=== PATIENT | female | born 1970 | race Two or more races ===

== ENCOUNTER → 2016-12-10 | Outpatient (CLI) | payer MEDICARE ==
[2016-12-10 09:57] LABS: MEAN CORPUSCULAR HEMOGLOBIN 27.2 pg (27.0-33.0); MEAN CORPUSCULAR HGB CONC 33.2 g/dl (32.0-36.5); WHITE BLOOD COUNT 9.8 K/mm3 (4.0-10.0)
[2016-12-10 10:39] LABS: ALBUMIN 3.7 GM/DL (3.2-5.2); ALKALINE PHOSPHATASE 102 U/L (45-117); ALT/SGPT 22 U/L (12-78); ANION GAP 8 MEQ/L (8-16); AST/SGOT 13 U/L (15-37); BILIRUBIN,TOTAL 0.2 MG/DL (0.2-1.0); BLOOD UREA NITROGEN 18 MG/DL (7-18); CALCIUM LEVEL 9.2 MG/DL (8.5-10.1); CARBON DIOXIDE LEVEL 26 MEQ/L (21-32); CHLORIDE LEVEL 105 MEQ/L (98-107); CHOLESTEROL LEVEL 151 MG/DL (<200); GLOMERULAR FILTRATION RATE > 60.0 (>58); GLUCOSE, FASTING 111 MG/DL (70-105); SODIUM LEVEL 139 MEQ/L (136-145); TOTAL PROTEIN 7.4 GM/DL (6.4-8.2); TRIGLYCERIDES LEVEL 240 MG/DL (<150)
== END ==
LOC: M LAB 08:47
PROVIDERS: ATTEND Nurse Practitioner Adult Health
DX: Z00.00 Encounter for general adult medical examination without abnormal findings (principal); E78.2 Mixed hyperlipidemia; E11.9 Type 2 diabetes mellitus without complications

== ENCOUNTER → 2017-04-14 | Outpatient (REF) | payer MEDICARE, MEDICAID ==
[2017-04-14 12:22] LABS: ALBUMIN 3.8 GM/DL (3.2-5.2); ALBUMIN/GLOBULIN RATIO 1.09 (1.00-1.93); ALKALINE PHOSPHATASE 92 U/L (45-117); ALT/SGPT 19 U/L (12-78); ANION GAP 6 MEQ/L (8-16); AST/SGOT 17 U/L (7-37); BILIRUBIN,TOTAL 0.2 MG/DL (0.2-1.0); BLOOD UREA NITROGEN 12 MG/DL (7-18); CALCIUM LEVEL 8.8 MG/DL (8.5-10.1); CARBON DIOXIDE LEVEL 28 MEQ/L (21-32); CHLORIDE LEVEL 106 MEQ/L (98-107); CREATININE FOR GFR 0.72 MG/DL (0.55-1.02); GLOMERULAR FILTRATION RATE > 60.0 (>58); GLUCOSE, FASTING 92 MG/DL (70-105); POTASSIUM SERUM 4.6 MEQ/L (3.5-5.1); SODIUM LEVEL 140 MEQ/L (136-145); TOTAL PROTEIN 7.3 GM/DL (6.4-8.2)
== END ==
LOC: M SFHCPLAZ 08:01
PROVIDERS: ATTEND Nurse Practitioner Adult Health
DX: E11.9 Type 2 diabetes mellitus without complications (principal); E55.9 Vitamin D deficiency, unspecified

== ENCOUNTER → 2017-07-20 | Outpatient (REF) | payer MEDICARE, MEDICAID ==
[2017-07-20 13:17] LABS: HEMATOCRIT 40.3 % (36.0-47.0); HEMOGLOBIN 12.9 g/dl (12.0-16.0); MEAN CORPUSCULAR HEMOGLOBIN 26.3 pg (27.0-33.0); MEAN CORPUSCULAR VOLUME 82.1 fl (80.0-96.0); PLATELET COUNT, AUTOMATED 520 10^3/uL (150-450); RED BLOOD COUNT 4.91 10^6/uL (4.00-5.40); RED CELL DISTRIBUTION WIDTH 13.8 % (11.5-14.5)
[2017-07-20 13:49] LABS: ALBUMIN/GLOBULIN RATIO 1.08 (1.00-1.93); ALKALINE PHOSPHATASE 116 U/L (45-117); ALT/SGPT 22 U/L (12-78); ANION GAP 8 MEQ/L (8-16); AST/SGOT 18 U/L (7-37); BILIRUBIN,TOTAL 0.2 MG/DL (0.2-1.0); BLOOD UREA NITROGEN 9 MG/DL (7-18); CALCIUM LEVEL 9.4 MG/DL (8.5-10.1); CARBON DIOXIDE LEVEL 27 MEQ/L (21-32); CHLORIDE LEVEL 104 MEQ/L (98-107); CHOLESTEROL LEVEL 145 MG/DL (<200); CHOLESTEROL RISK RATIO 2.959 (<5); GLOMERULAR FILTRATION RATE > 60.0 (>58); GLUCOSE, FASTING 98 MG/DL (70-100); HDL CHOLESTEROL 49 MG/DL (>40); IRON (FE) 56 UG/DL (50-170); LDL CHOLESTEROL 63.8 MG/DL (<100); NON-HDL-C 96 MG/DL; POTASSIUM SERUM 4.8 MEQ/L (3.5-5.1); SODIUM LEVEL 139 MEQ/L (136-145); TOTAL 25(OH) VITAMIN D 34.6 NG/ML (30.0-100.0); TOTAL IRON BINDING CAPACITY 374 UG/DL (250-450); TOTAL PROTEIN 7.7 GM/DL (6.4-8.2); TRIGLYCERIDES LEVEL 161 MG/DL (<150)
[2017-07-20 13:50] LABS: VITAMIN B12 LEVEL 288 PG/ML (247-911)
[2017-07-20 13:51] LABS: ESTIMATED AVERAGE GLUCOSE 157 MG/DL (60-110); HEMOGLOBIN A1c 7.1 %
== END ==
LOC: M SFHCPLAZ 11:14
DX: I10 Essential (primary) hypertension (principal); E11.9 Type 2 diabetes mellitus without complications; E55.9 Vitamin D deficiency, unspecified; E78.2 Mixed hyperlipidemia; Z98.890 Other specified postprocedural states
CPT/HCPCS: 83550

== ENCOUNTER 2017-08-06 12:30 | Inpatient (IN) | payer MEDICARE, MEDICAID ==
[2017-08-06 13:07] LABS: HEMOGLOBIN 12.4 g/dl (12.0-15.5); MEAN CORPUSCULAR HEMOGLOBIN 26.4 pg (27.0-33.0); MEAN CORPUSCULAR HGB CONC 31.8 g/dl (32.0-36.5); PLATELET COUNT, AUTOMATED 445 10^3/uL (150-450); RED CELL DISTRIBUTION WIDTH 14.3 % (11.5-14.5); WHITE BLOOD COUNT 14.3 10^3/uL (4.0-10.0)
[2017-08-06 13:24] LABS: AMPHETAMINES LEVEL URINE NEGATIVE (NEGATIVE); BARBITURATES URINE NEGATIVE (NEGATIVE); BENZODIAZEPINES URINE NEGATIVE (NEGATIVE); CANNABINOIDS URINE NEGATIVE (NEGATIVE); COCAINE METABOLITE URINE NEGATIVE (NEGATIVE); METHADONE URINE NEGATIVE (NEGATIVE); OPIATES URINE NEGATIVE (NEGATIVE); PHENCYCLIDINE URINE NEGATIVE (NEGATIVE)
[2017-08-06 13:31] LABS: CONTROL LINE HCG INT CTR LINE PRESENT; HCG, SERUM QUALITATIVE NEGATIVE (NEGATIVE)
[2017-08-06 13:48] LABS: ALBUMIN 3.9 GM/DL (3.2-5.2); ALKALINE PHOSPHATASE 101 U/L (45-117); ALT/SGPT 21 U/L (12-78); ANION GAP 6 MEQ/L (8-16); AST/SGOT 18 U/L (7-37); BILIRUBIN,DIRECT < 0.1 MG/DL (0.0-0.2); BILIRUBIN,TOTAL 0.3 MG/DL (0.2-1.0); BLOOD UREA NITROGEN 10 MG/DL (7-18); CALCIUM LEVEL 9.1 MG/DL (8.5-10.1); CARBON DIOXIDE LEVEL 28 MEQ/L (21-32); CHLORIDE LEVEL 104 MEQ/L (98-107); CREATININE FOR GFR 0.81 MG/DL (0.55-1.30); ETHYL ALCOHOL (ETHANOL) < 0.003 % (0.000-0.010); GLOMERULAR FILTRATION RATE > 60.0 (>58); GLUCOSE, FASTING 100 MG/DL (70-100); SALICYLATE LEVEL 1.8 MG/DL (5.0-30.0); SODIUM LEVEL 138 MEQ/L (136-145); THYROID STIMULATING HORMONE 0.892 uIU/ML (0.358-3.740); TOTAL PROTEIN 7.8 GM/DL (6.4-8.2)
[2017-08-06 14:18] LABS: ACETAMINOPHEN LEVEL < 2.0 UG/ML (10.0-30.0)
[2017-08-06] MEDS ORDERED: MAALOX 30 ML SUSP *UDC PO (16:00)
[2017-08-06] MEDS ORDERED: traZODone 50 MG TAB PO (16:00)
[2017-08-06] MEDS ORDERED: MOM 30ML SUSPENSION UDC PO (16:00)
[2017-08-06] MEDS: GABAPENTIN 300 MG CAP PO (21:15)
[2017-08-06] MEDS: SIMVASTATIN 20 MG TAB PO (21:15)
[2017-08-06] MEDS: FLUoxetine 20 MG CAP PO (21:15)
[2017-08-06] MEDS: metFORMIN (GLUCOPHAGE) 500 MG TAB PO (21:16)
[2017-08-06] MEDS: ACETAMINOPHEN TAB 650MG DOSE (2X325MG) PO (21:23)
[2017-08-07] MEDS: ASPIRIN 81 MG ENTERIC TAB PO (08:55)
[2017-08-07] MEDS: LISINOPRIL 5 MG TAB PO (08:55)
[2017-08-07] MEDS: metFORMIN (GLUCOPHAGE) 500 MG TAB PO ×2 (08:55→20:26)
[2017-08-07] MEDS: GABAPENTIN 300 MG CAP PO ×3 (08:56→20:25)
[2017-08-07] MEDS: FLUoxetine 20 MG CAP PO (08:56)
[2017-08-07] MEDS: ACETAMINOPHEN TAB 650MG DOSE (2X325MG) PO (08:57)
[2017-08-07] MEDS: busPIRone 10 MG TAB PO ×2 (15:38→20:26)
[2017-08-07] MEDS: DICLOFENAC EPOLAMINE 1.3 % PATCH TOP (17:04)
[2017-08-07 17:33] LABS: BEDSIDE GLUCOSE 86 MG/DL (70-105)
[2017-08-07] MEDS: SIMVASTATIN 20 MG TAB PO (20:25)
[2017-08-07] MEDS ORDERED: ALBUTEROL 90 MCG/ACT 8GM HFA INHALER INH (22:15)
[2017-08-08 06:35] LABS: BEDSIDE GLUCOSE 74 MG/DL (70-105)
[2017-08-08] MEDS: LISINOPRIL 5 MG TAB PO (08:40)
[2017-08-08] MEDS: GABAPENTIN 300 MG CAP PO ×3 (08:40→20:56)
[2017-08-08] MEDS: FLUoxetine 20 MG CAP PO (08:40)
[2017-08-08] MEDS: metFORMIN (GLUCOPHAGE) 500 MG TAB PO ×2 (08:40→17:05)
[2017-08-08] MEDS: busPIRone 10 MG TAB PO ×3 (08:40→20:56)
[2017-08-08] MEDS: ASPIRIN 81 MG ENTERIC TAB PO (08:40)
[2017-08-08] MEDS: DICLOFENAC EPOLAMINE 1.3 % PATCH TOP ×2 (08:41→17:05)
[2017-08-08 17:15] LABS: BEDSIDE GLUCOSE 120 MG/DL (70-105)
[2017-08-08] MEDS: SIMVASTATIN 20 MG TAB PO (20:56)
[2017-08-08] MEDS: ACETAMINOPHEN TAB 650MG DOSE (2X325MG) PO (22:44)
[2017-08-09] MEDS: DICLOFENAC EPOLAMINE 1.3 % PATCH TOP ×2 (06:00→18:22)
[2017-08-09 06:23] LABS: BEDSIDE GLUCOSE 85 MG/DL (70-105)
[2017-08-09] MEDS: GABAPENTIN 300 MG CAP PO ×3 (08:49→21:19)
[2017-08-09] MEDS: LISINOPRIL 5 MG TAB PO (08:49)
[2017-08-09] MEDS: FLUoxetine 20 MG CAP PO (08:49)
[2017-08-09] MEDS: busPIRone 10 MG TAB PO ×3 (08:50→21:19)
[2017-08-09] MEDS: metFORMIN (GLUCOPHAGE) 500 MG TAB PO ×2 (08:50→17:07)
[2017-08-09] MEDS: ASPIRIN 81 MG ENTERIC TAB PO (08:50)
[2017-08-09 17:17] LABS: BEDSIDE GLUCOSE 119 MG/DL (70-105)
[2017-08-09] MEDS: SIMVASTATIN 20 MG TAB PO (21:20)
[2017-08-10] MEDS: DICLOFENAC EPOLAMINE 1.3 % PATCH TOP ×3 (06:00→17:09)
[2017-08-10 06:54] LABS: BEDSIDE GLUCOSE 86 MG/DL (70-105)
[2017-08-10] MEDS: ASPIRIN 81 MG ENTERIC TAB PO (08:07)
[2017-08-10] MEDS: GABAPENTIN 300 MG CAP PO ×3 (08:07→22:30)
[2017-08-10] MEDS: metFORMIN (GLUCOPHAGE) 500 MG TAB PO ×2 (08:07→17:09)
[2017-08-10] MEDS: FLUoxetine 20 MG CAP PO (08:07)
[2017-08-10] MEDS: busPIRone 10 MG TAB PO ×3 (08:07→22:30)
[2017-08-10] MEDS: LISINOPRIL 5 MG TAB PO (08:07)
[2017-08-10] MEDS: ACETAMINOPHEN TAB 650MG DOSE (2X325MG) PO ×2 (11:48→22:32)
[2017-08-10] MEDS ORDERED: LORazepam 1 MG TAB PO (16:00)
[2017-08-10 17:14] LABS: BEDSIDE GLUCOSE 107 MG/DL (70-105)
[2017-08-10] MEDS: SIMVASTATIN 20 MG TAB PO (22:30)
[2017-08-11] MEDS: DICLOFENAC EPOLAMINE 1.3 % PATCH TOP (06:00)
[2017-08-11 06:45] LABS: BEDSIDE GLUCOSE 84 MG/DL (70-105)
[2017-08-11] MEDS: busPIRone 10 MG TAB PO (08:33)
[2017-08-11] MEDS: metFORMIN (GLUCOPHAGE) 500 MG TAB PO (08:33)
[2017-08-11] MEDS: GABAPENTIN 300 MG CAP PO (08:33)
[2017-08-11] MEDS: FLUoxetine 20 MG CAP PO (08:33)
[2017-08-11] MEDS: ASPIRIN 81 MG ENTERIC TAB PO (08:33)
[2017-08-11] MEDS: LISINOPRIL 5 MG TAB PO (08:34)
== END 2017-08-11 13:00 | disposition home or self-care (01) | DRG 882 ==
LOC: M ED 12:30 → M ED INP 15:50 → M PSY 16:32
DX: F43.11 Post-traumatic stress disorder, acute (principal); F19.10 Other psychoactive substance abuse, uncomplicated; E11.9 Type 2 diabetes mellitus without complications; I10 Essential (primary) hypertension; E78.00 Pure hypercholesterolemia, unspecified; Z79.82 Long term (current) use of aspirin; Z79.84 Long term (current) use of oral hypoglycemic drugs; Z79.899 Other long term (current) drug therapy; Z91.048 Other nonmedicinal substance allergy status; Z88.5 Allergy status to narcotic agent; Z88.8 Allergy status to other drugs, medicaments and biological substances; Z91.012 Allergy to eggs; Z87.891 Personal history of nicotine dependence; Z90.710 Acquired absence of both cervix and uterus; Z98.84 Bariatric surgery status; Z98.51 Tubal ligation status

== ENCOUNTER → 2017-08-20 | Outpatient (CLI) | payer MEDICARE, MEDICAID ==
[2017-08-20 11:01] LABS: ANION GAP 8 MEQ/L (8-16); BLOOD UREA NITROGEN 10 MG/DL (7-18); CALCIUM LEVEL 9.6 MG/DL (8.5-10.1); CARBON DIOXIDE LEVEL 27 MEQ/L (21-32); CHLORIDE LEVEL 106 MEQ/L (98-107); CREATININE FOR GFR 0.79 MG/DL (0.55-1.30); GLOMERULAR FILTRATION RATE > 60.0 (>58); GLUCOSE, FASTING 82 MG/DL (70-100); POTASSIUM SERUM 4.6 MEQ/L (3.5-5.1); SODIUM LEVEL 141 MEQ/L (136-145)
== END ==
LOC: M LAB 09:35
DX: M75.41 Impingement syndrome of right shoulder (principal)
CPT/HCPCS: 93005

== ENCOUNTER → 2017-12-07 | Outpatient (CLI) | payer MEDICARE, MEDICAID ==
[2017-12-07 17:31] LABS: ANION GAP 9 MEQ/L (8-16); BLOOD UREA NITROGEN 10 MG/DL (7-18); CALCIUM LEVEL 8.7 MG/DL (8.5-10.1); CARBON DIOXIDE LEVEL 24 MEQ/L (21-32); CHLORIDE LEVEL 109 MEQ/L (98-107); CREATININE FOR GFR 0.79 MG/DL (0.55-1.30); GLOMERULAR FILTRATION RATE > 60.0 (>58); GLUCOSE, FASTING 109 MG/DL (70-100); POTASSIUM SERUM 4.1 MEQ/L (3.5-5.1); SODIUM LEVEL 142 MEQ/L (136-145)
== END ==
LOC: M LAB 16:10
DX: Z01.812 Encounter for preprocedural laboratory examination (principal)
CPT/HCPCS: 80048

== ENCOUNTER → 2018-02-08 | Outpatient (CLI) | payer MEDICARE, MEDICAID ==
[2018-02-08 16:31] LABS: HEMATOCRIT 37.6 % (36.0-47.0); MEAN CORPUSCULAR HEMOGLOBIN 27.1 pg (27.0-33.0); MEAN CORPUSCULAR HGB CONC 31.9 g/dl (32.0-36.5); MEAN CORPUSCULAR VOLUME 85.1 fl (80.0-96.0); PLATELET COUNT, AUTOMATED 478 10^3/uL (150-450); RED BLOOD COUNT 4.42 10^6/uL (4.00-5.40); RED CELL DISTRIBUTION WIDTH 14.2 % (11.5-14.5); WHITE BLOOD COUNT 11.9 10^3/uL (4.0-10.0)
[2018-02-08 17:06] LABS: ALBUMIN 3.8 GM/DL (3.2-5.2); ALBUMIN/GLOBULIN RATIO 1.19 (1.00-1.93); ALKALINE PHOSPHATASE 104 U/L (45-117); ALT/SGPT 20 U/L (12-78); ANION GAP 7 MEQ/L (8-16); AST/SGOT 18 U/L (7-37); BILIRUBIN,TOTAL 0.2 MG/DL (0.2-1.0); BLOOD UREA NITROGEN 10 MG/DL (7-18); CALCIUM LEVEL 9.2 MG/DL (8.5-10.1); CARBON DIOXIDE LEVEL 28 MEQ/L (21-32); CHLORIDE LEVEL 104 MEQ/L (98-107); CHOLESTEROL LEVEL 138 MG/DL (<200); CHOLESTEROL RISK RATIO 2.936 (<5); FERRITIN 12 NG/ML (8-252); GLOMERULAR FILTRATION RATE > 60.0 (>58); GLUCOSE, FASTING 76 MG/DL (70-100); HDL CHOLESTEROL 47 MG/DL (>40); IRON (FE) 61 UG/DL (50-170); LDL CHOLESTEROL 46 MG/DL (<100); NON-HDL-C 91 MG/DL; PERCENT SATURATION 19.8 % (13.2-45.0); POTASSIUM SERUM 4.5 MEQ/L (3.5-5.1); SODIUM LEVEL 139 MEQ/L (136-145); TOTAL IRON BINDING CAPACITY 308 UG/DL (250-450); TRIGLYCERIDES LEVEL 224 MG/DL (<150)
[2018-02-08 17:13] LABS: CREATININE, URINE 51.7 MG/DL
[2018-02-08 17:18] LABS: ESTIMATED AVERAGE GLUCOSE 140 MG/DL (60-110); HEMOGLOBIN A1c 6.5 %; MAU/CREAT RATIO 42.6 MCG/MG (0.0-30.0)
== END ==
LOC: M LAB 15:41
DX: Z00.00 Encounter for general adult medical examination without abnormal findings (principal); Z98.890 Other specified postprocedural states; E11.9 Type 2 diabetes mellitus without complications
CPT/HCPCS: 83550

== ENCOUNTER → 2018-02-09 | Outpatient (REF) | payer MEDICARE, MEDICAID ==
[2018-02-09 16:34] LABS: APPEARANCE, URINE CLOUDY (CLEAR); BACTERIA, URINE AUTO 1+ (NEGATIVE); BILIRUBIN, URINE AUTO NEGATIVE (NEGATIVE); BLOOD, URINE BLOOD 1+ (NEGATIVE); COLOR, URINE YELLOW (YELLOW); GLUCOSE, URINE (UA) AUTO NEGATIVE (NEGATIVE); KETONE, URINE AUTO NEGATIVE (NEGATIVE); LEUKOCYTE ESTERASE, URINE AUTO 3+ (NEGATIVE); MUCUS, URINE SMALL (NEGATIVE); NITRITE, URINE AUTO NEGATIVE (NEGATIVE); PROTEIN, URINE AUTO NEGATIVE (NEGATIVE); RBC, URINE AUTO 120 /HPF (0-3); SPECIFIC GRAVITY URINE AUTO 1.014 (1.002-1.035); SQUAMOUS EPITHELIAL CELL UR AU 10 /HPF (0-6); UROBILINOGEN, URINE AUTO 0.2 mg/dL (0.0-2.0); WBC, URINE AUTO TNTC /HPF (0-3); YEAST LIKE CELL URINE AUTO SMALL
== END ==
LOC: M SFHCPLAZ 15:46
DX: R30.0 Dysuria (principal); F43.10 Post-traumatic stress disorder, unspecified; F32.89 Other specified depressive episodes
CPT/HCPCS: 81001

== ENCOUNTER 2018-03-09 18:51 | Emergency (ER) | payer MEDICARE, MEDICAID ==
[2018-03-09] MEDS: NS 1,000 ML IV ×2 (19:28)
[2018-03-09] MEDS: ONDANSETRON 4MG/2ML VIAL (J2405) IV ×2 (19:28)
[2018-03-09] MEDS: MORPHINE 2 MG/ML 1ML SYRINGE (J2270) IV ×4 (19:30→20:05)
[2018-03-09 19:37] LABS: HEMATOCRIT 34.5 % (36.0-47.0); HEMOGLOBIN 11.2 g/dl (12.0-15.5); MEAN CORPUSCULAR HEMOGLOBIN 26.7 pg (27.0-33.0); MEAN CORPUSCULAR HGB CONC 32.5 g/dl (32.0-36.5); MEAN CORPUSCULAR VOLUME 82.1 fl (80.0-96.0); PLATELET COUNT, AUTOMATED 436 10^3/uL (150-450); RED CELL DISTRIBUTION WIDTH 14.2 % (11.5-14.5); WHITE BLOOD COUNT 13.7 10^3/uL (4.0-10.0)
[2018-03-09 19:42] LABS: ADD MANUAL DIFFER YES; DIFF SLIDE NUMBER 340; POSITIVE DIFF POS FLAG
[2018-03-09 19:54] LABS: ALBUMIN 3.5 GM/DL (3.2-5.2); ALBUMIN/GLOBULIN RATIO 1.06 (1.00-1.93); ALKALINE PHOSPHATASE 100 U/L (45-117); ALT/SGPT 22 U/L (12-78); ANION GAP 8 MEQ/L (8-16); AST/SGOT 16 U/L (7-37); BILIRUBIN,DIRECT < 0.1 MG/DL (0.0-0.2); BILIRUBIN,TOTAL 0.2 MG/DL (0.2-1.0); BLOOD UREA NITROGEN 9 MG/DL (7-18); CALCIUM LEVEL 8.7 MG/DL (8.5-10.1); CARBON DIOXIDE LEVEL 26 MEQ/L (21-32); CHLORIDE LEVEL 106 MEQ/L (98-107); CREATININE FOR GFR 0.74 MG/DL (0.55-1.30); GLOMERULAR FILTRATION RATE > 60.0 (>58); GLUCOSE, FASTING 95 MG/DL (70-100); LIPASE 286 U/L (73-393); SODIUM LEVEL 140 MEQ/L (136-145); TOTAL PROTEIN 6.8 GM/DL (6.4-8.2)
[2018-03-09 19:55] LABS: LACTIC ACID SEPSIS PROTOCOL 1.1 MMOL/L (0.4-2.0)
[2018-03-09 20:10] LABS: ATYPICAL LYMPH 10 % (0-5); EOSINOPHILS 2 % (0-5); LYMPHOCYTES 27 % (16-52); MONOCYTES 5 % (0-8); NEUTROPHILS 56 % (35-75); PLATELET ESTIMATE INCREASED (NORMAL)
[2018-03-09] MEDS ORDERED: GASTROGRAFIN SOLUTION 30ML (Q9963) As Ordered ×2 (21:09)
[2018-03-09] MEDS ORDERED: ISOVUE-370 76% 100ML VIAL (Q9967) As Ordered ×2 (23:07)
== END 2018-03-09 23:57 | disposition home or self-care (01) ==
LOC: M ED 23:57
DX: R10.11 Right upper quadrant pain (principal); K76.9 Liver disease, unspecified; E11.9 Type 2 diabetes mellitus without complications; F33.9 Major depressive disorder, recurrent, unspecified; F41.9 Anxiety disorder, unspecified; Z87.891 Personal history of nicotine dependence; Z83.3 Family history of diabetes mellitus; Z98.84 Bariatric surgery status; Z88.5 Allergy status to narcotic agent; Z88.8 Allergy status to other drugs, medicaments and biological substances; Z91.048 Other nonmedicinal substance allergy status; Z79.82 Long term (current) use of aspirin; Z79.899 Other long term (current) drug therapy
CPT/HCPCS: J2405

== ENCOUNTER 2018-03-14 12:00 | Emergency (ER) | payer MEDICARE, MEDICAID | END 2018-03-14 14:00 | disposition home or self-care (01) | LOC: M ED 12:00 | DX: R10.11 Right upper quadrant pain (principal); E11.9 Type 2 diabetes mellitus without complications; I10 Essential (primary) hypertension; E78.5 Hyperlipidemia, unspecified | CPT/HCPCS: 76705 ==

== ENCOUNTER 2018-04-15 09:20 | Day surgery (SDC) | payer MEDICARE, MEDICAID ==
[~2018-04-15] VITALS: Ht 165.1 cm; Wt 74.8 kg
[~2018-04-15 09:20] MED LIST: ALBU1.25 INH; ASPI1TAB15 PO; ASPI81CH32 PO; AZEL1SPR3 INH; BUSP10TA PO; DICL13PA TOP; FLUO40CA PO; HYDR-3363 PO; HYDR-643 PO; LISI-542 PO; METF-839 PO; METF10004 PO; MULT1TAB18 PO; NEUR300C PO; PROPOFOL 200 MG/20 ML VIAL As Ordered ONE; SIMV20TA2 PO; VENTAER INH
[2018-04-15] MEDS ORDERED: NS 1,000 ML IV ONE (09:30)
--- NOTE | 2018-04-15 11:26 | ROOR ---
Patient Name: Neyda Garrison Procedure Date: 04/15/2018 10:02 AM Date of : 1970 Age: 47 Room: [facility] Gender: Female Note Status: Finalized Procedure: Upper GI endoscopy Indications: Dyspepsia Providers: Arvind Kim MD Referring MD: Devi Jarrell NP Requesting Provider: Medicines: Monitored Anesthesia Care Complications: No immediate complications. Estimated blood loss: None. Procedure: Pre-Anesthesia Assessment: - Prior to the procedure, a History and Physical was performed, and patient medications and allergies were reviewed. The patient is competent. The risks and benefits of the procedure and the sedation options and risks were discussed with the patient. All questions were answered and informed consent was obtained. Patient identification and proposed procedure were verified by the physician, the nurse and the anesthesiologist in the procedure room. Mental Status Examination: alert and oriented. Airway Examination: normal oropharyngeal airway and neck mobility. Respiratory Examination: clear to auscultation. CV Examination: normal. Prophylactic Antibiotics: The patient does not require prophylactic antibiotics. Prior Anticoagulants: The patient has taken no previous anticoagulant or antiplatelet agents. ASA Grade Assessment: III - A patient with severe systemic disease. After reviewing the risks and benefits, the patient was deemed in satisfactory condition to undergo the procedure. The anesthesia plan was to use monitored anesthesia care (MAC). Immediately prior to administration of medications, the patient was re-assessed for adequacy to receive sedatives. The heart rate, respiratory rate, oxygen saturations, blood pressure, adequacy of pulmonary ventilation, and response to care were monitored throughout the procedure. The physical status of the patient was re-assessed after the procedure. The Endoscope was introduced through the mouth, and advanced to the second part of duodenum. The upper GI endoscopy was accomplished without difficulty. The patient tolerated the procedure well. Findings: The examined esophagus was normal. The Z-line was regular and was found in the distal esophagus. 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 A gastric pouch with a small size was found. The staple line appeared intact. The gastrojejunal anastomosis was characterized by erythema, inflammation and an intact staple line. This was traversed. The ulofzawl-gl-xtsuhlo limb was not examined as it could not be found. Biopsies were taken with a cold forceps for Helicobacter pylori testing. Verification of patient identification for the specimen was done by the physician and nurse using the patient's name, date and medical record number. Estimated blood loss was minimal. The examined jejunum was normal. Biopsies for histology were taken with a cold forceps for evaluation of celiac disease. Impression: - Normal esophagus. - Z-line regular, in the distal esophagus. - Gastric bypass with a small-sized pouch and intact staple line. Gastrojejunal anastomosis characterized by erythema, inflammation and an intact staple line. Biopsied. - Normal examined jejunum. Biopsied. Recommendation: - Patient has a contact number available for emergencies. The signs and symptoms of potential delayed complications were discussed with the patient. Return to normal activities tomorrow. Written discharge instructions were provided to the patient. - Low residue diet. - Continue present medications. 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 - Await pathology results. - Return to GI clinic in [facility] (address [address], [address], [place] [address]) in 4 -- 6 weeks. Please call GI clinic @ [phone] for apppointment date and time. - Return to primary care physician. Arvind Kim MD Arvind Kim MD 04/15/2018 11:26:01 AM This report has been signed electronically. Number of Addenda: 0 Note Initiated On: 04/15/2018 10:02 AM Estimated Blood Loss: Estimated blood loss was minimal.
[2018-04-15 11:35] VITALS: BP 107/78
--- NOTE | 2018-04-15 12:03 | ROOR ---
Patient Name: Neyda Garrison Procedure Date: 04/15/2018 10:31 AM Date of : 1970 Age: 47 Room: [facility] Gender: Female Note Status: Finalized Procedure: Colonoscopy Indications: Evaluation on imaging study of clinically significant abnormality, Abnormal CT of the GI tract Providers: Arvind Kim MD Referring MD: Devi Jarrell NP Requesting Provider: Medicines: Monitored Anesthesia Care Complications: No immediate complications. Procedure: Pre-Anesthesia Assessment: - Prior to the procedure, a History and Physical was performed, and patient medications and allergies were reviewed. The patient is competent. The risks and benefits of the procedure and the sedation options and risks were discussed with the patient. All questions were answered and informed consent was obtained. Patient identification and proposed procedure were verified by the physician, the nurse and the anesthesiologist in the procedure room. Mental Status Examination: alert and oriented. Airway Examination: normal oropharyngeal airway and neck mobility. Respiratory Examination: clear to auscultation. CV Examination: normal. Prophylactic Antibiotics: The patient does not require prophylactic antibiotics. Prior Anticoagulants: The patient has taken no previous anticoagulant or antiplatelet agents. ASA Grade Assessment: III - A patient with severe systemic disease. After reviewing the risks and benefits, the patient was deemed in satisfactory condition to undergo the procedure. The anesthesia plan was to use monitored anesthesia care (MAC). Immediately prior to administration of medications, the patient was re-assessed for adequacy to receive sedatives. The heart rate, respiratory rate, oxygen saturations, blood pressure, adequacy of pulmonary ventilation, and response to care were monitored throughout the procedure. The physical status of the patient was re-assessed after the procedure. The Colonoscope was introduced through the anus and advanced to the terminal ileum, with identification of the appendiceal orifice and IC valve. The colonoscopy was performed without difficulty. The patient tolerated the procedure well. The quality of the bowel preparation was good. The terminal ileum, ileocecal valve, appendiceal orifice, and rectum were photographed. Scope insertion time was 3 minutes. Scope withdrawal time was 9 minutes. The total duration of the procedure was 12 minutes. Findings: The perianal exam findings include mild rectal prolapse. The terminal ileum appeared normal. A moderate amount of semi-liquid stool was found from rectum to descending colon, making visualization difficult. Lavage of the area was performed using a large amount of sterile water, resulting in clearance with good visualization. Non-bleeding external and internal hemorrhoids were found during retroflexion. The hemorrhoids were medium-sized. Impression: - Mild rectal prolapse. found on perianal exam. - The examined portion of the ileum was normal. - Stool from rectum to descending colon. - Non-bleeding external and internal hemorrhoids. - No specimens collected. Recommendation: - Patient has a contact number available for emergencies. The signs and symptoms of potential delayed complications were discussed with the patient. Return to normal activities tomorrow. Written discharge instructions were provided to the patient. - Resume previous diet. - Continue present medications. - Repeat colonoscopy in 5-10 years for screening purposes. - Return to GI clinic in [facility] (address [address], [address] [address]) in 4 -- 6 weeks. Please call GI clinic @ [phone] for apppointment date and time. - Return to primary care physician. Arvind Kim MD Arvind Kim MD 04/15/2018 12:02:55 PM This report has been signed electronically. Number of Addenda: 0 Note Initiated On: 04/15/2018 10:31 AM Estimated Blood Loss: Estimated blood loss was minimal.
== END 2018-04-15 11:45 | disposition home or self-care (01) ==
LOC: M OPP 09:20
PROVIDERS: ATTEND Internal Medicine Gastroenterology
DX: R93.3 Abnormal findings on diagnostic imaging of other parts of digestive tract (principal); K64.8 Other hemorrhoids; R10.13 Epigastric pain; Z98.84 Bariatric surgery status; E11.9 Type 2 diabetes mellitus without complications; Z79.4 Long term (current) use of insulin; Z79.82 Long term (current) use of aspirin; Z79.899 Other long term (current) drug therapy; Z88.8 Allergy status to other drugs, medicaments and biological substances; Z91.048 Other nonmedicinal substance allergy status; Z88.5 Allergy status to narcotic agent; Z80.1 Family history of malignant neoplasm of trachea, bronchus and lung; Z80.0 Family history of malignant neoplasm of digestive organs

== ENCOUNTER → 2018-05-30 | Outpatient (CLI) | payer MEDICARE, MEDICAID ==
[~2018-05-30] MED LIST changes: -PROPOFOL 200 MG/20 ML VIAL As Ordered ONE
--- NOTE | 2018-05-30 12:37 | REP ---
MR LUMBAR SPINE WITHOUT CONTRAST: HISTORY: Back pain. Slight decreased signal intensity on T2-weighted images is present in the L4-5 and L5-S1 intervertebral discs. This represents disc degeneration. There is no disc bulge or herniation at the L1-2 through L3-4 and L5-S1 levels. The nerves exit the neural foramina without compression A diffuse disc bulge is present at the L4-5 level. There is minimal compression of the thecal sac. There is hypertrophy of the posterior articulating facets. The L4 nerves exit the neural foramina without compression. The conus medullaris is normal in appearance terminating at the level of the L1-2 intervertebral disc. Normal signal intensity is present in the lumbar vertebral bodies. IMPRESSION: 1. Diffuse disc bulge at the L4-5 level with minimal thecal sac compression. Electronically Signed by Tanner Bazzi MD 05/30/2018 12:40 P
== END ==
LOC: M RAD 10:34
PROVIDERS: ATTEND Physician Assistant
DX: M54.5 Low back pain (principal)

== ENCOUNTER → 2018-06-27 | Outpatient (REF) | payer MEDICARE, MEDICAID ==
[2018-06-27 14:03] LABS: ALBUMIN 3.7 GM/DL (3.2-5.2); ALT/SGPT 28 U/L (12-78); BILIRUBIN,TOTAL 0.3 MG/DL (0.2-1.0); BLOOD UREA NITROGEN 16 MG/DL (7-18); CALCIUM LEVEL 8.9 MG/DL (8.5-10.1); CARBON DIOXIDE LEVEL 27 MEQ/L (21-32); CHLORIDE LEVEL 106 MEQ/L (98-107); CREATININE FOR GFR 0.78 MG/DL (0.55-1.30); GLOMERULAR FILTRATION RATE > 60.0 (>58); GLUCOSE, FASTING 74 MG/DL (70-100); POTASSIUM SERUM 4.4 MEQ/L (3.5-5.1); SODIUM LEVEL 139 MEQ/L (136-145); TOTAL PROTEIN 7.1 GM/DL (6.4-8.2)
[2018-06-27 14:53] LABS: HEMOGLOBIN A1c 6.3 %
== END ==
LOC: M SFHCPLAZ 10:55
PROVIDERS: ATTEND Nurse Practitioner Adult Health
DX: E11.9 Type 2 diabetes mellitus without complications (principal)
CPT/HCPCS: 80053; 83036; G0463

== ENCOUNTER → 2018-08-01 | Outpatient (REF) | payer MEDICARE, MEDICAID ==
[~2018-08-01] MED LIST changes: -ASPI81CH32 PO; +ASPI81CH33 PO; +D-101000 PO; +IRON27TA2 PO
[2018-08-01 14:49] LABS: FREE T4 0.95 NG/DL (0.76-1.46); RHEUMATOID FACTOR QUANT < 10.0 IU/ML (<15.0); TOTAL PROTEIN 6.8 GM/DL (6.4-8.2)
[2018-08-01 14:50] LABS: VITAMIN B12 LEVEL 865 PG/ML
[2018-08-01 14:51] LABS: FOLATE 20.4 NG/ML
[2018-08-01 15:09] LABS: HEMOGLOBIN A1c 6.5 %
[2018-08-02 09:33] LABS: DRVV SCREEN 36.1 SEC
[2018-08-02 09:51] LABS: PTT LUPUS TYPE ANTICOAG SCREEN 0.9 (0-1.2)
[2018-08-02 11:40] LABS: ALBUMIN 3.82 GM/DL (3.29-5.55); ALBUMIN % 56.2 % (55.8-66.1); ALPHA-1-GLOBULIN % 4.6 % (2.9-4.9); ALPHA-1-GLOBULINS 0.31 GM/DL (0.17-0.41); ALPHA-2-GLOBULINS 0.85 GM/DL (0.42-0.99); ALPHA-2-GLOBULINS % 12.5 % (7.1-11.8); BETA-1-GLOBULINS 0.44 GM/DL (0.28-0.60); BETA-1-GLOBULINS % 6.4 % (4.7-7.2); BETA-2-GLOBULINS 0.41 GM/DL (0.19-0.55); GAMMA GLOBULIN % 14.3 % (11.1-18.8); GAMMA GLOBULINS 0.97 GM/DL (0.65-1.58)
[2018-08-02 15:30] LABS: ANTINUCLEAR ANTIBODIES DIRECT Negative (Negative)
[2018-08-04 10:13] LABS: VITAMIN E(ALPHA TOCOPHEROL) 9.7 mg/L (7.0-25.1); VITAMIN E(GAMMA TOCOPHEROL) 1.1 mg/L (0.5-5.5)
[2018-08-05 14:12] LABS: VITAMIN B1 LEVEL WHOLE BLOOD 164.5 nmol/L (66.5-200.0); VITAMIN B6,PYRIDOXAL PHOSPHATE 9.9 ug/L (2.0-32.8)
== END ==
LOC: M LABNEURO 13:13
PROVIDERS: ATTEND Psychiatry & Neurology Neurology
DX: M54.5 Low back pain (principal); G62.9 Polyneuropathy, unspecified; E07.9 Disorder of thyroid, unspecified

== ENCOUNTER 2018-08-25 05:34 | Day surgery (SDC) | payer MEDICARE, MEDICAID ==
[~2018-08-25] VITALS: Ht 165.1 cm; Wt 76.7 kg
[2018-08-25] MEDS ORDERED: LIDOCAINE 1% MDV 20ML VIAL ONE (05:35)
[2018-08-25] MEDS ORDERED: LR 1,000 ML IV ONE (06:00)
[2018-08-25] MEDS ORDERED: BUPIVACAINE HCL 0.25% 30 ML VIAL As Ordered ONE (06:33)
[2018-08-25] MEDS ORDERED: fentaNYL 100 MCG/2 ML INJECTION (J3010) As Ordered ONE ×2 (06:33→08:04)
[2018-08-25] MEDS ORDERED: MIDAZOLAM INJ 2 MG/2 ML VIAL (J2250) As Ordered ONE ×2 (06:33→08:04)
[2018-08-25] MEDS ORDERED: LIDOCAINE W/EPINEPHRINE 1% 20ML VIAL As Ordered ONE (06:55)
[2018-08-25] MEDS ORDERED: EPINEPHrine 1MG/ML INJ 30ML MD-VIAL As Ordered ONE (06:55)
[2018-08-25] MEDS ORDERED: MULTCAP PO (06:57)
[2018-08-25] MEDS ORDERED: MIDAZOLAM INJ 2 MG/2 ML VIAL (J2250) IV ONE (07:45)
[2018-08-25] MEDS ORDERED: fentaNYL 100 MCG/2 ML INJECTION (J3010) IV ONE (07:45)
[2018-08-25] MEDS ORDERED: ROCURONIUM BROMIDE 50 MG/5 ML VIAL As Ordered ONE (08:04)
[2018-08-25] MEDS ORDERED: LIDOCAINE 2% INJ 100 MG/5 ML SDV (FOR ANES.) As Ordered ONE (08:04)
[2018-08-25] MEDS ORDERED: PROPOFOL 200 MG/20 ML VIAL As Ordered ONE (08:04)
[2018-08-25] MEDS ORDERED: ONDANSETRON 4MG/2ML VIAL (J2405) As Ordered ONE (08:04)
[2018-08-25] MEDS ORDERED: dexameTHASONE 4 MG/ML 1ML VIAL (J1100) As Ordered ONE (08:04)
[2018-08-25] MEDS ORDERED: NEOSTIGMINE 10 MG/10 ML VIAL (J2710) As Ordered ONE (08:51)
[2018-08-25] MEDS ORDERED: GLYCOPYRROLATE INJ 0.2 MG/ML 2 ML VIAL As Ordered ONE (08:51)
[2018-08-25] MEDS ORDERED: fentaNYL 100 MCG/2 ML INJECTION (J3010) IV PRN (10:15)
[2018-08-25] MEDS ORDERED: HYDROMORPHONE HCL 0.5 MG/ 0.5 ML SYRINGE (J1170 PER 1) IV PRN (10:15)
[2018-08-25] MEDS ORDERED: LR 1,000 ML IV SCH (10:15)
[2018-08-25] MEDS ORDERED: NORCO, ANEXSIA 5/325MG TABLET (HYDROcodone/ACETAMINOPHEN) PO PRN (10:15)
[2018-08-25 12:10] VITALS: BP 138/81
--- NOTE | 2018-08-25 16:02 | RO ---
DATE OF PROCEDURE: 08/25/2018 PREOPERATIVE DIAGNOSIS Right shoulder anterior instability. POSTOPERATIVE DIAGNOSIS 1. 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 OPERATIVE PROCEDURE 1. Right shoulder arthroscopic anterior labral repair. 2. Right shoulder chondroplasty of the glenoid. SURGEON: Parminder Snow MD MANAGER QUALITY: JASMIN Marques ANESTHESIA: General, preoperative nerve block. IV FLUIDS: Lactated Ringer's ESTIMATED BLOOD LOSS: Less than 5 mL. IMPLANTS: Arthrex 300 knotless suture tack times one and 2.9 mm PushLock with labral tape times two. CLOSURE: Nylon. DESCRIPTION OF PROCEDURE Patient identified in preoperative holding area. The right shoulder was signed by myself. She has a preoperative nerve block. She is brought to the operating room, placed supine on a well-padded OR table. General anesthesia was induced. She received appropriate IV antibiotics within 1 hour of incision. Exam under anesthesia revealed 160 degrees of forward flexion, abduction rotation of the arm at her side. She had a grade 2+ anterior load and shift, grade 1 posterior load and shift. She was then placed in a left side down lateral decubitus position with an axillary roll. All bony prominences were well padded. She had bilateral Venodyne boots. She was then secured to the OR table with a beanbag. The right arm was placed into the Arthrex star sleeve lateral decubitus traction device with 10 pounds of traction. The right shoulder was then prepped and draped in normal sterile fashion with Chloraprep. Prior to incision, time-out was performed per hospital protocol. Naty was present for the entire procedure and participated in all essential portions of the procedure. This included patient positioning, draping, holding the arthroscope, providing traction to the arm, retrieving sutures and assisting with cutting sutures. She also performed wound closure. After time-out per hospital protocol, the right shoulder was insufflated with lactated Ringer's. Standard posterior viewing portal made with an 11-blade. 30 degrees arthroscope introduced into the joint. Diagnostic arthroscopy carried out revealing she was status was prior biceps tenotomy. She had degenerative labral tearing of the superior labrum. There was positive drive-through sign. There is tearing of the anterior labrum at the equator and then there is a fissure between the cartilage and labrum, the anterior inferior aspect of the glenoid. There was absolutely no bumper. There is no tearing of the posterior labrum. There was primarily grade 1 and one area of grade 2 chondromalacia of the glenoid. Rotator cuff was intact. An anterior working portal was established in the rotator interval and a probe used to palpate the anterior inferior labrum confirming partial thickness tear. Her examination under anesthesia, preoperative symptoms and intraoperative findings were consistent with anterior instability, not posterior instability and she was indicated for anterior labral repair. I then placed a second cannula just anterior to the supraspinatus, also through the rotator interval. A spinal needle was used to determine the appropriate angle for drilling the glenoid inferiorly. It was clear that based on the position of her subscap I would have to drill with a trans subscap portal for the low anchor. A shaver was used to perform a chondroplasty of the glenoid. Hooked cautery was then used to fully release the anterior inferior labrum from the 3 o'clock to 05:30 position. Labral elevators were then used to sub-periosteally elevate the labrum and capsule off the glenoid. The rasp was used to create a bleeding surface. The drill guide was then placed in a trans-subscapularis fashion to get a better angle for drilling the anterior inferior anchor. The drill for a 3-mm knotless suture tack was used to create a socket in the anterior inferior glenoid. The anchor was then malleted in place with good fixation. SutureLasso was then used to shuttle suture through the anterior band of the inferior glenohumeral ligament. Sutures were passed per routine for the knotless anchor. My senior executive assistant applied posterior force to the proximal humerus as the anchor was tensioned and this nicely restored the bumper in the anterior inferior labrum. Sutures cut with arthroscopic cutter head sharpener. Next, I placed a total of two 2.9 mm biocomposite PushLock anchors with labral tape using the lasso to shuttle the labral tape through the capsule and labrum. There was good fixation of both those anchors, this nicely restored the bumper up to the equator. Final chondroplasty with the shaver. Humeral head was nicely centered on the glenoid. No posterior labral tearing. Rotator cuff was again inspected. No tearing of the rotator cuff noted. Arthroscope was then placed in the subacromial space where the patient was status post prior subacromial decompression. There was no significant bursal tissue, no further rotator cuff tearing. It previously had fraying of the leading edge of the supraspinatus. No rotator cuff debridement indicated. Shoulder was irrigated and drained. Portals closed with nylon suture. A bulky sterile dressing applied. She was placed into the R-2 sling and extubated, transferred to PACU in stable condition. All counts correct times two. Complications, none.
== END 2018-08-25 12:15 | disposition home or self-care (01) ==
LOC: M SDC 05:34
PROVIDERS: ATTEND Orthopaedic Surgery
DX: M25.311 Other instability, right shoulder (principal); M94.211 Chondromalacia, right shoulder; E11.40 Type 2 diabetes mellitus with diabetic neuropathy, unspecified; I10 Essential (primary) hypertension; E78.5 Hyperlipidemia, unspecified; K21.9 Gastro-esophageal reflux disease without esophagitis; Z98.84 Bariatric surgery status; Z88.8 Allergy status to other drugs, medicaments and biological substances; Z79.82 Long term (current) use of aspirin; Z79.899 Other long term (current) drug therapy; F41.9 Anxiety disorder, unspecified; F32.9 Major depressive disorder, single episode, unspecified
CPT/HCPCS: 29807; 29819; 51702; 80048; 81001; 85025; 87086; 99284; C1713; J0690; J1100; J2250; J2405; J2710; J3010

== ENCOUNTER 2018-08-25 20:40 | Emergency (ER) | payer MEDICARE, MEDICAID ==
[~2018-08-25 20:40] MED LIST changes: +MULTCAP PO
[2018-08-25 21:40] LABS: BASO % 0.2 % (0.0-1.0); EOS % 0.2 % (0.0-3.0); HEMATOCRIT 33.2 % (36.0-47.0); HEMOGLOBIN 10.8 g/dl (12.0-15.5); LYMPH # 3.2 10^3/uL (1.5-4.5); LYMPH % 19.3 % (24.0-44.0); MEAN CORPUSCULAR HEMOGLOBIN 28.2 pg (27.0-33.0); MEAN CORPUSCULAR HGB CONC 32.5 g/dl (32.0-36.5); MEAN CORPUSCULAR VOLUME 86.7 fl (80.0-96.0); MONO % 6.1 % (0.0-5.0); NEUTROPHILS # 12.2 10^3/uL (1.8-7.7); NEUTROPHILS % 73.7 % (36.0-66.0); PLATELET COUNT, AUTOMATED 419 10^3/uL (150-450); RED BLOOD COUNT 3.83 10^6/uL (4.00-5.40); WHITE BLOOD COUNT 16.5 10^3/uL (4.0-10.0)
[2018-08-25 21:43] LABS: APPEARANCE, URINE CLEAR (CLEAR); BACTERIA, URINE AUTO NEGATIVE (NEGATIVE); BILIRUBIN, URINE AUTO NEGATIVE (NEGATIVE); BLOOD, URINE BLOOD NEGATIVE (NEGATIVE); COLOR, URINE STRAW (YELLOW); GLUCOSE, URINE (UA) AUTO NEGATIVE (NEGATIVE); KETONE, URINE AUTO NEGATIVE (NEGATIVE); LEUKOCYTE ESTERASE, URINE AUTO NEGATIVE (NEGATIVE); NITRITE, URINE AUTO NEGATIVE (NEGATIVE); PROTEIN, URINE AUTO NEGATIVE (NEGATIVE); RBC, URINE AUTO 0 /HPF (0-3); SPECIFIC GRAVITY URINE AUTO 1.005 (1.002-1.035); SQUAMOUS EPITHELIAL CELL UR AU 0 /HPF (0-6); UROBILINOGEN, URINE AUTO 0.2 mg/dL (0.0-2.0); WBC, URINE AUTO 0 /HPF (0-3)
[2018-08-25 21:55] LABS: BLOOD UREA NITROGEN 9 MG/DL (7-18); CALCIUM LEVEL 8.8 MG/DL (8.5-10.1); CARBON DIOXIDE LEVEL 26 MEQ/L (21-32); CHLORIDE LEVEL 109 MEQ/L (98-107); CREATININE FOR GFR 0.79 MG/DL (0.55-1.30); GLOMERULAR FILTRATION RATE > 60.0 (>58); GLUCOSE, FASTING 92 MG/DL (70-100); POTASSIUM SERUM 4.3 MEQ/L (3.5-5.1); SODIUM LEVEL 141 MEQ/L (136-145)
[2018-08-25 22:40] VITALS: BP 127/81
== END 2018-08-25 22:40 | disposition home or self-care (01) ==
LOC: M ED 20:40
DX: R33.9 Retention of urine, unspecified (principal)

== ENCOUNTER → 2018-11-04 | Outpatient (CLI) | payer MEDICARE, MEDICAID ==
--- NOTE | 2018-11-08 02:21 | ECWPNPC ---
PATIENT NAME: CESAR ANGUIANO : 1970 GENDER: FEMALE VISIT DATE: 11/04/2018 DISCHARGE DATE: 11/04/18 1500 VISIT LOCKED DATE TIME: PHYSICIAN: DICK ORTIZ MD RESOURCE: DICK ORTIZ MD REASON FOR APPOINTMENT 1. LOW BACK HISTORY OF PRESENT ILLNESS PAIN SCREENING: PATIENT HAS A COMPLAINT OF ACUTE OR CHRONIC PAIN :YES 48 YEAR OLD FEMALE PATIENT WITH A HISTORY OF CHRONIC LOW BACK PAIN. THE PATIENT DESCRIBES THE PAIN ACHING, SHARP, STABBING, TENDER, SORE, SHOOTING, AND CONTINUOUS WITH A PAIN SCORE OF 6-10/10 DEPENDING ON PHYSICAL ACTIVITY. THE PATIENT SAYS THAT SHE HAS HAD THIS PAIN FOR MANY YEARS AND IT HAS WORSENED OVER TIME. THE PATIENT SAYS HER PAIN STARTS IN HER LOW BACK AREA AND RADIATES DOWN MAINLY HER LEFT LEG. THE PATIENT HAS A HISTORY OF DIABETES. PATIENT DENIES UNEXPLAINABLE WEIGHT LOSS, FEVER, CHILLS, NEW CHANGES ON HER URINARY OR BOWEL CONTROL. FALL RISK SCREENING: SCREENING :NO FALLS REPORTED IN THE LAST YEAR CURRENT MEDICATIONS TAKING ASPIRIN ADULT LOW DOSE 81 MG TABLET DELAYED RELEASE 1 TABLET ORALLY ONCE A DAY TAKING SIMVASTATIN 20 MG TABLET 1 TABLET IN THE EVENING ORALLY ONCE A DAY TAKING LYRICA 50 MG CAPSULE 1 CAPSULE ORALLY THREE TIMES A DAY TAKING ALBUTEROL SULFATE HFA 108 (90 BASE) MCG/ACT AEROSOL SOLUTION 2 PUFFS INHALATION EVERY 6 HRS NEEDED TAKING PANTOPRAZOLE SODIUM 40 MG TABLET DELAYED RELEASE 1 TABLET ORALLY ONCE A DAY TAKING METFORMIN HCL 500 MG TABLET 2 TABLETS WITH MEALS ORALLY TWICE A DAY TAKING HYDROXYZINE HCL 10 MG TABLET ORALLY TWICE DAILY NEEDED TAKING BUSPIRONE HCL 10 MG TABLET 2 TABLETS ORALLY TWICE DAILY TAKING FLUOXETINE HCL 40 MG CAPSULE 1 CAPSULE ORALLY BEFORE BEDTIME TAKING LISINOPRIL 2.5 MG TABLET 1 TABLET ORALLY ONCE A DAY TAKING NYSTATIN [id number] UNIT/GM POWDER 1 APPLICATION TOPICALLY TWICE A DAY AREA UNDER ABDOMINAL PANNUS TAKING RIZATRIPTAN BENZOATE 10 MG TABLET 1 TABLET AT ONSET OF HEADACHE MAY REPEAT X 1 IN 2 HRS MDD2 ORALLY ONCE A DAY NOT-TAKING HYDROCODONE-ACETAMINOPHEN 7.5-325 MG TABLET 1 TABLET NEEDED ORALLY EVERY 6 HRS, NOTES: ORTHO NOT-TAKING ZANTAC 150 MG TABLET 1 TABLET AT BEDTIME ORALLY ONCE A DAY MEDICATION LIST REVIEWED AND RECONCILED WITH THE PATIENT PAST MEDICAL HISTORY HX GASTRIC BYPASS 2009-276 LBS DM2 ESSENTIAL HYPERTENSION MIXED HYPERLIPIDEMIA ASTHMA HX SMOKING SEASONAL ALLERGIES VITAMIN D DEFICEINCY HX NUMEROUS FEET SURGERIES PTSD MIGRANE HEADACHES FATTY LIVER CT SCAN 03/09/18 FIBROMYALGIA - DR. NEAL DEPRESSION/ ANXIETY ALLERGIES LIPITOR: MIGRAINE - SIDE EFFECTS OXYCODONE HCL: NAUSEA/VOMITING - SIDE EFFECTS VITAMIN B 12: INSOMNIA - SIDE EFFECTS ADHESIVE TAPE: BLISTERS - SIDE EFFECTS SURGICAL HISTORY GASTRIC BYPASS 2009 HERNIA REPAIR 2014 FOOT SURGERIES X4LEFT X6 RIGHT [phone] CYST REMOVED BACK OR RIGHT LEG 2010 HYSTERECTOMY STILL HAVE OVARIES 2010 RIGHT HAND SURGERY X2 TUBAL LIGATION 2007 RIGHT SHOULDER REPAIR OF A MUSCLE X2 ORTHO 2018 RIGHT SHOULDER ARTHROSCOPIC ANTERIOR LABRAL REPAIR- DR. JULIANA LADD 08/25/2018 RIGHT SHOULDER CHONDROPLASTY OF THE GLENOID- DR. JULIANA LADD 08/25/2018 FAMILY HISTORY FATHER: , CHOLESTEROL, JULISA GHERIG'S DISEASE, DIAGNOSED WITH DIABETES MOTHER: , DM2 HTN, CHOL, DEMENITA-BURSING HOME, AFTER A FALL WITH BLEEDING ON BRAIN DIABETES RUNS ON BOTH SIDES OF FAMILY\\NBREAST CANCER RUNS IN FAMILY -DAD\\'S SIDE\\N1 DAUGHTER- HEALTHY \\N1 BROTHER-DM2, CHOLESTEROL HIGH TRIGLYCERIDES\\NNO SISTERS. SOCIAL HISTORY GENERAL: TOBACCO USE ARE YOU A:FORMER SMOKER HOW LONG HAS IT BEEN SINCE YOU LAST SMOKED?> 10 YEARS HIV / HEP-C SCREENING HIV TEST OFFERED TO PATIENT:YES DATE OFFERED:11/30/2016 TEST ACCEPTED:NO HEP-C TEST OFFERED TO PATIENT:YES DATE OFFERED:11/30/2016 REASON:PATIENT DECLINED TEST ACCEPTED:NO REASON:PATIENT DECLINED BROCHURE PROVIDED TO PATIENTYES YES GIVEN TODAY 07/20/2017 OTHERS AT HOME: NO ONE. HOUSING: RENTS APARTMENT. EDUCATION LEVEL OF EDUCATION:[employer] IN BUSINESS DIET: REGULAR. LANGUAGE LANGUAGES SPOKEN:[place] DOMESTIC VIOLENCE DO YOU FEEL SAFE IN YOUR ENVIRONMENT?YES BMI CARE GOAL FOLLOW-UP ABOVE NORMAL BMI FOLLOW-UPDIETARY MANAGEMENT EDUCATION, GUIDANCE, AND COUNSELING RECREATIONAL DRUG USE DRUG USE?NO PATIENT DENIES ABUSE OR MISSUSED OF ANY MEDICATION. PATIENT DENIES USE OF ANY ILLEGAL SUBSTANCE INCLUDING MARIJUANA OR COCAINE. EXERCISE: NO REGULAR EXERCISE. LEARNING BARRIERS / SPECIAL NEEDS CHANGE FROM LAST VISIT?NO BARRIERS TO LEARNING?NO HEARING IMPAIRED?NO VISION IMPAIRED?YES COGNITIVELY IMPAIRED?NO :CORRECTIVE LENSES READINESS TO LEARN?YES LEARNING PREFERENCES?NO LEARNING CAPABILITIES PRESENT?YES EMOTIONAL BARRIERS?NO SPECIAL DEVICES?NO PARKING MANAGER NEEDED?NO LUNG CANCER SCREENING SMOKING STATUS:FORMER SMOKER IS THE PATIENT BETWEEN THE AGE OF 55 AND 77?NO PAIN CLINIC PFS, CLERGY, PUBLIC HEALTH REFERRALS HAS THE PATIENT BEEN EDUCATED REGARDING HIS/HER PLAN OF CARE?YES HAS THE PATIENT BEEN EDUCATED REGARDING PAIN, THE RISK FOR PAIN, THE IMPORTANCE OF EFFECTIVE PAIN MANAGEMENT, AND THE PAIN ASSESSMENT PROCESS?YES LATEX QUESTIONNAIRE LATEX ALLERGY : HAVE YOU EVER DEVELOPED ANY TYPE OF REACTION AFTER HANDLING LATEX PRODUCTS SUCH RUBBER GLOVES, CONDOMS, DIAPHRAGMS, BALLOONS, SOCKS, OR UNDERWEAR?NO LATEX ALLERGY : HAVE YOU EVER DEVELOPED ANY TYPE OF REACTION DURING OR AFTER DENTAL APPOINTMENT, VAGINAL/RECTAL EXAMINATION, SURGICAL PROCEDURE, OR ANY OTHER EXPOSURE?NO LATEX RISK : HAVE YOU EVER HAD ANY DIFFICULTY BREATHING OR HIVES AFTER EATING OR HANDLING ANY FRUITS, OR VEGETABLES; SUCH KIWI, BANANAS, STONE FRUITS, OR CHESTNUTSNO LATEX RISK : DO YOU HAVE A PREVIOUS PERSONAL HISTORY OF MORE THAN NINE SURGERIES, SPINA BIFIDA, OR REPEATED CATHERTIZATIONS? YES - PLEASE INDICATE : > 9 SURGERIES LATEX RISK : ARE YOU FREQUENTLY EXPOSED TO LATEX PRODUCTS IN YOUR OCCUPATION?NO DATE ASKED : 08/19/2018 CAFFEINE CAFFEINE USE?YES HOW OFTEN AND HOW MUCH? 1- 12 OZ CAN PEPSI- 1 LARGE ICE COFFEE ADVANCE DIRECTIVE ADVANCE DIRECTIVE DISCUSSED WITH PATIENT:YES PT HAS A HCP, DAUGHTER RASHAAD PALMER [phone] AND BROTHER MARGARET PALMER [phone] [facility] NO [employer] BELIEFS THAT WOULD IMPACT HEALTH CARE. MARITAL STATUS: .. ALCOHOL SCREENING DID YOU HAVE A DRINK CONTAINING ALCOHOL IN THE PAST YEAR?NO POINTS0 INTERPRETATIONNEGATIVE OCCUPATION: [id number] TO HER STOMACH PROBLEMS AND LEARNING DIABILITY DO NOT COMPREHEND WHAT SHE ENDS- 2009. SEXUAL HX HAD SEX IN THE LAST 12 MONTHS (VAGINAL, ORAL, OR ANAL)?YES WITHMEN ONLY PREVENTION STRATEGIES DISCUSSED:OTHER USE PROTECTION?NO HAVE YOU EVER HAD AN STD?NO [id number] DOMESTIC RELATIONSHIP, USES [facility]. JULIÁN LUNA-[facility]CTOR [facility],Yayo KELLEY-KIDNEY DOCTOR [facility]ITAL[facility]VIEWED WITH PT 11/04/18 1415 LAS. HOSPITALIZATION/MAJOR DIAGNOSTIC PROCEDURE PER ABOVE INPATIENT TREATMENT FOR MENTAL HEALTH REVIEW OF SYSTEMS REVIEWED BY: PROVIDER: DICK ORTIZ MD . CONSTITUTIONAL: ANY CHANGE IN YOUR MEDICAL CONDITION? RECENTLY DIAGNOSED WITH FIBROMYALGIA . CHILLS NO . FEVER NO . INFECTION: DO YOU HAVE NEW INFECTIONS? NO . DO YOU HAVE HISTORY OF MRSA? NO . MUSCULOSKELETAL: ANY NEW PATTERNS OF PAIN OR NUMBNESS? NO . SYTEMIC LUPUS NO . GASTROENTEROLOGY: ANY NEW CHANGE IN BOWEL CONTROL? NO . BARRETTS ESOPHAGUS NO . CIRRHOSIS NO . HEPATITIS NO . LIVER FAILURE NO . ACID REFLUX NO . UNEXPLAINED WEIGHT LOSS NO . GENITOURINARY: ANY NEW CHANGE IN BLADDER CONTROL? YES PT REPORTS SOME URINARY INCONTINENCE . IS THERE A CHANCE YOU COULD BE ? NO . HEMATOLOGY/LYMPH: DO YOU TAKE ANY BLOOD THINNERS? (FOR EXAMPLE- COUMADIN, PLAVIX, AGGRENOX, PLATEL, PRADAXA, OR XARELTO) NO . WHEN WAS YOUR LAST DOSE? DATE: TIME: . LOW PLATELET COUNT NO . SICKLE CELL DISEASE NO . VON WILLIEBRANDS NO . FACTOR V LEIDEN NO . THALLASEMIA NO . ANEMIA NO . EASY BRUISING NO . NEUROLOGY: HAVE YOU FALLEN IN THE PAST 12 MONTHS? YES PT REPORTS HER LEGS GET SHAKY AND "GIVE OUT", SHE STUMBLES. DENIES INJURIES FROM FALLS. . ANY NEW EXTREMITY NUMBNESS OR WEAKNESS? NO . HEAD INJURY NO . DEMENTIA NO . CEREBRAL PALSY NO . MULTIPLE SCLEROSIS NO . DIZZINESS NO . HEADACHE NO . STROKES NO . VERTIGO NO . CARDIOLOGY: DO YOU HAVE A PACEMAKER OR DEFIBRILLATOR? NO . ANGINA NO . HEART ATTACK NO . HEART SURGERY NO . CONGESTIVE HEART FAILURE/FLUID OVERLOAD NO . CHEST PAIN NO . HIGH BLOOD PRESSURE ON MEDICATION(S) . IRREGULAR HEART BEAT NO . RESPIRATORY: HAVE YOU BEEN SICK IN THE PAST WEEK? NO . FEVER NO . FLU LIKE SYMPTOMS? NO . CPAP NO . BYPAP NO . ASTHMA YES . EMPHYSEMA NO . CHRONIC LUNG DISEASES NO . SHORTNESS OF BREATH ON EXERTION NO . COUGH NO . SNORING NO . INTEGUMENTARY: DO YOU HAVE ANY RASHES OR OPEN SORES? YES HEAT RASH ON ABDOMEN . ALLERGIC/IMMUNO: ARE YOU ALLERGIC TO IV DYE? NO . ANY NEW ALLERGIES? NO . PSYCHIATRIC: DO YOU HAVE THOUGHTS OF HURTING YOURSELF OR SOMEONE ELSE? NO . ARE YOU ABUSED, NEGLECTED, OR IN AN UNSAFE ENVIRONMENT? NO . ENDOCRINOLOGY: ARE YOU DIABETIC? YES . THYROID DISORDER NO . OTHER: DO YOU NEED ANY PRESCRIPTIONS? NO . IF YES, PLEASE LIST: ____ . ANY NEW PROBLEMS WITH YOUR MEDICATIONS? NO . WHEN DID YOU LAST EAT? ____ . WHEN DID YOU LAST DRINK? ____ . WHAT DID YOU LAST DRINK? ____ . NAME OF PERSON DRIVING YOU HOME? ____ . DO YOU HAVE ANY OTHER QUESTIONS OR CONCERNS NO . VITAL SIGNS WT 161.8 LBS, HT 5'5", BMI 26.92 INDEX, BP 118/73 MM HG, HR 105 /MIN, RR 18 /MIN, TEMP 97.7 F, OXYGEN SAT % 97%, SAFE IN ENV? (Y/N) YES, NA INITIALS NE 13:42, REVIEWED BY: MARYANN. EXAMINATION GENERAL EXAMINATION: PATIENT IS ALERT O X 3 AND COOPERATIVE. LUNGS CLEAR, TO AUSCULTATION. HEART: NO MURMURS OR GALLOPS; FACIAL CRANIAL NERVES ARE GROSSLY NORMAL. GOOD SYMMETRY OF FACIAL MUSCLE MOVEMENT. NORMAL VISUAL [place]. PATIENT IS LIMPING FROM HER LEFT LEG. LEFT LEG IS WEAKER AT EXTENSION AND FLEXION. STRAIGHT LEG RAISE OF THE LEFT LEG IS POSITIVE FOR RADICULOPATHY AT 60 DEGREES. MRI OF THE LUMBAR SPINE DONE ON 05/30/2018 SHOWS BULGING DISCS AT MULTIPLE LEVELS. ASSESSMENTS INTERVERTEBRAL DISC DISORDER WITH RADICULOPATHY OF LUMBAR REGION - M51.16 (PRIMARY) LOW BACK PAIN - M54.5 OTHER CHRONIC PAIN - G89.29 TREATMENT INTERVERTEBRAL DISC DISORDER WITH RADICULOPATHY OF LUMBAR REGION CLINICAL NOTES: WE DISCUSSED SEVERAL ISSUES WITH MRS. ANGUIANO'S PAIN MANAGEMENT CASE. DUE TO THE LUMBAR RADICULOPATHY, I WOULD LIKE TO MOVE FORWARD WITH A LUMBAR EPIDURAL STEROID INJECTION AT THIS TIME. WE DISCUSSED THE BENEFITS, RISKS, AND ALTERNATIVES OF THE INJECTION AND THE PATIENT WOULD LIKE TO PROCEED. THE PATIENT WILL FOLLOW UP A FEW WEEKS AFTER THE INJECTION. INSTRUCTIONS WERE GIVEN, QUESTIONS WERE ANSWERED, PATIENT REPORTS UNDERSTANDING AND AGREES WITH THE PLAN. I, ROBERTA TEJEDA, DOCUMENTED THE ABOVE INFORMATION ACTING A SCRIBE FOR DR. ORTIZ. I HAVE REVIEWED THE ABOVE DOCUMENT, WRITTEN BY ROBERTA OLIVAS AND I VERIFY THAT IT IS ACCURATE. DEAR JASMIN ALVES:THANK YOU FOR YOUR KIND REFERRAL OF MRS. ANGIUANO. IF YOU WANT TO DISCUSS HER CASE WITH ME PLEASE CALL ME AT THE PAIN [facility]ENTER AT [phone]. SINCERELY,DICK ORTIZ, MDPAIN MEDICINE . PROCEDURE CODES FA211 ESTABILISHED PATIENT [facility] CHARGE [id number] CURRENT MEDS W/DOSAGES DOCUMENTED G8730 PAIN ASSESS POS TOOL F/U PLAN DOC DISPOSITION & COMMUNICATION FOLLOW UP 4 WEEKS AFTER (REASON: LESI) ELECTRONICALLY SIGNED BY DICK ORTIZ MD, ON 11/07/2018 AT 01:38 PM EDT DISCLAIMER : THIS IS A VISIT SUMMARY EXTRACTED FROM THE [employer] CHART. IT IS NOT A COPY OF THE [employer] PROGRESS NOTE. LIOND
== END ==
LOC: M PAIN 13:30
PROVIDERS: ATTEND Anesthesiology
DX: G89.29 Other chronic pain (principal); M51.16 Intervertebral disc disorders with radiculopathy, lumbar region; M54.5 Low back pain; E11.9 Type 2 diabetes mellitus without complications; I10 Essential (primary) hypertension; E78.5 Hyperlipidemia, unspecified; J45.909 Unspecified asthma, uncomplicated; E55.9 Vitamin D deficiency, unspecified; F43.10 Post-traumatic stress disorder, unspecified; G43.909 Migraine, unspecified, not intractable, without status migrainosus; K76.0 Fatty (change of) liver, not elsewhere classified; M79.7 Fibromyalgia; F32.9 Major depressive disorder, single episode, unspecified; F41.9 Anxiety disorder, unspecified; Z87.891 Personal history of nicotine dependence; Z79.82 Long term (current) use of aspirin; Z79.84 Long term (current) use of oral hypoglycemic drugs; Z79.899 Other long term (current) drug therapy; Z98.84 Bariatric surgery status; Z88.5 Allergy status to narcotic agent; Z88.8 Allergy status to other drugs, medicaments and biological substances; Z91.048 Other nonmedicinal substance allergy status

== ENCOUNTER 2018-12-06 15:13 | Emergency (ER) | payer MEDICARE, MEDICAID ==
[~2018-12-06] VITALS: Ht 165.1 cm; Wt 74.3 kg
[2018-12-06] MEDS ORDERED: RIZA10TA4 PO (15:23)
[2018-12-06] MEDS ORDERED: PREG50CA PO (15:23)
[2018-12-06] MEDS ORDERED: ONDANSETRON 4MG/2ML VIAL (J2405) IV ONE (16:00)
[2018-12-06] MEDS ORDERED: ACETAMINOPHEN 500 MG TAB PO ONE (16:00)
[2018-12-06] MEDS ORDERED: NS 1,000 ML IV ONE (16:00)
[2018-12-06] MEDS ORDERED: KETOROLAC 30 MG/ML VIAL (J1885) IV ONE (17:45)
[2018-12-06] MEDS ORDERED: METOCLOPRAMIDE INJ 10MG/2ML VIAL (J2765) IV ONE (18:15)
[2018-12-06] MEDS ORDERED: diphenhydrAMINE INJ 50MG/ML VIAL (J1200) IV ONE (18:15)
[2018-12-06] MEDS ORDERED: dexameTHASONE 20 MG/5 ML VIAL (J1100) IV ONE (19:15)
--- NOTE | 2018-12-06 19:44 | REPVR ---
EXAM: CT Head Without Contrast EXAM DATE/TIME: 12/06/2018 7:16 PM CLINICAL HISTORY: 48 years old, female; Pain; Headache; Additional info: Intractable BROWNING with neck pain TECHNIQUE: Imaging protocol: Computed tomography images of the head without contrast. Radiation optimization: All CT scans at this facility use at least one of these dose optimization techniques: automated exposure control; mA and/or kV adjustment per patient size (includes targeted exams where dose is matched to clinical indication); or iterative reconstruction. COMPARISON: No relevant prior studies available. FINDINGS: Brain: Normal. No hemorrhage. Unremarkable white matter. No mass effect. Ventricles: Normal. No ventriculomegaly. Bones/joints: Unremarkable. No acute fracture. Sinuses: Visualized sinuses are unremarkable. No fluid levels. Mastoid air cells: Visualized mastoid air cells are well aerated. No mastoid effusion. Soft tissues: Unremarkable. Other findings: Mildly prominent appearance of the pituitary gland although not well evaluated on this examination dedicated to the brain. If clinically desired further evaluation with MRI suggested. IMPRESSION: 1. Mildly prominent appearance of the pituitary gland although not well evaluated on this examination dedicated to the brain. If clinically desired further evaluation with MRI suggested. 2. Otherwise unremarkable. Electronically signed by: Ari Butcher On 12/06/2018 19:44:03 PM
[2018-12-06] MEDS ORDERED: VALPROATE SOD INJ 1,000 MG in D5W 50 ML IV ONE (20:45)
[2018-12-06] MEDS ORDERED: MAG SULF 1GM/100ML (MAG RUN) 1 GM in APPROPRIATE DILUENT 1 EA IV ONE (20:45)
[2018-12-06 23:45] VITALS: BP 113/73
[2018-12-06] MEDS ORDERED: PRED20TA PO (23:57)
--- NOTE | 2018-12-11 20:01 | ED PDOC ---
Post-Departure Follow-Up ricky cruz faxed formal report of ct head for fu Saravanan Blevins MD Dec 11, 2018 20:01
== END 2018-12-07 00:07 | disposition home or self-care (01) ==
LOC: M ED 15:13
DX: R51 Headache (principal); E11.9 Type 2 diabetes mellitus without complications; I10 Essential (primary) hypertension; J45.909 Unspecified asthma, uncomplicated; E78.5 Hyperlipidemia, unspecified; M79.7 Fibromyalgia; F43.10 Post-traumatic stress disorder, unspecified; Z98.84 Bariatric surgery status; Z79.899 Other long term (current) drug therapy; Z79.84 Long term (current) use of oral hypoglycemic drugs; Z79.82 Long term (current) use of aspirin; Z88.5 Allergy status to narcotic agent; Z88.8 Allergy status to other drugs, medicaments and biological substances; Z91.048 Other nonmedicinal substance allergy status
CPT/HCPCS: 70450; 96361; 96365; 96366; 96368; 96375; 99284; J1100; J1200; J1885; J2405; J2765; J3475

== ENCOUNTER → 2018-12-15 | Outpatient (CLI) | payer OTHER, MEDICAID ==
[~2018-12-15] MED LIST changes: +ISOVUE-M 200 41% 20ML VIAL (Q9966) As Ordered ONE; +LIDOCAINE 1% SDV INJ 30 ML VIAL As Ordered ONE; +PRED20TA PO; +PREG50CA PO; +QC A650T3 PO; +RIZA10TA58 PO; -SIMV20TA2 PO; +SIMV20TA22 PO; +TRAM50TA2 PO; +diazePAM 5 MG TAB As Ordered ONE; +methylPREDNISolone SUSP 40 MG/ML (DEPO-medrol) VIAL (J1030) As Ordered ONE
--- NOTE | 2018-12-15 15:27 | REP ---
Partial lumbar spine series: Two views . History: Injection procedure for pain. Four seconds of fluoroscopy time is reported. Findings: A sequence of two fluoroscopically obtained last image hold procedural spot radiographs of the lumbar spine document needle position and contrast injection associated with injection procedure. Electronically Signed by Jonnie Huber MD 12/15/2018 03:19 P
--- NOTE | 2018-12-23 00:02 | ECWPNPC ---
PATIENT NAME: CESAR ANGUIANO : 1970 GENDER: FEMALE VISIT DATE: 12/15/2018 DISCHARGE DATE: 12/15/18 1313 VISIT LOCKED DATE TIME: PHYSICIAN: DICK ORTIZ MD RESOURCE: DICK ORTIZ MD REASON FOR APPOINTMENT 1. LESI HISTORY OF PRESENT ILLNESS HISTORY OF PRESENT ILLNESS: PAIN THE PATIENT DESCRIBES THE PAIN... FALL RISK SCREENING: SCREENING :NO FALLS REPORTED IN THE LAST YEAR CURRENT MEDICATIONS TAKING ASPIRIN ADULT LOW DOSE 81 MG TABLET DELAYED RELEASE 1 TABLET ORALLY ONCE A DAY, NOTES: 12/14 8AM TAKING SIMVASTATIN 20 MG TABLET 1 TABLET IN THE EVENING ORALLY ONCE A DAY TAKING LYRICA 50 MG CAPSULE 1 CAPSULE ORALLY THREE TIMES A DAY TAKING ALBUTEROL SULFATE HFA 108 (90 BASE) MCG/ACT AEROSOL SOLUTION 2 PUFFS INHALATION EVERY 6 HRS NEEDED TAKING PANTOPRAZOLE SODIUM 40 MG TABLET DELAYED RELEASE 1 TABLET ORALLY ONCE A DAY TAKING METFORMIN HCL 500 MG TABLET 2 TABLETS WITH MEALS ORALLY TWICE A DAY, NOTES: 12/14 9:30PM TAKING HYDROXYZINE HCL 10 MG TABLET ORALLY TWICE DAILY NEEDED TAKING BUSPIRONE HCL 10 MG TABLET 2 TABLETS ORALLY TWICE DAILY TAKING FLUOXETINE HCL 40 MG CAPSULE 1 CAPSULE ORALLY BEFORE BEDTIME TAKING LISINOPRIL 2.5 MG TABLET 1 TABLET ORALLY ONCE A DAY TAKING NYSTATIN [id number] UNIT/GM POWDER 1 APPLICATION TOPICALLY TWICE A DAY AREA UNDER ABDOMINAL PANNUS TAKING RIZATRIPTAN BENZOATE 10 MG TABLET 1 TABLET AT ONSET OF HEADACHE MAY REPEAT X 1 IN 2 HRS MDD2 ORALLY ONCE A DAY TAKING RIZATRIPTAN BENZOATE 10 MG TABLET 1 TABLET AT ON SET OF HEADACHE ORALLY MAY REPEATX1 IN 2 HR MDD2 NOT-TAKING HYDROCODONE-ACETAMINOPHEN 7.5-325 MG TABLET 1 TABLET NEEDED ORALLY EVERY 6 HRS, NOTES: ORTHO NOT-TAKING ZANTAC 150 MG TABLET 1 TABLET AT BEDTIME ORALLY ONCE A DAY MEDICATION LIST REVIEWED AND RECONCILED WITH THE PATIENT PAST MEDICAL HISTORY HX GASTRIC BYPASS 2008-276 LBS DM2 ESSENTIAL HYPERTENSION MIXED HYPERLIPIDEMIA ASTHMA HX SMOKING SEASONAL ALLERGIES VITAMIN D DEFICEINCY HX NUMEROUS FEET SURGERIES PTSD MIGRANE HEADACHES FATTY LIVER CT SCAN 03/09/18 FIBROMYALGIA - DR. NEAL DEPRESSION/ ANXIETY ALLERGIES LIPITOR: MIGRAINE - SIDE EFFECTS OXYCODONE HCL: NAUSEA/VOMITING - SIDE EFFECTS VITAMIN B 12: INSOMNIA - SIDE EFFECTS ADHESIVE TAPE: BLISTERS - SIDE EFFECTS SURGICAL HISTORY GASTRIC BYPASS 2009 HERNIA REPAIR 2014 FOOT SURGERIES X4LEFT X6 RIGHT [id number] CYST REMOVED BACK OR RIGHT LEG 2010 HYSTERECTOMY STILL HAVE OVARIES 2010 RIGHT HAND SURGERY X2 TUBAL LIGATION 2007 RIGHT SHOULDER REPAIR OF A MUSCLE X2 ORTHO 2018 RIGHT SHOULDER ARTHROSCOPIC ANTERIOR LABRAL REPAIR- DR. JULIANA LADD 08/25/2018 RIGHT SHOULDER CHONDROPLASTY OF THE GLENOID- DR. JULIANA LADD 08/25/2018 FAMILY HISTORY FATHER: , CHOLESTEROL, JULISA GHERIG'S DISEASE, DIAGNOSED WITH DIABETES MOTHER: , DM2 HTN, CHOL, DEMENITA-BURSING HOME, AFTER A FALL WITH BLEEDING ON BRAIN DIABETES RUNS ON BOTH SIDES OF FAMILY\\NBREAST CANCER RUNS IN FAMILY -DAD\\'S SIDE\\N1 DAUGHTER- HEALTHY \\N1 BROTHER-DM2, CHOLESTEROL HIGH TRIGLYCERIDES\\NNO SISTERS. SOCIAL HISTORY GENERAL: TOBACCO USE ARE YOU A:FORMER SMOKER HOW LONG HAS IT BEEN SINCE YOU LAST SMOKED?> 10 YEARS HIV / HEP-C SCREENING HIV TEST OFFERED TO PATIENT:YES DATE OFFERED:11/30/2016 TEST ACCEPTED:NO HEP-C TEST OFFERED TO PATIENT:YES DATE OFFERED:11/30/2016 REASON:PATIENT DECLINED TEST ACCEPTED:NO REASON:PATIENT DECLINED BROCHURE PROVIDED TO PATIENTYES YES GIVEN TODAY 07/20/2017 OTHERS AT HOME: NO ONE. HOUSING: RENTS APARTMENT. EDUCATION LEVEL OF EDUCATION:[employer] DEGREE IN BUSINESS DIET: REGULAR. LANGUAGE LANGUAGES SPOKEN:SAMI DOMESTIC VIOLENCE DO YOU FEEL SAFE IN YOUR ENVIRONMENT?YES BMI CARE GOAL FOLLOW-UP ABOVE NORMAL BMI FOLLOW-UPDIETARY MANAGEMENT EDUCATION, GUIDANCE, AND COUNSELING RECREATIONAL DRUG USE DRUG USE?NO PATIENT DENIES ABUSE OR MISSUSED OF ANY MEDICATION. PATIENT DENIES USE OF ANY ILLEGAL SUBSTANCE INCLUDING MARIJUANA OR COCAINE. EXERCISE: NO REGULAR EXERCISE. LEARNING BARRIERS / SPECIAL NEEDS CHANGE FROM LAST VISIT?NO BARRIERS TO LEARNING?NO HEARING IMPAIRED?NO VISION IMPAIRED?YES COGNITIVELY IMPAIRED?NO :CORRECTIVE LENSES READINESS TO LEARN?YES LEARNING PREFERENCES?NO LEARNING CAPABILITIES PRESENT?YES EMOTIONAL BARRIERS?NO SPECIAL DEVICES?NO DEVELOPER AUTOMATIC NEEDED?NO LUNG CANCER SCREENING SMOKING STATUS:FORMER SMOKER IS THE PATIENT BETWEEN THE AGE OF 56 AND 78?NO PAIN CLINIC PFS, CLERGY, PUBLIC HEALTH REFERRALS WAS THE PROVIDER NOTIFIED OF ANY PERTINENT INFO?YES HAS THE PATIENT BEEN EDUCATED REGARDING HIS/HER PLAN OF CARE?YES HAS THE PATIENT BEEN EDUCATED REGARDING PAIN, THE RISK FOR PAIN, THE IMPORTANCE OF EFFECTIVE PAIN MANAGEMENT, AND THE PAIN ASSESSMENT PROCESS?YES LATEX QUESTIONNAIRE LATEX ALLERGY : HAVE YOU EVER DEVELOPED ANY TYPE OF REACTION AFTER HANDLING LATEX PRODUCTS SUCH RUBBER GLOVES, CONDOMS, DIAPHRAGMS, BALLOONS, SOCKS, OR UNDERWEAR?NO LATEX ALLERGY : HAVE YOU EVER DEVELOPED ANY TYPE OF REACTION DURING OR AFTER DENTAL APPOINTMENT, VAGINAL/RECTAL EXAMINATION, SURGICAL PROCEDURE, OR ANY OTHER EXPOSURE?NO LATEX RISK : HAVE YOU EVER HAD ANY DIFFICULTY BREATHING OR HIVES AFTER EATING OR HANDLING ANY FRUITS, OR VEGETABLES; SUCH KIWI, BANANAS, STONE FRUITS, OR CHESTNUTSNO LATEX RISK : DO YOU HAVE A PREVIOUS PERSONAL HISTORY OF MORE THAN NINE SURGERIES, SPINA BIFIDA, OR REPEATED CATHERIZATIONS? YES - PLEASE INDICATE : > 9 SURGERIES LATEX RISK : ARE YOU FREQUENTLY EXPOSED TO LATEX PRODUCTS IN YOUR OCCUPATION?NO DATE ASKED : 12/15/2018 CAFFEINE CAFFEINE USE?YES HOW OFTEN AND HOW MUCH? 1- 12 OZ CAN PEPSI- 1 LARGE ICE COFFEE ADVANCE DIRECTIVE ADVANCE DIRECTIVE DISCUSSED WITH PATIENT:YES PT HAS A HCP, DAUGHTER RASHAAD PALMER [phone] AND BROTHER MARGARET PALMER [phone] NONDENOMINATIONAL NONDENOMINATIONAL NO SIKHISM BELIEFS THAT WOULD IMPACT HEALTH CARE. MARITAL STATUS: .. ALCOHOL SCREENING DID YOU HAVE A DRINK CONTAINING ALCOHOL IN THE PAST YEAR?NO POINTS0 INTERPRETATIONNEGATIVE OCCUPATION: [id number] TO HER STOMACH PROBLEMS AND LEARNING DIABILITY DO NOT COMPREHEND WHAT SHE ENDS- 2009. SEXUAL HX HAD SEX IN THE LAST 12 MONTHS (VAGINAL, ORAL, OR ANAL)?YES WITHMEN ONLY PREVENTION STRATEGIES DISCUSSED:OTHER USE PROTECTION?NO HAVE YOU EVER HAD AN STD?NO [id number] DOMESTIC RELATIONSHIP, USES NIGHTMARE MEDICATIONSDR. JULIÁN LUNA-MEDICAL DOCTOR [facility]VIEWED WITH PT 11/04/18 1415 LAS. HOSPITALIZATION/MAJOR DIAGNOSTIC PROCEDURE PER ABOVE INPATIENT TREATMENT FOR MENTAL HEALTH REVIEW OF SYSTEMS REVIEWED BY: PROVIDER: . CONSTITUTIONAL: ANY CHANGE IN YOUR MEDICAL CONDITION? NO . CHILLS NO . FEVER NO . INFECTION: DO YOU HAVE NEW INFECTIONS? NO . DO YOU HAVE HISTORY OF MRSA? NO . MUSCULOSKELETAL: ANY NEW PATTERNS OF PAIN OR NUMBNESS? NO . GASTROENTEROLOGY: ANY NEW CHANGE IN BOWEL CONTROL? NO . GENITOURINARY: ANY NEW CHANGE IN BLADDER CONTROL? NO - DOES SOMETIMES HAVE INCONTINENCE, HOWEVER, NOT NEW AND IS BEING FOLLOWED BY PRIMARY CARE PROVIDER . IS THERE A CHANCE YOU COULD BE ? NO . HEMATOLOGY/LYMPH: DO YOU TAKE ANY BLOOD THINNERS? (FOR EXAMPLE- COUMADIN, PLAVIX, AGGRENOX, PLATEL, PRADAXA, OR XARELTO) NO . WHEN WAS YOUR LAST DOSE? DATE: TIME: . NEUROLOGY: HAVE YOU FALLEN IN THE PAST 12 MONTHS? YES, PT STATES THAT SHE FELL IN SEPTEMBER WHILE ON VACATION, TRIPPED UP BY DOGS, NO INJURY FROM FALL . ANY NEW EXTREMITY NUMBNESS OR WEAKNESS? NO . CARDIOLOGY: DO YOU HAVE A PACEMAKER OR DEFIBRILLATOR? NO . RESPIRATORY: HAVE YOU BEEN SICK IN THE PAST WEEK? NO . FEVER NO . FLU LIKE SYMPTOMS? NO . COUGH NO . INTEGUMENTARY: DO YOU HAVE ANY RASHES OR OPEN SORES? YES - REPORTS CUT ON INDEX FINGER RIGHT HAND AND CUT ON LEG FROM SHAVING . ALLERGIC/IMMUNO: ARE YOU ALLERGIC TO IV DYE? NO . ANY NEW ALLERGIES? NO . PSYCHIATRIC: DO YOU HAVE THOUGHTS OF HURTING YOURSELF OR SOMEONE ELSE? NO . ARE YOU ABUSED, NEGLECTED, OR IN AN UNSAFE ENVIRONMENT? NO . ENDOCRINOLOGY: ARE YOU DIABETIC? YES . OTHER: DO YOU NEED ANY PRESCRIPTIONS? NO . IF YES, PLEASE LIST: ____ . ANY NEW PROBLEMS WITH YOUR MEDICATIONS? NO . WHEN DID YOU LAST EAT? 12-14-18 2100 . WHEN DID YOU LAST DRINK? 12-15-18 0900 . WHAT DID YOU LAST DRINK? WATER . NAME OF PERSON DRIVING YOU HOME? DARRON . DO YOU HAVE ANY OTHER QUESTIONS OR CONCERNS NO . VITAL SIGNS WT 163.8 LBS, HT 5'5", BMI 27.25 INDEX, BP 135/84 MM HG, HR 71 /MIN, RR 18 /MIN, TEMP 98.0 F, OXYGEN SAT % 100%, SAFE IN ENV? (Y/N) Y, NA INITIALS AW 1053, REVIEWED BY: CRYSTAL CISNEROS. ASSESSMENTS INTERVERTEBRAL DISC DISORDER WITH RADICULOPATHY OF LUMBAR REGION - M51.16 (PRIMARY) TREATMENT INTERVERTEBRAL DISC DISORDER WITH RADICULOPATHY OF LUMBAR REGION [facility] FLUORO GUIDE SPINE INJECTION (PAIN)[id number] PROCEDURES PRE PROCEDURE DIAGNOSIS LUMBAR DISC DISORDER WITH RADICULOPATHY POST PROCEDURE DIAGNOSIS LUMBAR DISC DISORDER WITH RADICULOPATHY PROCEDURE LUMBAR EPIDURAL STEROID INJECTION UNDER FLUOROSCOPIC GUIDANCE SURGEON DR. DICK ORTIZ NURSE AIDE NONE ANESTHESIA LOCAL PRE PROCEDURE NOTE THE PATIENT HAS A HISTORY OF CHRONIC LOW BACK PAIN. I EVALUATED THE PATIENT AND REVIEWED THE CHART. I WENT OVER THE RISKS, ALTERNATIVES, AND BENEFITS ASSOCIATED WITH THIS PROCEDURE. THE PATIENT WOULD LIKE TO PROCEED AND GIVE CONSENT TO PERFORMED THE PROCEDURE. THE PATIENT DENIES UNEXPLAINABLE WEIGHT LOSS, FEVER, CHILLS, OR NEW CHANGES IN URINARY OR BOWEL CONTROL. DESCRIPTION OF PROCEDURE THE PATIENT WAS BROUGHT TO THE PROCEDURE ROOM AND PLACED IN THE PRONE POSITION. THE LUMBOSACRAL AREA WAS CLEANED WITH BETADINE SOLUTION AND DRAPED ASEPTICALLY. THE PROCEDURE WAS DONE UNDER STERILE CONDITIONS. I CHECKED LATERALITY AND THE LEVEL WHERE THE PROCEDURE WAS GOING TO BE PERFORMED WITH THE PATIENT AND THE SUPPORTING STAFF AT THE MOMENT OF THE TIME OUT IN THE PROCEDURE ROOM. UNDER FLUOROSCOPIC GUIDANCE, THE TARGET POINT WAS SELECTED AT THE INTERLAMINAR LEVEL OF L4-L5. LIDOCAINE WAS USED TO NUMB THE SKIN AND THE SUBCUTANEOUS TISSUE BELOW IT. EPIDURAL TUOHY NEEDLE, 17-GAUGE, WAS ADVANCED UNDER FLUOROSCOPIC GUIDANCE AND FOLLOWING PATIENT FEEDBACK UNTIL THE EPIDURAL SPACE WAS REACHED, 7 CM DEEP INTO THE SKIN BY THE LOSS OF RESISTANCE TECHNIQUE. ISOVUE M-200 CONTRAST WAS INJECTED SHOWING ADEQUATE SPREAD OF THE DYE. THEN, A SOLUTION OF 3 ML OF NORMAL SALINE WITH DEPO-MEDROL 60 MG WAS INJECTED SLOWLY FOLLOWING PATIENT FEEDBACK. THERE WAS NO EVIDENCE OF BLOOD, PARESTHESIA OR CEREBROSPINAL FLUID DURING THE PROCEDURE. THE PATIENT WAS SENT TO THE RECOVERY ROOM. THE PATIENT WAS MOVING THE EXTREMITIES AND DOING WELL. THERE WAS NO COMPLICATION DURING THE PROCEDURE. FLUOROSCOPY TIME WAS 4 SECONDS. POST PROCEDURE NOTE THE PATIENT WILL BE SEEN IN A FOLLOW UP IN THE NEXT FEW WEEKS. INSTRUCTIONS WERE GIVEN, QUESTIONS WERE ANSWERED, AND THE PATIENT EXPRESSED UNDERSTANDING AND AGREES WITH THE PLAN. I, VINI SPENCER, DOCUMENTED THE ABOVE INFORMATION ACTING A SCRIBE FOR DR. ORTIZ. I HAVE REVIEWED THE ABOVE DOCUMENT, WRITTEN BY VINI OLIVAS AND I VERIFY THAT IT IS ACCURATE. PROCEDURE CODES 60232 LUMBAR/SACRAL W/ IMAGING 6045F RADXPS IN END [id number] PXD DISPOSITION & COMMUNICATION FOLLOW UP 2 WEEKS ELECTRONICALLY SIGNED BY DICK ORTIZ MD, MD ON 12/22/2018 AT 11:02 AM EDT DISCLAIMER : THIS IS A VISIT SUMMARY EXTRACTED FROM THE [employer] CHART. IT IS NOT A COPY OF THE [employer] PROGRESS NOTE. MTDD
== END ==
LOC: M PAIN 11:00
PROVIDERS: ATTEND Anesthesiology
DX: G89.29 Other chronic pain (principal); M51.16 Intervertebral disc disorders with radiculopathy, lumbar region; M54.5 Low back pain; E11.9 Type 2 diabetes mellitus without complications; I10 Essential (primary) hypertension; Z79.84 Long term (current) use of oral hypoglycemic drugs; Z79.899 Other long term (current) drug therapy; Z98.84 Bariatric surgery status; Z87.891 Personal history of nicotine dependence; Z88.5 Allergy status to narcotic agent; Z88.8 Allergy status to other drugs, medicaments and biological substances; Z91.048 Other nonmedicinal substance allergy status
CPT/HCPCS: 62323; J1030; Q9966

== ENCOUNTER → 2019-01-04 | Outpatient (REF) | payer OTHER, MEDICAID ==
[~2019-01-04] MED LIST changes: -ISOVUE-M 200 41% 20ML VIAL (Q9966) As Ordered ONE; -LIDOCAINE 1% SDV INJ 30 ML VIAL As Ordered ONE; -QC A650T3 PO; +RIZA10TA4 PO; -RIZA10TA58 PO; +SIMV20TA2 PO; -SIMV20TA22 PO; -TRAM50TA2 PO; -diazePAM 5 MG TAB As Ordered ONE; -methylPREDNISolone SUSP 40 MG/ML (DEPO-medrol) VIAL (J1030) As Ordered ONE
[2019-01-04 11:43] LABS: HEMATOCRIT 35.4 % (36.0-47.0); HEMOGLOBIN 11.7 g/dl (12.0-15.5); MEAN CORPUSCULAR HEMOGLOBIN 27.7 pg (27.0-33.0); MEAN CORPUSCULAR HGB CONC 33.1 g/dl (32.0-36.5); MEAN CORPUSCULAR VOLUME 83.9 fl (80.0-96.0); PLATELET COUNT, AUTOMATED 497 10^3/uL (150-450); RED BLOOD COUNT 4.22 10^6/uL (4.00-5.40); WHITE BLOOD COUNT 11.9 10^3/uL (4.0-10.0)
[2019-01-04 12:07] LABS: ALBUMIN 3.5 GM/DL (3.2-5.2); ALT/SGPT 32 U/L (12-78); BILIRUBIN,TOTAL 0.3 MG/DL (0.2-1.0); BLOOD UREA NITROGEN 12 MG/DL (7-18); CARBON DIOXIDE LEVEL 24 MEQ/L (21-32); CHLORIDE LEVEL 109 MEQ/L (98-107); CHOLESTEROL LEVEL 120 MG/DL (<200); CHOLESTEROL RISK RATIO 2.448 (<5); CREATININE FOR GFR 0.79 MG/DL (0.55-1.30); FERRITIN 50 NG/ML (8-252); GLOMERULAR FILTRATION RATE > 60.0 (>58); GLUCOSE, FASTING 72 MG/DL (70-100); HDL CHOLESTEROL 49 MG/DL (>40); IRON (FE) 71 UG/DL (50-170); LDL CHOLESTEROL 41 MG/DL (<100); NON-HDL-C 71 MG/DL; PERCENT SATURATION 27.1 % (13.2-45.0); POTASSIUM SERUM 4.2 MEQ/L (3.5-5.1); SODIUM LEVEL 142 MEQ/L (136-145); TOTAL IRON BINDING CAPACITY 262 UG/DL (250-450); TOTAL PROTEIN 6.7 GM/DL (6.4-8.2); TRIGLYCERIDES LEVEL 149 MG/DL (<150)
[2019-01-04 12:19] LABS: HEMOGLOBIN A1c 6.3 %; MALB URINE SIEMENS 25.5 MG/L; MAU/CREAT RATIO 14.3 MCG/MG (0.0-30.0)
== END ==
LOC: M SFHCPLAZ 10:32
PROVIDERS: ATTEND Nurse Practitioner Adult Health
DX: Z98.890 Other specified postprocedural states (principal); E11.9 Type 2 diabetes mellitus without complications; Z00.00 Encounter for general adult medical examination without abnormal findings; I10 Essential (primary) hypertension

== ENCOUNTER → 2019-01-12 | Outpatient (REF) | payer OTHER, MEDICAID ==
[2019-01-12 14:37] LABS: APPEARANCE, URINE CLOUDY (CLEAR); BACTERIA, URINE AUTO 2+ (NEGATIVE); BILIRUBIN, URINE AUTO NEGATIVE (NEGATIVE); BLOOD, URINE BLOOD 1+ (NEGATIVE); COLOR, URINE YELLOW (YELLOW); GLUCOSE, URINE (UA) AUTO NEGATIVE (NEGATIVE); KETONE, URINE AUTO NEGATIVE (NEGATIVE); LEUKOCYTE ESTERASE, URINE AUTO 3+ (NEGATIVE); MUCUS, URINE SMALL (NEGATIVE); NITRITE, URINE AUTO NEGATIVE (NEGATIVE); PROTEIN, URINE AUTO NEGATIVE (NEGATIVE); RBC, URINE AUTO 11 /HPF (0-3); SPECIFIC GRAVITY URINE AUTO 1.018 (1.002-1.035); SQUAMOUS EPITHELIAL CELL UR AU 8 /HPF (0-6); UROBILINOGEN, URINE AUTO 0.2 mg/dL (0.0-2.0); WBC, URINE AUTO 30 /HPF (0-3)
== END ==
LOC: M SFHCPLAZ 13:19
PROVIDERS: ATTEND Nurse Practitioner Family
DX: R30.0 Dysuria (principal)

== ENCOUNTER → 2019-01-13 | Outpatient (CLI) | payer MEDICARE, OTHER, MEDICAID ==
[~2019-01-13] MED LIST changes: -RIZA10TA4 PO; +RIZA10TA58 PO
--- NOTE | 2019-01-30 00:18 | ECWPNPC ---
PATIENT NAME: CESAR ANGUIANO : 1970 GENDER: FEMALE VISIT DATE: 01/13/2019 DISCHARGE DATE: 01/13/19 1024 VISIT LOCKED DATE TIME: PHYSICIAN: DICK ORTIZ MD RESOURCE: DICK ORTIZ MD REASON FOR APPOINTMENT 1. POST LESI HISTORY OF PRESENT ILLNESS HISTORY OF PRESENT ILLNESS: PAIN THE PATIENT DESCRIBES THE PAIN... 48 YEAR OLD FEMALE PATIENT WITH A HISTORY OF CHRONIC LOW BACK AND MAINLY LEFT LEG PAIN. THE PATIENT DESCRIBES THE PAIN ACHING, SHARP, SORE, TENDER, AND CONTINUOUS WITH A PAIN SCORE OF 6-10/10 DEPENDING ON PHYSICAL ACTIVITY. THE PATIENT RECEIVED AN INTERLAMINAR L4-L5 LUMBAR EPIDURAL STEROID INJECTION ON 12/15/2018, WHICH SHE SAYS PROVIDED ONLY A FEW DAYS OF PAIN RELIEF. PATIENT DENIES UNEXPLAINABLE WEIGHT LOSS, FEVER, CHILLS, NEW CHANGES ON HER URINARY OR BOWEL CONTROL. FALL RISK SCREENING: SCREENING :NO FALLS REPORTED IN THE LAST YEAR CURRENT MEDICATIONS TAKING METFORMIN HCL 500 MG TABLET 2 TABLETS WITH MEALS ORALLY TWICE A DAY TAKING HYDROXYZINE HCL 10 MG TABLET ORALLY TWICE DAILY NEEDED TAKING BUSPIRONE HCL 10 MG TABLET 2 TABLETS ORALLY TWICE DAILY TAKING FLUOXETINE HCL 40 MG CAPSULE 1 CAPSULE ORALLY BEFORE BEDTIME TAKING ASPIRIN ADULT LOW DOSE 81 MG TABLET DELAYED RELEASE 1 TABLET ORALLY ONCE A DAY, NOTES: 12/14 8AM TAKING SIMVASTATIN 20 MG TABLET 1 TABLET IN THE EVENING ORALLY ONCE A DAY TAKING LYRICA 50 MG CAPSULE 1 CAPSULE ORALLY THREE TIMES A DAY TAKING ALBUTEROL SULFATE HFA 108 (90 BASE) MCG/ACT AEROSOL SOLUTION 2 PUFFS INHALATION EVERY 6 HRS NEEDED TAKING PANTOPRAZOLE SODIUM 40 MG TABLET DELAYED RELEASE 1 TABLET ORALLY ONCE A DAY TAKING NYSTATIN [id number] UNIT/GM POWDER 1 APPLICATION TOPICALLY TWICE A DAY AREA UNDER ABDOMINAL PANNUS TAKING RIZATRIPTAN BENZOATE 10 MG TABLET 1 TABLET AT ONSET OF HEADACHE MAY REPEAT X 1 IN 2 HRS MDD2 ORALLY ONCE A DAY TAKING LISINOPRIL 2.5 MG TABLET 1 TABLET ORALLY ONCE A DAY TAKING VITAMIN D-[address] 1000 UNIT TABLET 1 TABLET ORALLY ONCE A DAY TAKING AYR SALINE NASAL - GEL DIRECTED NASALLY NOT-TAKING ZONISAMIDE 50 MG CAPSULE 1 CAPSULE ORALLY TWICE A DAY DISCONTINUED AYR SALINE NASAL - GEL DIRECTED NASALLY Q 6 HRS PRN DICOMFORT MEDICATION LIST REVIEWED AND RECONCILED WITH THE PATIENT PAST MEDICAL HISTORY HX GASTRIC BYPASS 2008-276 LBS DM2 ESSENTIAL HYPERTENSION MIXED HYPERLIPIDEMIA ASTHMA HX SMOKING SEASONAL ALLERGIES VITAMIN D DEFICEINCY HX NUMEROUS FEET SURGERIES PTSD FATTY LIVER CT SCAN 03/09/18 FIBROMYALGIA - DR. NEAL DEPRESSION/ ANXIETY CHRONIC LOW BACK PAIN CHRONIC MIGRANE HEADACHE SENSORIMOTOR POLYNEUROPATHY OF THE LOWER EXTREMITY ALLERGIES LIPITOR: MIGRAINE - SIDE EFFECTS OXYCODONE HCL: NAUSEA/VOMITING - SIDE EFFECTS VITAMIN B 12: INSOMNIA - SIDE EFFECTS ADHESIVE TAPE: BLISTERS - SIDE EFFECTS SURGICAL HISTORY GASTRIC BYPASS 2009 HERNIA REPAIR 2014 FOOT SURGERIES X4LEFT X6 RIGHT [id number] CYST REMOVED BACK OR RIGHT LEG 2010 HYSTERECTOMY STILL HAVE OVARIES 2010 RIGHT HAND SURGERY X2 TUBAL LIGATION 2007 RIGHT SHOULDER REPAIR OF A MUSCLE X2 ORTHO 2018 RIGHT SHOULDER ARTHROSCOPIC ANTERIOR LABRAL REPAIR- DR. JULIANA LADD 08/25/2018 RIGHT SHOULDER CHONDROPLASTY OF THE GLENOID- DR. JULIANA LADD 08/25/2018 FAMILY HISTORY FATHER: , CHOLESTEROL, JULISA GHERIG'S DISEASE, DIAGNOSED WITH DIABETES MOTHER: , DM2 HTN, CHOL, DEMENITA-BURSING HOME, AFTER A FALL WITH BLEEDING ON BRAIN DIABETES RUNS ON BOTH SIDES OF FAMILY\\NBREAST CANCER RUNS IN FAMILY -DAD\\'S SIDE\\N1 DAUGHTER- HEALTHY \\N1 BROTHER-DM2, CHOLESTEROL HIGH TRIGLYCERIDES\\NNO SISTERS. SOCIAL HISTORY GENERAL: TOBACCO USE ARE YOU A:FORMER SMOKER HOW LONG HAS IT BEEN SINCE YOU LAST SMOKED?> 10 YEARS HIV / HEP-C SCREENING HIV TEST OFFERED TO PATIENT:YES DATE OFFERED:11/30/2016 TEST ACCEPTED:NO HEP-C TEST OFFERED TO PATIENT:YES DATE OFFERED:11/30/2016 REASON:PATIENT DECLINED TEST ACCEPTED:NO REASON:PATIENT DECLINED BROCHURE PROVIDED TO PATIENTYES YES GIVEN TODAY 07/20/2017 OTHERS AT HOME: NO ONE. HOUSING: RENTS APARTMENT. EDUCATION LEVEL OF EDUCATION:COL[employer]GE ASSOC DEGREE IN BUSINESS DIET: REGULAR. LANGUAGE LANGUAGES SPOKEN:MALTESE DOMESTIC VIOLENCE DO YOU FEEL SAFE IN YOUR ENVIRONMENT?YES BMI CARE GOAL FOLLOW-UP ABOVE NORMAL BMI FOLLOW-UPDIETARY MANAGEMENT EDUCATION, GUIDANCE, AND COUNSELING RECREATIONAL DRUG USE DRUG USE?NO PATIENT DENIES ABUSE OR MISSUSED OF ANY MEDICATION. PATIENT DENIES USE OF ANY ILLEGAL SUBSTANCE INCLUDING MARIJUANA OR COCAINE. EXERCISE: NO REGULAR EXERCISE. LEARNING BARRIERS / SPECIAL NEEDS CHANGE FROM LAST VISIT?NO BARRIERS TO LEARNING?NO HEARING IMPAIRED?NO VISION IMPAIRED?YES COGNITIVELY IMPAIRED?NO :CORRECTIVE LENSES READINESS TO LEARN?YES LEARNING PREFERENCES?NO LEARNING CAPABILITIES PRESENT?YES EMOTIONAL BARRIERS?NO SPECIAL DEVICES?NO SERVICE WORKER HELPER NEEDED?NO LUNG CANCER SCREENING SMOKING STATUS:FORMER SMOKER IS THE PATIENT BETWEEN THE AGE OF 56 AND 78?NO PAIN CLINIC PFS, CLERGY, PUBLIC HEALTH REFERRALS WAS THE PROVIDER NOTIFIED OF ANY PERTINENT INFO?YES HAS THE PATIENT BEEN EDUCATED REGARDING HIS/HER PLAN OF CARE?YES HAS THE PATIENT BEEN EDUCATED REGARDING PAIN, THE RISK FOR PAIN, THE IMPORTANCE OF EFFECTIVE PAIN MANAGEMENT, AND THE PAIN ASSESSMENT PROCESS?YES LATEX QUESTIONNAIRE LATEX ALLERGY : HAVE YOU EVER DEVELOPED ANY TYPE OF REACTION AFTER HANDLING LATEX PRODUCTS SUCH RUBBER GLOVES, CONDOMS, DIAPHRAGMS, BALLOONS, SOCKS, OR UNDERWEAR?NO LATEX ALLERGY : HAVE YOU EVER DEVELOPED ANY TYPE OF REACTION DURING OR AFTER DENTAL APPOINTMENT, VAGINAL/RECTAL EXAMINATION, SURGICAL PROCEDURE, OR ANY OTHER EXPOSURE?NO DATE ASKED : 12/15/2018 LATEX RISK : HAVE YOU EVER HAD ANY DIFFICULTY BREATHING OR HIVES AFTER EATING OR HANDLING ANY FRUITS, OR VEGETABLES; SUCH KIWI, BANANAS, STONE FRUITS, OR CHESTNUTSNO LATEX RISK : DO YOU HAVE A PREVIOUS PERSONAL HISTORY OF MORE THAN NINE SURGERIES, SPINA BIFIDA, OR REPEATED CATHERIZATIONS? YES - PLEASE INDICATE : > 9 SURGERIES LATEX RISK : ARE YOU FREQUENTLY EXPOSED TO LATEX PRODUCTS IN YOUR OCCUPATION?NO CAFFEINE CAFFEINE USE?YES HOW OFTEN AND HOW MUCH? 1- 12 OZ CAN PEPSI- 1 LARGE ICE COFFEE ADVANCE DIRECTIVE ADVANCE DIRECTIVE DISCUSSED WITH PATIENT:YES PT HAS A HCP, DAUGHTER RASHAAD PALMER [phone] AND BROTHER MARGARET PALMER [phone] BAPTISM BAPTISM NO FAITH BELIEFS THAT WOULD IMPACT HEALTH CARE. MARITAL STATUS: .. 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 SEXUAL HX HAD SEX IN THE LAST 12 MONTHS (VAGINAL, ORAL, OR ANAL)?YES WITHMEN ONLY PREVENTION STRATEGIES DISCUSSED:OTHER USE PROTECTION?NO HAVE YOU EVER HAD AN STD?NO [id number] DOMESTIC RELATIONSHIP, USES NIGHTMARE MEDICATIONSDR. JULIÁN LUNA-MEDICAL DOCTOR [facility] PT 11/04/18 1415 LAS. HOSPITALIZATION/MAJOR DIAGNOSTIC PROCEDURE PER ABOVE INPATIENT TREATMENT FOR MENTAL HEALTH REVIEW OF SYSTEMS REVIEWED BY: PROVIDER: DICK ORTIZ MD . CONSTITUTIONAL: ANY CHANGE IN YOUR MEDICAL CONDITION? NO . CHILLS NO . FEVER NO . INFECTION: DO YOU HAVE NEW INFECTIONS? NO . DO YOU HAVE HISTORY OF MRSA? NO . MUSCULOSKELETAL: ANY NEW PATTERNS OF PAIN OR NUMBNESS? YES, PAIN IS MORE FREQUENT . GASTROENTEROLOGY: ANY NEW CHANGE IN BOWEL CONTROL? NO . GENITOURINARY: ANY NEW CHANGE IN BLADDER CONTROL? NO . IS THERE A CHANCE YOU COULD BE ? NO . HEMATOLOGY/LYMPH: DO YOU TAKE ANY BLOOD THINNERS? (FOR EXAMPLE- COUMADIN, PLAVIX, AGGRENOX, PLATEL, PRADAXA, OR XARELTO) NO . WHEN WAS YOUR LAST DOSE? DATE: TIME: . NEUROLOGY: HAVE YOU FALLEN IN THE PAST 12 MONTHS? YES, PRIOR TO LAST VISIT . ANY NEW EXTREMITY NUMBNESS OR WEAKNESS? YES, BILAT LEG WEAKNESS AND CRAMPS . CARDIOLOGY: DO YOU HAVE A PACEMAKER OR DEFIBRILLATOR? NO . RESPIRATORY: HAVE YOU BEEN SICK IN THE PAST WEEK? NO . FEVER NO . FLU LIKE SYMPTOMS? NO . COUGH NO . INTEGUMENTARY: DO YOU HAVE ANY RASHES OR OPEN SORES? NO . ALLERGIC/IMMUNO: ARE YOU ALLERGIC TO IV DYE? NO . ANY NEW ALLERGIES? NO . PSYCHIATRIC: DO YOU HAVE THOUGHTS OF HURTING YOURSELF OR SOMEONE ELSE? NO . ARE YOU ABUSED, NEGLECTED, OR IN AN UNSAFE ENVIRONMENT? NO . ENDOCRINOLOGY: ARE YOU DIABETIC? YES . OTHER: DO YOU NEED ANY PRESCRIPTIONS? NO . IF YES, PLEASE LIST: ____ . ANY NEW PROBLEMS WITH YOUR MEDICATIONS? YES, DR NEAL DISCONTINUED LYRICA AND PT DEVELOPED BILAT LEG WEAKNESS AND CRAMPS, KEEPING PT AWAKE AT NIGHT. PT WAS PLACED BACK ON LYRICA AND LEG S/S ARE BETTER . WHEN DID YOU LAST EAT? ____ . WHEN DID YOU LAST DRINK? ____ . WHAT DID YOU LAST DRINK? ____ . NAME OF PERSON DRIVING YOU HOME? ____ . DO YOU HAVE ANY OTHER QUESTIONS OR CONCERNS YES, DR NEAL IS ORDERING A MRI LS THAT IS SCHEDULED FOR 01/17/19 WELL MRI BRAIN . VITAL SIGNS WT 163 LBS, HT 5'5", BMI 27.12 INDEX, BP 118/75 MM HG, HR 82 /MIN, RR 18 /MIN, TEMP 97.8 F, OXYGEN SAT % 97%, NA INITIALS SC 10:212. EXAMINATION GENERAL EXAMINATION: PATIENT IS ALERT O X 3 AND COOPERATIVE. TENDERNESS IN THE LOW BACK. ANTALGIC WALK. PATIENT IS LIMPING FROM THE LEFT LEG. LEFT LEG IS WEAKER AT EXTENSION AND FLEXION. STRAIGHT LEG RAISE OF THE LEFT LEG IS POSITIVE AT 45 DEGREES FOR RADICULOPATHY. MRI OF THE LUMBAR SPINE DONE ON 05/30/2018 SHOWS BULGING DISC AT L4-L5. ASSESSMENTS INTERVERTEBRAL DISC DISORDER WITH RADICULOPATHY OF LUMBAR REGION - M51.16 (PRIMARY) TREATMENT INTERVERTEBRAL DISC DISORDER WITH RADICULOPATHY OF LUMBAR REGION CLINICAL NOTES: WE DISCUSSED SEVERAL ISSUES WITH MS. ANGUIANO'S PAIN MANAGEMENT CASE. DUE TO THE LUMBAR RADICULOPATHY, I WOULD LIKE TO MOVE FORWARD WITH A LUMBAR EPIDURAL STEROID INJECTION WITH A CATHETER AT THIS TIME. WE DISCUSSED THE BENEFITS, RISKS, AND ALTERNATIVES OF THE INJECTION AND THE PATIENT WOULD LIKE TO PROCEED. I AM LOOKING FOR LONG LASTING PAIN RELIEF FROM THIS INJECTION FOR THE PATIENT. THE PATIENT WILL FOLLOW UP IN SEVERAL WEEKS AFTER THE INJECTION. INSTRUCTIONS WERE GIVEN, QUESTIONS WERE ANSWERED, PATIENT REPORTS UNDERSTANDING AND AGREES WITH THE PLAN. I, IRA PATINO, DOCUMENTED THE ABOVE INFORMATION ACTING A SCRIBE FOR DR. ORTIZ. I HAVE REVIEWED THE ABOVE DOCUMENT, WRITTEN BY IRA OLIVAS AND I VERIFY THAT IT IS ACCURATE. . PROCEDURE CODES FA211 ESTABILISHED PATIENT [facility] FACILITY CHARGE [id number] CURRENT MEDS W/DOSAGES DOCUMENTED G8730 PAIN ASSESS POS TOOL F/U PLAN DOC DISPOSITION & COMMUNICATION FOLLOW UP 3 WEEKS (REASON: LESI W/ CATHETER) ELECTRONICALLY SIGNED BY DICK ORTIZ MD, MD ON 01/29/2019 AT 04:43 PM EDT DISCLAIMER : THIS IS A VISIT SUMMARY EXTRACTED FROM THE [employer] CHART. IT IS NOT A COPY OF THE [employer] PROGRESS NOTE. TO
== END ==
LOC: M PAIN 10:00
PROVIDERS: ATTEND Anesthesiology
DX: M51.16 Intervertebral disc disorders with radiculopathy, lumbar region (principal); G89.29 Other chronic pain; Z98.84 Bariatric surgery status; E11.9 Type 2 diabetes mellitus without complications; I10 Essential (primary) hypertension; E78.2 Mixed hyperlipidemia; J45.909 Unspecified asthma, uncomplicated; E55.9 Vitamin D deficiency, unspecified; Z86.59 Personal history of other mental and behavioral disorders; M79.7 Fibromyalgia; Z87.891 Personal history of nicotine dependence; Z88.5 Allergy status to narcotic agent; Z88.8 Allergy status to other drugs, medicaments and biological substances; Z91.09 Other allergy status, other than to drugs and biological substances; Z79.82 Long term (current) use of aspirin; Z79.84 Long term (current) use of oral hypoglycemic drugs; Z79.899 Other long term (current) drug therapy

== ENCOUNTER → 2019-02-15 | Outpatient (CLI) | payer OTHER, MEDICAID ==
[~2019-02-15] MED LIST changes: +ISOVUE-M 300 61% 15ML VIAL (Q9967) As Ordered ONE; +LIDOCAINE 1% SDV INJ 30 ML VIAL As Ordered ONE; +diazePAM 5 MG TAB As Ordered ONE; +methylPREDNISolone SUSP 40 MG/ML (DEPO-medrol) VIAL (J1030) As Ordered ONE
--- NOTE | 2019-02-16 09:22 | REP ---
C-ARM VIEWS LOWER LUMBAR SPINE: Multiple C-ARM views of the lower lumbar spine were performed during epidural injection performed by Dr. Thomas. Needle was seen at the L5-S1 level. The contrast is injected. 16 seconds of fluoroscopy time was utilized. Electronically Signed by Rober Diana MD 02/18/2019 10:17 A
--- NOTE | 2019-02-18 23:08 | ECWPNPC ---
PATIENT NAME: CESAR ANGUIANO : 1970 GENDER: FEMALE VISIT DATE: 02/15/2019 DISCHARGE DATE: 02/15/19 1709 VISIT LOCKED DATE TIME: PHYSICIAN: DICK ORTIZ MD RESOURCE: DICK ORTIZ MD REASON FOR APPOINTMENT 1. LESI W/ CATHETER HISTORY OF PRESENT ILLNESS HISTORY OF PRESENT ILLNESS: PAIN THE PATIENT DESCRIBES THE PAIN... FALL RISK SCREENING: SCREENING :NO FALLS REPORTED IN THE LAST YEAR CURRENT MEDICATIONS TAKING LISINOPRIL 2.5 MG TABLET 1 TABLET ORALLY ONCE A DAY, NOTES: 02/15 845 TAKING PANTOPRAZOLE SODIUM 40 MG TABLET DELAYED RELEASE 1 TABLET ORALLY ONCE A DAY, NOTES: 02/15 2000 TAKING SIMVASTATIN 20 MG TABLET 1 TABLET IN THE EVENING ORALLY ONCE A DAY, NOTES: 02/15 2000 TAKING METFORMIN HCL 500 MG TABLET 2 TABLETS WITH MEALS ORALLY TWICE A DAY, NOTES: 02/15 845 TAKING HYDROXYZINE HCL 10 MG TABLET ORALLY TWICE DAILY NEEDED, NOTES: 02/15 2000 TAKING BUSPIRONE HCL 10 MG TABLET 2 TABLETS ORALLY TWICE DAILY, NOTES: 02/15 2000 TAKING FLUOXETINE HCL 40 MG CAPSULE 1 CAPSULE ORALLY BEFORE BEDTIME, NOTES: 02/15 2000 TAKING ASPIRIN ADULT LOW DOSE 81 MG TABLET DELAYED RELEASE 1 TABLET ORALLY ONCE A DAY, NOTES: 02/15 845 TAKING LYRICA 50 MG CAPSULE 1 CAPSULE ORALLY THREE TIMES A DAY, NOTES: 02/15 845 TAKING ALBUTEROL SULFATE HFA 108 (90 BASE) MCG/ACT AEROSOL SOLUTION 2 PUFFS INHALATION EVERY 6 HRS NEEDED, NOTES: NONE RECENT TAKING NYSTATIN [id number] UNIT/GM POWDER 1 APPLICATION TOPICALLY TWICE A DAY AREA UNDER ABDOMINAL PANNUS, NOTES: NONE RECENT TAKING RIZATRIPTAN BENZOATE 10 MG TABLET 1 TABLET AT ONSET OF HEADACHE MAY REPEAT X 1 IN 2 HRS MDD2 ORALLY ONCE A DAY, NOTES: 02/15 2000 TAKING VITAMIN D-[address] 1000 UNIT TABLET 1 TABLET ORALLY ONCE A DAY, NOTES: 02/14 1400 TAKING AYR SALINE NASAL - GEL DIRECTED NASALLY , NOTES: NONE RECENT NOT-TAKING ZONISAMIDE 50 MG CAPSULE 1 CAPSULE ORALLY TWICE A DAY MEDICATION LIST REVIEWED AND RECONCILED WITH THE PATIENT PAST MEDICAL HISTORY HX GASTRIC BYPASS 2009-276 LBS DM2 ESSENTIAL HYPERTENSION MIXED HYPERLIPIDEMIA ASTHMA HX SMOKING SEASONAL ALLERGIES VITAMIN D DEFICEINCY HX NUMEROUS FEET SURGERIES PTSD FATTY LIVER CT SCAN 03/09/18 FIBROMYALGIA - DR. NEAL DEPRESSION/ ANXIETY CHRONIC LOW BACK PAIN CHRONIC MIGRANE HEADACHE SENSORIMOTOR POLYNEUROPATHY OF THE LOWER EXTREMITY NEUROPATHY BACK PAIN PITUITARY ABNORMALITY ALLERGIES LIPITOR: MIGRAINE - SIDE EFFECTS OXYCODONE HCL: NAUSEA/VOMITING - SIDE EFFECTS VITAMIN B 12: INSOMNIA - SIDE EFFECTS ADHESIVE TAPE: BLISTERS - SIDE EFFECTS SURGICAL HISTORY GASTRIC BYPASS 2009 HERNIA REPAIR 2014 FOOT SURGERIES X4LEFT X6 RIGHT [id number] CYST REMOVED BACK OR RIGHT LEG 2010 HYSTERECTOMY STILL HAVE OVARIES 2010 RIGHT HAND SURGERY X2 TUBAL LIGATION 2007 RIGHT SHOULDER REPAIR OF A MUSCLE X2 ORTHO 2018 RIGHT SHOULDER ARTHROSCOPIC ANTERIOR LABRAL REPAIR- DR. JULIANA LADD 08/25/2018 RIGHT SHOULDER CHONDROPLASTY OF THE GLENOID- DR. JULIANA LADD 08/25/2018 FAMILY HISTORY FATHER: , CHOLESTEROL, JULISA GHERIG'S DISEASE, DIAGNOSED WITH DIABETES MOTHER: , DM2 HTN, CHOL, DEMENITA-BURSING HOME, AFTER A FALL WITH BLEEDING ON BRAIN DIABETES RUNS ON BOTH SIDES OF FAMILY\\NBREAST CANCER RUNS IN FAMILY -DAD\\'S SIDE\\N1 DAUGHTER- HEALTHY \\N1 BROTHER-DM2, CHOLESTEROL HIGH TRIGLYCERIDES\\NNO SISTERS. SOCIAL HISTORY GENERAL: TOBACCO USE ARE YOU A:FORMER SMOKER HOW LONG HAS IT BEEN SINCE YOU LAST SMOKED?> 10 YEARS HIV / HEP-C SCREENING HIV TEST OFFERED TO PATIENT:YES DATE OFFERED:11/30/2016 TEST ACCEPTED:NO HEP-C TEST OFFERED TO PATIENT:YES DATE OFFERED:11/30/2016 REASON:PATIENT DECLINED TEST ACCEPTED:NO REASON:PATIENT DECLINED BROCHURE PROVIDED TO PATIENTYES YES GIVEN TODAY 07/20/2017 OTHERS AT HOME: NO ONE. HOUSING: RENTS APARTMENT. EDUCATION LEVEL OF EDUCATION:[employer] DEGREE IN BUSINESS DIET: REGULAR. LANGUAGE LANGUAGES SPOKEN:ITALIAN DOMESTIC VIOLENCE DO YOU FEEL SAFE IN YOUR ENVIRONMENT?YES BMI CARE GOAL FOLLOW-UP ABOVE NORMAL BMI FOLLOW-UPDIETARY MANAGEMENT EDUCATION, GUIDANCE, AND COUNSELING RECREATIONAL DRUG USE DRUG USE?NO PATIENT DENIES ABUSE OR MISSUSED OF ANY MEDICATION. PATIENT DENIES USE OF ANY ILLEGAL SUBSTANCE INCLUDING MARIJUANA OR COCAINE. EXERCISE: NO REGULAR EXERCISE. LEARNING BARRIERS / SPECIAL NEEDS CHANGE FROM LAST VISIT?NO BARRIERS TO LEARNING?NO HEARING IMPAIRED?NO VISION IMPAIRED?YES :CORRECTIVE LENSES COGNITIVELY IMPAIRED?NO READINESS TO LEARN?YES LEARNING PREFERENCES?NO LEARNING CAPABILITIES PRESENT?YES EMOTIONAL BARRIERS?NO SPECIAL DEVICES?NO MANAGER OF FINANCIAL NEEDED?NO LUNG CANCER SCREENING SMOKING STATUS:FORMER SMOKER IS THE PATIENT BETWEEN THE AGE OF 56 AND 78?NO PAIN CLINIC PFS, CLERGY, PUBLIC HEALTH REFERRALS WAS THE PROVIDER NOTIFIED OF ANY PERTINENT INFO? N/A HAS THE PATIENT BEEN EDUCATED REGARDING HIS/HER PLAN OF CARE?YES HAS THE PATIENT BEEN EDUCATED REGARDING PAIN, THE RISK FOR PAIN, THE IMPORTANCE OF EFFECTIVE PAIN MANAGEMENT, AND THE PAIN ASSESSMENT PROCESS?YES LATEX QUESTIONNAIRE LATEX ALLERGY : HAVE YOU EVER DEVELOPED ANY TYPE OF REACTION AFTER HANDLING LATEX PRODUCTS SUCH RUBBER GLOVES, CONDOMS, DIAPHRAGMS, BALLOONS, SOCKS, OR UNDERWEAR?NO LATEX ALLERGY : HAVE YOU EVER DEVELOPED ANY TYPE OF REACTION DURING OR AFTER DENTAL APPOINTMENT, VAGINAL/RECTAL EXAMINATION, SURGICAL PROCEDURE, OR ANY OTHER EXPOSURE?NO LATEX RISK : HAVE YOU EVER HAD ANY DIFFICULTY BREATHING OR HIVES AFTER EATING OR HANDLING ANY FRUITS, OR VEGETABLES; SUCH KIWI, BANANAS, STONE FRUITS, OR CHESTNUTSNO LATEX RISK : DO YOU HAVE A PREVIOUS PERSONAL HISTORY OF MORE THAN NINE SURGERIES, SPINA BIFIDA, OR REPEATED CATHERIZATIONS? YES - PLEASE INDICATE : > 9 SURGERIES LATEX RISK : ARE YOU FREQUENTLY EXPOSED TO LATEX PRODUCTS IN YOUR OCCUPATION?NO DATE ASKED : 02/15/2019 CAFFEINE CAFFEINE USE?YES HOW OFTEN AND HOW MUCH? 1- 12 OZ CAN PEPSI- 1 LARGE ICE COFFEE ADVANCE DIRECTIVE ADVANCE DIRECTIVE DISCUSSED WITH PATIENT:YES PT HAS A HCP, DAUGHTER RASHAAD PALMER [phone] AND BROTHER MARGARET PALMER [phone] CATHOLIC CATHOLIC NO EPISCOPAL BELIEFS THAT WOULD IMPACT HEALTH CARE. MARITAL STATUS: .. ALCOHOL SCREENING DID YOU HAVE A DRINK CONTAINING ALCOHOL IN THE PAST YEAR?NO POINTS0 INTERPRETATIONNEGATIVE OCCUPATION: [id number] TO HER STOMACH PROBLEMS AND LEARNING DIABILITY DO NOT COMPREHEND WHAT SHE ENDS- 2009. SEXUAL HX HAD SEX IN THE LAST 12 MONTHS (VAGINAL, ORAL, OR ANAL)?YES WITHMEN ONLY PREVENTION STRATEGIES DISCUSSED:OTHER USE PROTECTION?NO HAVE YOU EVER HAD AN STD?NO [id number] DOMESTIC RELATIONSHIP, USES NIGHTMARE MEDICATIONSDR. JULIÁN LUNA-MEDICAL DOCTOR [facility],Yayo KELLEY-KIDNEY DOCTOR [facility] 11/04/18 1415 LAS. HOSPITALIZATION/MAJOR DIAGNOSTIC PROCEDURE PER ABOVE INPATIENT TREATMENT FOR MENTAL HEALTH REVIEW OF SYSTEMS REVIEWED BY: PROVIDER: . CONSTITUTIONAL: ANY CHANGE IN YOUR MEDICAL CONDITION? NO . CHILLS NO . FEVER NO . INFECTION: DO YOU HAVE NEW INFECTIONS? NO . DO YOU HAVE HISTORY OF MRSA? NO . MUSCULOSKELETAL: ANY NEW PATTERNS OF PAIN OR NUMBNESS? NO . GASTROENTEROLOGY: ANY NEW CHANGE IN BOWEL CONTROL? NO . GENITOURINARY: ANY NEW CHANGE IN BLADDER CONTROL? NO . IS THERE A CHANCE YOU COULD BE ? NO . HEMATOLOGY/LYMPH: DO YOU TAKE ANY BLOOD THINNERS? (FOR EXAMPLE- COUMADIN, PLAVIX, AGGRENOX, PLATEL, PRADAXA, OR XARELTO) NO . WHEN WAS YOUR LAST DOSE? DATE: TIME: . NEUROLOGY: HAVE YOU FALLEN IN THE PAST 12 MONTHS? YES, COUPLE OF TIMES, LEGS FELT WEAK DUE TO FIBROMYALGIA, DENIES INJURIES . ANY NEW EXTREMITY NUMBNESS OR WEAKNESS? NO . CARDIOLOGY: DO YOU HAVE A PACEMAKER OR DEFIBRILLATOR? NO . RESPIRATORY: HAVE YOU BEEN SICK IN THE PAST WEEK? NO . FEVER NO . FLU LIKE SYMPTOMS? NO . COUGH NO . INTEGUMENTARY: DO YOU HAVE ANY RASHES OR OPEN SORES? NO . ALLERGIC/IMMUNO: ARE YOU ALLERGIC TO IV DYE? NO . ANY NEW ALLERGIES? NO . PSYCHIATRIC: DO YOU HAVE THOUGHTS OF HURTING YOURSELF OR SOMEONE ELSE? NO . ARE YOU ABUSED, NEGLECTED, OR IN AN UNSAFE ENVIRONMENT? NO . ENDOCRINOLOGY: ARE YOU DIABETIC? YES, FSBS 81 @ 1452 . OTHER: DO YOU NEED ANY PRESCRIPTIONS? NO . IF YES, PLEASE LIST: ____ . ANY NEW PROBLEMS WITH YOUR MEDICATIONS? NO . WHEN DID YOU LAST EAT? 02/15 0900 . WHEN DID YOU LAST DRINK? 02/15 1200 . WHAT DID YOU LAST DRINK? WATER . NAME OF PERSON DRIVING YOU HOME? DYLAN . DO YOU HAVE ANY OTHER QUESTIONS OR CONCERNS NO . VITAL SIGNS WT 165.6 LBS, HT 5'5", BMI 27.55 INDEX, BP 131/83 MM HG, HR 67 /MIN, RR 18 /MIN, TEMP 97.3 F, OXYGEN SAT % 97%, SAFE IN ENV? (Y/N) Y, NA INITIALS AW 1349, REVIEWED BY: AD. ASSESSMENTS INTERVERTEBRAL DISC DISORDER WITH RADICULOPATHY OF LUMBAR REGION - M51.16 (PRIMARY) TREATMENT INTERVERTEBRAL DISC DISORDER WITH RADICULOPATHY OF LUMBAR REGION [facility] FLUORO GUIDE SPINE INJECTION (PAIN)[id number] PROCEDURES PRE PROCEDURE DIAGNOSIS LUMBAR DISC DISORDER WITH RADICULOPATHY POST PROCEDURE DIAGNOSIS LUMBAR DISC DISORDER WITH RADICULOPATHY PROCEDURE LUMBAR EPIDURAL STEROID INJECTION UNDER FLUOROSCOPIC GUIDANCE SURGEON DR. DICK ORTIZ RN CLINICAL APPEALS NONE ANESTHESIA LOCAL PRE PROCEDURE NOTE THE PATIENT HAS A HISTORY OF CHRONIC LOW BACK PAIN. I EVALUATED THE PATIENT AND REVIEWED THE CHART. I WENT OVER THE RISKS, ALTERNATIVES, AND BENEFITS ASSOCIATED WITH THIS PROCEDURE. THE PATIENT WOULD LIKE TO PROCEED AND GIVES CONSENT TO PERFORM THE PROCEDURE. THE PATIENT DENIES UNEXPLAINABLE WEIGHT LOSS, FEVER, CHILLS, OR NEW CHANGES IN URINARY OR BOWEL CONTROL. DESCRIPTION OF PROCEDURE THE PATIENT WAS BROUGHT TO THE PROCEDURE ROOM AND PLACED IN THE PRONE POSITION. THE LUMBOSACRAL AREA WAS CLEANED WITH BETADINE SOLUTION AND DRAPED ASEPTICALLY. THE PROCEDURE WAS DONE UNDER STERILE CONDITIONS. I CHECKED LATERALITY AND THE LEVEL WHERE THE PROCEDURE WAS GOING TO BE PERFORMED WITH THE PATIENT AND THE SUPPORTING STAFF AT THE MOMENT OF THE TIME OUT IN THE PROCEDURE ROOM. UNDER FLUOROSCOPIC GUIDANCE, THE TARGET POINT WAS SELECTED AT THE INTERLAMINAR LEVEL OF L4-L5. LIDOCAINE WAS USED TO NUMB THE SKIN AND THE SUBCUTANEOUS TISSUE BELOW IT. EPIDURAL TUOHY NEEDLE, 17-GAUGE, WAS ADVANCED UNDER FLUOROSCOPIC GUIDANCE AND FOLLOWING PATIENT FEEDBACK UNTIL THE EPIDURAL SPACE WAS REACHED, 7 CM DEEP INTO THE SKIN BY THE LOSS OF RESISTANCE TECHNIQUE. I ADVANCED A 19-GAUGE EPIMED CATHETER THROUGH A 16-GAUGE NEEDLE TO THE LEFT OF L4. ISOVUE M DYE 30%, 0.25 ML, WAS INJECTED SHOWING ADEQUATE SPREAD OF THE DYE. THEN, A SOLUTION OF 3 ML OF NORMAL SALINE WITH DEPO-MEDROL 60 MG WAS INJECTED SLOWLY FOLLOWING PATIENT FEEDBACK. THERE WAS NO EVIDENCE OF BLOOD, PARESTHESIA OR CEREBROSPINAL FLUID DURING THE PROCEDURE. THE PATIENT WAS SENT TO THE RECOVERY ROOM. THE PATIENT WAS MOVING THE EXTREMITIES AND DOING WELL. THERE WAS NO COMPLICATION DURING THE PROCEDURE. FLUOROSCOPY TIME WAS 16 SECONDS. POST PROCEDURE NOTE THE PATIENT WILL BE SEEN IN A FOLLOW UP IN THE NEXT FEW WEEKS. INSTRUCTIONS WERE GIVEN, QUESTIONS WERE ANSWERED, AND THE PATIENT EXPRESSED UNDERSTANDING AND AGREES WITH THE PLAN. I, IRA PATINO, DOCUMENTED THE ABOVE INFORMATION ACTING A SCRIBE FOR DR. ORTIZ. I HAVE REVIEWED THE ABOVE DOCUMENT, WRITTEN BY IRA PATINO SCRIBDenzel AND I VERIFY THAT IT IS ACCURATE. PROCEDURE CODES 74127 LUMBAR/SACRAL W/ IMAGING 6045F RADXPS IN END [id number] PXD DISPOSITION & COMMUNICATION FOLLOW UP 2 WEEKS ELECTRONICALLY SIGNED BY DICK ORTIZ MD, MD ON 02/18/2019 AT 04:52 PM EDT DISCLAIMER : THIS IS A VISIT SUMMARY EXTRACTED FROM THE [employer] CHART. IT IS NOT A COPY OF THE [employer] PROGRESS NOTE. MTDD
== END ==
LOC: M PAIN 14:00
PROVIDERS: ATTEND Anesthesiology
DX: M51.16 Intervertebral disc disorders with radiculopathy, lumbar region (principal); E78.2 Mixed hyperlipidemia; J45.909 Unspecified asthma, uncomplicated; E55.9 Vitamin D deficiency, unspecified; F43.10 Post-traumatic stress disorder, unspecified; K76.0 Fatty (change of) liver, not elsewhere classified; F32.9 Major depressive disorder, single episode, unspecified; F41.9 Anxiety disorder, unspecified; G43.709 Chronic migraine without aura, not intractable, without status migrainosus; E11.42 Type 2 diabetes mellitus with diabetic polyneuropathy; E23.7 Disorder of pituitary gland, unspecified; Z98.84 Bariatric surgery status; Z87.891 Personal history of nicotine dependence; Z79.82 Long term (current) use of aspirin; Z79.899 Other long term (current) drug therapy; Z88.5 Allergy status to narcotic agent; Z88.8 Allergy status to other drugs, medicaments and biological substances; Z91.048 Other nonmedicinal substance allergy status
CPT/HCPCS: 62323; J1030; Q9967

== ENCOUNTER → 2019-03-07 | Outpatient (CLI) | payer OTHER, MEDICAID ==
[~2019-03-07] MED LIST changes: -ISOVUE-M 300 61% 15ML VIAL (Q9967) As Ordered ONE; -LIDOCAINE 1% SDV INJ 30 ML VIAL As Ordered ONE; -diazePAM 5 MG TAB As Ordered ONE; -methylPREDNISolone SUSP 40 MG/ML (DEPO-medrol) VIAL (J1030) As Ordered ONE
--- NOTE | 2019-03-22 04:20 | ECWPNPC ---
PATIENT NAME: CESAR ANGUIANO : 1970 GENDER: FEMALE VISIT DATE: 03/07/2019 DISCHARGE DATE: 03/07/19 1221 VISIT LOCKED DATE TIME: PHYSICIAN: ZEE BARAHONA RESOURCE: ZEE BARAHONA REASON FOR APPOINTMENT 1. POST LESI W/ CATHETER HISTORY OF PRESENT ILLNESS HISTORY OF PRESENT ILLNESS: HERE FOR POST PROCEDURE F/U.HAD L4/5 LESI W CATH-LEFT ON02/15/19.REPORTING NO IMPROVEMENT POST PROCEDURE.RATING LEFT LOW BACK PAIN W RADIATION INTO LEFT THIGH 8/10 VAS.HX OF FALL INJURY IN 2016.LEFT LOW BACK PAIN HAS BEEN CONSTANT SINCE THEN.LEFT LEG PAIN BEGAN 1 YEAR AGO.HX OF GASTRIC BYPASS SURGERY IN 2008.REVIEWED MRI L/S SPINE AND DISCUSSED TREATMENT OPTIONS. PAIN THE PATIENT DESCRIBES THE PAIN... FALL RISK SCREENING: SCREENING :NO FALLS REPORTED IN THE LAST YEAR CURRENT MEDICATIONS TAKING LISINOPRIL 2.5 MG TABLET 1 TABLET ORALLY ONCE A DAY TAKING PANTOPRAZOLE SODIUM 40 MG TABLET DELAYED RELEASE 1 TABLET ORALLY ONCE A DAY TAKING SIMVASTATIN 20 MG TABLET 1 TABLET IN THE EVENING ORALLY ONCE A DAY TAKING METFORMIN HCL 500 MG TABLET 2 TABLETS WITH MEALS ORALLY TWICE A DAY TAKING HYDROXYZINE HCL 10 MG TABLET ORALLY TWICE DAILY NEEDED TAKING BUSPIRONE HCL 10 MG TABLET 2 TABLETS ORALLY TWICE DAILY TAKING FLUOXETINE HCL 40 MG CAPSULE 1 CAPSULE ORALLY BEFORE BEDTIME TAKING ASPIRIN ADULT LOW DOSE 81 MG TABLET DELAYED RELEASE 1 TABLET ORALLY ONCE A DAY TAKING LYRICA 50 MG CAPSULE 1 CAPSULE ORALLY THREE TIMES A DAY TAKING ALBUTEROL SULFATE HFA 108 (90 BASE) MCG/ACT AEROSOL SOLUTION 2 PUFFS INHALATION EVERY 6 HRS NEEDED TAKING NYSTATIN [id number] UNIT/GM POWDER 1 APPLICATION TOPICALLY TWICE A DAY AREA UNDER ABDOMINAL PANNUS TAKING RIZATRIPTAN BENZOATE 10 MG TABLET 1 TABLET AT ONSET OF HEADACHE MAY REPEAT X 1 IN 2 HRS MDD2 ORALLY ONCE A DAY TAKING VITAMIN D-[address] 1000 UNIT TABLET 1 TABLET ORALLY ONCE A DAY TAKING AYR SALINE NASAL - GEL DIRECTED NASALLY NOT-TAKING ZONISAMIDE 50 MG CAPSULE 1 CAPSULE ORALLY TWICE A DAY MEDICATION LIST REVIEWED AND RECONCILED WITH THE PATIENT PAST MEDICAL HISTORY HX GASTRIC BYPASS 2008-276 LBS DM2 ESSENTIAL HYPERTENSION MIXED HYPERLIPIDEMIA ASTHMA HX SMOKING SEASONAL ALLERGIES VITAMIN D DEFICEINCY HX NUMEROUS FEET SURGERIES PTSD FATTY LIVER CT SCAN 11/14/18 FIBROMYALGIA - DR. NEAL DEPRESSION/ ANXIETY CHRONIC LOW BACK PAIN CHRONIC MIGRANE HEADACHE SENSORIMOTOR POLYNEUROPATHY OF THE LOWER EXTREMITY NEUROPATHY BACK PAIN PITUITARY ABNORMALITY ALLERGIES LIPITOR: MIGRAINE - SIDE EFFECTS OXYCODONE HCL: NAUSEA/VOMITING - SIDE EFFECTS VITAMIN B 12: INSOMNIA - SIDE EFFECTS ADHESIVE TAPE: BLISTERS - SIDE EFFECTS BACLOFEN: CONFUSION/FORGETFULNESS/FATIGUE - SIDE EFFECTS SURGICAL HISTORY GASTRIC BYPASS 2009 HERNIA REPAIR 2014 FOOT SURGERIES X4LEFT X6 RIGHT [id number] CYST REMOVED BACK OR RIGHT LEG 2010 HYSTERECTOMY STILL HAVE OVARIES 2010 RIGHT HAND SURGERY X2 TUBAL LIGATION 2007 RIGHT SHOULDER REPAIR OF A MUSCLE X2 ORTHO 2018 RIGHT SHOULDER ARTHROSCOPIC ANTERIOR LABRAL REPAIR- DR. JLUIANA LADD 08/25/2018 RIGHT SHOULDER CHONDROPLASTY OF THE GLENOID- DR. JULIANA LADD 08/25/2018 FAMILY HISTORY FATHER: , CHOLESTEROL, JULISA GHERIG'S DISEASE, DIAGNOSED WITH DIABETES MOTHER: , DM2 HTN, CHOL, DEMENITA-BURSING HOME, AFTER A FALL WITH BLEEDING ON BRAIN DIABETES RUNS ON BOTH SIDES OF FAMILY\\NBREAST CANCER RUNS IN FAMILY -DAD\\'S SIDE\\N1 DAUGHTER- HEALTHY \\N1 BROTHER-DM2, CHOLESTEROL HIGH TRIGLYCERIDES\\NNO SISTERS. SOCIAL HISTORY GENERAL: TOBACCO USE ARE YOU A:FORMER SMOKER HOW LONG HAS IT BEEN SINCE YOU LAST SMOKED?> 10 YEARS HIV / HEP-C SCREENING HIV TEST OFFERED TO PATIENT:YES DATE OFFERED:11/30/2016 TEST ACCEPTED:NO HEP-C TEST OFFERED TO PATIENT:YES DATE OFFERED:11/30/2016 REASON:PATIENT DECLINED TEST ACCEPTED:NO REASON:PATIENT DECLINED BROCHURE PROVIDED TO PATIENTYES YES GIVEN TODAY 07/20/2017 OTHERS AT HOME: NO ONE. HOUSING: RENTS APARTMENT. EDUCATION LEVEL OF EDUCATION:COLLEGE ASSOC DEGREE IN BUSINESS DIET: REGULAR. LANGUAGE LANGUAGES SPOKEN:SWEDISH DOMESTIC VIOLENCE DO YOU FEEL SAFE IN YOUR ENVIRONMENT?YES BMI CARE GOAL FOLLOW-UP ABOVE NORMAL BMI FOLLOW-UPDIETARY MANAGEMENT EDUCATION, GUIDANCE, AND COUNSELING RECREATIONAL DRUG USE DRUG USE?NO PATIENT DENIES ABUSE OR MISSUSED OF ANY MEDICATION. PATIENT DENIES USE OF ANY ILLEGAL SUBSTANCE INCLUDING MARIJUANA OR COCAINE. EXERCISE: NO REGULAR EXERCISE. LEARNING BARRIERS / SPECIAL NEEDS CHANGE FROM LAST VISIT?NO BARRIERS TO LEARNING?NO HEARING IMPAIRED?NO VISION IMPAIRED?YES COGNITIVELY IMPAIRED?NO :CORRECTIVE LENSES READINESS TO LEARN?YES LEARNING PREFERENCES?NO LEARNING CAPABILITIES PRESENT?YES EMOTIONAL BARRIERS?NO SPECIAL DEVICES?NO APICULTURIST NEEDED?NO LUNG CANCER SCREENING SMOKING STATUS:FORMER SMOKER IS THE PATIENT BETWEEN THE AGE OF 56 AND 78?NO PAIN CLINIC PFS, CLERGY, PUBLIC HEALTH REFERRALS WAS THE PROVIDER NOTIFIED OF ANY PERTINENT INFO? N/A HAS THE PATIENT BEEN EDUCATED REGARDING HIS/HER PLAN OF CARE?YES HAS THE PATIENT BEEN EDUCATED REGARDING PAIN, THE RISK FOR PAIN, THE IMPORTANCE OF EFFECTIVE PAIN MANAGEMENT, AND THE PAIN ASSESSMENT PROCESS?YES LATEX QUESTIONNAIRE LATEX ALLERGY : HAVE YOU EVER DEVELOPED ANY TYPE OF REACTION AFTER HANDLING LATEX PRODUCTS SUCH RUBBER GLOVES, CONDOMS, DIAPHRAGMS, BALLOONS, SOCKS, OR UNDERWEAR?NO LATEX ALLERGY : HAVE YOU EVER DEVELOPED ANY TYPE OF REACTION DURING OR AFTER DENTAL APPOINTMENT, VAGINAL/RECTAL EXAMINATION, SURGICAL PROCEDURE, OR ANY OTHER EXPOSURE?NO LATEX RISK : HAVE YOU EVER HAD ANY DIFFICULTY BREATHING OR HIVES AFTER EATING OR HANDLING ANY FRUITS, OR VEGETABLES; SUCH KIWI, BANANAS, STONE FRUITS, OR CHESTNUTSNO LATEX RISK : DO YOU HAVE A PREVIOUS PERSONAL HISTORY OF MORE THAN NINE SURGERIES, SPINA BIFIDA, OR REPEATED CATHERIZATIONS? YES - PLEASE INDICATE : > 9 SURGERIES LATEX RISK : ARE YOU FREQUENTLY EXPOSED TO LATEX PRODUCTS IN YOUR OCCUPATION?NO DATE ASKED : 02/15/2019 CAFFEINE CAFFEINE USE?YES HOW OFTEN AND HOW MUCH? 1- 12 OZ CAN PEPSI- 1 LARGE ICE COFFEE ADVANCE DIRECTIVE ADVANCE DIRECTIVE DISCUSSED WITH PATIENT:YES PT HAS A HCP, DAUGHTER RASHAAD PALMER [phone] AND BROTHER MARGARET PALMER [phone] RASTAFARIAN RASTAFARIAN NO FAITH BELIEFS THAT WOULD IMPACT HEALTH CARE. MARITAL STATUS: .. ALCOHOL SCREENING DID YOU HAVE A DRINK CONTAINING ALCOHOL IN THE PAST YEAR?NO POINTS0 INTERPRETATIONNEGATIVE OCCUPATION: [id number] TO HER STOMACH PROBLEMS AND LEARNING DIABILITY DO NOT COMPREHEND WHAT SHE ENDS- 2009. SEXUAL HX HAD SEX IN THE LAST 12 MONTHS (VAGINAL, ORAL, OR ANAL)?YES WITHMEN ONLY PREVENTION STRATEGIES DISCUSSED:OTHER USE PROTECTION?NO HAVE YOU EVER HAD AN STD?NO [id number] DOMESTIC RELATIONSHIP, USES NIGHTMARE MEDICATIONSDRYayo LUNA-MEDICAL DOCTOR [facility]DR[facility]ID[facility] DO[facility]VIEWED WITH PT 11/04/18 1415 LAS REVIEWED WITH PATIENT 03/07/19 1127 JS. HOSPITALIZATION/MAJOR DIAGNOSTIC PROCEDURE PER ABOVE INPATIENT TREATMENT FOR MENTAL HEALTH REVIEW OF SYSTEMS REVIEWED BY: PROVIDER: ZEE ONTIVEROS . CONSTITUTIONAL: ANY CHANGE IN YOUR MEDICAL CONDITION? NO . CHILLS NO . FEVER NO . INFECTION: DO YOU HAVE NEW INFECTIONS? NO . DO YOU HAVE HISTORY OF MRSA? NO . MUSCULOSKELETAL: ANY NEW PATTERNS OF PAIN OR NUMBNESS? NO . GASTROENTEROLOGY: ANY NEW CHANGE IN BOWEL CONTROL? NO . GENITOURINARY: ANY NEW CHANGE IN BLADDER CONTROL? NO . IS THERE A CHANCE YOU COULD BE ? NO . HEMATOLOGY/LYMPH: DO YOU TAKE ANY BLOOD THINNERS? (FOR EXAMPLE- COUMADIN, PLAVIX, AGGRENOX, PLATEL, PRADAXA, OR XARELTO) NO . WHEN WAS YOUR LAST DOSE? DATE: TIME: . NEUROLOGY: HAVE YOU FALLEN IN THE PAST 12 MONTHS? YES, STATES FALL YESTERDAY, WAS KNEELING DOWN AND FELL OVER ONTO HER BOTTOM. STATES NO INJURIES, NO ED VISIT . ANY NEW EXTREMITY NUMBNESS OR WEAKNESS? NO . CARDIOLOGY: DO YOU HAVE A PACEMAKER OR DEFIBRILLATOR? NO . RESPIRATORY: HAVE YOU BEEN SICK IN THE PAST WEEK? NO . FEVER NO . FLU LIKE SYMPTOMS? NO . COUGH NO . INTEGUMENTARY: DO YOU HAVE ANY RASHES OR OPEN SORES? NO . ALLERGIC/IMMUNO: ARE YOU ALLERGIC TO IV DYE? NO . ANY NEW ALLERGIES? YES, BACLOFEN . PSYCHIATRIC: DO YOU HAVE THOUGHTS OF HURTING YOURSELF OR SOMEONE ELSE? NO . ARE YOU ABUSED, NEGLECTED, OR IN AN UNSAFE ENVIRONMENT? NO . ENDOCRINOLOGY: ARE YOU DIABETIC? YES . OTHER: DO YOU NEED ANY PRESCRIPTIONS? NO . IF YES, PLEASE LIST: ____ . ANY NEW PROBLEMS WITH YOUR MEDICATIONS? NO . WHEN DID YOU LAST EAT? ____ . WHEN DID YOU LAST DRINK? ____ . WHAT DID YOU LAST DRINK? ____ . NAME OF PERSON DRIVING YOU HOME? ____ . DO YOU HAVE ANY OTHER QUESTIONS OR CONCERNS NO . VITAL SIGNS WT 165.6 LBS, HT 5'5", BMI 27.55 INDEX, BP 108/60 MM HG, HR 91 /MIN, RR 18 /MIN, TEMP 97.8 F, OXYGEN SAT % 98%, SAFE IN ENV? (Y/N) YES, NA INITIALS AW 1107, REVIEWED BY: ALMITA. EXAMINATION GENERAL EXAMINATION: GENERAL ALERT,NO DISTRESS . PSYCH AFFECT NORMAL . LUNGS: LUNG SOUNDS ARE CLEAR . HEART: HEART RATE REGULAR . MUSCULOSKELETAL: MST 5/5 BILAT. LOWER EXTREMITIES . LUMBAR SACRAL SPINE TENDERNESS LEFT SIJ .POSITIVE FE TEST OVER LEFT LEG. DIAGNOSTIC TESTS REVIEWEDMRI L/S [id number] . ASSESSMENTS SACROILIITIS - M46.1 (PRIMARY) TREATMENT SACROILIITIS NOTES: LEFT SIJ. PREVENTIVE MEDICINE PAIN CLINIC TEACHING: PROCEDURE TEACHING REVIEWED INFORMATION ON SACROILIAC JOINT INJECTION PROCEDURE WITH PATIENT. ALSO REVIEWED PRE-PROCEDURE INSTRUCTIONS. PATIENT VERBALIZED AN UNDERSTANDING. GEO BETANCOURT 03/07/2019 2:51:30 PM > . DISPOSITION & COMMUNICATION FOLLOW UP POST (REASON: LEFT SIJ) ELECTRONICALLY SIGNED BY WESTON POE ON 03/21/2019 AT 01:53 PM EST DISCLAIMER : THIS IS A VISIT SUMMARY EXTRACTED FROM THE [employer] CHART. IT IS NOT A COPY OF THE [employer] PROGRESS NOTE. TO
== END ==
LOC: M PAIN 11:15
PROVIDERS: ATTEND Nurse Practitioner Family
DX: M46.1 Sacroiliitis, not elsewhere classified (principal)

== ENCOUNTER → 2019-03-20 | Outpatient (CLI) | payer OTHER ==
[~2019-03-20] MED LIST changes: -SIMV20TA2 PO; +SIMV20TA22 PO
== END ==
LOC: M SMT 10:54
PROVIDERS: ATTEND Nurse Practitioner Women's Health
DX: Z13.79 Encounter for other screening for genetic and chromosomal anomalies (principal)

== ENCOUNTER 2019-04-03 13:11 | Emergency (ER) | payer MEDICARE, MEDICAID ==
[~2019-04-03] VITALS: Ht 165.1 cm; Wt 74.5 kg
[2019-04-03] MEDS ORDERED: traMADol 50 MG TAB PO ONE (16:00)
--- NOTE | 2019-04-03 17:08 | REP ---
Left hip: Two views. History: Left hip pain. Rule out degenerative disease. Findings: AP and frog-leg views of the left hip demonstrates a small subcortical cyst in the femoral head on the left. This may be associated with osteoarthritis. There is minimal superior acetabular spurring. No joint space narrowing is visible. A tubal ligation clip is noted in the left pelvis. Impression: Small subcortical cyst in the femoral head on the left. There is minimal acetabular spurring. Mild osteoarthritis. The small cyst is unchanged from comparison CT study March 09, 2018. No acute abnormality. Electronically Signed by Jonnie Huber MD 04/03/2019 06:01 P
[2019-04-03] MEDS ORDERED: QC A650T3 PO (17:14)
[2019-04-03] MEDS ORDERED: TRAM50TA2 PO (17:14)
[2019-04-03 17:22] VITALS: BP 133/88
== END 2019-04-03 17:40 | disposition home or self-care (01) ==
LOC: M ED 13:11
DX: M16.12 Unilateral primary osteoarthritis, left hip (principal); M85.452 Solitary bone cyst, left pelvis; M25.752 Osteophyte, left hip; E11.9 Type 2 diabetes mellitus without complications; F43.10 Post-traumatic stress disorder, unspecified; F41.9 Anxiety disorder, unspecified; Z98.84 Bariatric surgery status; Z79.82 Long term (current) use of aspirin; Z79.84 Long term (current) use of oral hypoglycemic drugs; Z79.899 Other long term (current) drug therapy; Z91.89 Other specified personal risk factors, not elsewhere classified; Z88.5 Allergy status to narcotic agent; Z88.8 Allergy status to other drugs, medicaments and biological substances

== ENCOUNTER → 2019-04-04 | Outpatient (REF) | payer OTHER, MEDICAID ==
[~2019-04-04] MED LIST changes: +QC A650T3 PO; +TRAM50TA2 PO
[2019-04-04 13:34] LABS: ALBUMIN 4.1 GM/DL (3.2-5.2); ALT/SGPT 27 U/L (12-78); BILIRUBIN,TOTAL 0.3 MG/DL (0.2-1.0); BLOOD UREA NITROGEN 17 MG/DL (7-18); CALCIUM LEVEL 9.8 MG/DL (8.5-10.1); CARBON DIOXIDE LEVEL 26 MEQ/L (21-32); CHLORIDE LEVEL 107 MEQ/L (98-107); CREATININE FOR GFR 0.76 MG/DL (0.55-1.30); GLOMERULAR FILTRATION RATE > 60.0 (>58); GLUCOSE, FASTING 79 MG/DL (70-100); POTASSIUM SERUM 4.5 MEQ/L (3.5-5.1); SODIUM LEVEL 139 MEQ/L (136-145); TOTAL PROTEIN 7.9 GM/DL (6.4-8.2)
[2019-04-04 14:20] LABS: HEMOGLOBIN A1c 6.5 %
== END ==
LOC: M SFHCPLAZ 11:06
PROVIDERS: ATTEND Nurse Practitioner Adult Health
DX: E11.9 Type 2 diabetes mellitus without complications (principal)

== ENCOUNTER → 2019-04-24 | Outpatient (CLI) | payer MEDICAID, OTHER ==
--- NOTE | 2019-04-27 09:19 | REP ---
MRI left hip without contrast: History: Trochanteric bursitis left hip. Comparison radiographs April 03, 2019. Comparison CT abdomen and pelvis March 09, 2019. Technique: Large field of view coronal T1 and T2-weighted scans were obtained bilaterally. Smaller field of view high resolution T2 fat sat images in all three planes were obtained through the left hip. MRI findings: There is no evidence of avascular necrosis of the femoral head on either side. There is a subcortical cyst at the head neck junction on the left which was visible at the time of the prior CT study. This measures 11 mm in greatest diameter. Cortical and medullary bone signal intensity are normal throughout the visualized bony pelvis. The patient is status post hysterectomy. No pelvic mass or adenopathy is seen. No inguinal or other extra pelvic adenopathy is seen. There is no evidence of significant joint effusion on either side. T2-weighted scans demonstrate a peritrochanteric bursal effusion on the right along the inferior and posterior aspect of the subtrochanteric region laterally, this measures 1.9 cm in greatest diameter. There is a tiny sliver of peritrochanteric fluid visible on T2-weighted axial images at the left greater trochanter. No other periarticular bursal fluid collection is seen. Head neck junction morphology is otherwise unremarkable. No faiza labral cartilage tear is seen on either side. There is no evidence of loose body. The ligamentum teres appears intact. Study is otherwise unremarkable. Impression: There are small bilateral peritrochanteric bursal fluid collections, right larger than left. There is a subcortical cyst 11 mm in greatest diameter at the head neck junction on the left. This is visible on comparison CT study March 09, 2018. Otherwise negative. Electronically Signed by Jonnie Huber MD 04/27/2019 10:53 A
== END ==
LOC: M RAD 17:41
PROVIDERS: ATTEND Orthopaedic Surgery
DX: M70.62 Trochanteric bursitis, left hip (principal)

== ENCOUNTER → 2019-05-03 | Outpatient (CLI) | payer OTHER, MEDICAID ==
[~2019-05-03] MED LIST changes: +BUPIVACAINE HCL 0.25% 30 ML VIAL As Ordered ONE; +ISOVUE-M 300 61% 15ML VIAL (Q9967) As Ordered ONE; +LIDOCAINE 1% SDV INJ 30 ML VIAL As Ordered ONE; +TRIAMCINOLONE ACETONIDE SUSP 40 MG/ML VIAL (J3301) As Ordered ONE; +diazePAM 5 MG TAB As Ordered ONE
--- NOTE | 2019-05-03 14:53 | REP ---
SI joint series: Four views of the left side. History: Left SI joint injection for pain. 22 seconds of fluoroscopy time is reported. Findings: A sequence of four last image hold fluoroscopically obtained spot radiographs of the left SI joint document needle position and contrast injection associated with injection procedure. Electronically Signed by Jonnie Huber MD 05/03/2019 02:45 P
--- NOTE | 2019-05-11 01:07 | ECWPNPC ---
PATIENT NAME: CESAR ANGUIANO : 1970 GENDER: FEMALE VISIT DATE: 05/03/2019 DISCHARGE DATE: 05/03/19 1207 VISIT LOCKED DATE TIME: PHYSICIAN: DICK ORTIZ MD RESOURCE: DICK ORTIZ MD REASON FOR APPOINTMENT 1. LEFT SIJ HISTORY OF PRESENT ILLNESS HISTORY OF PRESENT ILLNESS: PAIN THE PATIENT DESCRIBES THE PAIN... FALL RISK SCREENING: SCREENING :NO FALLS REPORTED IN THE LAST YEAR CURRENT MEDICATIONS TAKING PANTOPRAZOLE SODIUM 40 MG TABLET DELAYED RELEASE 1 TABLET ORALLY ONCE A DAY, NOTES: 05/02 2099 TAKING SIMVASTATIN 20 MG TABLET 1 TABLET IN THE EVENING ORALLY ONCE A DAY, NOTES: 05/02 2099 TAKING ASPIRIN ADULT LOW DOSE 81 MG TABLET DELAYED RELEASE 1 TABLET ORALLY ONCE A DAY, NOTES: 05/02 799 TAKING LYRICA 75 MG CAPSULE 1 CAPSULE ORALLY THREE TIMES A DAY, NOTES: 05/02 2099 TAKING ALBUTEROL SULFATE HFA 108 (90 BASE) MCG/ACT AEROSOL SOLUTION 2 PUFFS INHALATION EVERY 6 HRS NEEDED, NOTES: NONE RECENT TAKING NYSTATIN [id number] UNIT/GM POWDER 1 APPLICATION TOPICALLY TWICE A DAY AREA UNDER ABDOMINAL PANNUS, NOTES: NONE RECENT TAKING VITAMIN D-[address] 1000 UNIT TABLET 1 TABLET ORALLY ONCE A DAY, NOTES: 05/02 1199 TAKING AYR SALINE NASAL - GEL DIRECTED NASALLY NEEDED, NOTES: NONE RECENT TAKING RIZATRIPTAN BENZOATE 10 MG TABLET 1 TABLET AT ON SET OF HEADACHE ORALLY MAY REPEATX1 IN 2 HR MDD2, NOTES: LAST WEEK TAKING HYDROXYZINE HCL 10 MG TABLET ORALLY TWICE DAILY NEEDED, NOTES: NONE RECENT TAKING BUSPIRONE HCL 10 MG TABLET 2 TABLETS ORALLY TWICE DAILY, NOTES: 05/02 2099 TAKING FLUOXETINE HCL 40 MG CAPSULE 1 CAPSULE ORALLY BEFORE BEDTIME, NOTES: 05/02 2099 TAKING LISINOPRIL 2.5 MG TABLET 1 TABLET ORALLY ONCE A DAY, NOTES: 05/02 799 TAKING METFORMIN HCL 500 MG TABLET 2 TABLETS WITH MEALS ORALLY TWICE A DAY, NOTES: 05/02 2099 MEDICATION LIST REVIEWED AND RECONCILED WITH THE PATIENT PAST MEDICAL HISTORY HX GASTRIC BYPASS 2008-276 LBS DM2 ESSENTIAL HYPERTENSION MIXED HYPERLIPIDEMIA ASTHMA HX SMOKING SEASONAL ALLERGIES VITAMIN D DEFICEINCY HX NUMEROUS FEET SURGERIES PTSD FATTY LIVER CT SCAN 03/09/18 FIBROMYALGIA - DR. NEAL DEPRESSION/ ANXIETY CHRONIC LOW BACK PAIN CHRONIC MIGRANE HEADACHE SENSORIMOTOR POLYNEUROPATHY OF THE LOWER EXTREMITY NEUROPATHY BACK PAIN PITUITARY ABNORMALITY ALLERGIES LIPITOR: MIGRAINE - SIDE EFFECTS OXYCODONE HCL: NAUSEA/VOMITING - SIDE EFFECTS VITAMIN B 12: INSOMNIA - SIDE EFFECTS ADHESIVE TAPE: BLISTERS - ALLERGY BACLOFEN: CONFUSION/FORGETFULNESS/FATIGUE - SIDE EFFECTS SURGICAL HISTORY GASTRIC BYPASS 2009 HERNIA REPAIR 2014 FOOT SURGERIES X4LEFT X6 RIGHT [id number] CYST REMOVED BACK FR RIGHT LEG 2011 HYSTERECTOMY STILL HAVE OVARIES 2011 RIGHT HAND SURGERY X2 TUBAL LIGATION 2008 RIGHT SHOULDER REPAIR OF A MUSCLE X2 ORTHO 2018 RIGHT SHOULDER ARTHROSCOPIC ANTERIOR LABRAL REPAIR- DR. JULIANA LADD 08/25/2018 RIGHT SHOULDER CHONDROPLASTY OF THE GLENOID- DR. JULIANA LADD 08/25/2018 FAMILY HISTORY FATHER: , CHOLESTEROL, JULISA GHERIG'S DISEASE, DIAGNOSED WITH DIABETES MOTHER: , DM2 HTN, CHOL, DEMENITA-BURSING HOME, AFTER A FALL WITH BLEEDING ON BRAIN DIABETES RUNS ON BOTH SIDES OF FAMILY\NBREAST CANCER RUNS IN FAMILY -DAD\'S SIDE\N1 DAUGHTER- HEALTHY \N1 BROTHER-DM2, CHOLESTEROL HIGH TRIGLYCERIDES\NNO SISTERS PATERNAL AUNT WITH BILATERAL BREAST CA IN HER 30'S. SOCIAL HISTORY GENERAL: TOBACCO USE ARE YOU A:FORMER SMOKER HOW LONG HAS IT BEEN SINCE YOU LAST SMOKED?> 10 YEARS HIV / HEP-C SCREENING HIV TEST OFFERED TO PATIENT:YES DATE OFFERED:03/20/2019 TEST ACCEPTED:NO HEP-C TEST OFFERED TO PATIENT:YES DATE OFFERED:11/30/2016 REASON:PATIENT DECLINED TEST ACCEPTED:NO REASON:PATIENT DECLINED BROCHURE PROVIDED TO PATIENTNO OTHERS AT HOME: NO ONE. HOUSING: RENTS APARTMENT. EDUCATION LEVEL OF EDUCATION:[employer] DEGREE IN BUSINESS DIET: REGULAR. LANGUAGE LANGUAGES SPOKEN:MACEDONIAN DOMESTIC VIOLENCE DO YOU FEEL SAFE IN YOUR ENVIRONMENT?YES BMI CARE GOAL FOLLOW-UP ABOVE NORMAL BMI FOLLOW-UPDIETARY MANAGEMENT EDUCATION, GUIDANCE, AND COUNSELING RECREATIONAL DRUG USE DRUG USE?NO PATIENT DENIES ABUSE OR MISSUSED OF ANY MEDICATION. PATIENT DENIES USE OF ANY ILLEGAL SUBSTANCE INCLUDING MARIJUANA OR COCAINE. EXERCISE: NO REGULAR EXERCISE. LEARNING BARRIERS / SPECIAL NEEDS CHANGE FROM LAST VISIT?NO BARRIERS TO LEARNING?NO HEARING IMPAIRED?NO VISION IMPAIRED?YES :CORRECTIVE LENSES FOR DRIVING AND DISTANCE COGNITIVELY IMPAIRED?NO READINESS TO LEARN?YES LEARNING PREFERENCES?NO LEARNING CAPABILITIES PRESENT?YES EMOTIONAL BARRIERS?NO SPECIAL DEVICES?NO SAMPLE STEAMER NEEDED?NO LUNG CANCER SCREENING SMOKING STATUS:FORMER SMOKER IS THE PATIENT BETWEEN THE AGE OF 56 AND 78?NO PAIN CLINIC PFS, CLERGY, PUBLIC HEALTH REFERRALS WAS THE PROVIDER NOTIFIED OF ANY PERTINENT INFO? N/A HAS THE PATIENT BEEN EDUCATED REGARDING HIS/HER PLAN OF CARE?YES HAS THE PATIENT BEEN EDUCATED REGARDING PAIN, THE RISK FOR PAIN, THE IMPORTANCE OF EFFECTIVE PAIN MANAGEMENT, AND THE PAIN ASSESSMENT PROCESS?YES LATEX QUESTIONNAIRE LATEX ALLERGY : HAVE YOU EVER DEVELOPED ANY TYPE OF REACTION AFTER HANDLING LATEX PRODUCTS SUCH RUBBER GLOVES, CONDOMS, DIAPHRAGMS, BALLOONS, SOCKS, OR UNDERWEAR?NO LATEX ALLERGY : HAVE YOU EVER DEVELOPED ANY TYPE OF REACTION DURING OR AFTER DENTAL APPOINTMENT, VAGINAL/RECTAL EXAMINATION, SURGICAL PROCEDURE, OR ANY OTHER EXPOSURE?NO LATEX RISK : HAVE YOU EVER HAD ANY DIFFICULTY BREATHING OR HIVES AFTER EATING OR HANDLING ANY FRUITS, OR VEGETABLES; SUCH KIWI, BANANAS, STONE FRUITS, OR CHESTNUTSNO LATEX RISK : DO YOU HAVE A PREVIOUS PERSONAL HISTORY OF MORE THAN NINE SURGERIES, SPINA BIFIDA, OR REPEATED CATHERIZATIONS? YES - PLEASE INDICATE : > 9 SURGERIES LATEX RISK : ARE YOU FREQUENTLY EXPOSED TO LATEX PRODUCTS IN YOUR OCCUPATION?NO DATE ASKED : 05/03/2019 CAFFEINE CAFFEINE USE?YES HOW OFTEN AND HOW MUCH? 1- 12 OZ CAN PEPSI- 1 LARGE ICE COFFEE ADVANCE DIRECTIVE ADVANCE DIRECTIVE DISCUSSED WITH PATIENT:YES PT HAS A HCP, DAUGHTER RASHAAD PALMER [phone] AND BROTHER MARGARET PALMER [phone] GNOSTICISM GNOSTICISM NO SIKHISM BELIEFS THAT WOULD IMPACT HEALTH CARE. MARITAL STATUS: .. ALCOHOL SCREENING DID YOU HAVE A DRINK CONTAINING ALCOHOL IN THE PAST YEAR?NO POINTS0 INTERPRETATIONNEGATIVE OCCUPATION: [id number] TO HER STOMACH PROBLEMS AND LEARNING DIABILITY DO NOT COMPREHEND WHAT SHE ENDS- 2009. SEXUAL HX HAD SEX IN THE LAST 12 MONTHS (VAGINAL, ORAL, OR ANAL)?NO LMP:HYSTER HAVE YOU EVER HAD AN STD?NO PRE PROCEDURE PHONE CALL COMPLETED 04/28/19 1045 NLJ 05/03/2019 0947 REVEIWED WITH PT. AD. HOSPITALIZATION/MAJOR DIAGNOSTIC PROCEDURE PER ABOVE INPATIENT TREATMENT FOR MENTAL HEALTH REVIEW OF SYSTEMS REVIEWED BY: PROVIDER: . CONSTITUTIONAL: ANY CHANGE IN YOUR MEDICAL CONDITION? YES FX LEFT FOOT NEW YEARS JOE-DROPPED A CHAIR ON IT. FLUID LEFT HIP. DR. ORTIZ AWARE. DR. ORTIZ REVIEWED THE MRI OF LEFT HIP DONE 04/24/19-OKAY TO PROCEED WITH PROCEDURE . CHILLS NO . FEVER NO . INFECTION: DO YOU HAVE NEW INFECTIONS? NO . DO YOU HAVE HISTORY OF MRSA? NO . MUSCULOSKELETAL: ANY NEW PATTERNS OF PAIN OR NUMBNESS? YES, PAIN LEFT HIP WITH NUMBNESS DOWN LEFT LEG, FRACTURED LEFT FOOT . GASTROENTEROLOGY: ANY NEW CHANGE IN BOWEL CONTROL? NO . GENITOURINARY: ANY NEW CHANGE IN BLADDER CONTROL? NO . IS THERE A CHANCE YOU COULD BE ? NO . HEMATOLOGY/LYMPH: DO YOU TAKE ANY BLOOD THINNERS? (FOR EXAMPLE- COUMADIN, PLAVIX, AGGRENOX, PLATEL, PRADAXA, OR XARELTO) NO . WHEN WAS YOUR LAST DOSE? DATE: TIME: . NEUROLOGY: HAVE YOU FALLEN IN THE PAST 12 MONTHS? YES, SLIPPED ON ICE X1-NO REAL FALL . ANY NEW EXTREMITY NUMBNESS OR WEAKNESS? NO . CARDIOLOGY: DO YOU HAVE A PACEMAKER OR DEFIBRILLATOR? NO . RESPIRATORY: HAVE YOU BEEN SICK IN THE PAST WEEK? NO . FEVER NO . FLU LIKE SYMPTOMS? NO . COUGH NO . INTEGUMENTARY: DO YOU HAVE ANY RASHES OR OPEN SORES? NO . ALLERGIC/IMMUNO: ARE YOU ALLERGIC TO IV DYE? NO . ANY NEW ALLERGIES? NO . PSYCHIATRIC: DO YOU HAVE THOUGHTS OF HURTING YOURSELF OR SOMEONE ELSE? NO . ARE YOU ABUSED, NEGLECTED, OR IN AN UNSAFE ENVIRONMENT? NO . ENDOCRINOLOGY: ARE YOU DIABETIC? YES FSBS [address]TIZ AWARE . OTHER: DO YOU NEED ANY PRESCRIPTIONS? NO . IF YES, PLEASE LIST: ____ . ANY NEW PROBLEMS WITH YOUR MEDICATIONS? NO . WHEN DID YOU LAST EAT? 05/02 2199 . WHEN DID YOU LAST DRINK? 05/02 2299 . WHAT DID YOU LAST DRINK? COFFEE . NAME OF PERSON DRIVING YOU HOME? FLO . DO YOU HAVE ANY OTHER QUESTIONS OR CONCERNS NO PT HAS NOT HAD ANY VACCINES IN THE PAST 30 DAYS PT RECEIVED 500CC RL DURING THE PROCEDURE. AD . VITAL SIGNS WT 166.6 LBS, HT 65 IN, BMI 27.72 INDEX, BP 111/75 MM HG, HR 70 /MIN, RR 18 /MIN, TEMP 97.8 F, OXYGEN SAT % 98%, SAFE IN ENV? (Y/N) Y, NA INITIALS 09:37, REVIEWED BY: AD. ASSESSMENTS SACROILIITIS - M46.1 (PRIMARY) TREATMENT SACROILIITIS [facility] GUIDANCE (PAIN)[id number] PROCEDURES PN SI PRE PROCEDURE DIAGNOSIS SACROILIITIS, SACROILIAC JOINT DYSFUNCTION POST PROCEDURE DIAGNOSIS SACROILIITIS, SACROILIAC JOINT DYSFUNCTION PROCEDURE LEFT SACROILIAC JOINT BLOCK SURGEON DR. DICK ORTIZ LIBRARY SCIENCE PROFESSOR NONE ANESTHESIA LOCAL PRE PROCEDURE NOTE PATIENT WITH HISTORY OF CHRONIC LOW BACK PAIN. I EVALUATED THE PATIENT AND REVIEWED THE CHART. I WENT OVER THE RISKS, ALTERNATIVES, AND BENEFITS ASSOCIATED WITH THIS PROCEDURE. THE PATIENT WOULD LIKE TO PROCEED AND GAVE CONSENT TO PERFORM THE PROCEDURE. THE PATIENT DENIES UNEXPLAINABLE WEIGHT LOSS, FEVER, CHILLS, OR NEW CHANGES IN URINARY OR BOWEL CONTROL DESCRIPTION OF PROCEDURE THE PATIENT WAS BROUGHT TO THE PROCEDURE ROOM AND PLACED IN THE PRONE POSITION. THE LUMBOSACRAL AREA WAS CLEANED WITH CHLORAPREP SOLUTION AND DRAPED ASEPTICALLY. THE PROCEDURE WAS DONE UNDER STERILE CONDITIONS. I CHECKED LATERALITY AND THE LEVEL WHERE THE PROCEDURE WAS GOING TO BE PERFORMED WITH THE PATIENT AND THE SUPPORTING STAFF AT THE MOMENT OF THE TIME OUT IN THE PROCEDURE ROOM. UNDER FLUOROSCOPIC GUIDANCE, TARGET POINT WAS SELECTED AT THE LOWER BORDER OF THE LEFT SACROILIAC JOINT. TARGET POINT WAS SELECTED AFTER MEDIAL ROTATION AND TILT OF THE MAGNIFIER OF THE C-ARM. LIDOCAINE WAS USED TO NUMB THE SKIN AND SUBCUTANEOUS TISSUE BELOW IT. A SPINAL NEEDLE, 22-GAUGE, WAS ADVANCED UNDER FLUOROSCOPIC GUIDANCE AND FOLLOWING PATIENT FEEDBACK UNTIL THE TARGET AREA WAS TOUCHED. THE POSITION OF THE NEEDLE WAS VERIFIED WITH AP AND LATERAL VIEWS. AFTER PROPER POSITION OF THE NEEDLE WAS ACHIEVED, ISOVUE M DYE 30%, 0.25 ML, WAS INJECTED SHOWING SPREAD OF THE DYE. THEN, A SOLUTION OF 40 MG OF KENALOG WAS INJECTED IN RIGHT JOINT WITH 3 ML OF BUPIVACAINE 0.125%. THERE WAS NO EVIDENCE OF BLOOD, PARESTHESIA OR CEREBROSPINAL FLUID DURING THE PROCEDURE. THE PATIENT WAS SENT TO THE RECOVERY ROOM. THE PATIENT WAS MOVING THE EXTREMITIES AND DOING WELL. THERE WAS NO COMPLICATION DURING THE PROCEDURE. FLUOROSCOPY TIME WAS 22 SECONDS POST PROCEDURE NOTE THE PATIENT WILL BE SEEN IN A FOLLOW UP IN THE NEXT FEW WEEKS. I AM LOOKING FOR LONG-LASTING PAIN RELIEF WITH THIS INTERVENTION. INSTRUCTIONS WERE GIVEN, QUESTIONS WERE ANSWERED, AND THE PATIENT EXPRESSED UNDERSTANDING AND AGREED WITH THE PLAN. I, NABOR MEADE, DOCUMENTED THE ABOVE INFORMATION ACTING A SCRIBE FOR DR. ORTIZ. I HAVE REVIEWED THE ABOVE DOCUMENT, WRITTEN BY DEISY MALONE, AND I VERIFY THAT IT IS ACCURATE PROCEDURE CODES 48972 INJECT SACROILIAC JOINT, MODIFIERS: LT 6045F RADXPS IN END [id number] PXD DISPOSITION & COMMUNICATION FOLLOW UP 3 WEEKS ELECTRONICALLY SIGNED BY DICK ORTIZ MD, ON 05/10/2019 AT 10:56 AM EST DISCLAIMER : THIS IS A VISIT SUMMARY EXTRACTED FROM THE [facility] CHART. IT IS NOT A COPY OF THE [facility] PROGRESS NOTE. TO
== END ==
LOC: M PAIN 09:45
PROVIDERS: ATTEND Anesthesiology
DX: M46.1 Sacroiliitis, not elsewhere classified (principal); Z98.84 Bariatric surgery status; E11.40 Type 2 diabetes mellitus with diabetic neuropathy, unspecified; I10 Essential (primary) hypertension; E78.2 Mixed hyperlipidemia; J45.909 Unspecified asthma, uncomplicated; E55.9 Vitamin D deficiency, unspecified; Z86.59 Personal history of other mental and behavioral disorders; M79.7 Fibromyalgia; G43.909 Migraine, unspecified, not intractable, without status migrainosus; Z87.891 Personal history of nicotine dependence; Z88.5 Allergy status to narcotic agent; Z88.8 Allergy status to other drugs, medicaments and biological substances; Z91.09 Other allergy status, other than to drugs and biological substances; Z79.82 Long term (current) use of aspirin; Z79.84 Long term (current) use of oral hypoglycemic drugs; Z79.899 Other long term (current) drug therapy
CPT/HCPCS: 27096; J3301; Q9967

== ENCOUNTER → 2019-05-18 | Outpatient (CLI) | payer MEDICARE, MEDICAID ==
[~2019-05-18] MED LIST changes: -BUPIVACAINE HCL 0.25% 30 ML VIAL As Ordered ONE; -ISOVUE-M 300 61% 15ML VIAL (Q9967) As Ordered ONE; -LIDOCAINE 1% SDV INJ 30 ML VIAL As Ordered ONE; +REGL10TA6 PO; -TRIAMCINOLONE ACETONIDE SUSP 40 MG/ML VIAL (J3301) As Ordered ONE; -diazePAM 5 MG TAB As Ordered ONE
--- NOTE | 2019-06-07 02:09 | ECWPNPC ---
PATIENT NAME: CESAR ANGUIANO : 1970 GENDER: FEMALE VISIT DATE: 05/18/2019 DISCHARGE DATE: 05/18/19 1207 VISIT LOCKED DATE TIME: PHYSICIAN: ZEE BARAHONA RESOURCE: ZEE BARAHONA REASON FOR APPOINTMENT 1. POST PROCEDURE HISTORY OF PRESENT ILLNESS HISTORY OF PRESENT ILLNESS: HERE FOR POST PROCEDURE F/U.HAD LEFT SIJ ON 05/03/2019.REPORTING NO IMPROVEMENT POST PROCEDURE.RATING LEFT LOW BACK PAIN W RADIATION INTO LEFT THIGH 8/10 VAS.HX OF FALL INJURY IN 2016.LEFT LOW BACK PAIN HAS BEEN CONSTANT SINCE THEN.LEFT LEG PAIN BEGAN 1 YEAR AGO.HX OF GASTRIC BYPASS SURGERY IN 2008.REVIEWED MRI L/S SPINE AND DISCUSSED TREATMENT OPTIONS. PAIN THE PATIENT DESCRIBES THE PAIN... FALL RISK SCREENING: SCREENING :NO FALLS REPORTED IN THE LAST YEAR CURRENT MEDICATIONS TAKING PANTOPRAZOLE SODIUM 40 MG TABLET DELAYED RELEASE 1 TABLET ORALLY ONCE A DAY TAKING SIMVASTATIN 20 MG TABLET 1 TABLET IN THE EVENING ORALLY ONCE A DAY TAKING ASPIRIN ADULT LOW DOSE 81 MG TABLET DELAYED RELEASE 1 TABLET ORALLY ONCE A DAY TAKING LYRICA 75 MG CAPSULE 1 CAPSULE ORALLY THREE TIMES A DAY TAKING ALBUTEROL SULFATE HFA 108 (90 BASE) MCG/ACT AEROSOL SOLUTION 2 PUFFS INHALATION EVERY 6 HRS NEEDED TAKING NYSTATIN [id number] UNIT/GM POWDER 1 APPLICATION TOPICALLY TWICE A DAY AREA UNDER ABDOMINAL PANNUS TAKING VITAMIN D-[address] 1000 UNIT TABLET 1 TABLET ORALLY ONCE A DAY TAKING AYR SALINE NASAL - GEL DIRECTED NASALLY NEEDED TAKING RIZATRIPTAN BENZOATE 10 MG TABLET 1 TABLET AT ON SET OF HEADACHE ORALLY MAY REPEATX1 IN 2 HR MDD2 TAKING HYDROXYZINE HCL 10 MG TABLET ORALLY TWICE DAILY NEEDED TAKING BUSPIRONE HCL 10 MG TABLET 2 TABLETS ORALLY TWICE DAILY TAKING FLUOXETINE HCL 40 MG CAPSULE 1 CAPSULE ORALLY BEFORE BEDTIME TAKING LISINOPRIL 2.5 MG TABLET 1 TABLET ORALLY ONCE A DAY TAKING METFORMIN HCL 500 MG TABLET 2 TABLETS WITH MEALS ORALLY TWICE A DAY TAKING MULTIVITAMIN ADULT - TABLET DIRECTED ORALLY DAILY MEDICATION LIST REVIEWED AND RECONCILED WITH THE PATIENT PAST MEDICAL HISTORY HX GASTRIC BYPASS 2008-276 LBS DM2 ESSENTIAL HYPERTENSION MIXED HYPERLIPIDEMIA ASTHMA HX SMOKING SEASONAL ALLERGIES VITAMIN D DEFICEINCY HX NUMEROUS FEET SURGERIES PTSD FATTY LIVER CT SCAN 03/09/18 FIBROMYALGIA - DR. NEAL DEPRESSION/ ANXIETY CHRONIC LOW BACK PAIN CHRONIC MIGRANE HEADACHE SENSORIMOTOR POLYNEUROPATHY OF THE LOWER EXTREMITY NEUROPATHY BACK PAIN PITUITARY ABNORMALITY ALLERGIES LIPITOR: MIGRAINE - SIDE EFFECTS OXYCODONE HCL: NAUSEA/VOMITING - SIDE EFFECTS VITAMIN B 12: INSOMNIA - SIDE EFFECTS ADHESIVE TAPE: BLISTERS - ALLERGY BACLOFEN: CONFUSION/FORGETFULNESS/FATIGUE - SIDE EFFECTS SURGICAL HISTORY GASTRIC BYPASS 2009 HERNIA REPAIR 2014 FOOT SURGERIES X4LEFT X6 RIGHT [id number] CYST REMOVED BACK FR RIGHT LEG 2011 HYSTERECTOMY STILL HAVE OVARIES 2010 RIGHT HAND SURGERY X2 TUBAL LIGATION 2008 RIGHT SHOULDER REPAIR OF A MUSCLE X2 ORTHO 2018 RIGHT SHOULDER ARTHROSCOPIC ANTERIOR LABRAL REPAIR- DR. JULIANA LADD 08/25/2018 RIGHT SHOULDER CHONDROPLASTY OF THE GLENOID- DR. JULIANA LADD 08/25/2018 FAMILY HISTORY FATHER: , CHOLESTEROL, JULISA GHERIG'S DISEASE, DIAGNOSED WITH DIABETES MOTHER: , DM2 HTN, CHOL, DEMENITA-BURSING HOME, AFTER A FALL WITH BLEEDING ON BRAIN DIABETES RUNS ON BOTH SIDES OF FAMILY\NBREAST CANCER RUNS IN FAMILY -DAD\'S SIDE\N1 DAUGHTER- HEALTHY \N1 BROTHER-DM2, CHOLESTEROL HIGH TRIGLYCERIDES\NNO SISTERS PATERNAL AUNT WITH BILATERAL BREAST CA IN HER 30'S. SOCIAL HISTORY GENERAL: TOBACCO USE ARE YOU A:FORMER SMOKER HOW LONG HAS IT BEEN SINCE YOU LAST SMOKED?> 10 YEARS HIV / HEP-C SCREENING HIV TEST OFFERED TO PATIENT:YES DATE OFFERED:03/20/2019 TEST ACCEPTED:NO HEP-C TEST OFFERED TO PATIENT:YES DATE OFFERED:11/30/2016 REASON:PATIENT DECLINED TEST ACCEPTED:NO REASON:PATIENT DECLINED BROCHURE PROVIDED TO PATIENTNO OTHERS AT HOME: NO ONE. HOUSING: RENTS APARTMENT. EDUCATION LEVEL OF EDUCATION:[employer] DEGREE IN BUSINESS DIET: REGULAR. LANGUAGE LANGUAGES SPOKEN:FILIPINO DOMESTIC VIOLENCE DO YOU FEEL SAFE IN YOUR ENVIRONMENT?YES BMI CARE GOAL FOLLOW-UP ABOVE NORMAL BMI FOLLOW-UPDIETARY MANAGEMENT EDUCATION, GUIDANCE, AND COUNSELING RECREATIONAL DRUG USE DRUG USE?NO PATIENT DENIES ABUSE OR MISSUSED OF ANY MEDICATION. PATIENT DENIES USE OF ANY ILLEGAL SUBSTANCE INCLUDING MARIJUANA OR COCAINE. EXERCISE: NO REGULAR EXERCISE. LEARNING BARRIERS / SPECIAL NEEDS CHANGE FROM LAST VISIT?NO BARRIERS TO LEARNING?NO HEARING IMPAIRED?NO VISION IMPAIRED?YES COGNITIVELY IMPAIRED?NO :CORRECTIVE LENSES FOR DRIVING AND DISTANCE READINESS TO LEARN?YES LEARNING PREFERENCES?NO LEARNING CAPABILITIES PRESENT?YES EMOTIONAL BARRIERS?NO SPECIAL DEVICES?NO HAUL CANE BRAKEMAN NEEDED?NO LUNG CANCER SCREENING SMOKING STATUS:FORMER SMOKER IS THE PATIENT BETWEEN THE AGE OF 56 AND 78?NO PAIN CLINIC PFS, CLERGY, PUBLIC HEALTH REFERRALS WAS THE PROVIDER NOTIFIED OF ANY PERTINENT INFO? N/A HAS THE PATIENT BEEN EDUCATED REGARDING HIS/HER PLAN OF CARE?YES HAS THE PATIENT BEEN EDUCATED REGARDING PAIN, THE RISK FOR PAIN, THE IMPORTANCE OF EFFECTIVE PAIN MANAGEMENT, AND THE PAIN ASSESSMENT PROCESS?YES LATEX QUESTIONNAIRE LATEX ALLERGY : HAVE YOU EVER DEVELOPED ANY TYPE OF REACTION AFTER HANDLING LATEX PRODUCTS SUCH RUBBER GLOVES, CONDOMS, DIAPHRAGMS, BALLOONS, SOCKS, OR UNDERWEAR?NO LATEX ALLERGY : HAVE YOU EVER DEVELOPED ANY TYPE OF REACTION DURING OR AFTER DENTAL APPOINTMENT, VAGINAL/RECTAL EXAMINATION, SURGICAL PROCEDURE, OR ANY OTHER EXPOSURE?NO LATEX RISK : HAVE YOU EVER HAD ANY DIFFICULTY BREATHING OR HIVES AFTER EATING OR HANDLING ANY FRUITS, OR VEGETABLES; SUCH KIWI, BANANAS, STONE FRUITS, OR CHESTNUTSNO LATEX RISK : DO YOU HAVE A PREVIOUS PERSONAL HISTORY OF MORE THAN NINE SURGERIES, SPINA BIFIDA, OR REPEATED CATHERIZATIONS? YES - PLEASE INDICATE : > 9 SURGERIES LATEX RISK : ARE YOU FREQUENTLY EXPOSED TO LATEX PRODUCTS IN YOUR OCCUPATION?NO DATE ASKED : 05/03/2019 CAFFEINE CAFFEINE USE?YES HOW OFTEN AND HOW MUCH? 1- 12 OZ CAN PEPSI- 1 LARGE ICE COFFEE ADVANCE DIRECTIVE ADVANCE DIRECTIVE DISCUSSED WITH PATIENT:YES PT HAS A HCP, DAUGHTER RASHAAD PALMER [phone] AND BROTHER MARGARET PALMER [phone] RESTORATION RESTORATION NO ORTHODOX BELIEFS THAT WOULD IMPACT HEALTH CARE. MARITAL STATUS: .. ALCOHOL SCREENING DID YOU HAVE A DRINK CONTAINING ALCOHOL IN THE PAST YEAR?NO POINTS0 INTERPRETATIONNEGATIVE OCCUPATION: [id number] TO HER STOMACH PROBLEMS AND LEARNING DIABILITY DO NOT COMPREHEND WHAT SHE ENDS- 2009. SEXUAL HX HAD SEX IN THE LAST 12 MONTHS (VAGINAL, ORAL, OR ANAL)?NO LMP:HYSTER HAVE YOU EVER HAD AN STD?NO PRE PROCEDURE PHONE CALL COMPLETED 04/28/19 1045 NLJ 05/03/2019 0961 REVEIWED WITH PT. ADREVIEWED WITH PATIENT 05/18/2019 1145 JS. HOSPITALIZATION/MAJOR DIAGNOSTIC PROCEDURE PER ABOVE INPATIENT TREATMENT FOR MENTAL HEALTH REVIEW OF SYSTEMS REVIEWED BY: PROVIDER: ZEE ONTIVEROS . CONSTITUTIONAL: ANY CHANGE IN YOUR MEDICAL CONDITION? NO . CHILLS NO . FEVER NO . INFECTION: DO YOU HAVE NEW INFECTIONS? NO . DO YOU HAVE HISTORY OF MRSA? NO . MUSCULOSKELETAL: ANY NEW PATTERNS OF PAIN OR NUMBNESS? YES, STATES PAIN JUST HASN'T GONE AWAY ANY - PROCEDURES NOT HELPING . GASTROENTEROLOGY: ANY NEW CHANGE IN BOWEL CONTROL? NO . GENITOURINARY: ANY NEW CHANGE IN BLADDER CONTROL? NO . IS THERE A CHANCE YOU COULD BE ? NO . HEMATOLOGY/LYMPH: DO YOU TAKE ANY BLOOD THINNERS? (FOR EXAMPLE- COUMADIN, PLAVIX, AGGRENOX, PLATEL, PRADAXA, OR XARELTO) NO . WHEN WAS YOUR LAST DOSE? DATE: TIME: . NEUROLOGY: HAVE YOU FALLEN IN THE PAST 12 MONTHS? YES, STATES PRIOR TO LAST VISIT, DISCUSSED AT PREVIOUS VISIT . ANY NEW EXTREMITY NUMBNESS OR WEAKNESS? YES, STATES BILATERAL LEG WEAKNESS/HEAVINESS . CARDIOLOGY: DO YOU HAVE A PACEMAKER OR DEFIBRILLATOR? NO . RESPIRATORY: HAVE YOU BEEN SICK IN THE PAST WEEK? NO . FEVER NO . FLU LIKE SYMPTOMS? NO . COUGH NO . INTEGUMENTARY: DO YOU HAVE ANY RASHES OR OPEN SORES? NO . ALLERGIC/IMMUNO: ARE YOU ALLERGIC TO IV DYE? NO . ANY NEW ALLERGIES? NO . PSYCHIATRIC: DO YOU HAVE THOUGHTS OF HURTING YOURSELF OR SOMEONE ELSE? NO . ARE YOU ABUSED, NEGLECTED, OR IN AN UNSAFE ENVIRONMENT? NO . ENDOCRINOLOGY: ARE YOU DIABETIC? YES . OTHER: DO YOU NEED ANY PRESCRIPTIONS? NO . IF YES, PLEASE LIST: ____ . ANY NEW PROBLEMS WITH YOUR MEDICATIONS? NO . WHEN DID YOU LAST EAT? ____ . WHEN DID YOU LAST DRINK? ____ . WHAT DID YOU LAST DRINK? ____ . NAME OF PERSON DRIVING YOU HOME? ____ . DO YOU HAVE ANY OTHER QUESTIONS OR CONCERNS YES, WONDERING WHY PROCEDURES ARE NOT WORKING . VITAL SIGNS WT 168 LBS, HT 65 IN, BMI 27.95 INDEX, BP 131/66 MM HG, HR 111 /MIN, RR 18 /MIN, TEMP 97.6 F, OXYGEN SAT % 97%, SAFE IN ENV? (Y/N) YES, NA INITIALS AW 1141, REVIEWED BY: ALMITA. EXAMINATION GENERAL EXAMINATION: GENERALAWAKE,ALERT ,PLEASANT . PSYCHAFFECT NORMAL . LUNGS:LUNG BLANTON ARE CLEAR TO AUSCULTATION BILATERALLY. GOOD MOVEMENT OF AIR . HEART:S1, S2 IN A REGULAR RATE AND RHYTHM. NO SIGNIFICANT MURMURS, RUBS OR GALLOPS NOTED . ASSESSMENTS SACROILIITIS - M46.1 (PRIMARY) TREATMENT SACROILIITIS NOTES: DUE TO THE FACT THAT PATIENT HAS FAILED INTERVENTIONAL TRIALS TO INCLUDE LUMBAR EPIDURAL STEROID INJECTION X2 AND LEFT SACROILIAC JOINT INJECTION, I FEEL IT WOULD BE REASONABLE TO CONSIDER REDUCTION OF ABDOMINAL PENDULOUS EXCESS FAT TISSUE SECONDARY TO GASTRIC BYPASS IN AN EFFORT TO RELIEVE HER CHRONIC DISABLING LOW BACK PAIN. PROCEDURE CODES FA211 ESTABILISHED PATIENT [facility] CHARGE DISPOSITION & COMMUNICATION FOLLOW UP PT WILL CALL ELECTRONICALLY SIGNED BY WESTON POE ON 06/06/2019 AT 11:24 AM EST DISCLAIMER : THIS IS A VISIT SUMMARY EXTRACTED FROM THE [employer] CHART. IT IS NOT A COPY OF THE [employer] PROGRESS NOTE. TO
== END ==
LOC: M PAIN 11:30
PROVIDERS: ATTEND Nurse Practitioner Family
DX: M46.1 Sacroiliitis, not elsewhere classified (principal); E11.9 Type 2 diabetes mellitus without complications; I10 Essential (primary) hypertension; E78.2 Mixed hyperlipidemia; J45.909 Unspecified asthma, uncomplicated; E55.9 Vitamin D deficiency, unspecified; Z86.59 Personal history of other mental and behavioral disorders; M79.7 Fibromyalgia; Z98.84 Bariatric surgery status; Z87.891 Personal history of nicotine dependence; Z88.5 Allergy status to narcotic agent; Z88.8 Allergy status to other drugs, medicaments and biological substances; Z91.09 Other allergy status, other than to drugs and biological substances; Z79.82 Long term (current) use of aspirin; Z79.84 Long term (current) use of oral hypoglycemic drugs; Z79.899 Other long term (current) drug therapy

== ENCOUNTER 2019-05-25 17:10 | Emergency (ER) | payer MEDICARE, MEDICAID ==
[~2019-05-25] VITALS: Ht 165.1 cm; Wt 75.2 kg
[~2019-05-25 17:10] MED LIST changes: -REGL10TA6 PO
[2019-05-25 18:19] LABS: HEMATOCRIT 41.2 % (36.0-47.0); HEMOGLOBIN 12.9 g/dl (12.0-15.5); MEAN CORPUSCULAR HEMOGLOBIN 27.6 pg (27.0-33.0); MEAN CORPUSCULAR HGB CONC 31.3 g/dl (32.0-36.5); MEAN CORPUSCULAR VOLUME 88.2 fl (80.0-96.0); PLATELET COUNT, AUTOMATED 505 10^3/uL (150-450); RED BLOOD COUNT 4.67 10^6/uL (4.00-5.40)
[2019-05-25 18:20] LABS: WHITE BLOOD COUNT 14.4 10^3/uL (4.0-10.0)
[2019-05-25 18:40] LABS: ALBUMIN 3.7 GM/DL (3.2-5.2); ALT/SGPT 38 U/L (12-78); BILIRUBIN,DIRECT < 0.1 MG/DL (0.0-0.2); BILIRUBIN,TOTAL 0.2 MG/DL (0.2-1.0); BLOOD UREA NITROGEN 17 MG/DL (7-18); CALCIUM LEVEL 9.7 MG/DL (8.5-10.1); CARBON DIOXIDE LEVEL 28 MEQ/L (21-32); CHLORIDE LEVEL 103 MEQ/L (98-107); CREATININE FOR GFR 0.76 MG/DL (0.55-1.30); GLOMERULAR FILTRATION RATE > 60.0 (>58); GLUCOSE, FASTING 112 MG/DL (70-100); LIPASE 167 U/L (73-393); POTASSIUM SERUM 4.7 MEQ/L (3.5-5.1); SODIUM LEVEL 137 MEQ/L (136-145); TOTAL PROTEIN 7.2 GM/DL (6.4-8.2)
[2019-05-25 18:44] LABS: ANISOCYTOSIS 1+; ATYPICAL LYMPH 12 % (0-5); BASOPHILS 1 % (0-1); EOSINOPHILS 2 % (0-3); HYPOCHROMASIA 1+; LYMPHOCYTES 34 % (16-44); MONOCYTES 6 % (0-5); NEUTROPHILS 45 % (28-66); PLATELET ESTIMATE INCREASED (NORMAL)
[2019-05-25] MEDS ORDERED: KETOROLAC 30 MG/ML VIAL (J1885) IV ONE (19:00)
[2019-05-25] MEDS ORDERED: ONDANSETRON 4MG/2ML VIAL (J2405) IV ONE (19:00)
[2019-05-25] MEDS ORDERED: NS 1,000 ML IV ONE (19:00)
[2019-05-25] MEDS ORDERED: ISOVUE-370 76% 100ML VIAL (Q9967) As Ordered ONE (19:05)
--- NOTE | 2019-05-25 20:55 | REPVR ---
PROCEDURE INFORMATION: Exam: CT Abdomen And Pelvis With Contrast Exam date and time: 05/25/2019 8:03 PM Age: 48 years old Clinical indication: Abdominal pain; Localized; Upper; Additional info: Upper abd pain TECHNIQUE: Imaging protocol: Computed tomography of the abdomen and pelvis with intravenous contrast. Radiation optimization: All CT scans at this facility use at least one of these dose optimization techniques: automated exposure control; mA and/or kV adjustment per patient size (includes targeted exams where dose is matched to clinical indication); or iterative reconstruction. Contrast material: ISOVUE 370; Contrast volume: 100 ml; Contrast route: IV; COMPARISON: CT ABD/PEL W/IV ORAL CONTRAS 03/09/2018 11:08 PM FINDINGS: Mediastinum: Small hiatal hernia. Liver: The liver is low attenuation indicating hepatic steatosis. Gallbladder and bile ducts: Normal. No calcified stones. No ductal dilation. Pancreas: Normal. No ductal dilation. Spleen: Normal. No splenomegaly. Adrenals: Normal. No mass. Kidneys and ureters: Normal. No hydronephrosis. Stomach and bowel: Mild intraluminal fluid and mucosal enhancement are noted in the distal small bowel and colon. No wall thickening or other inflammatory changes. No bowel obstruction. Appendix: No evidence of appendicitis. Intraperitoneal space: Unremarkable. No free air. No significant fluid collection. Vasculature: Unremarkable. No abdominal aortic aneurysm. Lymph nodes: Unremarkable. No enlarged lymph nodes. Bladder: Unremarkable as visualized. Reproductive: There has been prior hysterectomy. Bones/joints: Unremarkable. No acute fracture. Soft tissues: Unremarkable. IMPRESSION: 1. Hepatic steatosis. 2. Intraluminal fluid and mucosal enhancement in the small bowel and colon suggesting a viral enterocololitis. No obstruction. Electronically signed by: Alex Abdullahi On 05/25/2019 20:54:54 PM
[2019-05-25] MEDS ORDERED: METOCLOPRAMIDE INJ 10MG/2ML VIAL (J2765) IV ONE (21:00)
[2019-05-25] MEDS ORDERED: REGL10TA6 PO (21:14)
[2019-05-25 21:36] VITALS: BP 126/71
== END 2019-05-25 21:37 | disposition home or self-care (01) ==
LOC: M ED 17:10
DX: A08.4 Viral intestinal infection, unspecified (principal); E11.9 Type 2 diabetes mellitus without complications; I10 Essential (primary) hypertension; E78.5 Hyperlipidemia, unspecified; G43.909 Migraine, unspecified, not intractable, without status migrainosus; F41.9 Anxiety disorder, unspecified; Z98.84 Bariatric surgery status; K76.0 Fatty (change of) liver, not elsewhere classified; Z79.82 Long term (current) use of aspirin; Z79.84 Long term (current) use of oral hypoglycemic drugs; Z79.899 Other long term (current) drug therapy; Z88.1 Allergy status to other antibiotic agents; Z88.5 Allergy status to narcotic agent; Z88.8 Allergy status to other drugs, medicaments and biological substances; Z91.89 Other specified personal risk factors, not elsewhere classified
CPT/HCPCS: 74177; 80048; 80076; 81001; 83690; 85025; 87086; 96361; 96374; 96375; 99284; J2405; J2765; Q9967

== ENCOUNTER 2019-06-20 11:06 | Inpatient (IN) | payer MEDICARE, MEDICAID ==
[~2019-06-20] VITALS: Ht 170.2 cm; Wt 74.7 kg
[~2019-06-20 11:06] MED LIST changes: +NICOTINE 21MG/24HR 1 EA TRANSDERMAL TD SCH; +REGL10TA6 PO
[2019-06-20] MEDS ORDERED: PREG75CA2 PO (11:28)
[2019-06-20] MEDS ORDERED: BUSP30TA PO (11:28)
[2019-06-20 12:01] LABS: HEMATOCRIT 38.3 % (36.0-47.0); HEMOGLOBIN 12.5 g/dl (12.0-15.5); MEAN CORPUSCULAR HEMOGLOBIN 27.8 pg (27.0-33.0); MEAN CORPUSCULAR HGB CONC 32.6 g/dl (32.0-36.5); MEAN CORPUSCULAR VOLUME 85.3 fl (80.0-96.0); PLATELET COUNT, AUTOMATED 445 10^3/uL (150-450); RED BLOOD COUNT 4.49 10^6/uL (4.00-5.40); WHITE BLOOD COUNT 13.2 10^3/uL (4.0-10.0)
[2019-06-20 12:29] LABS: AMPHETAMINES LEVEL URINE NEGATIVE (NEGATIVE); BARBITURATES URINE NEGATIVE (NEGATIVE); BENZODIAZEPINES URINE NEGATIVE (NEGATIVE); CANNABINOIDS URINE NEGATIVE (NEGATIVE); COCAINE METABOLITE URINE NEGATIVE (NEGATIVE); METHADONE URINE NEGATIVE (NEGATIVE); OPIATES URINE NEGATIVE (NEGATIVE); PHENCYCLIDINE URINE NEGATIVE (NEGATIVE)
[2019-06-20 12:34] LABS: ACETAMINOPHEN LEVEL < 2.0 UG/ML (10.0-30.0); ALBUMIN 3.6 GM/DL (3.2-5.2); ALT/SGPT 29 U/L (12-78); BILIRUBIN,DIRECT < 0.1 MG/DL (0.0-0.2); BILIRUBIN,TOTAL 0.2 MG/DL (0.2-1.0); BLOOD UREA NITROGEN 18 MG/DL (7-18); CALCIUM LEVEL 8.9 MG/DL (8.5-10.1); CARBON DIOXIDE LEVEL 27 MEQ/L (21-32); CHLORIDE LEVEL 107 MEQ/L (98-107); CREATININE FOR GFR 0.78 MG/DL (0.55-1.30); ETHYL ALCOHOL (ETHANOL) < 0.003 % (0.000-0.010); GLOMERULAR FILTRATION RATE > 60.0 (>58); GLUCOSE, FASTING 88 MG/DL (70-100); POTASSIUM SERUM 4.8 MEQ/L (3.5-5.1); SALICYLATE LEVEL < 1.7 MG/DL (5.0-30.0); SODIUM LEVEL 139 MEQ/L (136-145); TOTAL PROTEIN 6.6 GM/DL (6.4-8.2)
[2019-06-20] MEDS ORDERED: FERR1TAB8 PO (13:42)
[2019-06-20] MEDS ORDERED: LISI-1046 PO (13:42)
[2019-06-20] MEDS ORDERED: GLUC500C37 PO (13:42)
[2019-06-20] MEDS ORDERED: THERTAB56 PO (13:42)
[2019-06-20] MEDS ORDERED: VITAD1000T PO (13:42)
[2019-06-20] MEDS ORDERED: MAXA10TA14 PO (13:44)
[2019-06-20] MEDS ORDERED: OLANZapine ORAL DISINTEGRATING TAB 5MG PO PRN (14:00)
[2019-06-20] MEDS ORDERED: MOM 30ML SUSPENSION UDC PO PRN (14:00)
[2019-06-20] MEDS ORDERED: IBUPROFEN 400 MG TAB PO PRN (14:00)
[2019-06-20] MEDS ORDERED: traZODone 50 MG TAB PO PRN (14:00)
[2019-06-20] MEDS ORDERED: MAALOX 30 ML SUSP *UDC PO PRN (14:00)
[2019-06-20 15:05] VITALS: BP 131/75
[2019-06-20] MEDS ORDERED: RIZATRIPTAN BENZOATE 10 MG TAB PO PRN (16:30)
[2019-06-20] MEDS: metFORMIN (GLUCOPHAGE) 500 MG TAB PO SCH (17:23)
[2019-06-20] MEDS: PREGABALIN 75 MG CAP(LYRICA) PO SCH (20:20)
[2019-06-20] MEDS: SIMVASTATIN 20 MG TAB PO SCH (20:20)
[2019-06-20] MEDS: busPIRone 10 MG TAB PO SCH (20:20)
[2019-06-20] MEDS: FERROUS SULFATE 325MG TAB PO SCH (20:23)
[2019-06-20] MEDS ORDERED: FLUoxetine 20 MG CAP PO SCH (21:00)
[2019-06-21 06:44] VITALS: BP 129/80
[2019-06-21] MEDS: MULTIVITAMINS/MINERALS THERAP 1 TAB PO SCH (08:39)
[2019-06-21] MEDS: busPIRone 10 MG TAB PO SCH (08:39)
[2019-06-21] MEDS: PREGABALIN 75 MG CAP(LYRICA) PO SCH ×2 (08:39→20:06)
[2019-06-21] MEDS: LISINOPRIL *2.5 MG* TAB PO SCH (08:40)
[2019-06-21] MEDS: metFORMIN (GLUCOPHAGE) 500 MG TAB PO SCH ×2 (08:40→17:07)
[2019-06-21] MEDS: VITAMIN D 1,000 INTERNATIONAL UNITS TABLET PO SCH (08:40)
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
[2019-06-21 16:00] VITALS: BP 122/61
[2019-06-21] MEDS: busPIRone 5 MG TAB PO SCH (20:06)
[2019-06-21] MEDS: FLUoxetine 20 MG CAP PO SCH (20:06)
[2019-06-21] MEDS: SIMVASTATIN 20 MG TAB PO SCH (20:07)
[2019-06-21] MEDS: FERROUS SULFATE 325MG TAB PO SCH (20:29)
[2019-06-21 21:06] VITALS: BP 121/80
[2019-06-22 06:29] VITALS: BP 111/69
[2019-06-22] MEDS: VENLAFAXINE **XR** 37.5 MG CAPSULE PO SCH (08:27)
[2019-06-22] MEDS: MULTIVITAMINS/MINERALS THERAP 1 TAB PO SCH (08:27)
[2019-06-22] MEDS: metFORMIN (GLUCOPHAGE) 500 MG TAB PO SCH ×2 (08:28→17:25)
[2019-06-22] MEDS: LISINOPRIL *2.5 MG* TAB PO SCH (08:28)
[2019-06-22] MEDS: PREGABALIN 75 MG CAP(LYRICA) PO SCH ×2 (08:28→20:07)
[2019-06-22] MEDS: VITAMIN D 1,000 INTERNATIONAL UNITS TABLET PO SCH (08:28)
[2019-06-22] MEDS: busPIRone 5 MG TAB PO SCH ×2 (08:29→20:07)
--- NOTE | 2019-06-22 08:43 | MHIPNPDOC ---
[facility] Progress Note Progress Note Neyda Garrison Inpatient Progress Note Neyda Meli Select Gender MRN: N/A Date of : MM/DD/YYYY Date of Service: 06/22/2019 History of Present Illness The patient a 48-year-old woman with a reported history of PTSD and depression, presents to [facility] after developing increasing suicidal thoughts. The patient reports for the last month she has had suicidal thoughts, however, they have become worse to the point where her outpatient provider prompted her to come in for evaluation. The patient was met with where she reported that her symptoms of depression had been getting worse and her PTSD symptoms continued to plague her, she reports that her medication isn't as helpful for her as it has been in the past. She reports generally having an erratic appetite and significant anxiety as well as thoughts of self harm. She reports that her current treatment has not been able to slow these symptoms and that she progressively has gotten worse until her presentation yesterday. Interval History Narrative: The patient is met with in the group treatment setting. She reports that she is doing somewhat better, reports some difficult phone call with brother. Affective: The patient continues to report being depressed, with low mood, loss of interest and concentration problems. Psychotic: Denies any symptoms at this time. Anxiety: Patient still reports trauma-related anxiety. Eating and sleeping behaviors: Normalizing, patient reports good sleep here. Group Attendance: Frequent. Medication Side effects: See ROS below. Behavioral problems/significant events overnight: None reported. Staff Report: Patient generally amenable and friendly with staff interventions. Review Of Systems General: Denies fever or appetite changes Cardiovascular: Denies Chest pain or palpitations GI: Denies Nausea, vomiting, or bowel changes Respiratory: Denies shortness of breath or cough Neuro: Denies dizziness, tremors Derm: Denies any rashes or pruritus : Denies any dysuria or urinary problems MSK: Denies any muscle tightness or stiffness HEENT: Denies any vision changes or headaches Psychotherapy None on this visit. Vital Signs Reviewed. Mental Status Examination General: Improved hygiene. Speech: More fluid. Thought processes: Less hopeless. MSK: Smooth and coordinated gait, no signs of tremors or involuntary orofacial movements Thought content: Hopeless. Abstract reasoning, and computation: Intact Description of associations: Intact Description of abnormal or psychotic thoughts: Admits to fleeting SI at this time with no plan or intention. Denies homicidal ideation. Does not appear to be responding to internal stimuli. Judgment: Improved. Insight: Improved. Orientation: Alert and orientated 3 Cognition: Grossly normal Recent and remote memory: Intact Attention span and concentration: Intact Fund of knowledge: Adequate. Mood: "Okay." Affect: More euthymic and reactive. Diagnoses PTSD, chronic. MDD, recurrent, unspecified. Assessment and Plan PTSD/MDD: Continue with cross-taper with Prozac 20 mg, BuSpar 50 mg BID, and Effexor 37.5 mg daily, monitor for any side effects. Disposition The patient will need to be continued on inpatient care as she is still suicidal with significant depression and PTSD symptoms. Time Spent 15 minutes. Vital Signs Vital Signs Date Time Temp Pulse Resp B/P (MAP) Pulse Ox O2 Delivery O2 Flow Rate FiO2 06/22/19 08:28 118/67 06/22/19 06:29 97.2 59 18 06/20/19 15:05 Room Air 06/20/19 13:10 99 Laboratory Data 24H Labs Laboratory Tests 2 06/21/19 17:04: Bedside Glucose (Misc Panel) 96 06/22/19 06:01: Bedside Glucose (Misc Panel) 86 Current Medications Current Medications Medications (Trade) Dose Ordered Sig/Tal Route PRN Reason Start Time Stop Time Status Last Admin Dose Admin Al Hydrox/Mg Hydrox/Simethicone (Mylanta) 30 ml Q4HP PRN PO HEARTBURN/INDIGESTION 06/20/19 14:00 Buspirone HCl (Buspar) 15 mg BID PO 06/21/19 21:00 06/22/19 08:29 Buspirone HCl (Buspar) 30 mg BID PO 06/20/19 21:00 06/21/19 10:12 DC 06/21/19 08:39 Ferrous Sulfate (Ferrous Sulfate) 325 mg QHS PO 06/20/19 21:00 Fluoxetine HCl (PROzac) 20 mg QHS PO 06/21/19 21:00 06/21/19 20:06 Fluoxetine HCl (PROzac) 40 mg QHS PO 06/20/19 21:00 06/21/19 10:12 DC 06/20/19 20:19 Home Med (Med Rec Complete!) ASDIRECTED XX 06/20/19 14:00 06/20/19 13:47 DC Ibuprofen (Advil) 400 mg Q6HP PRN PO PAIN 06/20/19 14:00 Lisinopril (Prinivil) 2.5 mg DAILY PO 06/21/19 09:00 06/22/19 08:28 Magnesium Hydroxide (Milk Of Magnesia) 30 ml DAILYPRN PRN PO CONSTIPATION 06/20/19 14:00 Metformin HCl (Glucophage) 500 mg BID@0800,1800 PO 06/20/19 18:00 06/22/19 08:28 Multivitamins (Theragram-M) 1 tab DAILY PO 06/21/19 09:00 06/22/19 08:27 Nicotine (Nicoderm Cq 21mg) 1 patch DAILY TD 06/20/19 09:00 Cancel Olanzapine (ZyPREXA ZYDIS) 5 mg Q6HP PRN PO ANXIETY/AGITATION 06/20/19 14:00 Pregabalin (Lyrica) 75 mg BID PO 06/20/19 21:00 06/22/19 08:28 Rizatriptan Benzoate (Maxalt) 10 mg ASDIRECTED PRN PO MIGRAINE 06/20/19 16:30 06/21/19 15:20 Simvastatin (Zocor) 20 mg QHS PO 06/20/19 21:00 06/21/19 20:07 Trazodone HCl (Desyrel) 50 mg QHSP PRN PO INSOMNIA 06/20/19 14:00 Venlafaxine HCl (Effexor Xr) 37.5 mg DAILY PO 06/22/19 09:00 06/22/19 08:27 Vitamin D (Vitamin D) 1,000 units DAILY PO 06/21/19 09:00 06/22/19 08:28 Allergies Coded Allergies: baclofen (Verified Allergy, Mild, 04/03/19) atorvastatin (Verified Adverse Reaction, Intermediate, MIGRANE HEADACHE, 08/25/18) cyanocobalamin (vitamin B12) (Verified Adverse Reaction, Intermediate, INSOMNIA, 06/20/19) oxycodone (Verified Adverse Reaction, Intermediate, VOMITING, 08/25/18) TAPE (Verified Adverse Reaction, Mild, Bruises, 08/25/18) ADY BAIG DO Jun 22, 2019 08:43
--- NOTE | 2019-06-22 10:16 | HPEPDOC ---
[facility] Medical History & Physical Date of Admission Jun 21, 2019 Date of Service: Jun 21, 2019 History and Physical Chief complaint: History of present illness: This is the 48-year-old female with history of PTSD and depression, presents to [facility] comes to the psychiatric unit and we have been consulted for medical reasons. The patient said that she is having increasing suicidal thoughts. States that she has a lot of stressors and suffers from depression,She currently has been admitted to the psychiatric facility and the management will be as per them. She denies any shortness of breath, any chest pain, any headache.She states that she does not have any intentions of hurting herself or anybody else at this point of time. Family history. Hypertension. Social history. non smoker. Denies any drug abuse. Denies any recreational drug use. Past medical history none except for depression. Past surgical history none as per patient Review of systems. Pertinent positive findings as per HPI and is negative PHYSICAL EXAMINATION: General: The patient is awake, alert, oriented x3, sitting up in the bed in no apparent distress. Head and Neck Exam: Extraocular muscles intact. Pupils equally round and reactive to light. Mucous membranes are moist. Neck is supple. There is no jugular venous distention (JVD). Cardiovascular: S1 and S2, regular rate. No real edema Respiratory: Clear auscultation Abdomen: Soft. Positive bowel sounds. Nontender. No organomegaly. Genitourinary: Deferred Musculoskeletal: Clubbing of the fingernails, no cyanosis was noted. Central Nervous System (FINANCIAL REPORTING ADVISOR): No focal deficit. Power is 5/5 in all extremities. Medications reviewed Radiology reviewed Assessment and plan This is a 48-year-old female was been admitted to the psychiatric facility for suicidal thoughts . And we have been consulted for medical management. 1. Suicidal ideation . Management is per psychiatry. 2. PTSD: Management is per psychiatry. Diet as per psychiatric Thank so much for consulting us on this patient Vital Signs Vital Signs Date Time Temp Pulse Resp B/P (MAP) Pulse Ox O2 Delivery O2 Flow Rate FiO2 06/21/19 08:40 129/80 06/21/19 06:44 98.5 56 16 06/20/19 15:05 Room Air 06/20/19 13:10 99 Laboratory Data Labs 24H Laboratory Tests 2 06/20/19 17:20: Bedside Glucose (Misc Panel) 68L 06/21/19 06:30: Bedside Glucose ([facility] Panel) 80 Home Medications Scheduled Buspirone HCl (Buspirone HCl) 30 Mg Tablet, 30 MG PO BID Cholecalciferol (Vitamin D3) (Vitamin D3) 1,000 Unit Tablet, 1,000 UNITS PO DAILY Ferrous Sulfate (Ferrous Sulfate) 325 Mg Tablet, 325 MG PO QHS Fluoxetine Hcl (Fluoxetine HCl) 40 Mg Cap, 40 MG PO QHS Glucosa Chakraborty 2Kcl/Chondroitin Chakraborty (Glucosamine & Chondroitin Cap) 1 Each Capsule, 1 EACH PO BID Lisinopril (Lisinopril) 2.5 Mg Tablet, 2.5 MG PO DAILY Metformin HCl (Metformin HCl) 500 Mg Tab, 500 MG PO BID rx was written for 1000mg bid, patient states only taking 500mg bid Multivitamin,Therapeutic (Thera) 1 Each Tablet, 1 TAB PO DAILY Pregabalin (Pregabalin) 75 Mg Capsule, 75 MG PO BID Simvastatin (Simvastatin) 20 Mg Tab, 20 MG PO QHS Scheduled PRN Rizatriptan Benzoate (Maxalt) 10 Mg Tablet, 10 MG PO ASDIRECTED PRN for MIGRAINE Allergies Coded Allergies: baclofen (Verified Allergy, Mild, 04/03/19) atorvastatin (Verified Adverse Reaction, Intermediate, MIGRANE HEADACHE, 08/25/18) cyanocobalamin (vitamin B12) (Verified Adverse Reaction, Intermediate, INSOMNIA, 06/20/19) oxycodone (Verified Adverse Reaction, Intermediate, VOMITING, 08/25/18) TAPE (Verified Adverse Reaction, Mild, Bruises, 08/25/18) A-FIB/CHADSVASC A-FIB History Current/History of A-Fib/PAF?: No Current PO Anticoag Therapy: No ELIJAH WEI MD Jun 21, 2019 12:39
[2019-06-22] MEDS: EXCEDRIN MIGRAINE TABLET PO PRN (11:13)
[2019-06-22 17:49] VITALS: BP 144/72
[2019-06-22 20:02] VITALS: BP 134/78
[2019-06-22] MEDS: SIMVASTATIN 20 MG TAB PO SCH (20:07)
[2019-06-22] MEDS: FLUoxetine 20 MG CAP PO SCH (20:07)
[2019-06-22] MEDS: FERROUS SULFATE 325MG TAB PO SCH (20:53)
[2019-06-23 06:19] VITALS: BP 95/56
[2019-06-23] MEDS: LISINOPRIL *2.5 MG* TAB PO SCH (08:44)
[2019-06-23] MEDS: EXCEDRIN MIGRAINE TABLET PO PRN (08:45)
[2019-06-23] MEDS: metFORMIN (GLUCOPHAGE) 500 MG TAB PO SCH ×2 (08:45→17:53)
[2019-06-23] MEDS: MULTIVITAMINS/MINERALS THERAP 1 TAB PO SCH (08:45)
[2019-06-23] MEDS: PREGABALIN 75 MG CAP(LYRICA) PO SCH ×2 (08:45→20:12)
[2019-06-23] MEDS: VITAMIN D 1,000 INTERNATIONAL UNITS TABLET PO SCH (08:45)
[2019-06-23] MEDS: VENLAFAXINE **XR** 37.5 MG CAPSULE PO SCH (08:46)
[2019-06-23] MEDS: busPIRone 5 MG TAB PO SCH (08:46)
--- NOTE | 2019-06-23 09:11 | MHIPNPDOC ---
[facility] Progress Note Progress Note Neyda Garrison Inpatient Progress Note Neyda Meli Select Gender MRN: N/A Date of : MM/DD/YYYY Date of Service: 06/23/2019 History of Present Illness The patient a 48-year-old woman with a reported history of PTSD and depression, presents to [facility] after developing increasing suicidal thoughts. The patient reports for the last month she has had suicidal thoughts, however, they have become worse to the point where her outpatient provider prompted her to come in for evaluation. The patient was met with where she reported that her symptoms of depression had been getting worse and her PTSD symptoms continued to plague her, she reports that her medication isn't as helpful for her as it has been in the past. She reports generally having an erratic appetite and significant anxiety as well as thoughts of self harm. She reports that her current treatment has not been able to slow these symptoms and that she progressively has gotten worse until her presentation yesterday. Interval History Narrative: The patient is met with solo. She reports that she is doing better, feeling ready for d/c soon Affective: improved low mood, better concentration Psychotic: Denies any symptoms at this time. Anxiety: Patient still reports trauma-related anxiety but has improved well Eating and sleeping behaviors: Normalizing, patient reports good sleep here. Group Attendance: Frequent. Medication Side effects: See ROS below. Behavioral problems/significant events overnight: None reported. Staff Report: Patient generally amenable and friendly with staff interventions. Review Of Systems General: Denies fever or appetite changes Cardiovascular: Denies Chest pain or palpitations GI: Denies Nausea, vomiting, or bowel changes Respiratory: Denies shortness of breath or cough Neuro: Denies dizziness, tremors Derm: Denies any rashes or pruritus : Denies any dysuria or urinary problems MSK: Denies any muscle tightness or stiffness HEENT: Denies any vision changes or headaches Psychotherapy None on this visit. Vital Signs Reviewed. Mental Status Examination General: Improved hygiene. Speech: More fluid. Thought processes: Less hopeless. MSK: Smooth and coordinated gait, no signs of tremors or involuntary orofacial movements Thought content: Hopeless. Abstract reasoning, and computation: Intact Description of associations: Intact Description of abnormal or psychotic thoughts: Admits to fleeting SI at this time with no plan or intention. Denies homicidal ideation. Does not appear to be responding to internal stimuli. Judgment: Improved. Insight: Improved. Orientation: Alert and orientated 3 Cognition: Grossly normal Recent and remote memory: Intact Attention span and concentration: Intact Fund of knowledge: Adequate. Mood: "Okay." Affect: More euthymic and reactive. Diagnoses PTSD, chronic. MDD, recurrent, unspecified. Assessment and Plan PTSD/MDD: Continue with cross-taper with Prozac 20 mg, BuSpar 15 mg BID, and Effexor 37.5 mg daily, monitor for any side effects, tomorrow will be prozac 10, bupar 10 and effexor 75mg Disposition The patient will need to be continued on inpatient care as she is still suicidal with significant depression and PTSD symptoms. Time Spent 15 minutes. Vital Signs Vital Signs Date Time Temp Pulse Resp B/P (MAP) Pulse Ox O2 Delivery O2 Flow Rate FiO2 06/23/19 08:44 113/68 06/23/19 06:19 97.4 60 16 06/20/19 15:05 Room Air 06/20/19 13:10 99 Laboratory Data 24H Labs Laboratory Tests 2 06/22/19 17:24: Bedside Glucose (Misc Panel) 80 Current Medications Current Medications Medications (Trade) Dose Ordered Sig/Tal Route PRN Reason Start Time Stop Time Status Last Admin Dose Admin Acetaminophen/ Aspirin/Caffeine (Excedrin Migraine) 1 ea Q4HP PRN PO HEADACHE 06/22/19 09:15 06/23/19 08:45 Al Hydrox/Mg Hydrox/Simethicone (Mylanta) 30 ml Q4HP PRN PO HEARTBURN/INDIGESTION 06/20/19 14:00 Buspirone HCl (Buspar) 15 mg BID PO 06/21/19 21:00 06/23/19 08:46 Buspirone HCl (Buspar) 30 mg BID PO 06/20/19 21:00 06/21/19 10:12 DC 06/21/19 08:39 Ferrous Sulfate (Ferrous Sulfate) 325 mg QHS PO 06/20/19 21:00 06/22/19 09:13 DC Ferrous Sulfate (Ferrous Sulfate) 325 mg QHS PO 06/22/19 21:00 Fluoxetine HCl (PROzac) 20 mg QHS PO 06/21/19 21:00 06/22/19 20:07 Fluoxetine HCl (PROzac) 40 mg QHS PO 06/20/19 21:00 06/21/19 10:12 DC 06/20/19 20:19 Home Med (Med Rec Complete!) ASDIRECTED XX 06/20/19 14:00 06/20/19 13:47 DC Ibuprofen (Advil) 400 mg Q6HP PRN PO PAIN 06/20/19 14:00 Lisinopril (Prinivil) 2.5 mg DAILY PO 06/21/19 09:00 06/23/19 08:44 Magnesium Hydroxide (Milk Of Magnesia) 30 ml DAILYPRN PRN PO CONSTIPATION 06/20/19 14:00 Metformin HCl (Glucophage) 500 mg BID@0800,1800 PO 06/20/19 18:00 06/23/19 08:45 Multivitamins (Theragram-M) 1 tab DAILY PO 06/21/19 09:00 06/23/19 08:45 Nicotine (Nicoderm Cq 21mg) 1 patch DAILY TD 06/20/19 09:00 Cancel Olanzapine (ZyPREXA ZYDIS) 5 mg Q6HP PRN PO ANXIETY/AGITATION 06/20/19 14:00 Pregabalin (Lyrica) 75 mg BID PO 06/20/19 21:00 06/23/19 08:45 Rizatriptan Benzoate (Maxalt) 10 mg ASDIRECTED PRN PO MIGRAINE 06/20/19 16:30 06/21/19 15:20 Simvastatin (Zocor) 20 mg QHS PO 06/20/19 21:00 06/22/19 20:07 Trazodone HCl (Desyrel) 50 mg QHSP PRN PO INSOMNIA 06/20/19 14:00 Venlafaxine HCl (Effexor Xr) 37.5 mg DAILY PO 06/22/19 09:00 06/23/19 08:46 Vitamin D (Vitamin D) 1,000 units DAILY PO 06/21/19 09:00 06/23/19 08:45 Allergies Coded Allergies: baclofen (Verified Allergy, Mild, 04/03/19) atorvastatin (Verified Adverse Reaction, Intermediate, MIGRANE HEADACHE, 08/25/18) cyanocobalamin (vitamin B12) (Verified Adverse Reaction, Intermediate, INSOMNIA, 2/25/20) oxycodone (Verified Adverse Reaction, Intermediate, VOMITING, 08/25/18) TAPE (Verified Adverse Reaction, Mild, Bruises, 08/25/18) ADY BAIG DO Jun 23, 2019 09:11
[2019-06-23] MEDS ORDERED: SODIUM CHLORIDE 0.9% NASAL GEL 15GM (AYR) PRN (10:30)
[2019-06-23 16:00] VITALS: BP 125/65
[2019-06-23] MEDS: busPIRone 10 MG TAB PO SCH (20:12)
[2019-06-23] MEDS: FLUoxetine 10 MG CAP PO SCH (20:12)
[2019-06-23] MEDS: SIMVASTATIN 20 MG TAB PO SCH (20:12)
[2019-06-23] MEDS: FERROUS SULFATE 325MG TAB PO SCH (20:12)
[2019-06-24 06:35] VITALS: BP 117/81
[2019-06-24] MEDS: LISINOPRIL *2.5 MG* TAB PO SCH (08:18)
[2019-06-24] MEDS: ACETAMINOPHEN TAB 650MG DOSE (2X325MG) PO PRN ×2 (08:19→17:19)
[2019-06-24] MEDS: EXCEDRIN MIGRAINE TABLET PO PRN ×2 (08:19→21:20)
[2019-06-24] MEDS: metFORMIN (GLUCOPHAGE) 500 MG TAB PO SCH ×2 (08:19→17:20)
[2019-06-24] MEDS: MULTIVITAMINS/MINERALS THERAP 1 TAB PO SCH (08:19)
[2019-06-24] MEDS: VENLAFAXINE **XR** 75MG CAPSULE PO SCH (08:19)
[2019-06-24] MEDS: VITAMIN D 1,000 INTERNATIONAL UNITS TABLET PO SCH (08:19)
[2019-06-24] MEDS: PREGABALIN 75 MG CAP(LYRICA) PO SCH ×2 (08:19→20:03)
[2019-06-24] MEDS: busPIRone 10 MG TAB PO SCH ×2 (08:19→20:03)
[2019-06-24 12:09] VITALS: BP 163/83
[2019-06-24 16:10] VITALS: BP 101/66
[2019-06-24] MEDS: SIMVASTATIN 20 MG TAB PO SCH (20:03)
[2019-06-24] MEDS: FLUoxetine 10 MG CAP PO SCH (20:03)
[2019-06-24] MEDS: FERROUS SULFATE 325MG TAB PO SCH (20:03)
[2019-06-24] MEDS: PANTOPRAZOLE 40MG TAB (PROTONIX) PO SCH (21:45)
[2019-06-25 06:31] VITALS: BP 125/70
[2019-06-25] MEDS: metFORMIN (GLUCOPHAGE) 500 MG TAB PO SCH ×2 (08:02→17:09)
[2019-06-25] MEDS: VENLAFAXINE **XR** 75MG CAPSULE PO SCH (08:02)
[2019-06-25] MEDS: PREGABALIN 75 MG CAP(LYRICA) PO SCH ×2 (08:02→20:00)
[2019-06-25] MEDS: MULTIVITAMINS/MINERALS THERAP 1 TAB PO SCH (08:02)
[2019-06-25] MEDS: busPIRone 10 MG TAB PO SCH ×2 (08:02→20:01)
[2019-06-25] MEDS: VITAMIN D 1,000 INTERNATIONAL UNITS TABLET PO SCH (08:03)
[2019-06-25] MEDS: LISINOPRIL *2.5 MG* TAB PO SCH (08:04)
--- NOTE | 2019-06-25 08:18 | MHIPN ---
DATE: 06/24/2019 VITAL SIGNS: Blood pressure 163/83, pulse 75, temperature 97.5. CHIEF COMPLAINT: Feels better. SUBJECTIVE: Seen for followup, in the presence of staff, and says she feels better, particularly since coming in. I had seen her in the office, and she was sent to the ER for hospitalization. This was earlier in the week. Says is less anxious, less depressed, sleep has improved. She says the nightmares are somewhat diminished, no flashbacks. Has been in touch with others, including her daughter. She feels the medicines have been working, Prozac is being discontinued, and is being cross-tapered with Effexor. MENTAL STATUS EXAMINATION: She is neat. She is cooperative. No agitation. No psychomotor retardation. She is coherent. Affect is reactive, broader than when I had seen her in the office. There is no evidence of any thoughts of harming herself at present, nor anyone else. No evidence of any psychosis. Cognition grossly intact. Judgment and insight are improved. ASSESSMENT: Posttraumatic stress disorder (PTSD). Major depressive disorder. Clinically improved, less anxious, less depressed. The improvements are to early to credit the change in medication, the patient being in the hospital and having time to reassess her perspective, may have helped considerably as well. PLAN: I suggest that the Prozac is discontinued in the next day or so. The Effexor is to continue at the current dose, 75 mg daily, this may well be increased eventually. Buspirone is to continue at 10 mg twice a day. She is to be encouraged to participate in activities on the unit. She will be discharged, to followup with me in the outpatient clinic, she is expected to be discharged in the next couple of day. She agrees with the plan.
[2019-06-25] MEDS: EXCEDRIN MIGRAINE TABLET PO PRN ×2 (11:44→17:09)
[2019-06-25 16:05] VITALS: BP 119/80
[2019-06-25] MEDS: ACETAMINOPHEN TAB 650MG DOSE (2X325MG) PO PRN (20:00)
[2019-06-25] MEDS: SIMVASTATIN 20 MG TAB PO SCH (20:00)
[2019-06-25] MEDS: PANTOPRAZOLE 40MG TAB (PROTONIX) PO SCH (20:01)
[2019-06-25] MEDS: FERROUS SULFATE 325MG TAB PO SCH (20:01)
[2019-06-25] MEDS: FLUoxetine 10 MG CAP PO SCH (20:01)
[2019-06-26 06:29] VITALS: BP 122/86
[2019-06-26] MEDS: metFORMIN (GLUCOPHAGE) 500 MG TAB PO SCH ×2 (07:50→17:24)
[2019-06-26] MEDS: busPIRone 10 MG TAB PO SCH ×2 (08:17→20:08)
[2019-06-26] MEDS: PREGABALIN 75 MG CAP(LYRICA) PO SCH ×2 (08:17→20:08)
[2019-06-26] MEDS: MULTIVITAMINS/MINERALS THERAP 1 TAB PO SCH (08:17)
[2019-06-26] MEDS: VITAMIN D 1,000 INTERNATIONAL UNITS TABLET PO SCH (08:17)
[2019-06-26] MEDS: VENLAFAXINE **XR** 75MG CAPSULE PO SCH (08:17)
[2019-06-26] MEDS: EXCEDRIN MIGRAINE TABLET PO PRN (08:18)
[2019-06-26] MEDS: LISINOPRIL *2.5 MG* TAB PO SCH (08:18)
[2019-06-26 16:17] VITALS: BP 113/70
[2019-06-26] MEDS: FERROUS SULFATE 325MG TAB PO SCH (20:06)
[2019-06-26] MEDS: PANTOPRAZOLE 40MG TAB (PROTONIX) PO SCH (20:08)
[2019-06-26] MEDS: SIMVASTATIN 20 MG TAB PO SCH (20:08)
[2019-06-27 06:27] VITALS: BP 120/77
[2019-06-27] MEDS: metFORMIN (GLUCOPHAGE) 500 MG TAB PO SCH (07:38)
[2019-06-27 08:21] VITALS: BP 109/73
[2019-06-27] MEDS: busPIRone 10 MG TAB PO SCH (08:21)
[2019-06-27] MEDS: MULTIVITAMINS/MINERALS THERAP 1 TAB PO SCH (08:21)
[2019-06-27] MEDS: VENLAFAXINE **XR** 75MG CAPSULE PO SCH (08:21)
[2019-06-27] MEDS: VITAMIN D 1,000 INTERNATIONAL UNITS TABLET PO SCH (08:21)
[2019-06-27] MEDS: LISINOPRIL *2.5 MG* TAB PO SCH (08:21)
[2019-06-27] MEDS: PREGABALIN 75 MG CAP(LYRICA) PO SCH (08:21)
[2019-06-27] MEDS ORDERED: VENL75CA47 PO (11:47)
[2019-06-27] MEDS ORDERED: PANT40TA3 PO (11:47)
[2019-06-27] MEDS ORDERED: TRAZ-252 PO (11:47)
[2019-06-27] MEDS ORDERED: BUSP10TA PO (11:47)
[2019-06-27] MEDS ORDERED: VITMTA PO (11:47)
[2019-06-27] MEDS ORDERED: FERR325T18 PO (11:47)
--- NOTE | 2019-06-27 16:22 | MHDSPDOC ---
[facility] Discharge Summary Discharge Summary DATE OF ADMISSION: Jun 20, 2019 at 13:47 DATE OF DISCHARGE: Jun 27, 2019 at 14:35 DISCHARGE DIAGNOSES: Diagnoses PTSD, chronic. MDD, recurrent, unspecified. REASON FOR ADMISSION: As per Dr. Garcia: "The patient a 48-year-old woman with a reported history of PTSD and depression, presents to [facility] after developing increasing suicidal thoughts. The patient reports for the last month she has had suicidal thoughts, however, they have become worse to the point where her outpatient provider prompted her to come in for evaluation. The patient was met with where she reported that her symptoms of depression had been getting worse and her PTSD symptoms continued to plague her, she reports that her medication isn't as helpful for her as it has been in the past. She reports generally having an erratic appetite and significant anxiety as well as thoughts of self harm. She reports that her current treatment has not been able to slow these symptoms and that she progressively has gotten worse until her presentation yesterday." CONSULTANTS INVOLVED: None TREATMENT AND PROGRESS ON THE UNIT : the patient was admitted on 06/20 and she presented with PTSD and MDD symptoms. She has attended groups that she found helpful, has acquired some coping skills. She had a good response to medications and has progressed to the point where she wants to be discharged because she feels safe to go home. She is future orientated, she is going to have a major celebration in August, around Mother's day because her daughter is graduating amongst other family celebrations. She's excited about attending a wedding next November in [place]. She adamantly denies being suicidal, homicidal or psychotic. She denies medication side effects, reports sleeping well, eating well. HOSPITAL COURSE: As above DISCHARGE ASSESSMENT: She was not suicidal, not homicidal, not psychotic. She denies SI, suicidal plans or intents. She denies any self harm ideas. She was not responding to internal stimuli, she denied thought delusions, denied TAV hallucinations. She was goal oriented ( please read Treatment and Progress on the Unit). Her insight and judgment were good, she has good impulse control, she was not dangerous to self or others at that time. She was considered safe to be discharged home. MENTAL STATUS EXAMINATION ON DISCHARGE: Patient is a 48-year old female, who is alert, cooperative, pleasant with good hygiene and attire. Speech is normal in rate, rhythm, tone and volume, spontaneous and fluent. Language skills are intact. Thought processes including: linear, coherent, goal directed. Thought content: Denies SI/HI, thought delusions, goal directed, optimistic about her future. Description of associations: intact. Description of abnormal or psychotic thoughts: Denies thought delusions, denies TAV hallucinations, she's not responding to internal stimuli, she denies SI/HI Judgment: improved. Insight: improved. Orientation to x 3. Recent and remote memory: intact. Attention span and concentration: intact. Language: adequate. Fund of knowledge: average. Mood: 'I'm happy to go home". Affect: congruent with mood, reactive, full, appropriate.. MEDICATIONS ON DISCHARGE: Scheduled Buspirone HCl (Buspirone HCl) 10 Mg Tablet, 10 MG PO BID for anxiety, #14 Cholecalciferol (Vitamin D3) (Vitamin D3) 1,000 Unit Tablet, 1,000 UNITS PO DAILY, (Reported) Ferrous Sulfate (Ferrous Sulfate) 325 Mg Tablet, 325 MG PO QHS, (Reported) Ferrous Sulfate (Ferrous Sulfate) 325 Mg Tablet, 325 MG PO QHS for anemia, #7 Glucosa Chakraborty 2Kcl/Chondroitin Chakraborty (Glucosamine & Chondroitin Cap) 1 Each Capsule, 1 EACH PO BID, (Reported) Lisinopril (Lisinopril) 2.5 Mg Tablet, 2.5 MG PO DAILY, (Reported) Metformin HCl (Metformin HCl) 500 Mg Tab, 500 MG PO BID, (Reported) rx was written for 1000mg bid, patient states only taking 500mg bid Multivitamin,Therapeutic (Thera) 1 Each Tablet, 1 TAB PO DAILY, (Reported) Multivitamins (Thera M Plus Tablet) 1 Each Tablet, 1 TAB PO DAILY for anemia, #7 Pantoprazole Sodium (Pantoprazole Sodium) 40 Mg Tablet.dr, 40 MG PO DAILY@2100 for GERD, #7 Pregabalin (Pregabalin) 75 Mg Capsule, 75 MG PO BID, (Reported) Simvastatin (Simvastatin) 20 Mg Tab, 20 MG PO QHS, (Reported) Venlafaxine HCl (Venlafaxine HCl ER) 75 Mg Cap.er.24h, 75 MG PO DAILY for depression/anxiety, #7 Scheduled PRN Rizatriptan Benzoate (Maxalt) 10 Mg Tablet, 10 MG PO ASDIRECTED PRN for MIGRAINE, (Reported) Trazodone HCl (Trazodone HCl) 50 Mg Tablet, 50 MG PO QHSP PRN for INSOMNIA, #7 PLAN/FOLLOWUP ARRANGEMENTS: Follow Up Care Education Label * Medical * Medical Follow Up Devi Jarrell * Established With This Provider Yes * Date Jul 04, 2019 * Time 11:00 * Address of Clinic or Practice [address] [place] [address] * * Additional information IF UNABLE TO MAKE THIS APPOINMENT PLEASE CALL TO RESCHEDULE OR CANCEL Follow Up Care Education Label * Mental Health Appt 1 * Mental Health [facility] * Established With This Provider Yes * Therapist MICAH KEMP * Date Jul 03, 2019 * Time 10:00 * Address of Clinic or Practice [address] [place] [address] * * Additional information IF UNABLE TO MAKE THIS APPOINTMENT PLEASE CALL TO RESCHEDULE OR CANCEL The amount of time spent in the coordination of care for this patient was approximately 30 minutes. Vital Signs/I&Os Vital Signs Date Time Temp Pulse Resp B/P (MAP) Pulse Ox O2 Delivery O2 Flow Rate FiO2 06/27/19 08:21 109/73 06/27/19 06:27 97.5 67 12 Room Air Laboratory Data Labs 24H Laboratory Tests 2 06/26/19 17:22: Bedside Glucose (Misc Panel) 123H 06/27/19 06:20: Bedside Glucose (Misc Panel) 82 Medications Scheduled Buspirone HCl (Buspirone HCl) 10 Mg Tablet, 10 MG PO BID for anxiety, #14 Cholecalciferol (Vitamin D3) (Vitamin D3) 1,000 Unit Tablet, 1,000 UNITS PO DAILY, (Reported) Ferrous Sulfate (Ferrous Sulfate) 325 Mg Tablet, 325 MG PO QHS, (Reported) Ferrous Sulfate (Ferrous Sulfate) 325 Mg Tablet, 325 MG PO QHS for anemia, #7 Glucosa Chakraborty 2Kcl/Chondroitin Chakraborty (Glucosamine & Chondroitin Cap) 1 Each Capsule, 1 EACH PO BID, (Reported) Lisinopril (Lisinopril) 2.5 Mg Tablet, 2.5 MG PO DAILY, (Reported) Metformin HCl (Metformin HCl) 500 Mg Tab, 500 MG PO BID, (Reported) rx was written for 1000mg bid, patient states only taking 500mg bid Multivitamin,Therapeutic (Thera) 1 Each Tablet, 1 TAB PO DAILY, (Reported) Multivitamins (Thera M Plus Tablet) 1 Each Tablet, 1 TAB PO DAILY for anemia, #7 Pantoprazole Sodium (Pantoprazole Sodium) 40 Mg Tablet.dr, 40 MG PO DAILY@2100 for GERD, #7 Pregabalin (Pregabalin) 75 Mg Capsule, 75 MG PO BID, (Reported) Simvastatin (Simvastatin) 20 Mg Tab, 20 MG PO QHS, (Reported) Venlafaxine HCl (Venlafaxine HCl ER) 75 Mg Cap.er.24h, 75 MG PO DAILY for depression/anxiety, #7 Scheduled PRN Rizatriptan Benzoate (Maxalt) 10 Mg Tablet, 10 MG PO ASDIRECTED PRN for MIGRAINE, (Reported) Trazodone HCl (Trazodone HCl) 50 Mg Tablet, 50 MG PO QHSP PRN for INSOMNIA, #7 Allergies Coded Allergies: baclofen (Verified Allergy, Mild, 04/03/19) atorvastatin (Verified Adverse Reaction, Intermediate, MIGRANE HEADACHE, 08/25/18) cyanocobalamin (vitamin B12) (Verified Adverse Reaction, Intermediate, INSOMNIA, 06/20/19) oxycodone (Verified Adverse Reaction, Intermediate, VOMITING, 08/25/18) TAPE (Verified Adverse Reaction, Mild, Bruises, 08/25/18) LESLIE THOMPSON MD Jun 27, 2019 16:05
== END 2019-06-27 14:35 | disposition home or self-care (01) | DRG 882 ==
LOC: M ED 11:06 → M ED INP 13:47 → M PSY 15:10
PROVIDERS: ADMIT Psychiatry & Neurology Psychiatry; ATTEND Psychiatry & Neurology Psychiatry
DX: F43.10 Post-traumatic stress disorder, unspecified (principal); F33.9 Major depressive disorder, recurrent, unspecified; R45.851 Suicidal ideations; Z79.899 Other long term (current) drug therapy; Z88.8 Allergy status to other drugs, medicaments and biological substances; Z88.5 Allergy status to narcotic agent

== ENCOUNTER → 2019-07-07 | Outpatient (REF) | payer MEDICARE, MEDICAID ==
[~2019-07-07] MED LIST changes: +BUSP30TA PO; +FERR1TAB8 PO; +FERR325T18 PO; +GLUC500C37 PO; +LISI-1046 PO; +MAXA10TA14 PO; -NICOTINE 21MG/24HR 1 EA TRANSDERMAL TD SCH; +PANT40TA3 PO; +PREG75CA2 PO; +THERTAB56 PO; +TRAZ-252 PO; +VENL75CA47 PO; +VITAD1000T PO; +VITMTA PO
[2019-07-07 17:59] LABS: HEMOGLOBIN A1c 6.3 %
== END ==
LOC: M SFHCPLAZ 12:11
PROVIDERS: ATTEND Nurse Practitioner Adult Health
DX: E11.9 Type 2 diabetes mellitus without complications (principal)

== ENCOUNTER → 2019-11-10 | Outpatient (REF) | payer MEDICARE, MEDICAID ==
[~2019-11-10] MED LIST changes: -LISI-1046 PO; +LISI2.5T2 PO
== END ==
LOC: M SFHCPLAZ 17:28
PROVIDERS: ATTEND Physician Assistant
DX: R39.14 Feeling of incomplete bladder emptying (principal)

== ENCOUNTER → 2019-12-05 | Outpatient (REF) | payer MEDICARE, MEDICAID ==
[~2019-12-05] MED LIST changes: +APAP325T4 PO; +ASPI-546 PO; -ASPI1TAB15 PO; +D31000TA2 PO; +EFFE37.5 PO; +PANT-23 PO; +PANT40TA29 PO; -PANT40TA3 PO; +PREG100C PO; +RALT40TA PO; +RIZA10TA2 PO; +TRUVTAB PO; +VENL150C43 PO; +VENL75CA2 PO; -VITAD1000T PO
[2020-01-04 16:14] LABS: INR 0.93; PARTIAL THROMBOPLASTIN TIME 32.1 SECONDS (25.0-38.4); PLATELET COUNT, AUTOMATED 453 10^3/uL (150-450); PROTHROMBIN TIME 12.7 SECONDS (11.8-14.0)
== END ==
LOC: M PLALAB 09:33
PROVIDERS: ATTEND Physician Assistant
DX: Z01.812 Encounter for preprocedural laboratory examination (principal); M47.27 Other spondylosis with radiculopathy, lumbosacral region

== ENCOUNTER 2019-12-14 13:58 | Inpatient (IN) | payer MEDICAID, MEDICARE ==
[~2019-12-14] VITALS: Ht 165.1 cm; Wt 81.9 kg
[~2019-12-14 13:58] MED LIST changes: -APAP325T4 PO; -EFFE37.5 PO; -PANT-23 PO; -PREG100C PO; -RALT40TA PO; -RIZA10TA2 PO; -TRUVTAB PO; -VENL150C43 PO; -VENL75CA2 PO
[2019-12-14] MEDS ORDERED: EFFE37.5 PO (14:12)
[2019-12-14 18:00] LABS: HEMATOCRIT 38.7 % (36.0-47.0); HEMOGLOBIN 12.7 g/dl (12.0-15.5); MEAN CORPUSCULAR HGB CONC 32.8 g/dl (32.0-36.5); MEAN CORPUSCULAR VOLUME 85.4 fl (80.0-96.0); PLATELET COUNT, AUTOMATED 425 10^3/uL (150-450); RED BLOOD COUNT 4.53 10^6/uL (4.00-5.40); WHITE BLOOD COUNT 17.8 10^3/uL (4.0-10.0)
[2019-12-14 18:57] LABS: ACETAMINOPHEN LEVEL < 2.0 UG/ML (10.0-30.0); ALBUMIN 3.5 GM/DL (3.2-5.2); ALT/SGPT 32 U/L (12-78); AMPHETAMINES LEVEL URINE NEGATIVE (NEGATIVE); BARBITURATES URINE NEGATIVE (NEGATIVE); BENZODIAZEPINES URINE NEGATIVE (NEGATIVE); BILIRUBIN,DIRECT < 0.1 MG/DL (0.0-0.2); BILIRUBIN,TOTAL 0.2 MG/DL (0.2-1.0); BLOOD UREA NITROGEN 13 MG/DL (7-18); CALCIUM LEVEL 9.5 MG/DL (8.5-10.1); CANNABINOIDS URINE NEGATIVE (NEGATIVE); CARBON DIOXIDE LEVEL 28 MEQ/L (21-32); CHLORIDE LEVEL 109 MEQ/L (98-107); COCAINE METABOLITE URINE NEGATIVE (NEGATIVE); CREATININE FOR GFR 0.84 MG/DL (0.55-1.30); ETHYL ALCOHOL (ETHANOL) < 0.003 % (0.000-0.010); GLOMERULAR FILTRATION RATE > 60.0 (>58); GLUCOSE, FASTING 95 MG/DL (70-100); METHADONE URINE NEGATIVE (NEGATIVE); OPIATES URINE NEGATIVE (NEGATIVE); PHENCYCLIDINE URINE NEGATIVE (NEGATIVE); SALICYLATE LEVEL < 1.7 MG/DL (5.0-30.0); SODIUM LEVEL 141 MEQ/L (136-145); TOTAL PROTEIN 6.6 GM/DL (6.4-8.2)
[2019-12-14] MEDS ORDERED: traZODone 50 MG TAB PO PRN (20:15)
[2019-12-14] MEDS ORDERED: MOM 30ML SUSPENSION UDC PO PRN (20:15)
[2019-12-14] MEDS ORDERED: MAALOX 30 ML SUSP *UDC PO PRN (20:15)
[2019-12-14] MEDS ORDERED: PANT-23 PO (20:33)
[2019-12-14] MEDS ORDERED: PREG100C PO (20:33)
[2019-12-14] MEDS ORDERED: RIZA10TA2 PO (20:33)
[2019-12-14] MEDS ORDERED: BUSP10TA PO (20:33)
[2019-12-14] MEDS ORDERED: APAP325T4 PO (20:33)
[2019-12-14] MEDS ORDERED: VENL75CA2 PO (20:33)
[2019-12-14] MEDS ORDERED: MIRTAZAPINE 15 MG TAB PO PRN (21:00)
[2019-12-14] MEDS ORDERED: RIZATRIPTAN BENZOATE 10 MG TAB PO PRN (21:00)
[2019-12-15] MEDS: PREGABALIN 100 MG CAP (LYRICA) PO SCH ×3 (00:58→20:36)
[2019-12-15] MEDS: busPIRone 10 MG TAB PO SCH ×3 (00:58→20:35)
[2019-12-15] MEDS: PANTOPRAZOLE 40MG TAB (PROTONIX) PO SCH ×2 (00:58→20:36)
[2019-12-15] MEDS: SIMVASTATIN 20 MG TAB PO SCH ×2 (00:58→20:36)
[2019-12-15] MEDS: metFORMIN (GLUCOPHAGE) 500 MG TAB PO SCH ×3 (00:58→17:09)
[2019-12-15] MEDS: ACETAMINOPHEN TAB 650MG DOSE (2X325MG) PO PRN ×2 (00:59→17:11)
[2019-12-15 02:43] VITALS: BP 120/84
--- NOTE | 2019-12-15 08:03 | MHHPEPDOC ---
[facility] History & Physical History and Physical DATE OF ADMISSION: Dec 14, 2019 at 20:03 Subjective HPI: Neyda presents today for concerns regarding her panic attacks, and she is also hurting herself. Patient mentioned she is diagnosed with depression and PTSD. She tries not to avoid any things that might cause trauma. She stated she never had any suicidal attempts before and denied suicidal thoughts. MEDICATIONS: She currently takes Buspar, Effexor and Citalopram. FAMILY HISTORY: Patient stated she has no family history of mental health issues. SOCIAL HISTORY - LIVING SITUATION: She noted she lives alone. SOCIAL HISTORY - SUBSTANCE USE: She denied uses of any substance like marijuana and also smoking. Objective Appearance: Well groomed. Appears to be stated age. Well nourished. Behavior: Sleeping in bed. Generally not wanting to engage. Takes some prodding. Mood: Mildly dysthymic. Thought Form: Linear and goal directed. Thought Content: No evidence of suicidal ideation. No evidence of aggressive or homicidal ideation. No evidence of delusions. No thoughts of self harm. Judgement: Poor. Assessment F33.1 Major depressive disorder, recurrent, moderate Plan Increase Effexor to 150 mg daily. Continue Buspar 10 mg BID. Treatment priorities are risk of suicide and effective coping. Estimated length of stay is 3-5 days. Vital Signs Vital Signs Date Time Temp Pulse Resp B/P (MAP) Pulse Ox O2 Delivery O2 Flow Rate FiO2 12/15/19 02:43 98.1 84 16 120/84 (96) 97 Room Air Laboratory Data 24H Labs Laboratory Tests 2 12/14/19 17:00: Nucleated Red Blood Cells % (auto) 0.0, Anion Gap 4L, Glomerular Filtration Rate > 60.0, Calcium Level 9.5, Total Bilirubin 0.2, Direct Bilirubin < 0.1, Aspartate Amino Transf (AST/SGOT) 20, Alanine Aminotransferase (ALT/SGPT) 32, Alkaline Phosphatase 110, Total Protein 6.6, Albumin 3.5, Albumin/Globulin Ratio 1.1L, Thyroid Stimulating Hormone (TSH) 1.960, Salicylates Level < 1.7L, Urine Opiates Screen NEGATIVE, Urine Methadone Screen NEGATIVE, Acetaminophen Level < 2.0L, Urine Barbiturates Screen NEGATIVE, Urine Phencyclidine Screen NEGATIVE, Urine Amphetamines Screen NEGATIVE, Urine Benzodiazepines Screen NEGATIVE, Urine Cocaine Metabolite Screen NEGATIVE, Urine Cannabinoids Screen NEGATIVE, Ethyl Alcohol Level < 0.003 CBC/BMP Laboratory Tests 12/14/19 17:00 Medications Scheduled Buspirone HCl (Buspirone HCl) 10 Mg Tablet, 10 MG PO BID, (Reported) Cholecalciferol (Vitamin D3) (Vitamin D3) 1,000 Unit Tablet, 1,000 UNITS PO DAILY, (Reported) Glucosa Chakraborty 2Kcl/Chondroitin Chakraborty (Glucosamine & Chondroitin Cap) 1 Each Capsule, 1 CAP PO BID, (Reported) Lisinopril (Lisinopril) 2.5 Mg Tablet, 2.5 MG PO DAILY, (Reported) Metformin HCl (Metformin HCl) 500 Mg Tab, 1,000 MG PO BID, (Reported) Multivitamin,Therapeutic (Thera) 1 Each Tablet, 1 TAB PO DAILY, (Reported) Pantoprazole Sodium (Pantoprazole Sodium) 40 Mg Tablet.dr, 40 MG PO QHS, (Reported) Pregabalin (Pregabalin) 100 Mg Capsule, 100 MG PO BID, (Reported) Simvastatin (Simvastatin) 20 Mg Tab, 20 MG PO QHS, (Reported) Venlafaxine HCl (Effexor Xr) 37.5 Mg Cap.er.24h, 37.5 MG PO DAILY, (Reported) 112.5MG TOTAL DOSE DAILY Venlafaxine HCl (Venlafaxine HCl ER) 75 Mg Cap.er.24h, 75 MG PO DAILY, (Reported) 112.5MG TOTAL DOSE DAILY Scheduled PRN Acetaminophen (Acetaminophen) 325 Mg Tablet, 650 MG PO QID PRN for PAIN, (Reported) Rizatriptan Benzoate (Rizatriptan) 10 Mg Tablet, 10 MG PO DAILY PRN for MIGRAINE, (Reported) Allergies Coded Allergies: atorvastatin (Verified Adverse Reaction, Intermediate, MIGRANE HEADACHE, 08/25/18) oxycodone (Verified Adverse Reaction, Intermediate, VOMITING, 08/25/18) TAPE (Verified Adverse Reaction, Mild, Bruises, 08/25/18) trazodone (Verified Adverse Reaction, Mild, migraine headache, 12/14/19) ADY BAIG DO Dec 15, 2019 08:03
[2019-12-15] MEDS: LISINOPRIL *2.5 MG* TAB PO SCH (08:54)
[2019-12-15] MEDS: VITAMIN D 1,000 INTERNATIONAL UNITS TABLET PO SCH (08:55)
[2019-12-15] MEDS ORDERED: VENLAFAXINE **XR** 37.5 MG CAPSULE PO SCH (09:00)
[2019-12-15] MEDS ORDERED: VENLAFAXINE **XR** 75MG CAPSULE PO SCH (09:00)
[2019-12-15] MEDS ORDERED: ONDANSETRON 4 MG ORAL DISINTEGRATING TAB SL SCH (12:00)
[2019-12-15] MEDS ORDERED: ONDANSETRON 4 MG ORAL DISINTEGRATING TAB SL PRN (13:30)
[2019-12-15 16:00] VITALS: BP 106/70
--- NOTE | 2019-12-15 21:07 | HPEPDOC ---
[facility] Medical History & Physical Date of Admission Dec 15, 2019 Date of Service: Dec 15, 2019 Primary Care Physician: Devi Jarrell Attending Physician: ADY BAIG DO History and Physical CHIEF COMPLAINT: psychiatric admission for panic attacks. Consulting for medical management. HISTORY OF PRESENT ILLNESS: 49 yo F with a hx of HTN, DM2, hyperlipidemia, anxiety, depression and radiculopathy. She presented for concerns over panic attacks and self harm. She reports occasional pain in the L leg due to radiculopathy, reports an intraspinal injection at the pain clinic 4 days ago. She denies CP, palpitations, SOB, n/v/d. No other complaints. PAST MEDICAL HISTORY: 1. HTN. 2. DM2. 3. Hyperlipidemia. 4. Anxiety 5. Depression PAST SURGICAL HISTORY: 1. Gastric bypass SOCIAL HISTORY: Former smoker, non drinker FAMILY HISTORY: Father: ALS Mother: DM2, HTN Brother: DM2, HTN ALLERGIES: Please see below. REVIEW OF SYSTEMS: CONSTITUTIONAL: NA HEENT: NA. CARDIOVASCULAR: NA. RESPIRATORY: NA. GASTROINTESTINAL: NA. GENITOURINARY: NA. SKIN: NA. MUSCULOSKELETAL: LLE intermittent radiating pain from lower back to knee. NEUROLOGICAL: NA. PSYCHIATRIC: NA. ENDOCRINE: NA. HEMATOLOGIC/LYMPHATIC: NA. HOME MEDICATIONS: Please see below. PHYSICAL EXAMINATION: VITAL SIGNS: please see below GENERAL APPEARANCE: NAD. HEENT: PERRLA. CARDIOVASCULAR: EOMI. LUNGS: RRR, normal S1, S2. ABDOMEN: soft, non tender. MUSCULOSKELETAL: Normal ROM. EXTREMITIES: no edema. NEUROLOGICAL: no focal deficits. PSYCHIATRIC: calm, cooperative ASSESSMENT: 49 yo F with a hx of HTN, DM2, hyperlipidemia, anxiety, depression and radiculopathy. Admitted for panic attacks and self harm. Hospitalist service consulted for medical clearance. PLAN: 1. L radiculopathy: managed by PCP and pain clinic. S/p intraspinal injection. Acetaminophen prn. Lyrica. 2. DM2: metformin 1000 mg BID, can continue 3. HTN: lisinopril 2.5 mg daily 4. Hyperlipidemia: simvastain 5. GERD: protonix daily 6. anxiety and depression: per psychiatry service. 7. Leukocytosi: WBC 17. No other signs of infection. VSS. Afebrile. Repeat in AM. Possible reactive from recent interventional pain procedure. Please re-consult as appropriate. Vital Signs Vital Signs Date Time Temp Pulse Resp B/P (MAP) Pulse Ox O2 Delivery O2 Flow Rate FiO2 12/15/19 16:00 97.8 92 18 106/70 (82) 12/15/19 02:43 97 Room Air Home Medications Scheduled Buspirone HCl (Buspirone HCl) 10 Mg Tablet, 10 MG PO BID Cholecalciferol (Vitamin D3) (Vitamin D3) 1,000 Unit Tablet, 1,000 UNITS PO DAILY Glucosa Chakraborty 2Kcl/Chondroitin Chakraborty (Glucosamine & Chondroitin Cap) 1 Each Capsule, 1 CAP PO BID Lisinopril (Lisinopril) 2.5 Mg Tablet, 2.5 MG PO DAILY Metformin HCl (Metformin HCl) 500 Mg Tab, 1,000 MG PO BID Multivitamin,Therapeutic (Thera) 1 Each Tablet, 1 TAB PO DAILY Pantoprazole Sodium (Pantoprazole Sodium) 40 Mg Tablet.dr, 40 MG PO QHS Pregabalin (Pregabalin) 100 Mg Capsule, 100 MG PO BID Simvastatin (Simvastatin) 20 Mg Tab, 20 MG PO QHS Venlafaxine HCl (Effexor Xr) 37.5 Mg Cap.er.24h, 37.5 MG PO DAILY 112.5MG TOTAL DOSE DAILY Venlafaxine HCl (Venlafaxine HCl ER) 75 Mg Cap.er.24h, 75 MG PO DAILY 112.5MG TOTAL DOSE DAILY Scheduled PRN Acetaminophen (Acetaminophen) 325 Mg Tablet, 650 MG PO QID PRN for PAIN Rizatriptan Benzoate (Rizatriptan) 10 Mg Tablet, 10 MG PO DAILY PRN for MIGRAINE Allergies Coded Allergies: atorvastatin (Verified Adverse Reaction, Intermediate, MIGRANE HEADACHE, 08/25/18) oxycodone (Verified Adverse Reaction, Intermediate, VOMITING, 08/25/18) TAPE (Verified Adverse Reaction, Mild, Bruises, 08/25/18) trazodone (Verified Adverse Reaction, Mild, migraine headache, 12/14/19) A-FIB/CHADSVASC A-FIB History Current/History of A-Fib/PAF?: No Current PO Anticoag Therapy: No RONALD ROSEN MD Dec 15, 2019 21:07
[2019-12-16 06:26] VITALS: BP 117/67
[2019-12-16] MEDS: metFORMIN (GLUCOPHAGE) 500 MG TAB PO SCH ×2 (07:54→17:15)
[2019-12-16] MEDS: LISINOPRIL *2.5 MG* TAB PO SCH (08:31)
[2019-12-16] MEDS: busPIRone 10 MG TAB PO SCH ×2 (08:31→20:15)
[2019-12-16] MEDS: PREGABALIN 100 MG CAP (LYRICA) PO SCH ×2 (08:31→20:15)
[2019-12-16] MEDS: VITAMIN D 1,000 INTERNATIONAL UNITS TABLET PO SCH (08:31)
[2019-12-16] MEDS: VENLAFAXINE **XR** 75MG CAPSULE PO SCH (08:31)
[2019-12-16 16:14] VITALS: BP 137/71
[2019-12-16] MEDS ORDERED: MIRALAX *UNIT DOSE* 17GM PACKET PO PRN (18:15)
[2019-12-16] MEDS: SIMVASTATIN 20 MG TAB PO SCH (20:15)
[2019-12-16] MEDS: PANTOPRAZOLE 40MG TAB (PROTONIX) PO SCH (20:15)
[2019-12-16] MEDS: OLANZapine ORAL DISINTEGRATING TAB 5MG PO PRN (20:50)
[2019-12-17 06:42] VITALS: BP 148/94
[2019-12-17] MEDS: metFORMIN (GLUCOPHAGE) 500 MG TAB PO SCH ×2 (08:28→17:13)
[2019-12-17] MEDS: VENLAFAXINE **XR** 75MG CAPSULE PO SCH (08:57)
[2019-12-17] MEDS: busPIRone 10 MG TAB PO SCH ×2 (08:57→20:31)
[2019-12-17] MEDS: VITAMIN D 1,000 INTERNATIONAL UNITS TABLET PO SCH (08:57)
[2019-12-17] MEDS: PREGABALIN 100 MG CAP (LYRICA) PO SCH ×2 (08:57→20:30)
[2019-12-17] MEDS: LISINOPRIL *2.5 MG* TAB PO SCH (08:57)
[2019-12-17] MEDS: ACETAMINOPHEN TAB 650MG DOSE (2X325MG) PO PRN (12:41)
[2019-12-17 16:31] VITALS: BP 101/70
[2019-12-17] MEDS: SIMVASTATIN 20 MG TAB PO SCH (20:31)
[2019-12-17] MEDS: PANTOPRAZOLE 40MG TAB (PROTONIX) PO SCH (20:31)
[2019-12-17] MEDS: OLANZapine ORAL DISINTEGRATING TAB 5MG PO PRN (22:51)
[2019-12-18 06:18] VITALS: BP 123/81
[2019-12-18] MEDS: VITAMIN D 1,000 INTERNATIONAL UNITS TABLET PO SCH (09:05)
[2019-12-18] MEDS: VENLAFAXINE **XR** 75MG CAPSULE PO SCH (09:05)
[2019-12-18] MEDS: metFORMIN (GLUCOPHAGE) 500 MG TAB PO SCH ×2 (09:05→17:20)
[2019-12-18] MEDS: PREGABALIN 100 MG CAP (LYRICA) PO SCH ×2 (09:05→20:34)
[2019-12-18] MEDS: busPIRone 10 MG TAB PO SCH ×2 (09:05→20:34)
[2019-12-18] MEDS: LISINOPRIL *2.5 MG* TAB PO SCH (09:06)
--- NOTE | 2019-12-18 11:42 | MHIPNPDOC ---
[facility] Progress Note Progress Note DATE OF SERVICE: 12/18/19 Subjective HPI: Neyda presents today for concerns regarding her discharge and a follow up. She has no thoughts of self harm or suicide. She says she is sad that she ruined a tattoo that was in remembrance of her dad, by scratching it. She says when she gets anxious she talks to someone and takes her medication. She says she misses her cat, and Dr. House had promised discharge because she was doing well, but he is not. She says she has a ride that could pick her up before 5 PM. She has appointments with T[facility] on Wednesday, Dr. Gill on the first, and her primary after for a yearly check up. Objective Appearance: Appears to be stated age. Well groomed. Well nourished. Behavior: Pleasant. Engaged. Cooperative with good eye contact. Affect: Full range. Appropriate to context. Mood: Euthymic. Appropriately reactive. Generally good. Speech: Spontaneous and Fluid. Normal volume. Normal rate. Motor: No gross motor abnormalities. Cognition: Alert, Attentive, and Oriented to person, place, time. Memory: No formal testing. No gross abnormalities of short or alf memory noted during interview. Thought Form: Linear and goal directed. Thought Content: No evidence of aggressive or homicidal ideation. No evidence of suicidal ideation. No evidence of delusions. No thoughts of self harm. Perception: No perceptual abnormalities noted. Judgement: Intact as evidenced by decision making in the recent past. Insight: Good insight into symptoms and treatment options. Assessment F43.12 Post-traumatic stress disorder, chronic F32.1 Major depressive disorder, single episode, moderate Plan Continue medications as current. Discharge tomorrow. Vital Signs Vital Signs Date Time Temp Pulse Resp B/P (MAP) Pulse Ox O2 Delivery O2 Flow Rate FiO2 12/18/19 09:06 123/81 12/18/19 06:18 98.0 66 18 12/16/19 06:26 Room Air 12/15/19 02:43 97 Current Medications Current Medications Medications (Trade) Dose Ordered Sig/Tal Route PRN Reason Start Time Stop Time Status Last Admin Dose Admin Acetaminophen (Tylenol Tab) 650 mg Q6HP PRN PO HEADACHE or DISCOMFORT 12/14/19 20:15 12/17/19 12:41 Al Hydrox/Mg Hydrox/Simethicone (Mylanta) 30 ml Q4HP PRN PO HEARTBURN/INDIGESTION 12/14/19 20:15 Buspirone HCl (Buspar) 10 mg BID PO 12/14/19 21:00 12/18/19 09:05 Home Med (Med Rec Complete!) ASDIRECTED XX 12/14/19 20:45 12/14/19 20:37 DC Lisinopril (Prinivil) 2.5 mg DAILY PO 12/15/19 09:00 12/18/19 09:06 Magnesium Hydroxide (Milk Of Magnesia) 30 ml DAILYPRN PRN PO CONSTIPATION 12/14/19 20:15 12/16/19 15:01 Metformin HCl (Glucophage) 1,000 mg BID@0800,1800 PO 12/14/19 18:00 12/18/19 09:05 Mirtazapine (Remeron) 15 mg QHSP PRN PO INSOMNIA 12/14/19 21:00 Olanzapine (ZyPREXA ZYDIS) 5 mg Q6HP PRN PO ANXIETY/AGITATION 12/14/19 20:15 12/17/19 22:51 Ondansetron HCl (Zofran Odt) 4 mg Q6H SL 12/15/19 12:00 12/15/19 13:28 DC Ondansetron HCl (Zofran Odt) 4 mg Q6HP PRN SL NAUSEA OR VOMITING 12/15/19 13:30 12/15/19 14:02 Pantoprazole Sodium (Protonix) 40 mg QHS PO 12/14/19 21:00 12/17/19 20:31 Polyethylene Glycol (Miralax) 1 pkt DAILYPRN PRN PO CONSTIPATION 12/16/19 18:15 12/16/19 18:19 Pregabalin (Lyrica) 100 mg BID PO 12/14/19 21:00 12/18/19 09:05 Rizatriptan Benzoate (Maxalt) 10 mg DAILY PRN PO MIGRAINE 12/14/19 21:00 Simvastatin (Zocor) 20 mg QHS PO 12/14/19 21:00 12/17/19 20:31 Trazodone HCl (Desyrel) 50 mg QHSP PRN PO INSOMNIA 12/14/19 20:15 Cancel Venlafaxine HCl (Effexor Xr) 37.5 mg DAILY PO 12/15/19 09:00 12/15/19 09:53 DC 12/15/19 08:53 Venlafaxine HCl (Effexor Xr) 75 mg DAILY PO 12/15/19 09:00 12/15/19 09:53 DC 12/15/19 08:53 Venlafaxine HCl (Effexor Xr) 150 mg DAILY PO 12/16/19 09:00 12/18/19 09:05 Vitamin D (Vitamin D) 1,000 units DAILY PO 12/15/19 09:00 12/18/19 09:05 Allergies Coded Allergies: atorvastatin (Verified Adverse Reaction, Intermediate, MIGRANE HEADACHE, 08/25/18) oxycodone (Verified Adverse Reaction, Intermediate, VOMITING, 08/25/18) TAPE (Verified Adverse Reaction, Mild, Bruises, 08/25/18) trazodone (Verified Adverse Reaction, Mild, migraine headache, 12/14/19) ADY BAIG DO Dec 18, 2019 11:41
[2019-12-18] MEDS: ACETAMINOPHEN TAB 650MG DOSE (2X325MG) PO PRN ×2 (12:04→20:33)
[2019-12-18 17:40] VITALS: BP 116/66
[2019-12-18] MEDS: SIMVASTATIN 20 MG TAB PO SCH (20:33)
[2019-12-18] MEDS: PANTOPRAZOLE 40MG TAB (PROTONIX) PO SCH (20:34)
[2019-12-18] MEDS: OLANZapine ORAL DISINTEGRATING TAB 5MG PO PRN (22:04)
[2019-12-19 06:57] VITALS: BP 109/63
--- NOTE | 2019-12-19 08:02 | MHDSPDOC ---
[facility] Discharge Summary Discharge Summary DATE OF ADMISSION: Dec 14, 2019 at 20:03 DATE OF DISCHARGE: Dec 19, 2019 at 12:15 DISCHARGE DIAGNOSES: F43.12 Post-traumatic stress disorder, chronic F33.1 Major depressive disorder, recurrent, moderate CONSULTANTS INVOLVED:[ None (basic hospitalist screening)] REASON FOR ADMISSION & TREATMENT AND PROGRESS ON THE UNIT : Neyda presents today for [facility] after reportedly having suicidal thoughts and panic attacks. The patient presented and was admitted. She was resumed on her home medications of Buspar and Effexor. The Effexor was increased to 250 mg QD where she made good progress and improved well. When returned to a normal status exam, she requested discharge and did well without any behavioral problems. DISCHARGE ASSESSMENT[improved] Legal status considerations: The patient at the time of discharge did not meet criteria for involuntary admission/extension due to having a [normal] mental status exam, [fair] insight into the situation, They are engaged in the discharge process, as well as being friendly and amenable in behavioral control and havent been engaging in any observed concerning behavior or ideation recently. They decline voluntary extension/admission at this time and must be discharged in good foe, as Im unable to make a case for holding the patient against their will. They may have historical risk factors of admissions and other interactions with psychiatry however, those are not modifiable from a clinical perspective. The patient will need to be discharged in good ofe. MENTAL STATUS EXAMINATION ON DISCHARGE: [General: Well dressed with good hygiene Speech: Spontaneous and fluid Thought processes: Linear and logical Thought content: Future orientated Abstract reasoning, and computation: Intact Description of associations: Intact Description of abnormal or psychotic thoughts:Denies any suicidal or homicidal ideation. Denies any auditory or visual hallucinations. Does not appear to be responding to internal stimuli. Does not appear to be endorsing any bizarre or paranoid ideation. Judgment: fair Insight: fair Orientation: Alert and orientated 3 Recent and remote memory: Intact Attention span and concentration: Intact Fund of knowledge: Adequate Mood: "okay" Affect: Euthymic with a full range] PLAN/FOLLOWUP ARRANGEMENTS: Follow up appointments made (PCP and MH in 5 days of D/C date) and safety plan completed. Safety Planning aspects completed prior to discharge [Medication supplies limited to 7 days with 4 refills to prevent accumulation to OD] [RN reviewed crisis hotline information and other aspects to empower patient to access care in interim before next appointment.] The amount of time spent in the coordination of care for this patient was approximately 30 minutes. Vital Signs/I&Os Vital Signs Date Time Temp Pulse Resp B/P (MAP) Pulse Ox O2 Delivery O2 Flow Rate FiO2 12/19/19 06:57 96.8 62 14 109/63 (78) 100 Room Air Medications Scheduled Buspirone HCl (Buspirone HCl) 10 Mg Tablet, 10 MG PO BID, (Reported) Cholecalciferol (Vitamin D3) (Vitamin D3) 1,000 Unit Tablet, 1,000 UNITS PO DAILY, (Reported) Glucosa Chakraborty 2Kcl/Chondroitin Chakraborty (Glucosamine & Chondroitin Cap) 1 Each Capsule, 1 CAP PO BID, (Reported) Lisinopril (Lisinopril) 2.5 Mg Tablet, 2.5 MG PO DAILY, (Reported) Metformin HCl (Metformin HCl) 500 Mg Tab, 1,000 MG PO BID, (Reported) Multivitamin,Therapeutic (Thera) 1 Each Tablet, 1 TAB PO DAILY, (Reported) Pantoprazole Sodium (Pantoprazole Sodium) 40 Mg Tablet.dr, 40 MG PO QHS, (Reported) Pregabalin (Pregabalin) 100 Mg Capsule, 100 MG PO BID, (Reported) Simvastatin (Simvastatin) 20 Mg Tab, 20 MG PO QHS, (Reported) Venlafaxine HCl (Venlafaxine HCl ER) 150 Mg Cap.er.24h, 1 CAP PO DAILY for mood for 7 Days, #7 Scheduled PRN Acetaminophen (Acetaminophen) 325 Mg Tablet, 650 MG PO QID PRN for PAIN, (Reported) Rizatriptan Benzoate (Rizatriptan) 10 Mg Tablet, 10 MG PO DAILY PRN for MIGRAINE, (Reported) Allergies Coded Allergies: atorvastatin (Verified Adverse Reaction, Intermediate, MIGRANE HEADACHE, 08/25/18) oxycodone (Verified Adverse Reaction, Intermediate, VOMITING, 08/25/18) TAPE (Verified Adverse Reaction, Mild, Bruises, 08/25/18) trazodone (Verified Adverse Reaction, Mild, migraine headache, 12/14/19) ADY BAIG DO Dec 19, 2019 08:02
[2019-12-19] MEDS ORDERED: VENL150C43 PO (08:15)
[2019-12-19] MEDS: PREGABALIN 100 MG CAP (LYRICA) PO SCH (08:49)
[2019-12-19 08:50] VITALS: BP 147/82
[2019-12-19] MEDS: metFORMIN (GLUCOPHAGE) 500 MG TAB PO SCH (08:50)
[2019-12-19] MEDS: VENLAFAXINE **XR** 75MG CAPSULE PO SCH (08:50)
[2019-12-19] MEDS: LISINOPRIL *2.5 MG* TAB PO SCH (08:50)
[2019-12-19] MEDS: busPIRone 10 MG TAB PO SCH (08:51)
[2019-12-19] MEDS: VITAMIN D 1,000 INTERNATIONAL UNITS TABLET PO SCH (08:51)
--- NOTE | 2020-02-03 06:51 | MHIPN ---
DATE: 12/16/2019 VITAL SIGNS: Blood pressure 117/67, pulse 68, temperature 96.8. CHIEF COMPLAINT: Feels anxious. SUBJECTIVE: Seen for followup. Indicates has been feeing anxious but somewhat less so than when she came in. Had had a panic attack when she was out and about. She feels it may have been untriggered but possibly because of the close space in the bus, and she started hurting herself, scratching herself. Wanted to hurt herself further and came to the hospital. Says has those thoughts but no firm plans of taking her life. Says has been somewhat anxious the last week or so with difficulties in sleep but cannot pinpoint as to why. Does suggest that she may have felt the effect of crowds when she has been out. I know this patient from the outpatient clinic, where I see her regularly. MENTAL STATUS EXAMINATION: She is neat. She is cooperative. Wears a mask. She is coherent. No agitation. No psychomotor retardation. Denies any active suicidal thoughts or intents. No homicidal ideas or intents. No evidence of any psychosis. Cognition is grossly intact. Judgment and insight fair, generally good. ASSESSMENT: 1. Posttraumatic stress disorder. 2. Major depressive disorder, in partial remission. Has been anxious. Has had a full-blown panic attack and has had thoughts of hurting herself but no current active suicidal thoughts. The venlafaxine has been increased to 150 mg daily since she has been admitted. We will continue with that. Buspirone continues at the current dose, 10 mg twice a day. She is to continue with trazodone as needed as well. She is encouraged on taking part in activities as tolerated. Further recommendations will be made, depending on the clinical picture. MTDD
--- NOTE | 2020-02-03 06:53 | MHIPN ---
DATE: 12/17/2019 VITAL SIGNS: Blood pressure 148/94, pulse 65, temperature 97.2. CHIEF COMPLAINT: Feels anxious. SUBJECTIVE: Seen for follow-up in the presence of staff. Says feels anxious, but not as stressed as she has been. Says cut her nails yesterday, that went well, though she was a bit anxious about possibly scratching herself. She says that is the main reason she cut her nails, so the temptation goes down. Sleep is improved. She has been eating. MENTAL STATUS EXAMINATION: Neat. Cooperative. No agitation. More interactive. Affect broader, appears less anxious. Denies active suicidal thoughts or intent at present. No homicidal ideation or intent. No evidence of any psychosis. Cognition grossly intact. Judgment and insight improved. ASSESSMENT: Posttraumatic stress disorder. Major depressive disorder. PLAN: Continue current care. The Effexor has been increased recently upon admission. Encouraged participation in activities on the unit. If such progress continues, anticipate discharge shortly. TO
== END 2019-12-19 12:15 | disposition home or self-care (01) | DRG 885 ==
LOC: M ED 13:58 → M ED INP 20:03 → M PSY 12-15 01:59
PROVIDERS: ADMIT Psychiatry & Neurology Psychiatry; ATTEND Psychiatry & Neurology Addiction Medicine
DX: F33.1 Major depressive disorder, recurrent, moderate (principal); R45.851 Suicidal ideations; F43.12 Post-traumatic stress disorder, chronic; Z79.899 Other long term (current) drug therapy; Z88.5 Allergy status to narcotic agent; Z88.8 Allergy status to other drugs, medicaments and biological substances; I10 Essential (primary) hypertension; E11.9 Type 2 diabetes mellitus without complications; E78.5 Hyperlipidemia, unspecified; Z87.891 Personal history of nicotine dependence

== ENCOUNTER 2019-12-21 11:55 | Emergency (ER) | payer MEDICARE, MEDICAID ==
[~2019-12-21] VITALS: Ht 165.1 cm; Wt 82.4 kg
[2019-12-21 11:55] VITALS: BP 133/80
[~2019-12-21 11:55] MED LIST changes: +APAP325T4 PO; +EFFE37.5 PO; +PANT-23 PO; +PREG100C PO; +RIZA10TA2 PO; +VENL150C43 PO; +VENL75CA2 PO
--- NOTE | 2019-12-21 12:38 | REPVR ---
PROCEDURE INFORMATION: Exam: XR Right Elbow Exam date and time: 12/21/2019 12:28 PM Age: 49 years old Clinical indication: Pain; Elbow; Right; Additional info: Fall injury TECHNIQUE: Imaging protocol: XR Right elbow. Views: 3 or more views. COMPARISON: No relevant prior studies available. FINDINGS: Bones/joints: No acute fracture. No dislocation. Alignment is normal. Bone mineralization is normal. No erosions are seen. No significant degenerative change. Soft tissues: Minimal posterior soft tissue swelling. No evidence of elbow joint effusion. IMPRESSION: 1. No acute osseous abnormality. 2. Minimal posterior soft tissue swelling. Electronically signed by: Dahiana Ledesma On 12/21/2019 12:38:55 PM
--- NOTE | 2019-12-21 12:39 | REPVR ---
PROCEDURE INFORMATION: Exam: XR Right Hand Exam date and time: 12/21/2019 12:28 PM Age: 49 years old Clinical indication: Pain; Hand; Right; Additional info: Fall injury TECHNIQUE: Imaging protocol: XR Right hand. Views: 3 or more views. COMPARISON: No relevant prior studies available. FINDINGS: Bones/joints: No acute fracture. No dislocation. Alignment is normal. Bone mineralization is normal. No erosions are seen. No significant degenerative change. Soft tissues: Normal. IMPRESSION: No acute osseous abnormality. Electronically signed by: Dahiana Ledesma On 12/21/2019 12:39:38 PM
--- NOTE | 2019-12-21 12:41 | REPVR ---
PROCEDURE INFORMATION: Exam: XR Right Shoulder Exam date and time: 12/21/2019 12:28 PM Age: 49 years old Clinical indication: Pain; Shoulder; Right; Prior surgery; Surgery date: 6+ months; Additional info: Fall injury, fell on right shoulder, history of surgeries TECHNIQUE: Imaging protocol: XR Right shoulder. Views: 2 or more views. COMPARISON: No relevant prior studies available. FINDINGS: Bones/joints: No acute fracture. No dislocation. Minimal degenerative change at the glenohumeral and acromioclavicular joints. No active erosions or active periostitis. Normal alignment. Small focus of metallic density overlying the proximal humeral shaft which may be from biceps tendon surgery. Soft tissues: Small amount of metallic artifact from overlying clothing. IMPRESSION: No acute osseous abnormality. Minimal degenerative change. Electronically signed by: Dahiana Ledesma On 12/21/2019 12:42:06 PM
[2019-12-21] MEDS ORDERED: NORCO, ANEXSIA 5/325MG TABLET (HYDROcodone/ACETAMINOPHEN) PO ONE (13:00)
== END 2019-12-21 13:13 | disposition home or self-care (01) ==
LOC: M ED 11:55
DX: S50.311A Abrasion of right elbow, initial encounter (principal); S43.421A Sprain of right rotator cuff capsule, initial encounter; W08.XXXA Fall from other furniture, initial encounter; Y92.099 Unspecified place in other non-institutional residence as the place of occurrence of the external cause; Y93.9 Activity, unspecified; Y99.9 Unspecified external cause status; Z98.84 Bariatric surgery status; G43.909 Migraine, unspecified, not intractable, without status migrainosus; E78.00 Pure hypercholesterolemia, unspecified; I10 Essential (primary) hypertension; J45.909 Unspecified asthma, uncomplicated; E11.9 Type 2 diabetes mellitus without complications; F41.9 Anxiety disorder, unspecified; F32.9 Major depressive disorder, single episode, unspecified; F43.10 Post-traumatic stress disorder, unspecified; Z79.84 Long term (current) use of oral hypoglycemic drugs; Z79.899 Other long term (current) drug therapy; Z91.89 Other specified personal risk factors, not elsewhere classified; Z88.7 Allergy status to serum and vaccine; Z88.5 Allergy status to narcotic agent

== ENCOUNTER 2020-01-24 16:37 | Emergency (ER) | payer MEDICAID, MEDICARE, OTHER ==
[~2020-01-24] VITALS: Ht 165.1 cm; Wt 82.8 kg
[~2020-01-24 16:37] MED LIST changes: +RALTEGRAVIR 400 MG TAB (ISENTRESS) PO SCH; +TRUVADA 200MG/300MG TABLET PO SCH
[2020-01-24] MEDS ORDERED: RALT40TA PO ×2 (17:11→17:56)
[2020-01-24] MEDS ORDERED: TRUVTAB PO ×2 (17:11→17:56)
[2020-01-24] MEDS ORDERED: metroNIDAZOLE (FLAGYL) 500MG TABLET PO ONE (17:45)
[2020-01-24] MEDS ORDERED: EXPOSURE KIT-ADULT 7 DAY SUPPLY PO ONE (17:45)
[2020-01-24] MEDS ORDERED: LIDOCAINE 1% SDV 5ML VIAL DILUENT ONE (17:45)
[2020-01-24] MEDS ORDERED: cefTRIAXone SOD 250MG VIAL (J0696 PER 250MG) IM ONE (17:45)
[2020-01-24] MEDS ORDERED: AZITHROMYCIN 250MG TABLET PO ONE (17:45)
[2020-01-24] MEDS ORDERED: HEPATITIS B VACCINE 20MCG/ML 1ML SYRINGE (ADULT DOSE) IM ONE (17:45)
[2020-01-24 18:04] LABS: BASO # 0.1 10^3/uL (0.0-0.2); BASO % 0.6 % (0.0-1.0); EOS # 0.8 10^3/uL (0.0-0.5); EOS % 6.2 % (0.0-3.0); HEMOGLOBIN 11.1 g/dl (12.0-15.5); LYMPH # 4.7 10^3/uL (1.5-5.0); LYMPH % 35.7 % (24.0-44.0); MEAN CORPUSCULAR HGB CONC 32.6 g/dl (32.0-36.5); MEAN CORPUSCULAR VOLUME 85.6 fl (80.0-96.0); MONO % 7.4 % (0.0-5.0); NEUTROPHILS # 6.5 10^3/uL (1.5-8.5); NEUTROPHILS % 49.8 % (36.0-66.0); PLATELET COUNT, AUTOMATED 378 10^3/uL (150-450); RED BLOOD COUNT 3.97 10^6/uL (4.00-5.40); WHITE BLOOD COUNT 13.1 10^3/uL (4.0-10.0)
[2020-01-24] MEDS: BOOSTRIX/ADACEL VACCINE (DIPHTH/PERTUSS/ACELL/TETANUS) 0.5ML SYR IM ONE ×2 (18:12→18:22)
[2020-01-24] MEDS ORDERED: TRUVADA 200MG/300MG TABLET PO ONE (18:15)
[2020-01-24] MEDS ORDERED: RALTEGRAVIR 400 MG TAB (ISENTRESS) PO ONE (18:15)
[2020-01-24 18:33] LABS: ALBUMIN 3.6 GM/DL (3.2-5.2); ALT/SGPT 28 U/L (12-78); BILIRUBIN,TOTAL 0.2 MG/DL (0.2-1.0); BLOOD UREA NITROGEN 11 MG/DL (7-18); CALCIUM LEVEL 9.3 MG/DL (8.5-10.1); CARBON DIOXIDE LEVEL 24 MEQ/L (21-32); CHLORIDE LEVEL 108 MEQ/L (98-107); CREATININE FOR GFR 0.86 MG/DL (0.55-1.30); GLOMERULAR FILTRATION RATE > 60.0 (>58); GLUCOSE, FASTING 146 MG/DL (70-100); POTASSIUM SERUM 4.2 MEQ/L (3.5-5.1); SODIUM LEVEL 140 MEQ/L (136-145); TOTAL PROTEIN 6.9 GM/DL (6.4-8.2)
[2020-01-24 18:41] LABS: HEPATITIS B SURFACE ANTIBODY NEGATIVE (POSITIVE)
[2020-01-24 18:52] LABS: HEPATITIS B SURFACE ANTIGEN NEGATIVE (NEGATIVE)
[2020-01-24] MEDS ORDERED: ONDANSETRON 4 MG TAB PO ONE (19:15)
[2020-01-24 19:20] LABS: HEPATITIS C VIRUS ABY INDEX 0.1 INDEX (<0.8)
[2020-01-24 19:21] LABS: HIV 1&2 SCREEN CENTAUR NEGATIVE (NEGATIVE)
[2020-01-24 21:24] VITALS: BP 121/69
[2020-01-24 22:12] LABS: CHLAMYDIA DNA AMPLIFICATION NEGATIVE (NEGATIVE); GC DNA AMPLIFICATION NEGATIVE (NEGATIVE)
== END 2020-01-24 21:41 | disposition home or self-care (01) ==
LOC: M ED 16:37
DX: Z04.41 Encounter for examination and observation following alleged adult rape (principal); E11.9 Type 2 diabetes mellitus without complications; I10 Essential (primary) hypertension; F43.10 Post-traumatic stress disorder, unspecified; F32.9 Major depressive disorder, single episode, unspecified; E78.5 Hyperlipidemia, unspecified; J45.909 Unspecified asthma, uncomplicated; F17.200 Nicotine dependence, unspecified, uncomplicated; Z79.84 Long term (current) use of oral hypoglycemic drugs; Z79.899 Other long term (current) drug therapy; Z91.89 Other specified personal risk factors, not elsewhere classified; Z88.7 Allergy status to serum and vaccine; Z88.5 Allergy status to narcotic agent; Z88.8 Allergy status to other drugs, medicaments and biological substances
CPT/HCPCS: 80053; 81001; 85025; 86706; 86780; 86803; 87086; 87210; 87340; 87389; 87491; 87591; 90746; 96372; 99283; J0696

== ENCOUNTER → 2020-01-26 | Outpatient (CLI) | payer MEDICAID, MEDICARE, OTHER ==
[~2020-01-26] MED LIST changes: +RALT40TA PO; -RALTEGRAVIR 400 MG TAB (ISENTRESS) PO SCH; -TRUVADA 200MG/300MG TABLET PO SCH; +TRUVTAB PO
[2020-01-26 10:33] LABS: HEMATOCRIT 42.5 % (36.0-47.0); HEMOGLOBIN 13.3 g/dl (12.0-15.5); MEAN CORPUSCULAR HEMOGLOBIN 27.4 pg (27.0-33.0); MEAN CORPUSCULAR HGB CONC 31.3 g/dl (32.0-36.5); MEAN CORPUSCULAR VOLUME 87.4 fl (80.0-96.0); PLATELET COUNT, AUTOMATED 436 10^3/uL (150-450); RED BLOOD COUNT 4.86 10^6/uL (4.00-5.40)
[2020-01-26 10:52] LABS: HEMOGLOBIN A1c 6.9 %
[2020-01-26 11:16] LABS: CHOLESTEROL LEVEL 159 MG/DL (<200); CHOLESTEROL RISK RATIO 3.057 (<5); CK-MB VALUE MASS 1.1 NG/ML (<3.6); CPK CREATINE PHOSPHOKINASE 90 U/L (26-192); FERRITIN 17 NG/ML (8-252); HDL CHOLESTEROL 52 MG/DL (>40); IRON (FE) 46 UG/DL (50-170); LDL CHOLESTEROL 65 MG/DL (<100); MB/CK RELATIVE INDEX 1.22 (< OR =4); NON-HDL-C 107 MG/DL; TOTAL 25(OH) VITAMIN D 43.4 NG/ML (30.0-100.0); TRIGLYCERIDES LEVEL 211 MG/DL (<150); TROPONIN I < 0.02 NG/ML (< 0.10); VITAMIN B12 LEVEL 413 PG/ML (247-911)
== END ==
LOC: M PLALAB 08:53
PROVIDERS: ATTEND Nurse Practitioner Adult Health
DX: Z00.00 Encounter for general adult medical examination without abnormal findings (principal); E78.2 Mixed hyperlipidemia; E55.9 Vitamin D deficiency, unspecified; Z13.29 Encounter for screening for other suspected endocrine disorder; Z98.890 Other specified postprocedural states; E11.9 Type 2 diabetes mellitus without complications; I10 Essential (primary) hypertension; Z79.899 Other long term (current) drug therapy

== ENCOUNTER 2020-03-14 18:37 | Inpatient (IN) | payer MEDICAID, MEDICARE ==
[~2020-03-14] VITALS: Ht 165.1 cm; Wt 82.5 kg
[2020-03-14] MEDS ORDERED: ACETAMINOPHEN TAB 650MG DOSE (2X325MG) PO ONE (20:15)
[2020-03-14] MEDS ORDERED: PREG150C PO (20:52)
[2020-03-14] MEDS ORDERED: ASPI81TA26 PO (20:52)
[2020-03-14] MEDS ORDERED: VENL150C43 PO (20:52)
[2020-03-14] MEDS ORDERED: TRAZ-186 PO (20:52)
[2020-03-14] MEDS ORDERED: BUSP15TA47 PO (20:52)
[2020-03-14] MEDS ORDERED: HYDR-643 PO (20:52)
[2020-03-14 21:16] LABS: HEMOGLOBIN 11.9 g/dl (12.0-15.5); MEAN CORPUSCULAR HEMOGLOBIN 27.3 pg (27.0-33.0); MEAN CORPUSCULAR HGB CONC 31.3 g/dl (32.0-36.5); MEAN CORPUSCULAR VOLUME 87.2 fl (80.0-96.0); PLATELET COUNT, AUTOMATED 406 10^3/uL (150-450); RED BLOOD COUNT 4.36 10^6/uL (4.00-5.40); WHITE BLOOD COUNT 13.5 10^3/uL (4.0-10.0)
[2020-03-14 21:42] LABS: AMPHETAMINES LEVEL URINE NEGATIVE (NEGATIVE); BARBITURATES URINE NEGATIVE (NEGATIVE); BENZODIAZEPINES URINE NEGATIVE (NEGATIVE); CANNABINOIDS URINE NEGATIVE (NEGATIVE); COCAINE METABOLITE URINE NEGATIVE (NEGATIVE); METHADONE URINE NEGATIVE (NEGATIVE); OPIATES URINE NEGATIVE (NEGATIVE); PHENCYCLIDINE URINE NEGATIVE (NEGATIVE)
[2020-03-14 21:49] LABS: HCG, SERUM QUALITATIVE NEGATIVE (NEGATIVE)
[2020-03-14 21:54] LABS: ACETAMINOPHEN LEVEL < 2.0 UG/ML (10.0-30.0); ALBUMIN 3.6 GM/DL (3.2-5.2); ALT/SGPT 20 U/L (12-78); BILIRUBIN,DIRECT < 0.1 MG/DL (0.0-0.2); BILIRUBIN,TOTAL 0.1 MG/DL (0.2-1.0); BLOOD UREA NITROGEN 12 MG/DL (7-18); CARBON DIOXIDE LEVEL 23 MEQ/L (21-32); CHLORIDE LEVEL 108 MEQ/L (98-107); CREATININE FOR GFR 0.86 MG/DL (0.55-1.30); ETHYL ALCOHOL (ETHANOL) 0.003 % (0.000-0.010); GLOMERULAR FILTRATION RATE > 60.0 (>58); GLUCOSE, FASTING 107 MG/DL (70-100); POTASSIUM SERUM 4.3 MEQ/L (3.5-5.1); SALICYLATE LEVEL < 1.7 MG/DL (5.0-30.0); SODIUM LEVEL 139 MEQ/L (136-145); TOTAL PROTEIN 6.8 GM/DL (6.4-8.2)
[2020-03-14] MEDS ORDERED: MAALOX 30 ML SUSP *UDC PO PRN (22:30)
[2020-03-14] MEDS ORDERED: RIZATRIPTAN BENZOATE 10 MG TAB PO PRN (22:30)
[2020-03-14] MEDS ORDERED: ACETAMINOPHEN TAB 650MG DOSE (2X325MG) PO PRN (22:30)
[2020-03-14] MEDS ORDERED: MOM 30ML SUSPENSION UDC PO PRN (22:30)
[2020-03-14] MEDS ORDERED: OLANZapine ORAL DISINTEGRATING TAB 5MG PO PRN (22:30)
[2020-03-14] MEDS: PREGABALIN 75 MG CAP(LYRICA) PO SCH (22:43)
[2020-03-14] MEDS: busPIRone 5 MG TAB PO SCH (22:43)
[2020-03-14] MEDS: SIMVASTATIN 20 MG TAB PO SCH (22:44)
[2020-03-14] MEDS: PANTOPRAZOLE 40MG TAB (PROTONIX) PO SCH (22:44)
[2020-03-15 00:35] VITALS: BP 126/85
[2020-03-15 06:33] VITALS: BP 128/87
[2020-03-15] MEDS: VITAMIN D 1,000 INTERNATIONAL UNITS TABLET PO SCH (08:46)
[2020-03-15] MEDS: lisinopriL 5 MG TAB PO SCH (08:47)
[2020-03-15] MEDS: busPIRone 5 MG TAB PO SCH ×2 (08:47→20:10)
[2020-03-15] MEDS: VENLAFAXINE **XR** 37.5 MG CAPSULE PO SCH (08:47)
[2020-03-15] MEDS: metFORMIN (GLUCOPHAGE) 500 MG TAB PO SCH ×2 (08:47→17:05)
[2020-03-15] MEDS: ASPIRIN 81 MG ENTERIC TAB PO SCH (08:48)
[2020-03-15] MEDS: VENLAFAXINE **XR** 75MG CAPSULE PO SCH (08:48)
[2020-03-15] MEDS: PREGABALIN 75 MG CAP(LYRICA) PO SCH ×2 (08:49→20:10)
[2020-03-15] MEDS: hydrOXYzine 10 MG TAB PO PRN (08:50)
[2020-03-15] MEDS ORDERED: INFLUENZA QUADRIVALENT PF VACCINE 0.5ML SYRINGE IM ONE (09:00)
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
[2020-03-15] MEDS: SIMVASTATIN 20 MG TAB PO SCH (20:10)
[2020-03-15] MEDS: ARIPiprazole 2 MG TAB PO SCH (20:10)
[2020-03-15] MEDS: PANTOPRAZOLE 40MG TAB (PROTONIX) PO SCH (20:10)
[2020-03-16 06:31] VITALS: BP 113/72
[2020-03-16] MEDS: hydrOXYzine 10 MG TAB PO PRN (09:13)
[2020-03-16] MEDS: VITAMIN D 1,000 INTERNATIONAL UNITS TABLET PO SCH (09:13)
[2020-03-16] MEDS: VENLAFAXINE **XR** 37.5 MG CAPSULE PO SCH (09:15)
[2020-03-16] MEDS: ASPIRIN 81 MG ENTERIC TAB PO SCH (09:15)
[2020-03-16] MEDS: lisinopriL 5 MG TAB PO SCH (09:15)
[2020-03-16] MEDS: metFORMIN (GLUCOPHAGE) 500 MG TAB PO SCH ×2 (09:16→17:55)
[2020-03-16] MEDS: busPIRone 5 MG TAB PO SCH ×2 (09:16→21:04)
[2020-03-16] MEDS: VENLAFAXINE **XR** 75MG CAPSULE PO SCH (09:16)
[2020-03-16] MEDS: PREGABALIN 75 MG CAP(LYRICA) PO SCH ×2 (09:16→21:04)
--- NOTE | 2020-03-16 10:48 | HPEPDOC ---
General Date of Admission Mar 14, 2020 at 22:16 Date of Service: Mar 16, 2020 Chief Complaint The patient is a 49-year-old female admitted with a reason for visit of PTSD. Source: Patient History of Present Illness [facility] I am seeing the patient for medical history and physical. Today she complains of pain in her legs, dull aching type all over both legs rates it at about 4/10 in intensity. She says its her fibromyalgia thats acting up. Denied any other complaints. Home Medications Scheduled Aspirin (Aspirin EC) 81 Mg Tablet.dr, 81 MG PO DAILY, (Reported) Buspirone HCl (Buspirone HCl) 15 Mg Tablet, 15 MG PO BID, (Reported) Cholecalciferol (Vitamin D3) (Vitamin D3) 1,000 Unit Tablet, 1,000 UNITS PO DAILY, (Reported) Lisinopril (Lisinopril) 2.5 Mg Tablet, 5 MG PO DAILY, (Reported) Metformin HCl (Metformin HCl) 500 Mg Tab, 1,000 MG PO BID, (Reported) Pantoprazole Sodium (Pantoprazole Sodium) 40 Mg Tablet.dr, 40 MG PO QHS, (Reported) Pregabalin (Pregabalin) 150 Mg Capsule, 150 MG PO BID, (Reported) Simvastatin (Simvastatin) 20 Mg Tab, 20 MG PO QHS, (Reported) Trazodone HCl (Trazodone HCl) 50 Mg Tablet, 50 MG PO QHS, (Reported) Venlafaxine HCl (Venlafaxine HCl ER) 150 Mg Cap.er.24h, 150 MG PO DAILY, (Reported) Scheduled PRN Acetaminophen (Acetaminophen) 325 Mg Tablet, 650 MG PO QID PRN for PAIN, (Reported) Hydroxyzine HCl (Hydroxyzine HCl) 10 Mg Tablet, 10 MG PO BID PRN for ANXIETY, (Reported) Rizatriptan Benzoate (Rizatriptan) 10 Mg Tablet, 10 MG PO DAILY PRN for MIGRAINE, (Reported) Allergies Coded Allergies: Tetanus Vaccines and Toxoid (Verified Allergy, Intermediate, hives, 03/14/20) atorvastatin (Verified Adverse Reaction, Intermediate, MIGRANE HEADACHE, 08/25/18) TAPE (Verified Adverse Reaction, Mild, Bruises, 08/25/18) oxycodone (Verified Adverse Reaction, Mild, VOMITING, 03/14/20) Past Medical History Medical History HX GASTRIC BYPASS 2009-276 LBS DM2 HYPERTENSION HYPERLIPIDEMIA ASTHMA SEASONAL ALLERGIES VITAMIN D DEFICIENCY HX NUMEROUS FEET SURGERIES PTSD FATTY LIVER CT SCAN 03/09/18 FIBROMYALGIA DEPRESSION/ ANXIETY CHRONIC LOW BACK PAIN CHRONIC MIGRAINE HEADACHE 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 JULIANA LADD 08/25/2018 RIGHT SHOULDER CHONDROPLASTY OF THE GLENOID- DR. JULIANA LADD 08/25/2018 Family History FATHER: , CHOLESTEROL, JULISA GEHRIG'S DISEASE, DIABETES MOTHER: , DM2 HTN, CHOL, DEMENTIA-SHELTER, AFTER A FALL WITH BLEEDING ON BRAIN DIABETES RUNS ON BOTH SIDES OF FAMILY BREAST CANCER RUNS IN FAMILY -DAD'S SIDE 1 BROTHER-DM2, CHOLESTEROL HIGH TRIGLYCERIDES PATERNAL AUNT WITH BILATERAL BREAST CA IN HER 30'S. Social History * Smoker: former Smoker Alcohol: Denies Drugs: denies A-FIB/CHADSVASC A-FIB History Current/History of A-Fib/PAF?: No Review of Systems Constitutional: Denies: Chills, Fever, Night Sweats Eyes: Denies: Pain, Vision change ENT: Denies: Head Aches, Ear Pain, Dysphagia Skin: Denies: Rash, Lesions, Breakdown Pulmonary: Denies: Dyspnea, Cough Cardiovascular: Denies: Chest Pain, Palpitations, Orthopnea, Paroxysmal Noc. Dyspnea, Lt Headedness Gastrointestinal: Denies: Nausea, Vomiting, Abdominal Pain, Diarrhea Genitourinary: Denies: Dysuria, Frequency, Incontinence, Retention Hematologic: Denies: Bruising, Bleeding Excessively Musculoskeletal: Reports: Leg Pain Physical Examination General Exam: Positive: Alert, Cooperative, No Acute Distress Eye Exam: Positive: PERRLA, Conjunctiva & lids normal, EOMI; Negative: Sclera icteric ENT Exam: Negative: Atraumatic, Mucous membr. moist/pink, Pharynx Normal, Tongue Midline, Pharyngeal Edema, Nares Patent, Tympanic Membranes Normal, Ext Auditory Canal Nml, Pinna Normal, Other ENT Neck Exam: Positive: Supple; Negative: JVD, thyromegaly Chest Exam: Positive: Clear to auscultation, Normal air movement Heart Exam: Positive: Rate Normal, Regular Rhythm, Normal S1, Normal S2; Negative: Murmurs, Rubs Telemetry: Positive: No significant arrhythmia Abdomen Exam: Positive: Normal bowel sounds, Soft; Negative: Tenderness, Hepatospenomegaly Extremity Exam: Positive: Normal pulses; Negative: Clubbing, Cyanosis, Edema Skin Exam: Positive: Nl turgor and temperature; Negative: Breakdown, Lesion Neuro Exam: Positive: Normal Gait, Normal Speech, Cranial Nerves 3-12 NL, Refl exes 2+ Psych Exam: Positive: Mental status NL, Mood NL, Oriented x 3 Vital Signs Vital Signs Date Time Temp Pulse Resp B/P (MAP) Pulse Ox O2 Delivery O2 Flow Rate FiO2 03/15/20 08:47 128/87 03/15/20 06:33 97.3 64 18 Room Air 03/15/20 00:35 98 Laboratory Data Labs 24H Laboratory Tests 2 03/14/20 21:02: Nucleated Red Blood Cells % (auto) 0.0, Anion Gap 8, Glomerular Filtration Rate > 60.0, Calcium Level 9.0, Total Bilirubin 0.1L, Direct Bilirubin < 0.1, Aspartate Amino Transf (AST/SGOT) 19, Alanine Aminotransferase (ALT/SGPT) 20, Alkaline Phosphatase 105, Total Protein 6.8, Albumin 3.6, Albumin/Globulin Ratio 1.1L, Thyroid Stimulating Hormone (TSH) 1.730, Human Chorionic Gonadotropin, Qual NEGATIVE, Salicylates Level < 1.7L, Urine Opiates Screen NEGATIVE, Urine Methadone Screen NEGATIVE, Acetaminophen Level < 2.0L, Urine Barbiturates Screen NEGATIVE, Urine Phencyclidine Screen NEGATIVE, Urine Amphetamines Screen NEGATIVE, Urine Benzodiazepines Screen NEGATIVE, Urine Cocaine Metabolite Screen NEGATIVE, Urine Cannabinoids Screen NEGATIVE, Ethyl Alcohol Level 0.003 03/14/20 22:02: Coronavirus (COVID-19)(PCR) NEGATIVE CBC/BMP Laboratory Tests 03/14/20 21:02 Assessment/Plan [facility] I am seeing the patient for medical history and physical. Today she complains of pain in her legs, dull aching type all over both legs rates it at about 4/10 in intensity. She says its her fibromyalgia thats acting up. Denied any other complaints. 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 VITAMIN D DEFICIENCY continue supplement PTSD/DEPRESSION/ ANXIETY as per psychiatry MIGRAINE HEADACHE Rizatriptan prn. SENSORIMOTOR POLYNEUROPATHY OF THE LOWER EXTREMITY H?O MORBID OBESITY S/P GASTRIC BYPASS 2009-276 LBS Plan / VTE VTE Prophylaxis Ordered?: No (freely ambulatory) ANTONIO SWEENEY MD Mar 15, 2020 21:15
[2020-03-16 17:19] VITALS: BP 121/71
[2020-03-16] MEDS: traZODone 50 MG TAB PO PRN (21:04)
[2020-03-16] MEDS: PANTOPRAZOLE 40MG TAB (PROTONIX) PO SCH (21:04)
[2020-03-16] MEDS: ARIPiprazole 2 MG TAB PO SCH (21:04)
[2020-03-16] MEDS: SIMVASTATIN 20 MG TAB PO SCH (21:04)
[2020-03-17 06:49] VITALS: BP 109/65
[2020-03-17] MEDS: metFORMIN (GLUCOPHAGE) 500 MG TAB PO SCH ×2 (08:54→17:07)
[2020-03-17] MEDS: VITAMIN D 1,000 INTERNATIONAL UNITS TABLET PO SCH (09:23)
[2020-03-17] MEDS: lisinopriL 5 MG TAB PO SCH (09:24)
[2020-03-17] MEDS: VENLAFAXINE **XR** 37.5 MG CAPSULE PO SCH (09:24)
[2020-03-17] MEDS: ASPIRIN 81 MG ENTERIC TAB PO SCH (09:25)
[2020-03-17] MEDS: VENLAFAXINE **XR** 75MG CAPSULE PO SCH (09:25)
[2020-03-17] MEDS: PREGABALIN 75 MG CAP(LYRICA) PO SCH ×2 (09:25→20:29)
[2020-03-17] MEDS: busPIRone 5 MG TAB PO SCH ×2 (09:25→20:28)
[2020-03-17 18:53] VITALS: BP 117/63
[2020-03-17] MEDS: SIMVASTATIN 20 MG TAB PO SCH (20:28)
[2020-03-17] MEDS: PANTOPRAZOLE 40MG TAB (PROTONIX) PO SCH (20:29)
[2020-03-17] MEDS: ARIPiprazole 2 MG TAB PO SCH (20:29)
[2020-03-17] MEDS: traZODone 50 MG TAB PO PRN (22:09)
[2020-03-18 06:54] VITALS: BP 113/68
[2020-03-18] MEDS: metFORMIN (GLUCOPHAGE) 500 MG TAB PO SCH ×2 (07:46→17:05)
[2020-03-18] MEDS: VENLAFAXINE **XR** 75MG CAPSULE PO SCH (08:44)
[2020-03-18] MEDS: busPIRone 5 MG TAB PO SCH ×2 (08:44→20:59)
[2020-03-18] MEDS: lisinopriL 5 MG TAB PO SCH (08:45)
[2020-03-18] MEDS: VENLAFAXINE **XR** 37.5 MG CAPSULE PO SCH (08:45)
[2020-03-18] MEDS: ASPIRIN 81 MG ENTERIC TAB PO SCH (08:45)
[2020-03-18] MEDS: VITAMIN D 1,000 INTERNATIONAL UNITS TABLET PO SCH (08:45)
[2020-03-18] MEDS: PREGABALIN 75 MG CAP(LYRICA) PO SCH ×2 (08:45→21:00)
--- NOTE | 2020-03-18 09:42 | MHIPNPDOC ---
[facility] Progress Note Progress Note DATE OF SERVICE: 03/18/20 HISTORY: The patient is met with today, she reports she had a good weekend and had made great progress since starting on the new medication. She reports that she additionally gotten support from her boyfriend that helps her feel much improved, she is engaged and generally doing well.. VITAL SIGNS: See below. NEW TEST RESULTS: None. CURRENT MEDICATIONS: See below. MENTAL STATUS EXAMINATION: General: Well dressed with good hygiene Speech: Spontaneous and fluid Thought processes: Linear and logical Thought content: Future orientated Abstract reasoning, and computation: Intact Description of associations: Intact Description of abnormal or psychotic thoughts:Denies any suicidal or homicidal ideation. Denies any auditory or visual hallucinations. Does not appear to be responding to internal stimuli. Does not appear to be endorsing any bizarre or paranoid ideation. Judgment: Fair Insight: Fair Orientation: Alert and orientated 3 Recent and remote memory: Intact Attention span and concentration: Intact Fund of knowledge: Adequate Mood: "Great" Affect: Euthymic with a full range DIAGNOSES: 1. MDD, recurrent, severe without psychotic features. 2. PTSD, chronic. 3. . ASSESSMENT: Plan is to continue current Effexor 187.5 mg daily augmented with buspirone 30 mg and Abilify 2 mg daily at bedtime, she is doing well and will likely be eligible for discharge tomorrow after safety planning is undertaken today MANAGEMENT PLAN: Plan for discharge tomorrow pending safety planning. TIME SPENT: 15 minutes. Vital Signs Vital Signs Date Time Temp Pulse Resp B/P (MAP) Pulse Ox O2 Delivery O2 Flow Rate FiO2 03/18/20 08:45 128/68 03/18/20 06:54 97.8 82 16 97 Room Air Current Medications Current Medications Medications (Trade) Dose Ordered Sig/Tal Route PRN Reason Start Time Stop Time Status Last Admin Dose Admin Acetaminophen (Tylenol Tab) 650 mg Q6HP PRN PO HEADACHE or DISCOMFORT 03/14/20 22:30 Al Hydrox/Mg Hydrox/Simethicone (Mylanta) 30 ml Q4HP PRN PO HEARTBURN/INDIGESTION 03/14/20 22:30 03/16/20 18:29 Aripiprazole (AbiLIFY) 2 mg QHS PO 03/15/20 21:00 03/17/20 20:29 Aspirin (Ecotrin) 81 mg DAILY PO 03/15/20 09:00 03/18/20 08:45 Buspirone HCl (Buspar) 15 mg BID PO 03/14/20 21:00 03/18/20 08:44 Home Med (Med Rec Complete!) ASDIRECTED XX 03/14/20 21:00 03/14/20 20:55 DC Hydroxyzine HCl (Atarax) 10 mg BID PRN PO ANXIETY 03/14/20 22:30 03/16/20 09:13 Lisinopril (Prinivil) 5 mg DAILY PO 03/15/20 09:00 03/18/20 08:45 Magnesium Hydroxide (Milk Of Magnesia) 30 ml DAILYPRN PRN PO CONSTIPATION 03/14/20 22:30 Metformin HCl (Glucophage) 1,000 mg BID@0800,1800 PO 03/15/20 08:00 03/18/20 07:46 Olanzapine (ZyPREXA ZYDIS) 5 mg Q4HP PRN PO AGITATION/ANXIETY 03/14/20 22:30 Pantoprazole Sodium (Protonix) 40 mg QHS PO 03/14/20 21:00 03/17/20 20:29 Pregabalin (Lyrica) 150 mg BID PO 03/14/20 21:00 03/18/20 08:45 Rizatriptan Benzoate (Maxalt) 10 mg DAILYPRN PRN PO MIGRAINE 03/14/20 22:30 Simvastatin (Zocor) 20 mg QHS PO 03/14/20 21:00 03/17/20 20:28 Trazodone HCl (Desyrel) 50 mg QHSP PRN PO INSOMNIA 03/14/20 22:30 03/17/20 22:09 Venlafaxine HCl (Effexor Xr) 37.5 mg DAILY PO 03/15/20 09:00 03/18/20 08:45 Venlafaxine HCl (Effexor Xr) 150 mg DAILY PO 03/15/20 09:00 03/18/20 08:44 Vitamin D (Vitamin D) 1,000 units DAILY PO 03/15/20 09:00 03/18/20 08:45 Allergies Coded Allergies: Tetanus Vaccines and Toxoid (Verified Allergy, Intermediate, hives, 03/14/20) atorvastatin (Verified Adverse Reaction, Intermediate, MIGRANE HEADACHE, 08/25/18) TAPE (Verified Adverse Reaction, Mild, Bruises, 08/25/18) oxycodone (Verified Adverse Reaction, Mild, VOMITING, 03/14/20) ADY BAIG DO Mar 18, 2020 09:42
[2020-03-18 16:48] VITALS: BP 115/64
[2020-03-18] MEDS: PANTOPRAZOLE 40MG TAB (PROTONIX) PO SCH (20:59)
[2020-03-18] MEDS: ARIPiprazole 2 MG TAB PO SCH (20:59)
[2020-03-18] MEDS: SIMVASTATIN 20 MG TAB PO SCH (20:59)
[2020-03-18] MEDS: traZODone 50 MG TAB PO PRN (22:40)
[2020-03-19 06:14] VITALS: BP 122/75
[2020-03-19] MEDS: metFORMIN (GLUCOPHAGE) 500 MG TAB PO SCH (07:27)
[2020-03-19] MEDS: VENLAFAXINE **XR** 75MG CAPSULE PO SCH (08:18)
[2020-03-19] MEDS: busPIRone 5 MG TAB PO SCH (08:18)
[2020-03-19 08:19] VITALS: BP 124/75
[2020-03-19] MEDS: PREGABALIN 75 MG CAP(LYRICA) PO SCH (08:19)
[2020-03-19] MEDS: VITAMIN D 1,000 INTERNATIONAL UNITS TABLET PO SCH (08:19)
[2020-03-19] MEDS: VENLAFAXINE **XR** 37.5 MG CAPSULE PO SCH (08:19)
[2020-03-19] MEDS: lisinopriL 5 MG TAB PO SCH (08:19)
[2020-03-19] MEDS: ASPIRIN 81 MG ENTERIC TAB PO SCH (08:19)
--- NOTE | 2020-03-19 09:55 | MHDSPDOC ---
[facility] Discharge Summary Discharge Summary DATE OF ADMISSION: Mar 14, 2020 at 22:16 DATE OF DISCHARGE:Mar 19, 2020 at 10:45 DISCHARGE DIAGNOSES: PTSD, chronic MDD, recurrent, severe and unspecified remission CONSULTANTS INVOLVED:[ None (basic hospitalist screening)] REASON FOR ADMISSION & TREATMENT AND PROGRESS ON THE UNIT : . The patient was admitted to the inpatient mental health unit on a voluntary admission due to reported increasing depression and passive SI, she was resumed on her home Effexor 187.5 mg daily and buspirone 30 mg daily, she was augmented with 2 mg of Abilify and did quite well. She made good improvement of the next few days, she also reported getting into contact with her boyfriend who was quite supportive, she did well over further days of observation and was amenable, and happy reporting that she was feeling much improved. DISCHARGE ASSESSMENT[improved] Legal status considerations: The patient at the time of discharge did not meet criteria for involuntary admission/extension due to having a [normal] mental status exam, [fair] insight into the situation, They are engaged in the discharge process, as well as being friendly and amenable in behavioral control and havent been engaging in any observed concerning behavior or ideation recently. They decline voluntary extension/admission at this time and must be discharged in good ofe, as Im unable to make a case for holding the patient against their will. They may have historical risk factors of admissions and other interactions with psychiatry however, those are not modifiable from a clinical perspective. The patient will need to be discharged in good ofe. MENTAL STATUS EXAMINATION ON DISCHARGE: [General: Well dressed with good hygiene Speech: Spontaneous and fluid Thought processes: Linear and logical Thought content: Future orientated Abstract reasoning, and computation: Intact Description of associations: Intact Description of abnormal or psychotic thoughts:Denies any suicidal or homicidal ideation. Denies any auditory or visual hallucinations. Does not appear to be responding to internal stimuli. Does not appear to be endorsing any bizarre or paranoid ideation. Judgment: fair Insight: fair Orientation: Alert and orientated 3 Recent and remote memory: Intact Attention span and concentration: Intact Fund of knowledge: Adequate Mood: "okay" Affect: Euthymic with a full range] PLAN/FOLLOWUP ARRANGEMENTS: Follow up appointments made (PCP and MH in 5 days of D/C date) and safety plan completed. Safety Planning aspects completed prior to discharge [Medication supplies limited to 7 days with 4 refills to prevent accumulation to OD] [RN reviewed crisis hotline information and other aspects to empower patient to access care in interim before next appointment.] The amount of time spent in the coordination of care for this patient was approximately 30 minutes. Vital Signs/I&Os Vital Signs Date Time Temp Pulse Resp B/P (MAP) Pulse Ox O2 Delivery O2 Flow Rate FiO2 03/19/20 08:19 124/75 03/19/20 06:14 98.8 71 16 100 Room Air Medications Scheduled Aripiprazole (Abilify) 2 Mg Tablet, 2 MG PO QHS for mood for 7 Days, #7 Aspirin (Aspirin EC) 81 Mg Tablet.dr, 81 MG PO DAILY, (Reported) Buspirone HCl (Buspirone HCl) 15 Mg Tablet, 15 MG PO BID, (Reported) Cholecalciferol (Vitamin D3) (Vitamin D3) 1,000 Unit Tablet, 1,000 UNITS PO DAILY, (Reported) Lisinopril (Lisinopril) 2.5 Mg Tablet, 5 MG PO DAILY, (Reported) Metformin HCl (Metformin HCl) 500 Mg Tab, 1,000 MG PO BID, (Reported) Pantoprazole Sodium (Pantoprazole Sodium) 40 Mg Tablet.dr, 40 MG PO QHS, (Reported) Pregabalin (Pregabalin) 150 Mg Capsule, 150 MG PO BID, (Reported) Simvastatin (Simvastatin) 20 Mg Tab, 20 MG PO QHS, (Reported) Trazodone HCl (Trazodone HCl) 50 Mg Tablet, 50 MG PO QHS, (Reported) Venlafaxine HCl (Venlafaxine HCl ER) 37.5 Mg Cap.er.24h, 37.5 MG PO DAILY for mood for 7 Days, #7 Venlafaxine HCl (Venlafaxine HCl ER) 150 Mg Cap.er.24h, 1 CAP PO DAILY for mood for 7 Days, #7 Scheduled PRN Acetaminophen (Acetaminophen) 325 Mg Tablet, 650 MG PO QID PRN for PAIN, (Reported) Hydroxyzine HCl (Hydroxyzine HCl) 10 Mg Tablet, 10 MG PO BID PRN for ANXIETY, (Reported) Rizatriptan Benzoate (Rizatriptan) 10 Mg Tablet, 10 MG PO DAILY PRN for MIGRAINE, (Reported) Allergies Coded Allergies: Tetanus Vaccines and Toxoid (Verified Allergy, Intermediate, hives, 03/14/20) atorvastatin (Verified Adverse Reaction, Intermediate, MIGRANE HEADACHE, 08/25/18) TAPE (Verified Adverse Reaction, Mild, Bruises, 08/25/18) oxycodone (Verified Adverse Reaction, Mild, VOMITING, 03/14/20) ADY BAIG DO Mar 19, 2020 09:55
--- NOTE | 2020-03-19 10:01 | MHIPN ---
DATE: 03/16/2020 VITAL SIGNS: Blood pressure 113/72, pulse 65, temperature 97.4. CHIEF COMPLAINT: Feels tired. SUBJECTIVE: Patient is seen in follow-up. She is seen in the presence of staff. Says she feels tired, but has been up today, was in fact at a group, was attending it. Says she has been feeling tired, but a bit less anxious since coming in. We had spoken just before she had come in. Her appetite is getting a bit better. She has thoughts of scratching herself, but they are not as intense. MENTAL STATUS EXAMINATION: She is neat, she is cooperative. No agitation. No psychomotor retardation. Affect is broader than I had seen it earlier this week, when she was seen at the clinic, though still restricted overall. She denies active suicidal thoughts or plans, but has thoughts of hurting herself, no firm plans for that. No evidence of any psychosis. Cognition grossly intact. Judgment and insight fair. ASSESSMENT: Post-traumatic stress disorder. Major depressive disorder, recurrent. She is slightly less anxious, possibly a bit less depressed, though these remain significant features. Has thoughts of harming herself, but not killing herself. PLAN: The Effexor was increased on admission to 187.5 mg daily, and she has been started by the inpatient psychiatrist, Dr. Gacria, on Abilify at 2 mg at night to help augment the Effexor, rationale for doing so is discussed. She has been encouraged to participate in activities in the unit as tolerated. She agrees with the plan. Further recommendations will be made depending on her clinical picture. TO
--- NOTE | 2020-03-19 10:04 | MHIPN ---
DATE: 03/17/2020 VITAL SIGNS: Blood pressure 109/65, pulse 69, temperature 97.4. CHIEF COMPLAINT: Says feels better. SUBJECTIVE: She is seen for follow-up. She is seen in the presence of staff. She says she has been feeling better, and was attending group just before we saw her. Says had attended yesterday as well, feels more rested, slept well, does not remember any nightmares. She is in touch with a cousin near [place], and also has a boyfriend, says feels supported, and that has tended to help. MENTAL STATUS EXAM: Neat, cooperative, no agitation. No psychomotor retardation, coherent. More interactive. Affect is broader. Denies any thoughts of harming herself or anyone else, currently no evidence of any psychosis. Cognition is grossly intact. Judgment and insight fair. ASSESSMENT; Posttraumatic stress disorder. PLAN: Feels better, less anxious overall. I suggested that we continue with her current medication regimen at Effexor 187.5 mg daily, Abilify 2 mg at night. Being hospitalized has tended to help her, greater confidence and perspective. She feels less depressed. She is encouraged to participate in activities on the unit. Further recommendations will be made dependent on the clinical picture, when she sees her clinician tomorrow. TO
[2020-03-19] MEDS ORDERED: VENL150C43 PO (10:07)
[2020-03-19] MEDS ORDERED: ABIL1TAB13 PO (10:07)
[2020-03-19] MEDS ORDERED: VENL37.598 PO (10:07)
== END 2020-03-19 10:45 | disposition home or self-care (01) | DRG 882 ==
LOC: M ED 18:37 → M ED INP 22:16 → M PSY 23:55
PROVIDERS: ADMIT Psychiatry & Neurology Psychiatry; ATTEND Psychiatry & Neurology Addiction Medicine
DX: F43.12 Post-traumatic stress disorder, chronic (principal); F33.2 Major depressive disorder, recurrent severe without psychotic features; E11.42 Type 2 diabetes mellitus with diabetic polyneuropathy; I10 Essential (primary) hypertension; E78.5 Hyperlipidemia, unspecified; J45.909 Unspecified asthma, uncomplicated; E55.9 Vitamin D deficiency, unspecified; M79.7 Fibromyalgia; M54.5 Low back pain; G43.709 Chronic migraine without aura, not intractable, without status migrainosus; Z98.84 Bariatric surgery status; Z87.891 Personal history of nicotine dependence; Z88.7 Allergy status to serum and vaccine; Z88.5 Allergy status to narcotic agent; Z91.048 Other nonmedicinal substance allergy status; Z88.8 Allergy status to other drugs, medicaments and biological substances; Z79.82 Long term (current) use of aspirin; Z79.84 Long term (current) use of oral hypoglycemic drugs; Z79.899 Other long term (current) drug therapy

== ENCOUNTER 2020-05-20 13:18 | Emergency (ER) | payer MEDICARE, MEDICAID ==
[~2020-05-20] VITALS: Ht 165.1 cm; Wt 81.4 kg
[~2020-05-20 13:18] MED LIST changes: +ABIL1TAB13 PO; +ASPI81TA26 PO; +BUSP15TA47 PO; -LISI-542 PO; +LISI-898 PO; +PREG150C PO; +TRAZ-186 PO; +VENL37.598 PO
--- NOTE | 2020-05-20 14:10 | REP ---
INDICATION: elbow pain. COMPARISON: Comparison right elbow radiographs 21 December 2019.. TECHNIQUE: Four views. FINDINGS: Four views of the right elbow demonstrate normal bones, joints, and soft tissues. No fracture or subluxation is seen. No opaque foreign body noted. No evidence of joint effusion. IMPRESSION: Negative right elbow series. <Electronically signed by Uriel Huber > 05/20/20 [id number]
[2020-05-20] MEDS ORDERED: PRED20TA PO (14:21)
[2020-05-20 14:39] VITALS: BP 125/86
== END 2020-05-20 15:17 | disposition home or self-care (01) ==
LOC: M ED 13:18
DX: M25.521 Pain in right elbow (principal); E11.9 Type 2 diabetes mellitus without complications; I10 Essential (primary) hypertension; E78.5 Hyperlipidemia, unspecified; G43.909 Migraine, unspecified, not intractable, without status migrainosus; J45.909 Unspecified asthma, uncomplicated; F41.9 Anxiety disorder, unspecified; F32.9 Major depressive disorder, single episode, unspecified; F43.10 Post-traumatic stress disorder, unspecified; Z98.84 Bariatric surgery status; Z79.82 Long term (current) use of aspirin; Z79.84 Long term (current) use of oral hypoglycemic drugs; Z79.899 Other long term (current) drug therapy; Z91.89 Other specified personal risk factors, not elsewhere classified; Z88.7 Allergy status to serum and vaccine; Z88.5 Allergy status to narcotic agent; Z88.8 Allergy status to other drugs, medicaments and biological substances

== ENCOUNTER → 2020-05-21 | Outpatient (CLI) | payer MEDICARE, MEDICAID ==
[2020-05-21 14:38] LABS: C REACTIVE PROTEIN QUANTITATIV < 0.30 MG/DL (0.00-0.30); RHEUMATOID FACTOR QUANT < 10.0 IU/ML (<15.0)
[2020-05-27 15:21] LABS: ANTINUCLEAR ANTIBODIES DIRECT Negative (Negative); HLA-B27 Negative (.)
== END ==
LOC: M PLALAB 09:42
PROVIDERS: ATTEND Physician Assistant
DX: M47.816 Spondylosis without myelopathy or radiculopathy, lumbar region (principal)

== ENCOUNTER → 2020-06-28 | Outpatient (REF) | payer MEDICARE, MEDICAID ==
[2020-06-28 16:24] LABS: HEMOGLOBIN A1c 6.1 %
[2020-06-28 16:35] LABS: ALBUMIN 3.6 GM/DL (3.2-5.2); ALT/SGPT 26 U/L (12-78); BILIRUBIN,TOTAL < 0.1 MG/DL (0.2-1.0); BLOOD UREA NITROGEN 16 MG/DL (7-18); CARBON DIOXIDE LEVEL 26 MEQ/L (21-32); CHLORIDE LEVEL 109 MEQ/L (98-107); CREATININE FOR GFR 0.94 MG/DL (0.55-1.30); GLOMERULAR FILTRATION RATE > 60.0 (>58); GLUCOSE, FASTING 73 MG/DL (70-100); POTASSIUM SERUM 4.9 MEQ/L (3.5-5.1); SODIUM LEVEL 141 MEQ/L (136-145); TOTAL PROTEIN 6.6 GM/DL (6.4-8.2)
== END ==
LOC: M SFHCPLAZ 13:39
PROVIDERS: ATTEND Nurse Practitioner Adult Health
DX: E11.9 Type 2 diabetes mellitus without complications (principal)

== ENCOUNTER → 2020-12-12 | Outpatient (CLI) | payer MEDICARE, OTHER ==
[~2020-12-12] MED LIST changes: +EMTR1TAB16 PO; -LISI2.5T2 PO; +LISI2.5T9 PO; -TRUVTAB PO
[2020-12-12 12:39] LABS: ALBUMIN 3.6 GM/DL (3.2-5.2); BILIRUBIN,TOTAL 0.2 MG/DL (0.2-1.0); CREATININE FOR GFR 1.43 MG/DL (0.55-1.30); GLOMERULAR FILTRATION RATE 41.5 (>58); POTASSIUM SERUM 4.2 MEQ/L (3.5-5.1)
[2020-12-12 12:54] LABS: HEMOGLOBIN A1c 5.6 %
== END ==
LOC: M PLALAB 08:43
PROVIDERS: ATTEND Nurse Practitioner Adult Health
DX: E11.9 Type 2 diabetes mellitus without complications (principal)
CPT/HCPCS: 36415; 80053; 83036; G0463

== ENCOUNTER 2020-12-27 14:40 | Emergency (ER) | payer MEDICARE, OTHER ==
[~2020-12-27] VITALS: Ht 165.1 cm; Wt 81.1 kg
[2020-12-27] MEDS ORDERED: DERMABOND TOPICAL SKIN ADHESIVE TOP ONE (17:55)
[2020-12-27 18:26] VITALS: BP 128/72
== END 2020-12-27 18:27 | disposition home or self-care (01) ==
LOC: M ED 14:40
DX: S61.210A Laceration without foreign body of right index finger without damage to nail, initial encounter (principal); W26.8XXA Contact with other sharp object(s), not elsewhere classified, initial encounter; Y92.099 Unspecified place in other non-institutional residence as the place of occurrence of the external cause; Y93.9 Activity, unspecified; Y99.9 Unspecified external cause status; Z98.84 Bariatric surgery status; Z79.84 Long term (current) use of oral hypoglycemic drugs; Z79.899 Other long term (current) drug therapy; Z91.89 Other specified personal risk factors, not elsewhere classified; Z88.7 Allergy status to serum and vaccine; Z88.5 Allergy status to narcotic agent

== ENCOUNTER 2021-03-18 04:52 | Emergency (ER) | payer MEDICARE, MEDICAID, OTHER ==
[~2021-03-18] VITALS: Ht 165.1 cm; Wt 82.7 kg
[2021-03-18 04:52] VITALS: BP 140/65
[~2021-03-18 04:52] MED LIST changes: -LISI-898 PO; +LISI5TAB11 PO
[2021-03-18] MEDS ORDERED: BUPR15TASR PO (05:07)
[2021-03-18] MEDS ORDERED: EFFE37.5 PO (05:07)
[2021-03-18] MEDS ORDERED: EFFE150C2 PO (05:07)
[2021-03-18] MEDS ORDERED: PRAZ1CAP PO (05:07)
[2021-03-18] MEDS ORDERED: TETRACAINE 0.5% OPHTH SOLN 4ML OU ONE (06:50)
[2021-03-18] MEDS ORDERED: FLUORESCEIN OPHTH 1 MG STRIP OU ONE (06:50)
[2021-03-18] MEDS ORDERED: NS 1,000 ML IV SCH ×2 (06:55)
== END 2021-03-18 08:50 | disposition home or self-care (01) ==
LOC: M ED 04:52
DX: H10.213 Acute toxic conjunctivitis, bilateral (principal); T65.91XA Toxic effect of unspecified substance, accidental (unintentional), initial encounter; E11.9 Type 2 diabetes mellitus without complications; I10 Essential (primary) hypertension; E78.5 Hyperlipidemia, unspecified; Z88.5 Allergy status to narcotic agent; Z88.7 Allergy status to serum and vaccine; Z91.048 Other nonmedicinal substance allergy status; Z79.4 Long term (current) use of insulin; Y92.018 Other place in single-family (private) house as the place of occurrence of the external cause; Y93.9 Activity, unspecified; Y99.9 Unspecified external cause status

== ENCOUNTER → 2021-06-05 | Outpatient (CLI) | payer MEDICARE ==
[~2021-06-05] MED LIST changes: +BUPR15TASR PO; +EFFE150C2 PO; +PRAZ1CAP PO
[2021-06-05 13:31] LABS: HEMATOCRIT 37.7 % (36.0-47.0); HEMOGLOBIN 11.8 g/dl (12.0-15.5); MEAN CORPUSCULAR HEMOGLOBIN 27.4 pg (27.0-33.0); MEAN CORPUSCULAR HGB CONC 31.3 g/dl (32.0-36.5); MEAN CORPUSCULAR VOLUME 87.5 fl (80.0-96.0); PLATELET COUNT, AUTOMATED 402 10^3/uL (150-450); RED BLOOD COUNT 4.31 10^6/uL (4.00-5.40); WHITE BLOOD COUNT 15.4 10^3/uL (4.0-10.0)
[2021-06-05 14:00] LABS: ALBUMIN 3.6 GM/DL (3.2-5.2); BILIRUBIN,TOTAL 0.3 MG/DL (0.2-1.0); CALCIUM LEVEL 9.2 MG/DL (8.5-10.1); CREATININE FOR GFR 1.31 MG/DL (0.55-1.30); GLOMERULAR FILTRATION RATE 45.9 (>58); PERCENT SATURATION 21.5 % (13.2-45.0); POTASSIUM SERUM 4.6 MEQ/L (3.5-5.1); TOTAL PROTEIN 6.6 GM/DL (6.4-8.2)
[2021-06-05 14:03] LABS: TOTAL 25(OH) VITAMIN D 53.5 NG/ML (30.0-100.0)
[2021-06-05 14:29] LABS: HEMOGLOBIN A1c 5.9 %
== END ==
LOC: M PLALAB 12:03
PROVIDERS: ATTEND Nurse Practitioner Adult Health
DX: E55.9 Vitamin D deficiency, unspecified (principal); E11.9 Type 2 diabetes mellitus without complications; Z98.890 Other specified postprocedural states; Z79.899 Other long term (current) drug therapy

== ENCOUNTER 2021-08-08 18:19 | Inpatient (IN) | payer MEDICAID, MEDICARE, OTHER ==
[~2021-08-08] VITALS: Ht 165.1 cm; Wt 192.0 kg
[~2021-08-08 18:19] MED LIST changes: -D31000TA2 PO; +VITA100093 PO
[2021-08-08] MEDS ORDERED: VENL37.598 PO (18:46)
[2021-08-08] MEDS ORDERED: PREG200C PO (18:46)
[2021-08-08] MEDS ORDERED: LISI2.5T8 PO (18:46)
[2021-08-08] MEDS ORDERED: VITMTA PO (18:46)
[2021-08-08] MEDS ORDERED: BUPR-71 PO (18:46)
[2021-08-08] MEDS ORDERED: [UNRECOGNIZED DRUG - REMARK] PO (18:46)
[2021-08-08] MEDS ORDERED: TRAM50TA2 PO (18:46)
[2021-08-08] MEDS ORDERED: BIOT1CAP2 PO (18:46)
[2021-08-08 18:57] LABS: BASO # 0.1 10^3/uL (0.0-0.2); EOS # 0.8 10^3/uL (0.0-0.5); EOS % 8.2 % (0.0-3.0); HEMATOCRIT 38.5 % (36.0-47.0); HEMOGLOBIN 12.4 g/dl (12.0-15.5); LYMPH # 4.4 10^3/uL (1.5-5.0); LYMPH % 43.9 % (24.0-44.0); MEAN CORPUSCULAR HGB CONC 32.2 g/dl (32.0-36.5); MEAN CORPUSCULAR VOLUME 86.9 fl (80.0-96.0); MONO # 0.8 10^3/uL (0.0-0.8); MONO % 8.2 % (2.0-8.0); NEUTROPHILS # 3.9 10^3/uL (1.5-8.5); NEUTROPHILS % 38.5 % (36.0-66.0); PLATELET COUNT, AUTOMATED 448 10^3/uL (150-450); RED BLOOD COUNT 4.43 10^6/uL (4.00-5.40); WHITE BLOOD COUNT 10.1 10^3/uL (4.0-10.0)
[2021-08-08 19:21] LABS: HCG, SERUM QUALITATIVE NEGATIVE (NEGATIVE)
[2021-08-08 19:37] LABS: ACETAMINOPHEN LEVEL < 2.0 UG/ML (10.0-30.0); ALBUMIN 3.8 GM/DL (3.2-5.2); ALT/SGPT 31 U/L (12-78); BILIRUBIN,DIRECT < 0.1 MG/DL (0.0-0.2); BILIRUBIN,TOTAL 0.3 MG/DL (0.2-1.0); BLOOD UREA NITROGEN 13 MG/DL (7-18); CALCIUM LEVEL 8.7 MG/DL (8.5-10.1); CARBON DIOXIDE LEVEL 23 MEQ/L (21-32); CHLORIDE LEVEL 111 MEQ/L (98-107); CREATININE FOR GFR 1.17 MG/DL (0.55-1.30); ETHYL ALCOHOL (ETHANOL) < 0.003 % (0.000-0.010); GLOMERULAR FILTRATION RATE 52.3 (>58); GLUCOSE, FASTING 89 MG/DL (70-100); POTASSIUM SERUM 4.6 MEQ/L (3.5-5.1); SALICYLATE LEVEL < 1.7 MG/DL (5.0-30.0); SODIUM LEVEL 139 MEQ/L (136-145); TOTAL PROTEIN 6.9 GM/DL (6.4-8.2)
[2021-08-08] MEDS ORDERED: NS 1,000 ML IV ONE (20:05)
[2021-08-08 20:38] LABS: AMPHETAMINES LEVEL URINE NEGATIVE (NEGATIVE); BARBITURATES URINE NEGATIVE (NEGATIVE); BENZODIAZEPINES URINE NEGATIVE (NEGATIVE); CANNABINOIDS URINE NEGATIVE (NEGATIVE); COCAINE METABOLITE URINE NEGATIVE (NEGATIVE); METHADONE URINE NEGATIVE (NEGATIVE); OPIATES URINE NEGATIVE (NEGATIVE); PHENCYCLIDINE URINE NEGATIVE (NEGATIVE)
[2021-08-08 21:26] LABS: RSV AMPLIFICATION NEGATIVE (NEGATIVE)
[2021-08-08] MEDS ORDERED: HOME MED LIST COMPLETE! XX SCH (23:15)
[2021-08-09 01:49] VITALS: BP 131/84
[2021-08-09] MEDS ORDERED: MAALOX 30 ML SUSP *UDC PO PRN (02:35)
[2021-08-09] MEDS ORDERED: MOM 30ML SUSPENSION UDC PO PRN (02:35)
[2021-08-09] MEDS ORDERED: ACETAMINOPHEN TAB 650MG DOSE (2X325MG) PO PRN (02:35)
[2021-08-09] MEDS ORDERED: traZODone 50 MG TAB PO PRN (02:35)
[2021-08-09 04:30] VITALS: BP 132/92
[2021-08-09] MEDS ORDERED: metFORMIN (GLUCOPHAGE) 1000MG TABLET PO SCH (08:00)
[2021-08-09] MEDS: metFORMIN (GLUCOPHAGE) 500MG TAB PO SCH ×2 (08:00→17:27)
[2021-08-09] MEDS: VITAMIN D 1,000 INTERNATIONAL UNITS TABLET PO SCH (08:30)
[2021-08-09] MEDS: LISINOPRIL *2.5 MG* TAB PO SCH (08:31)
[2021-08-09] MEDS: MULTIVITAMINS/MINERALS THERAP 1 TAB PO SCH (08:31)
[2021-08-09] MEDS: ASPIRIN 81MG ENTERIC TABLET PO SCH (08:31)
[2021-08-09] MEDS: PREGABALIN 100 MG CAP (LYRICA) PO SCH ×2 (08:32→21:05)
[2021-08-09] MEDS ORDERED: buPROPion **SR TABLET** (ZYBAN) 150MG PO SCH (09:00)
[2021-08-09 16:23] VITALS: BP 108/71
[2021-08-09] MEDS: busPIRone 5 MG TAB PO SCH (17:59)
[2021-08-09] MEDS ORDERED: traMADol 50 MG TAB PO ONE (18:30)
[2021-08-09] MEDS ORDERED: ACETAMINOPHEN 500 MG TAB PO ONE (19:30)
[2021-08-09] MEDS: SIMVASTATIN 20 MG TAB PO SCH (21:05)
[2021-08-09] MEDS: PANTOPRAZOLE 40MG TAB (PROTONIX) PO SCH (21:05)
[2021-08-10 06:26] VITALS: BP 120/79
[2021-08-10] MEDS: LISINOPRIL *2.5 MG* TAB PO SCH (08:00)
[2021-08-10] MEDS: metFORMIN (GLUCOPHAGE) 500MG TAB PO SCH ×2 (08:00→17:25)
[2021-08-10] MEDS: ACETAMINOPHEN 500 MG TAB PO SCH ×3 (08:01→21:01)
[2021-08-10] MEDS: PREGABALIN 100 MG CAP (LYRICA) PO SCH ×2 (08:01→21:00)
[2021-08-10] MEDS: VITAMIN D 1,000 INTERNATIONAL UNITS TABLET PO SCH (08:01)
[2021-08-10] MEDS: MULTIVITAMINS/MINERALS THERAP 1 TAB PO SCH (08:01)
[2021-08-10] MEDS: buPROPion **XL** TABLET 150MG (WELLBUTRIN XL) PO SCH (08:01)
[2021-08-10] MEDS: busPIRone 5 MG TAB PO SCH (08:01)
[2021-08-10] MEDS: ASPIRIN 81MG ENTERIC TABLET PO SCH (08:01)
[2021-08-10 16:30] VITALS: BP 128/84
[2021-08-10] MEDS: PANTOPRAZOLE 40MG TAB (PROTONIX) PO SCH (21:00)
[2021-08-10] MEDS: SIMVASTATIN 20 MG TAB PO SCH (21:00)
[2021-08-11 07:08] VITALS: BP 147/86
[2021-08-11] MEDS: metFORMIN (GLUCOPHAGE) 500MG TAB PO SCH ×2 (07:57→19:05)
[2021-08-11] MEDS: ACETAMINOPHEN 500 MG TAB PO SCH (09:00)
[2021-08-11] MEDS: VITAMIN D 1,000 INTERNATIONAL UNITS TABLET PO SCH (09:56)
[2021-08-11] MEDS: PREGABALIN 100 MG CAP (LYRICA) PO SCH ×2 (09:56→21:23)
[2021-08-11] MEDS: MULTIVITAMINS/MINERALS THERAP 1 TAB PO SCH (09:57)
[2021-08-11] MEDS: ASPIRIN 81MG ENTERIC TABLET PO SCH (09:57)
[2021-08-11] MEDS: LISINOPRIL *2.5 MG* TAB PO SCH (09:58)
[2021-08-11] MEDS: busPIRone 5 MG TAB PO SCH (09:58)
[2021-08-11] MEDS: buPROPion **XL** TABLET 150MG (WELLBUTRIN XL) PO SCH (09:58)
[2021-08-11] MEDS ORDERED: ACETAMINOPHEN 500 MG TAB PO PRN (11:20)
[2021-08-11] MEDS: ACETAMINOPHEN TAB 650MG DOSE (2X325MG) PO PRN (15:24)
[2021-08-11 19:22] VITALS: BP 140/86
[2021-08-11] MEDS: SIMVASTATIN 20 MG TAB PO SCH (21:23)
[2021-08-11] MEDS: PANTOPRAZOLE 40MG TAB (PROTONIX) PO SCH (21:23)
[2021-08-12 06:48] VITALS: BP 117/74
[2021-08-12] MEDS: buPROPion **XL** TABLET 150MG (WELLBUTRIN XL) PO SCH (08:05)
[2021-08-12] MEDS: ACETAMINOPHEN TAB 650MG DOSE (2X325MG) PO PRN ×2 (08:06→22:11)
[2021-08-12] MEDS: ASPIRIN 81MG ENTERIC TABLET PO SCH (08:06)
[2021-08-12] MEDS: MULTIVITAMINS/MINERALS THERAP 1 TAB PO SCH (08:06)
[2021-08-12] MEDS: metFORMIN (GLUCOPHAGE) 500MG TAB PO SCH ×2 (08:06→17:11)
[2021-08-12] MEDS: LISINOPRIL *2.5 MG* TAB PO SCH (08:06)
[2021-08-12] MEDS: busPIRone 5 MG TAB PO SCH (08:06)
[2021-08-12] MEDS: PREGABALIN 100 MG CAP (LYRICA) PO SCH ×2 (08:06→20:41)
[2021-08-12] MEDS: VITAMIN D 1,000 INTERNATIONAL UNITS TABLET PO SCH (08:06)
[2021-08-12 09:42] VITALS: BP 134/82
[2021-08-12 18:14] VITALS: BP 130/87
[2021-08-12] MEDS: PANTOPRAZOLE 40MG TAB (PROTONIX) PO SCH (20:41)
[2021-08-12] MEDS: SIMVASTATIN 20 MG TAB PO SCH (20:41)
[2021-08-13 06:46] VITALS: BP 139/79
[2021-08-13] MEDS: MULTIVITAMINS/MINERALS THERAP 1 TAB PO SCH (09:07)
[2021-08-13] MEDS: VITAMIN D 1,000 INTERNATIONAL UNITS TABLET PO SCH (09:07)
[2021-08-13] MEDS: busPIRone 5 MG TAB PO SCH (09:08)
[2021-08-13] MEDS: ASPIRIN 81MG ENTERIC TABLET PO SCH (09:08)
[2021-08-13] MEDS: buPROPion **XL** TABLET 150MG (WELLBUTRIN XL) PO SCH (09:08)
[2021-08-13] MEDS: metFORMIN (GLUCOPHAGE) 500MG TAB PO SCH (09:08)
[2021-08-13] MEDS: PREGABALIN 100 MG CAP (LYRICA) PO SCH (09:08)
[2021-08-13 09:09] VITALS: BP 139/79
[2021-08-13] MEDS: LISINOPRIL *2.5 MG* TAB PO SCH (09:09)
[2021-08-13] MEDS: ACETAMINOPHEN TAB 650MG DOSE (2X325MG) PO PRN (09:12)
[2021-08-13 09:50] VITALS: BP 139/79
[2021-08-13] MEDS ORDERED: BUSP5TA PO (10:30)
[2021-08-13] MEDS ORDERED: WELLTAB40 PO (10:30)
== END 2021-08-13 13:40 | disposition home or self-care (01) | DRG 882 ==
LOC: M ED 18:19 → M ED INP 08-09 02:32 → M PSY 08-09 03:38
PROVIDERS: ADMIT Student in an Organized Health Care Education/Training Program; ATTEND Student in an Organized Health Care Education/Training Program
DX: F43.10 Post-traumatic stress disorder, unspecified (principal); F33.1 Major depressive disorder, recurrent, moderate; M79.7 Fibromyalgia; F11.90 Opioid use, unspecified, uncomplicated; Z79.899 Other long term (current) drug therapy; Z79.82 Long term (current) use of aspirin; Z88.5 Allergy status to narcotic agent; Z88.8 Allergy status to other drugs, medicaments and biological substances; E78.5 Hyperlipidemia, unspecified; E55.9 Vitamin D deficiency, unspecified; I10 Essential (primary) hypertension; E11.51 Type 2 diabetes mellitus with diabetic peripheral angiopathy without gangrene; F41.9 Anxiety disorder, unspecified; J45.909 Unspecified asthma, uncomplicated; K76.0 Fatty (change of) liver, not elsewhere classified; G43.909 Migraine, unspecified, not intractable, without status migrainosus; M54.59 Other low back pain; Z87.891 Personal history of nicotine dependence; K21.9 Gastro-esophageal reflux disease without esophagitis

== ENCOUNTER → 2021-12-16 | Outpatient (CLI) | payer MEDICARE, OTHER, MEDICAID ==
[~2021-12-16] MED LIST changes: +BIOT1CAP2 PO; +BUPR-71 PO; +BUSP5TA PO; +LISI2.5T8 PO; +PREG200C PO; +WELLTAB40 PO; +[UNRECOGNIZED DRUG - REMARK] PO
[2021-12-16 14:42] LABS: ALBUMIN 3.8 GM/DL (3.2-5.2); BILIRUBIN,TOTAL 0.2 MG/DL (0.2-1.0); CALCIUM LEVEL 9.3 MG/DL (8.5-10.1); CHOLESTEROL RISK RATIO 3.634 (<5); CREATININE FOR GFR 1.36 MG/DL (0.55-1.30); GLOMERULAR FILTRATION RATE 43.8 (>51); POTASSIUM SERUM 4.5 MEQ/L (3.5-5.1); TOTAL PROTEIN 7.2 GM/DL (6.4-8.2)
[2021-12-16 14:43] LABS: CREATININE, URINE 25.8 MG/DL; HEMOGLOBIN A1c 6.8 %; MALB URINE SIEMENS 14.6 MG/L; MAU/CREAT RATIO 56.5 MCG/MG (0.0-30.0)
[2021-12-16 15:09] LABS: TOTAL 25(OH) VITAMIN D 37.1 NG/ML (30.0-100.0)
== END ==
LOC: M PLALAB 10:39
PROVIDERS: ATTEND Nurse Practitioner Adult Health
DX: E11.9 Type 2 diabetes mellitus without complications (principal); E55.9 Vitamin D deficiency, unspecified; Z98.890 Other specified postprocedural states

== ENCOUNTER 2022-01-14 11:49 | Inpatient (IN) | payer MEDICAID, MEDICARE, OTHER ==
[~2022-01-14] VITALS: Ht 165.1 cm; Wt 86.4 kg
[~2022-01-14 11:49] MED LIST changes: -MAXA10TA14 PO; +RIZA10TA64 PO
[2022-01-14] MEDS ORDERED: ONDANSETRON 4MG 2ML VIAL IV ONE (15:25)
[2022-01-14] MEDS ORDERED: KETOROLAC 30 MG/ML 1ML VIAL IV ONE (15:30)
[2022-01-14 15:40] LABS: BASO # 0.1 10^3/uL (0.0-0.2); EOS # 0.9 10^3/uL (0.0-0.5); HEMATOCRIT 40.5 % (36.0-47.0); HEMOGLOBIN 12.7 g/dl (12.0-15.5); LYMPH # 2.8 10^3/uL (1.5-5.0); LYMPH % 30.4 % (24.0-44.0); MEAN CORPUSCULAR HEMOGLOBIN 27.7 pg (27.0-33.0); MEAN CORPUSCULAR HGB CONC 31.4 g/dl (32.0-36.5); MEAN CORPUSCULAR VOLUME 88.2 fl (80.0-96.0); MONO # 0.8 10^3/uL (0.0-0.8); MONO % 8.4 % (2.0-8.0); NEUTROPHILS # 4.6 10^3/uL (1.5-8.5); PLATELET COUNT, AUTOMATED 433 10^3/uL (150-450); RED BLOOD COUNT 4.59 10^6/uL (4.00-5.40); WHITE BLOOD COUNT 9.2 10^3/uL (4.0-10.0)
[2022-01-14 16:09] LABS: ALBUMIN 4.3 GM/DL (3.2-5.2); BILIRUBIN,DIRECT 0.1 MG/DL (0.0-0.2); BILIRUBIN,TOTAL 0.3 MG/DL (0.2-1.0); CALCIUM LEVEL 9.8 MG/DL (8.5-10.1); CREATININE FOR GFR 2.29 MG/DL (0.55-1.30); POTASSIUM SERUM 4.4 MEQ/L (3.5-5.1); TOTAL PROTEIN 8.1 GM/DL (6.4-8.2)
[2022-01-14] MEDS ORDERED: NS 1,000 ML IV ONE (16:35)
[2022-01-14 18:27] LABS: RSV AMPLIFICATION NEGATIVE (NEGATIVE)
[2022-01-14 19:11] LABS: CALCIUM LEVEL 8.5 MG/DL (8.5-10.1); CREATININE FOR GFR 2.15 MG/DL (0.55-1.30); GLOMERULAR FILTRATION RATE 25.8 (>51); POTASSIUM SERUM 4.5 MEQ/L (3.5-5.1)
[2022-01-14] MEDS ORDERED: NS 500 ML IV ONE (19:35)
[2022-01-14] MEDS ORDERED: GLUCAGON INJ 1MG VIAL SC PRN (19:50)
[2022-01-14] MEDS ORDERED: GLUCOSE 4GM CHEW TABLET PO PRN (19:50)
[2022-01-14] MEDS ORDERED: DEXTROSE 50% 50 ML SYRINGE IV PRN (19:50)
[2022-01-14] MEDS ORDERED: NS 1,000 ML IV SCH (19:50)
[2022-01-14] MEDS ORDERED: ONDANSETRON 4MG 2ML VIAL IV PRN (19:50)
[2022-01-14] MEDS ORDERED: BUPR300T92 PO (20:03)
[2022-01-14] MEDS ORDERED: HOME MED LIST COMPLETE! XX SCH (20:05)
[2022-01-14] MEDS ORDERED: HYDR-643 PO (20:05)
[2022-01-14] MEDS: PANTOPRAZOLE 40MG VIAL IV SCH (20:10)
[2022-01-14 22:05] VITALS: BP 128/76
[2022-01-14] MEDS: SUCRALFATE SUSP 1GM/10ML UD PO SCH (22:57)
[2022-01-14] MEDS: SIMVASTATIN 20 MG TAB PO SCH (22:57)
[2022-01-14] MEDS: HYDROMORPHONE HCL 0.5 MG/ 0.5 ML SYRINGE (J1170 PER 1) IV PRN (22:57)
[2022-01-15] MEDS: D5W/0.9% SODIUM CHLORIDE 1,000 ML IV SCH ×3 (02:36→22:24)
[2022-01-15 05:37] VITALS: BP 106/70
[2022-01-15] MEDS: INSULIN LISPRO (NovoLOG) PER UNIT SC SCH ×3 (06:00→12:00)
[2022-01-15 07:27] LABS: CALCIUM LEVEL 8.2 MG/DL (8.5-10.1); CREATININE FOR GFR 2.15 MG/DL (0.55-1.30); GLOMERULAR FILTRATION RATE 25.8 (>51); POTASSIUM SERUM 4.3 MEQ/L (3.5-5.1)
[2022-01-15] MEDS: MULTIVITAMINS/MINERALS THERAP 1 TAB PO SCH (09:16)
[2022-01-15] MEDS: SUCRALFATE SUSP 1GM/10ML UD PO SCH ×3 (09:16→21:00)
[2022-01-15] MEDS: PANTOPRAZOLE 40MG VIAL IV SCH ×2 (09:17→20:59)
[2022-01-15] MEDS: buPROPion **XL** TABLET 150MG (WELLBUTRIN XL) PO SCH (09:17)
[2022-01-15] MEDS: NORCO, ANEXSIA 5/325MG TABLET (HYDROcodone/ACETAMINOPHEN) PO PRN (10:44)
[2022-01-15] MEDS: HYDROMORPHONE HCL 0.5 MG/ 0.5 ML SYRINGE (J1170 PER 1) IV PRN (13:33)
[2022-01-15 20:20] VITALS: BP 136/95
[2022-01-15] MEDS: ACETAMINOPHEN TAB 650MG DOSE (2X325MG) PO PRN (21:00)
[2022-01-15] MEDS: SIMVASTATIN 20 MG TAB PO SCH (21:00)
[2022-01-16 05:24] VITALS: BP 137/79
[2022-01-16 06:00] LABS: BASO # 0.1 10^3/uL (0.0-0.2); BASO % 1.1 % (0.0-1.0); EOS # 0.8 10^3/uL (0.0-0.5); EOS % 11.8 % (0.0-3.0); HEMATOCRIT 32.7 % (36.0-47.0); LYMPH # 2.1 10^3/uL (1.5-5.0); LYMPH % 33.1 % (24.0-44.0); MEAN CORPUSCULAR HEMOGLOBIN 28.4 pg (27.0-33.0); MEAN CORPUSCULAR HGB CONC 32.4 g/dl (32.0-36.5); MEAN CORPUSCULAR VOLUME 87.7 fl (80.0-96.0); MONO # 0.7 10^3/uL (0.0-0.8); MONO % 11.6 % (2.0-8.0); NEUTROPHILS # 2.7 10^3/uL (1.5-8.5); NEUTROPHILS % 42.2 % (36.0-66.0); PLATELET COUNT, AUTOMATED 328 10^3/uL (150-450); RED BLOOD COUNT 3.73 10^6/uL (4.00-5.40); WHITE BLOOD COUNT 6.4 10^3/uL (4.0-10.0)
[2022-01-16 06:11] LABS: HEMOGLOBIN 10.6 g/dl (12.0-15.5)
[2022-01-16 06:28] LABS: CALCIUM LEVEL 8.4 MG/DL (8.5-10.1); CREATININE FOR GFR 1.46 MG/DL (0.55-1.30); GLOMERULAR FILTRATION RATE 40.4 (>51)
[2022-01-16] MEDS ORDERED: NORCO, ANEXSIA 5/325MG TABLET (HYDROcodone/ACETAMINOPHEN) PO PRN (07:30)
[2022-01-16] MEDS: NORCO, ANEXSIA 5/325MG TABLET (HYDROcodone/ACETAMINOPHEN) PO PRN (09:02)
[2022-01-16] MEDS: MULTIVITAMINS/MINERALS THERAP 1 TAB PO SCH (09:02)
[2022-01-16] MEDS: SUCRALFATE SUSP 1GM/10ML UD PO SCH ×3 (09:03→21:05)
[2022-01-16] MEDS: PANTOPRAZOLE 40MG VIAL IV SCH ×2 (09:03→21:05)
[2022-01-16] MEDS: buPROPion **XL** TABLET 150MG (WELLBUTRIN XL) PO SCH (09:03)
[2022-01-16] MEDS: ACETAMINOPHEN TAB 650MG DOSE (2X325MG) PO PRN (13:31)
[2022-01-16 14:00] VITALS: BP 122/83
[2022-01-16] MEDS: SIMVASTATIN 20 MG TAB PO SCH (21:05)
[2022-01-16 21:19] VITALS: BP 134/84
[2022-01-17 06:00] VITALS: BP 147/86
[2022-01-17] MEDS ORDERED: SUCR1ORA PO (08:29)
[2022-01-17] MEDS ORDERED: HYDR-3715 PO (08:29)
[2022-01-17] MEDS ORDERED: PANT-23 PO (08:29)
[2022-01-17] MEDS: MULTIVITAMINS/MINERALS THERAP 1 TAB PO SCH (09:14)
[2022-01-17] MEDS: buPROPion **XL** TABLET 150MG (WELLBUTRIN XL) PO SCH (09:14)
[2022-01-17] MEDS: SUCRALFATE SUSP 1GM/10ML UD PO SCH (09:14)
[2022-01-17] MEDS: PANTOPRAZOLE 40MG VIAL IV SCH (09:15)
[2022-01-17 10:00] LABS: BASO # 0.1 10^3/uL (0.0-0.2); BASO % 0.9 % (0.0-1.0); EOS # 0.7 10^3/uL (0.0-0.5); EOS % 10.6 % (0.0-3.0); HEMATOCRIT 35.2 % (36.0-47.0); HEMOGLOBIN 11.3 g/dl (12.0-15.5); LYMPH # 2.2 10^3/uL (1.5-5.0); LYMPH % 32.5 % (24.0-44.0); MEAN CORPUSCULAR HGB CONC 32.1 g/dl (32.0-36.5); MEAN CORPUSCULAR VOLUME 87.3 fl (80.0-96.0); MONO # 0.6 10^3/uL (0.0-0.8); NEUTROPHILS # 3.3 10^3/uL (1.5-8.5); NEUTROPHILS % 47.9 % (36.0-66.0); PLATELET COUNT, AUTOMATED 389 10^3/uL (150-450); RED BLOOD COUNT 4.03 10^6/uL (4.00-5.40); WHITE BLOOD COUNT 6.9 10^3/uL (4.0-10.0)
[2022-01-17 10:32] LABS: CALCIUM LEVEL 8.8 MG/DL (8.5-10.1); CREATININE FOR GFR 1.39 MG/DL (0.55-1.30); GLOMERULAR FILTRATION RATE 42.7 (>51); POTASSIUM SERUM 4.2 MEQ/L (3.5-5.1)
[2022-01-17] MEDS: NORCO, ANEXSIA 5/325MG TABLET (HYDROcodone/ACETAMINOPHEN) PO PRN (10:53)
== END 2022-01-17 11:44 | disposition home or self-care (01) | DRG 381 ==
LOC: M ED 11:49 → M ED INP 11:50 → M MS5PR 22:08 → OBSVTOIN 01-16 10:55
PROVIDERS: ADMIT Internal Medicine; ATTEND Internal Medicine Nephrology
DX: K28.7 Chronic gastrojejunal ulcer without hemorrhage or perforation (principal); N17.9 Acute kidney failure, unspecified; K27.9 Peptic ulcer, site unspecified, unspecified as acute or chronic, without hemorrhage or perforation; Z79.82 Long term (current) use of aspirin; N18.9 Chronic kidney disease, unspecified; Z98.84 Bariatric surgery status; K21.9 Gastro-esophageal reflux disease without esophagitis; Z86.16 Personal history of COVID-19; F32.A Depression, unspecified; F41.9 Anxiety disorder, unspecified; E11.42 Type 2 diabetes mellitus with diabetic polyneuropathy; E11.22 Type 2 diabetes mellitus with diabetic chronic kidney disease; I12.9 Hypertensive chronic kidney disease with stage 1 through stage 4 chronic kidney disease, or unspecified chronic kidney disease; E78.5 Hyperlipidemia, unspecified; J45.909 Unspecified asthma, uncomplicated; E55.9 Vitamin D deficiency, unspecified; F43.10 Post-traumatic stress disorder, unspecified; M79.7 Fibromyalgia; G43.909 Migraine, unspecified, not intractable, without status migrainosus; M54.50 Low back pain, unspecified; Z88.5 Allergy status to narcotic agent; Z88.7 Allergy status to serum and vaccine; Z88.8 Allergy status to other drugs, medicaments and biological substances; Z91.048 Other nonmedicinal substance allergy status; Z79.84 Long term (current) use of oral hypoglycemic drugs; Z79.899 Other long term (current) drug therapy

== ENCOUNTER → 2022-03-23 | Outpatient (CLI) | payer MEDICARE ==
[~2022-03-23] MED LIST changes: +BUPR300T92 PO; +HYDR-3715 PO; +SUCR1ORA PO
[2022-03-23 16:20] LABS: CREATININE FOR GFR 1.34 MG/DL (0.55-1.30); GLOMERULAR FILTRATION RATE 44.6 (>51)
== END ==
LOC: M PLALAB 13:30
PROVIDERS: ATTEND Psychiatry & Neurology Neurology
DX: I10 Essential (primary) hypertension (principal)

== ENCOUNTER → 2022-03-31 | Outpatient (CLI) | payer MEDICARE, MEDICAID ==
[~2022-03-31] MED LIST changes: +REGL5TAB2 PO
[2022-03-31 17:21] LABS: HEMATOCRIT 37.5 % (36.0-47.0); HEMOGLOBIN 11.8 g/dl (12.0-15.5); MEAN CORPUSCULAR HEMOGLOBIN 27.5 pg (27.0-33.0); MEAN CORPUSCULAR HGB CONC 31.5 g/dl (32.0-36.5); MEAN CORPUSCULAR VOLUME 87.4 fl (80.0-96.0); PLATELET COUNT, AUTOMATED 397 10^3/uL (150-450); RED BLOOD COUNT 4.29 10^6/uL (4.00-5.40); WHITE BLOOD COUNT 12.8 10^3/uL (4.0-10.0)
[2022-03-31 18:14] LABS: ALBUMIN 3.8 G/DL (3.2-5.2); BILIRUBIN,TOTAL 0.2 MG/DL (0.3-1.2); CALCIUM LEVEL 9.4 MG/DL (8.5-10.1); CHOLESTEROL RISK RATIO 3.2 (<5); CREATININE FOR GFR 1.43 MG/DL (0.55-1.30); GLOMERULAR FILTRATION RATE 41.3 (>51); HDL CHOLESTEROL 46.2 MG/DL (>40); POTASSIUM SERUM 4.9 MMOL/L (3.5-5.1); TOTAL PROTEIN 6.8 G/DL (5.7-8.2)
[2022-03-31 18:15] LABS: CREATININE, URINE 110.4 MG/DL
[2022-03-31 18:16] LABS: MALB URINE SIEMENS < 5.0 MG/DL; MAU/CREAT RATIO 4.5 MCG/MG (0.0-30.0)
[2022-03-31 19:19] LABS: HEMOGLOBIN A1c 5.9 % (4.0-6.0)
== END ==
LOC: M PLALAB 15:14
PROVIDERS: ATTEND Nurse Practitioner Adult Health
DX: E11.9 Type 2 diabetes mellitus without complications (principal); E55.9 Vitamin D deficiency, unspecified; Z98.890 Other specified postprocedural states

== ENCOUNTER 2022-04-22 18:41 | Emergency (ER) | payer MEDICARE, MEDICAID ==
[~2022-04-22] VITALS: Ht 165.1 cm; Wt 87.4 kg
[~2022-04-22 18:41] MED LIST changes: -REGL5TAB2 PO
[2022-04-22] MEDS ORDERED: NS 1,000 ML IV ONE (19:35)
[2022-04-22] MEDS ORDERED: METOCLOPRAMIDE INJ 10MG/2ML VIAL IV ONE (19:35)
[2022-04-22 19:47] LABS: BASO # 0.1 10^3/uL (0.0-0.2); BASO % 0.8 % (0.0-1.0); EOS # 0.8 10^3/uL (0.0-0.5); EOS % 7.5 % (0.0-3.0); HEMATOCRIT 37.3 % (36.0-47.0); HEMOGLOBIN 11.7 g/dl (12.0-15.5); LYMPH # 3.5 10^3/uL (1.5-5.0); LYMPH % 33.3 % (24.0-44.0); MEAN CORPUSCULAR HEMOGLOBIN 27.6 pg (27.0-33.0); MEAN CORPUSCULAR HGB CONC 31.4 g/dl (32.0-36.5); MONO # 0.9 10^3/uL (0.0-0.8); MONO % 8.1 % (2.0-8.0); NEUTROPHILS # 5.3 10^3/uL (1.5-8.5); NEUTROPHILS % 49.8 % (36.0-66.0); PLATELET COUNT, AUTOMATED 423 10^3/uL (150-450); RED BLOOD COUNT 4.24 10^6/uL (4.00-5.40); WHITE BLOOD COUNT 10.6 10^3/uL (4.0-10.0)
[2022-04-22 19:58] LABS: LIPASE 67 U/L (12-53)
[2022-04-22 20:00] LABS: ALBUMIN 3.9 G/DL (3.2-5.2); ALKALINE PHOSPHATASE 95 U/L (46-116); ALT/SGPT 21 U/L (7.0-40); AST/SGOT 25 U/L (<34); BILIRUBIN,DIRECT < 0.1 MG/DL (<0.4); BILIRUBIN,TOTAL < 0.2 MG/DL (0.3-1.2); BLOOD UREA NITROGEN 23 MG/DL (9-23); CALCIUM LEVEL 9.6 MG/DL (8.5-10.1); CARBON DIOXIDE LEVEL 23 MMOL/L (20-31); CHLORIDE LEVEL 104 MMOL/L (98-107); CK-MB VALUE MASS < 1.0 NG/ML (<3.6); CREATININE FOR GFR 1.81 MG/DL (0.55-1.30); GLOMERULAR FILTRATION RATE 31.5 (>51); GLUCOSE, FASTING 112 MG/DL (60-100); POTASSIUM SERUM 4.1 MMOL/L (3.5-5.1); SODIUM LEVEL 136 MMOL/L (136-145); TOTAL PROTEIN 7.1 G/DL (5.7-8.2)
[2022-04-22 20:04] LABS: CPK CREATINE PHOSPHOKINASE 111 U/L (34-145)
[2022-04-22] MEDS: GASTROGRAFIN SOLUTION 30ML PO SCH ×2 (20:41→20:59)
[2022-04-22 21:15] VITALS: BP 114/79
[2022-04-22 21:19] LABS: CK-MB VALUE MASS < 1.0 NG/ML (<3.6)
[2022-04-22 21:25] LABS: CPK CREATINE PHOSPHOKINASE 88 U/L (34-145); MB/CK RELATIVE INDEX 1.13 (< OR =4)
[2022-04-22] MEDS ORDERED: REGL5TAB2 PO (22:33)
== END 2022-04-22 23:06 | disposition home or self-care (01) ==
LOC: M ED 18:41
DX: K31.84 Gastroparesis (principal); E11.9 Type 2 diabetes mellitus without complications; F43.10 Post-traumatic stress disorder, unspecified; I10 Essential (primary) hypertension; J45.909 Unspecified asthma, uncomplicated; Z98.84 Bariatric surgery status; Z88.5 Allergy status to narcotic agent; Z88.7 Allergy status to serum and vaccine; Z91.048 Other nonmedicinal substance allergy status; Z79.4 Long term (current) use of insulin; Z79.811 Long term (current) use of aromatase inhibitors; Z79.899 Other long term (current) drug therapy
CPT/HCPCS: 74176; 80048; 80076; 81000; 81015; 82550; 82553; 83605; 83690; 84484; 85025; 87086; 93005; 93041; 96361; 96374; 99285; J2765

== ENCOUNTER → 2022-05-01 | Outpatient (REF) | payer MEDICARE, MEDICAID ==
[~2022-05-01] MED LIST changes: +REGL5TAB2 PO
== END ==
LOC: M SFHCPLAZ 17:23
PROVIDERS: ATTEND Physician Assistant
DX: R39.9 Unspecified symptoms and signs involving the genitourinary system (principal)

== ENCOUNTER → 2022-05-08 | Outpatient (REF) | payer MEDICARE, MEDICAID | LOC: M SFHCPLAZ 17:14 | PROVIDERS: ATTEND Physician Assistant | DX: R39.198 Other difficulties with micturition (principal) ==

== ENCOUNTER → 2022-05-28 | Outpatient (CLI) | payer MEDICARE, MEDICAID | LOC: M RAD 13:40 | PROVIDERS: ATTEND Physician Assistant | DX: N18.9 Chronic kidney disease, unspecified (principal) ==

== ENCOUNTER → 2022-06-30 | Outpatient (CLI) | payer MEDICARE, MEDICAID ==
[~2022-06-30] MED LIST changes: +ACET650T61 PO; +CALC1CAP31 PO; +CEFD300CAP PO; +HYDR-3713 PO; +NYAM10003 TOP
[2022-06-30 18:24] LABS: ALBUMIN 3.7 G/DL (3.2-5.2); BILIRUBIN,TOTAL 0.2 MG/DL (0.3-1.2); CALCIUM LEVEL 9.3 MG/DL (8.5-10.1); CHOLESTEROL RISK RATIO 3.35 (<5); CREATININE FOR GFR 1.45 MG/DL (0.55-1.30); GLOMERULAR FILTRATION RATE 40.7 (>51); HDL CHOLESTEROL 50.9 MG/DL (>40); LDL CHOLESTEROL 54.5 MG/DL (<100); POTASSIUM SERUM 4.5 MMOL/L (3.5-5.1); TOTAL PROTEIN 6.7 G/DL (5.7-8.2)
[2022-06-30 18:27] LABS: HEMATOCRIT 35.3 % (36.0-47.0); MEAN CORPUSCULAR HEMOGLOBIN 26.8 pg (27.0-33.0); MEAN CORPUSCULAR HGB CONC 31.2 g/dl (32.0-36.5); MEAN CORPUSCULAR VOLUME 85.9 fl (80.0-96.0); PLATELET COUNT, AUTOMATED 407 10^3/uL (150-450); RED BLOOD COUNT 4.11 10^6/uL (4.00-5.40); TOTAL 25(OH) VITAMIN D 63.4 NG/ML (20.0-100.0); WHITE BLOOD COUNT 8.6 10^3/uL (4.0-10.0)
[2022-06-30 18:38] LABS: HEMOGLOBIN A1c 6.2 % (4.0-6.0)
== END ==
LOC: M PLALAB 14:49
PROVIDERS: ATTEND Nurse Practitioner Adult Health
DX: E55.9 Vitamin D deficiency, unspecified (principal); E11.9 Type 2 diabetes mellitus without complications; Z98.890 Other specified postprocedural states; Z79.899 Other long term (current) drug therapy

== ENCOUNTER 2022-07-09 14:59 | Observation (INO) | payer MEDICARE, MEDICAID ==
[~2022-07-09] VITALS: Ht 165.1 cm; Wt 89.9 kg
[~2022-07-09 14:59] MED LIST changes: -ACET650T61 PO; -CALC1CAP31 PO; -CEFD300CAP PO; -HYDR-3713 PO; -NYAM10003 TOP
[2022-07-09] MEDS ORDERED: CALC1CAP31 PO (15:24)
[2022-07-09 16:01] LABS: BASO # 0.1 10^3/uL (0.0-0.2); BASO % 0.6 % (0.0-1.0); EOS # 0.7 10^3/uL (0.0-0.5); HEMATOCRIT 33.6 % (36.0-47.0); HEMOGLOBIN 10.7 g/dl (12.0-15.5); LYMPH # 3.4 10^3/uL (1.5-5.0); LYMPH % 32.7 % (24.0-44.0); MEAN CORPUSCULAR HEMOGLOBIN 27.2 pg (27.0-33.0); MEAN CORPUSCULAR HGB CONC 31.8 g/dl (32.0-36.5); MEAN CORPUSCULAR VOLUME 85.5 fl (80.0-96.0); MONO # 0.9 10^3/uL (0.0-0.8); MONO % 8.5 % (2.0-8.0); NEUTROPHILS # 5.2 10^3/uL (1.5-8.5); NEUTROPHILS % 50.9 % (36.0-66.0); PLATELET COUNT, AUTOMATED 384 10^3/uL (150-450); RED BLOOD COUNT 3.93 10^6/uL (4.00-5.40); WHITE BLOOD COUNT 10.3 10^3/uL (4.0-10.0)
[2022-07-09 16:26] LABS: LIPASE 55 U/L (12-53)
[2022-07-09 16:31] LABS: ALBUMIN 3.6 G/DL (3.2-5.2); ALKALINE PHOSPHATASE 107 U/L (46-116); ALT/SGPT 27 U/L (7.0-40); AST/SGOT 20 U/L (<34); BILIRUBIN,DIRECT < 0.1 MG/DL (<0.4); BILIRUBIN,TOTAL < 0.2 MG/DL (0.3-1.2); BLOOD UREA NITROGEN 25 MG/DL (9-23); CALCIUM LEVEL 9.1 MG/DL (8.5-10.1); CARBON DIOXIDE LEVEL 27 MMOL/L (20-31); CHLORIDE LEVEL 105 MMOL/L (98-107); CREATININE FOR GFR 1.72 MG/DL (0.55-1.30); GLOMERULAR FILTRATION RATE 33.4 (>51); GLUCOSE, FASTING 95 MG/DL (60-100); POTASSIUM SERUM 4.9 MMOL/L (3.5-5.1); SODIUM LEVEL 138 MMOL/L (136-145); TOTAL PROTEIN 6.5 G/DL (5.7-8.2)
[2022-07-09] MEDS ORDERED: NS 1,000 ML IV ONE (17:25)
[2022-07-09] MEDS ORDERED: ONDANSETRON 4MG 2ML VIAL IV ONE (17:40)
[2022-07-09] MEDS ORDERED: cefTRIAXone SOD 1 GM in D5W MINI-BAG PLUS 50 ML IV ONE (19:55)
[2022-07-09] MEDS ORDERED: GLUCAGON INJ 1MG VIAL SC PRN (22:40)
[2022-07-09] MEDS ORDERED: DEXTROSE 50% 50ML SYRINGE IV PRN (22:40)
[2022-07-09] MEDS ORDERED: GLUCOSE 4GM CHEW TABLET PO PRN (22:40)
[2022-07-09] MEDS ORDERED: ACET650T61 PO (22:46)
[2022-07-09] MEDS ORDERED: NYAM10003 TOP (22:46)
[2022-07-09] MEDS ORDERED: HOME MED LIST COMPLETE! XX SCH (22:50)
[2022-07-09 23:00] VITALS: BP 140/86
[2022-07-09] MEDS: INSULIN LISPRO (NovoLOG) PER UNIT SC SCH (23:17)
[2022-07-09] MEDS ORDERED: ACETAMINOPHEN TAB 650MG DOSE (2X325MG) PO PRN (23:30)
[2022-07-10 04:55] VITALS: BP 131/83
[2022-07-10] MEDS ORDERED: FOSFOMYCIN TROMETHAMINE 3 GM POWDER PACKET (MONUROL) PO ONE (05:00)
[2022-07-10] MEDS: HEPARIN SOD (PORCINE) 5000UNITS/ML 1ML VIAL/SYRINGE SC SCH ×3 (05:01→22:00)
[2022-07-10 06:31] LABS: HEMATOCRIT 31.5 % (36.0-47.0); HEMOGLOBIN 10.1 g/dl (12.0-15.5); MEAN CORPUSCULAR HEMOGLOBIN 27.3 pg (27.0-33.0); MEAN CORPUSCULAR HGB CONC 32.1 g/dl (32.0-36.5); MEAN CORPUSCULAR VOLUME 85.1 fl (80.0-96.0); PLATELET COUNT, AUTOMATED 342 10^3/uL (150-450); WHITE BLOOD COUNT 8.1 10^3/uL (4.0-10.0)
[2022-07-10 06:58] LABS: CALCIUM LEVEL 9.3 MG/DL (8.5-10.1); CREATININE FOR GFR 1.47 MG/DL (0.55-1.30); GLOMERULAR FILTRATION RATE 40.1 (>51); POTASSIUM SERUM 4.8 MMOL/L (3.5-5.1)
[2022-07-10] MEDS: INSULIN LISPRO (NovoLOG) PER UNIT SC SCH ×4 (08:55→21:00)
[2022-07-10] MEDS ORDERED: LISINOPRIL *2.5 MG* TAB PO SCH (09:00)
[2022-07-10] MEDS: PANTOPRAZOLE 40MG TAB (PROTONIX) PO SCH ×2 (09:03→22:07)
[2022-07-10] MEDS: PREGABALIN 100 MG CAP (LYRICA) PO SCH ×2 (09:03→22:07)
[2022-07-10] MEDS: buPROPion **XL** TABLET 150MG (WELLBUTRIN XL) PO SCH (09:03)
[2022-07-10] MEDS: ACETAMINOPHEN TAB 650MG DOSE (2X325MG) PO PRN ×2 (10:32→16:09)
[2022-07-10 14:00] VITALS: BP 126/81
[2022-07-10] MEDS ORDERED: cefTRIAXone SOD 1 GM in D5W MINI-BAG PLUS 50 ML IV SCH ×2 (20:00→21:00)
[2022-07-10 20:41] VITALS: BP 125/84
[2022-07-10] MEDS ORDERED: SIMVASTATIN 20 MG TAB PO SCH (21:00)
[2022-07-10] MEDS ORDERED: NORCO, ANEXSIA 5/325MG TABLET (HYDROcodone/ACETAMINOPHEN) PO PRN (21:40)
[2022-07-10] MEDS ORDERED: oxyBUTYnin 5 MG TAB PO PRN (21:40)
[2022-07-10] MEDS ORDERED: KETOROLAC 30 MG/ML 1ML VIAL IV ONE (21:45)
[2022-07-11 05:41] VITALS: BP 121/80
[2022-07-11] MEDS: HEPARIN SOD (PORCINE) 5000UNITS/ML 1ML VIAL/SYRINGE SC SCH (06:00)
[2022-07-11] MEDS: INSULIN LISPRO (NovoLOG) PER UNIT SC SCH ×2 (07:30→12:00)
[2022-07-11 07:51] LABS: HEMATOCRIT 32.1 % (36.0-47.0); HEMOGLOBIN 10.3 g/dl (12.0-15.5); MEAN CORPUSCULAR HEMOGLOBIN 27.1 pg (27.0-33.0); MEAN CORPUSCULAR HGB CONC 32.1 g/dl (32.0-36.5); MEAN CORPUSCULAR VOLUME 84.5 fl (80.0-96.0); PLATELET COUNT, AUTOMATED 337 10^3/uL (150-450); WHITE BLOOD COUNT 6.7 10^3/uL (4.0-10.0)
[2022-07-11 08:22] LABS: CALCIUM LEVEL 8.8 MG/DL (8.5-10.1); CREATININE FOR GFR 1.47 MG/DL (0.55-1.30); GLOMERULAR FILTRATION RATE 40.1 (>51); POTASSIUM SERUM 4.5 MMOL/L (3.5-5.1)
[2022-07-11] MEDS: PANTOPRAZOLE 40MG TAB (PROTONIX) PO SCH (09:37)
[2022-07-11] MEDS: buPROPion **XL** TABLET 150MG (WELLBUTRIN XL) PO SCH (09:37)
[2022-07-11] MEDS: PREGABALIN 100 MG CAP (LYRICA) PO SCH (09:38)
[2022-07-11] MEDS ORDERED: HYDR-3715 PO (09:46)
[2022-07-11] MEDS ORDERED: CEFD300CAP PO (09:46)
[2022-07-11] MEDS ORDERED: HYDR-3713 PO (10:13)
== END 2022-07-11 12:48 | disposition home or self-care (01) ==
LOC: M ED 14:59 → M ED INP 15:00 → UNDOADMOB 15:00 → M ED INP 20:41 → UNDOADMOB 20:41 → ENRESERV 21:28 → M MSPAV 22:00 → M ED INP 22:00 → UNDODISOB 07-11 12:48
PROVIDERS: ADMIT Internal Medicine; ATTEND Internal Medicine
DX: N12 Tubulo-interstitial nephritis, not specified as acute or chronic (principal); B96.20 Unspecified Escherichia coli [E. coli] as the cause of diseases classified elsewhere; R10.31 Right lower quadrant pain; N18.30 Chronic kidney disease, stage 3 unspecified; E11.21 Type 2 diabetes mellitus with diabetic nephropathy; E11.22 Type 2 diabetes mellitus with diabetic chronic kidney disease; F32.A Depression, unspecified; F41.9 Anxiety disorder, unspecified; M79.7 Fibromyalgia; I12.9 Hypertensive chronic kidney disease with stage 1 through stage 4 chronic kidney disease, or unspecified chronic kidney disease; E78.5 Hyperlipidemia, unspecified; Z98.84 Bariatric surgery status; Z91.048 Other nonmedicinal substance allergy status; Z88.7 Allergy status to serum and vaccine; Z88.5 Allergy status to narcotic agent; Z88.8 Allergy status to other drugs, medicaments and biological substances; Z79.899 Other long term (current) drug therapy; Z79.84 Long term (current) use of oral hypoglycemic drugs
CPT/HCPCS: 36415; 74176; 76705; 80048; 80076; 81001; 83605; 83690; 85025; 85027; 87040; 87088; 87186; 87635; 93005; 96361; 96365; 96375; 96376; 97161; 97165; 99284; G0378; J0696; J1885; J2405

== ENCOUNTER 2022-08-25 10:18 | Day surgery (SDC) | payer MEDICARE, MEDICAID ==
[~2022-08-25] VITALS: Ht 165.1 cm; Wt 91.2 kg
[~2022-08-25 10:18] MED LIST changes: +ACET650T61 PO; +CALC1CAP31 PO; +CEFD300CAP PO; +GLIM2TAB4 PO; +HYDR-3713 PO; +NS 1,000 ML IV ONE; +NYAM10003 TOP
[2022-08-25] MEDS ORDERED: propofoL 200 MG/20 ML VIAL As Ordered ONE (10:48)
[2022-08-25] MEDS ORDERED: LIDOCAINE 2% 100MG/5ML SDV (FOR ANES.) As Ordered ONE (10:48)
[2022-08-25] MEDS ORDERED: fentaNYL 100 MCG/2 ML INJECTION As Ordered ONE (10:48)
[2022-08-25 11:25] VITALS: BP 124/85
== END 2022-08-25 11:59 | disposition home or self-care (01) ==
LOC: M OPP 10:18
PROVIDERS: ATTEND Internal Medicine Gastroenterology
DX: K22.89 Other specified disease of esophagus (principal); K21.00 Gastro-esophageal reflux disease with esophagitis, without bleeding; Z98.84 Bariatric surgery status; Z79.51 Long term (current) use of inhaled steroids; Z79.02 Long term (current) use of antithrombotics/antiplatelets; Z79.899 Other long term (current) drug therapy; Z79.891 Long term (current) use of opiate analgesic; Z88.5 Allergy status to narcotic agent; Z88.7 Allergy status to serum and vaccine; Z88.8 Allergy status to other drugs, medicaments and biological substances; Z91.048 Other nonmedicinal substance allergy status
CPT/HCPCS: 43239; 88305; J3010

== ENCOUNTER → 2022-09-15 | Outpatient (CLI) | payer MEDICAID, MEDICARE, OTHER ==
[~2022-09-15] MED LIST changes: +BARIUM SULFATE 700 MG TABLET (E-Z-DISK) As Ordered ONE; +E-Z-GAS II EFFERVESCENT PACKET (SODIUM BICARB./CITRIC ACID/SIMETHICONE) As Ordered ONE; +E-Z-PAQUE 96% w/w SUSP 176GM BTL As Ordered ONE; -NS 1,000 ML IV ONE; +VARIBAR NECTAR 40% w/v 240ML SUSP BTL As Ordered ONE; +VARIBAR PUDDING 40% w/v 230ML TUBE As Ordered ONE
== END ==
LOC: M RAD 12:14
PROVIDERS: ATTEND Internal Medicine
DX: T17.300A Unspecified foreign body in larynx causing asphyxiation, initial encounter (principal)

== ENCOUNTER → 2022-09-17 | Outpatient (CLI) | payer MEDICAID, MEDICARE ==
[~2022-09-17] MED LIST changes: -BARIUM SULFATE 700 MG TABLET (E-Z-DISK) As Ordered ONE; +E-Z-HD 98% w/w 340GM SUSP BTL As Ordered ONE; -VARIBAR NECTAR 40% w/v 240ML SUSP BTL As Ordered ONE; -VARIBAR PUDDING 40% w/v 230ML TUBE As Ordered ONE
== END ==
LOC: M RAD 08:08
PROVIDERS: ATTEND Internal Medicine Gastroenterology
DX: R10.13 Epigastric pain (principal); Z98.84 Bariatric surgery status

== ENCOUNTER → 2022-09-28 | Outpatient (CLI) | payer MEDICARE, MEDICAID ==
[~2022-09-28] MED LIST changes: -E-Z-GAS II EFFERVESCENT PACKET (SODIUM BICARB./CITRIC ACID/SIMETHICONE) As Ordered ONE; -E-Z-HD 98% w/w 340GM SUSP BTL As Ordered ONE; -E-Z-PAQUE 96% w/w SUSP 176GM BTL As Ordered ONE
[2022-09-28 17:40] LABS: ALBUMIN 3.6 G/DL (3.2-5.2); BILIRUBIN,TOTAL 0.2 MG/DL (0.3-1.2); CREATININE FOR GFR 1.49 MG/DL (0.55-1.30); GLOMERULAR FILTRATION RATE 39.3 (>51); POTASSIUM SERUM 5.1 MMOL/L (3.5-5.1); TOTAL PROTEIN 6.5 G/DL (5.7-8.2)
[2022-09-28 17:42] LABS: THYROID STIMULATING HORMONE 1.986 uIU/ML (0.55-4.78)
[2022-09-28 18:53] LABS: APPEARANCE, URINE HAZY (CLEAR); BACTERIA, URINE AUTO 1+ (NEGATIVE); BILIRUBIN, URINE AUTO NEGATIVE (NEGATIVE); BLOOD, URINE BLOOD NEGATIVE (NEGATIVE); COLOR, URINE YELLOW (YELLOW); GLUCOSE, URINE (UA) AUTO NEGATIVE (NEGATIVE); KETONE, URINE AUTO NEGATIVE (NEGATIVE); LEUKOCYTE ESTERASE, URINE AUTO 3+ (NEGATIVE); MUCUS, URINE SMALL (NEGATIVE); NITRITE, URINE AUTO NEGATIVE (NEGATIVE); PROTEIN, URINE AUTO NEGATIVE (NEGATIVE); RBC, URINE AUTO 3 /HPF (0-3); SPECIFIC GRAVITY URINE AUTO 1.009 (1.002-1.035); SQUAMOUS EPITHELIAL CELL UR AU 2 /HPF (0-6); UROBILINOGEN, URINE AUTO 0.2 mg/dL (0.0-2.0); WBC, URINE AUTO 106 /HPF (0-3)
== END ==
LOC: M PLALAB 15:30
PROVIDERS: ATTEND Nurse Practitioner Adult Health
DX: R35.0 Frequency of micturition (principal); E11.9 Type 2 diabetes mellitus without complications

== ENCOUNTER → 2022-10-06 | Outpatient (CLI) | payer MEDICARE, MEDICAID ==
[~2022-10-06] MED LIST changes: +E-Z-HD 98% w/w 340GM SUSP BTL As Ordered ONE; +E-Z-PAQUE 96% w/w SUSP 176GM BTL As Ordered ONE
== END ==
LOC: M RAD 07:39
PROVIDERS: ATTEND Internal Medicine Gastroenterology
DX: R10.13 Epigastric pain (principal); Z98.84 Bariatric surgery status; K44.9 Diaphragmatic hernia without obstruction or gangrene

== ENCOUNTER → 2023-02-08 | Outpatient (CLI) | payer MEDICARE, MEDICAID ==
[~2023-02-08] MED LIST changes: -E-Z-HD 98% w/w 340GM SUSP BTL As Ordered ONE; -PREG100C PO; +PREG100C2 PO; -PREG150C PO; +PREG150C2 PO; -PREG200C PO; +PREG200C2 PO; -PREG75CA2 PO; +PREG75CA3 PO
== END ==
LOC: M RAD 09:14
PROVIDERS: ATTEND Internal Medicine Gastroenterology
DX: K59.00 Constipation, unspecified (principal)

== ENCOUNTER → 2023-03-16 | Outpatient (CLI) | payer MEDICARE, MEDICAID ==
[~2023-03-16] MED LIST changes: -E-Z-PAQUE 96% w/w SUSP 176GM BTL As Ordered ONE
[2023-03-16 14:36] LABS: HEMOGLOBIN A1c 6.5 % (4.0-6.0)
[2023-03-16 14:52] LABS: BILIRUBIN,TOTAL 0.2 MG/DL (0.3-1.2); CALCIUM LEVEL 9.7 MG/DL (8.5-10.1); CHOLESTEROL RISK RATIO 3.93 (<5); CREATININE FOR GFR 1.43 MG/DL (0.55-1.30); GLOMERULAR FILTRATION RATE 41.2 (>51); LDL CHOLESTEROL 64.6 MG/DL (<100); POTASSIUM SERUM 4.9 MMOL/L (3.5-5.1); TOTAL PROTEIN 7.2 G/DL (5.7-8.2)
[2023-03-16 14:53] LABS: THYROID STIMULATING HORMONE 1.267 uIU/ML (0.55-4.78)
== END ==
LOC: M PLALAB 11:18
PROVIDERS: ATTEND Nurse Practitioner Adult Health
DX: E11.9 Type 2 diabetes mellitus without complications (principal); E55.9 Vitamin D deficiency, unspecified; E78.2 Mixed hyperlipidemia

== ENCOUNTER → 2023-05-20 | Outpatient (REF) | payer MEDICARE, MEDICAID ==
[~2023-05-20] MED LIST changes: -EFFE150C2 PO; +EFFE150C3 PO; -EFFE37.5 PO; +EFFE37.52 PO
[2023-05-20 16:35] LABS: ALBUMIN 3.7 G/DL (3.2-5.2); BILIRUBIN,TOTAL 0.2 MG/DL (0.3-1.2); CALCIUM LEVEL 9.6 MG/DL (8.5-10.1); CREATININE FOR GFR 1.39 MG/DL (0.55-1.30); GLOMERULAR FILTRATION RATE 42.6 (>51); POTASSIUM SERUM 4.5 MMOL/L (3.5-5.1)
[2023-05-20 16:51] LABS: HEMOGLOBIN A1c 6.2 % (4.0-6.0)
== END ==
LOC: M LABDRAWP 15:20
PROVIDERS: ATTEND Nurse Practitioner Adult Health
DX: E11.9 Type 2 diabetes mellitus without complications (principal)

== ENCOUNTER → 2023-06-22 | Outpatient (REF) | payer MEDICARE, MEDICAID ==
[~2023-06-22] MED LIST changes: +MULT1TAB8 PO; +PROA1AER2 INH
== END ==
LOC: M SFHCPLAZ 16:59
PROVIDERS: ATTEND Student in an Organized Health Care Education/Training Program
DX: N30.90 Cystitis, unspecified without hematuria (principal)

== ENCOUNTER 2023-07-09 10:06 | Observation (INO) | payer MEDICARE, MEDICAID ==
[2023-07-09] MEDS: METOCLOPRAMIDE INJ 10MG/2ML VIAL IV ONE (11:33)
[2023-07-09 11:35] LABS: BASO % 0.3 % (0.0-1.0); EOS % 0.1 % (0.0-3.0); HEMATOCRIT 35.3 % (36.0-47.0); HEMOGLOBIN 11.6 g/dl (12.0-15.5); LYMPH # 2.6 10^3/uL (1.5-5.0); LYMPH % 21.7 % (24.0-44.0); MEAN CORPUSCULAR HEMOGLOBIN 25.9 pg (27.0-33.0); MEAN CORPUSCULAR HGB CONC 32.9 g/dl (32.0-36.5); MEAN CORPUSCULAR VOLUME 78.8 fl (80.0-96.0); MONO # 0.5 10^3/uL (0.0-0.8); MONO % 4.5 % (2.0-8.0); NEUTROPHILS # 8.7 10^3/uL (1.5-8.5); NEUTROPHILS % 73.1 % (36.0-66.0); PLATELET COUNT, AUTOMATED 477 10^3/uL (150-450); RED BLOOD COUNT 4.48 10^6/uL (4.00-5.40)
[2023-07-09 12:00] LABS: ALBUMIN 3.9 G/DL (3.2-5.2); BILIRUBIN,DIRECT 0.1 MG/DL (<0.4); BILIRUBIN,TOTAL 0.4 MG/DL (0.3-1.2); TOTAL PROTEIN 7.1 G/DL (5.7-8.2)
[2023-07-09 12:17] LABS: RSV AMPLIFICATION NEGATIVE (NEGATIVE)
[2023-07-09] MEDS ORDERED: ISOVUE-370 76% 100ML VIAL As Ordered ONE (12:32)
[2023-07-09] MEDS: GASTROGRAFIN SOLUTION 30ML PO SCH (12:53)
[2023-07-09] MEDS ORDERED: ATOG60TA PO (13:41)
[2023-07-09] MEDS ORDERED: MV-M1TAB40 PO (13:41)
[2023-07-09] MEDS ORDERED: GABA-284 PO (13:41)
[2023-07-09] MEDS ORDERED: PANT-23 PO (13:41)
[2023-07-09] MEDS ORDERED: TRUL10IN SQ (13:41)
[2023-07-09] MEDS ORDERED: EQL50TAB2 PO (13:41)
[2023-07-09] MEDS ORDERED: HOME MED LIST COMPLETE! XX SCH (13:45)
[2023-07-09] MEDS: ONDANSETRON 4MG 2ML VIAL IV ONE (14:47)
[2023-07-09] MEDS: HALOPERIDOL 5MG/ML 1ML VIAL IV ONE (14:49)
[2023-07-09] MEDS: NS 1,000 ML IV SCH (14:50)
[2023-07-09] MEDS ORDERED: MIDAZOLAM INJ 2MG/2ML VIAL As Ordered ONE (16:13)
[2023-07-09] MEDS ORDERED: fentaNYL 100 MCG/2 ML INJECTION As Ordered ONE (16:14)
[2023-07-09] MEDS ORDERED: propofoL 200 MG/20 ML VIAL As Ordered ONE (16:15)
[2023-07-09] MEDS ORDERED: ONDANSETRON 4MG 2ML VIAL As Ordered ONE (16:15)
[2023-07-09] MEDS ORDERED: LIDOCAINE 2% 100MG/5ML SDV (FOR ANES.) As Ordered ONE (16:17)
[2023-07-09] MEDS ORDERED: ROCURONIUM BROMIDE 50MG/5ML VIAL As Ordered ONE (16:17)
[2023-07-09] MEDS ORDERED: INSULIN LISPRO (NovoLOG) PER UNIT SC PRN (16:55)
[2023-07-09] MEDS ORDERED: GLUCOSE 4GM CHEW TABLET PO PRN (16:55)
[2023-07-09] MEDS ORDERED: oxyCODONE 5MG TAB PO PRN (16:55)
[2023-07-09] MEDS ORDERED: DEXTROSE 50% 50ML SYRINGE IV PRN (16:55)
[2023-07-09] MEDS ORDERED: GLUCAGON INJ 1MG VIAL SC PRN (16:55)
[2023-07-09] MEDS ORDERED: PROMETHAZINE 25MG/ML 1ML VIAL IV PRN (16:55)
[2023-07-09] MEDS ORDERED: NS 1,000 ML IV SCH (16:55)
[2023-07-09] MEDS ORDERED: fentaNYL 100 MCG/2 ML INJECTION IV PRN (16:55)
[2023-07-09] MEDS ORDERED: ONDANSETRON 4MG 2ML VIAL IV PRN ×2 (16:55→18:10)
[2023-07-09] MEDS ORDERED: HYDROMORPHONE HCL 0.5 MG/ 0.5 ML SYRINGE IV PRN (16:55)
[2023-07-09] MEDS ORDERED: LABETALOL 100MG/20ML VIAL As Ordered ONE (17:04)
[2023-07-09] MEDS ORDERED: ACETAMINOPHEN 1000MG 100ML IV BAG As Ordered ONE (17:05)
[2023-07-09] MEDS ORDERED: SUGAMMADEX SODIUM 500 MG/5 ML VIAL (BRIDION) As Ordered ONE (18:05)
[2023-07-09] MEDS ORDERED: LABETALOL 100MG/20ML VIAL IV PRN (18:10)
[2023-07-09] MEDS ORDERED: ALBUTEROL 90 MCG/ACT 8GM HFA INHALER INH PRN (18:10)
[2023-07-09 20:30] VITALS: BP 146/74; TEMP 97.6; O2SAT 98
[2023-07-09] MEDS: LR 1,000 ML IV SCH (20:40)
[2023-07-09 21:00] VITALS: BP 125/83; TEMP 97.4; O2SAT 98
[2023-07-09] MEDS: SENOKOT S TAB PO SCH (21:00)
[2023-07-09] MEDS: MIRALAX *UNIT DOSE* 17GM PACKET PO SCH (21:00)
[2023-07-09] MEDS: PANTOPRAZOLE 40MG VIAL IV SCH (21:52)
[2023-07-09] MEDS: SUCRALFATE 1 GM TAB PO SCH (21:53)
[2023-07-09] MEDS: GABAPENTIN 400MG CAP PO SCH (21:53)
[2023-07-09 22:00] VITALS: BP 139/77; TEMP 97.8; O2SAT 97
[2023-07-09 23:00] VITALS: BP 118/82; TEMP 97.5; O2SAT 98
[2023-07-10] VITALS (7 sets, daily range): BP systolic 125–149; BP diastolic 69–88; TEMP 97.1–98.6; O2SAT 94–100
[2023-07-10 05:59] LABS: BASO % 0.2 % (0.0-1.0); EOS % 0.1 % (0.0-3.0); HEMATOCRIT 31.8 % (36.0-47.0); HEMOGLOBIN 10.4 g/dl (12.0-15.5); LYMPH # 2.2 10^3/uL (1.5-5.0); MEAN CORPUSCULAR HEMOGLOBIN 26.4 pg (27.0-33.0); MEAN CORPUSCULAR HGB CONC 32.7 g/dl (32.0-36.5); MEAN CORPUSCULAR VOLUME 80.7 fl (80.0-96.0); MONO # 0.7 10^3/uL (0.0-0.8); MONO % 7.2 % (2.0-8.0); PLATELET COUNT, AUTOMATED 386 10^3/uL (150-450); RED BLOOD COUNT 3.94 10^6/uL (4.00-5.40)
[2023-07-10 06:28] LABS: CALCIUM LEVEL 8.6 MG/DL (8.5-10.1); CREATININE FOR GFR 1.18 MG/DL (0.55-1.30); GLOMERULAR FILTRATION RATE 51.4 (>51); PHOSPHORUS LEVEL 4.9 MG/DL (2.5-4.9); POTASSIUM SERUM 4.3 MMOL/L (3.5-5.1)
[2023-07-10] MEDS: NYSTATIN 100,000 UNITS/GM TOPICAL PWD 15GM TOP SCH (09:00)
[2023-07-10] MEDS: buPROPion **XL** TABLET 150MG (WELLBUTRIN XL) PO SCH (09:59)
[2023-07-10] MEDS: LISINOPRIL *2.5 MG* TAB PO SCH (10:00)
[2023-07-10] MEDS: INSULIN LISPRO (NovoLOG) PER UNIT SC SCH ×3 (12:00→20:49)
[2023-07-10] MEDS: ACETAMINOPHEN TAB 650MG DOSE (2X325MG) PO PRN (16:19)
[2023-07-10] MEDS: ENOXAPARIN 40MG/0.4ML SYRINGE (J1650 PER 10MG) SC SCH (20:48)
[2023-07-10] MEDS: CALCITRIOL 0.25 MCG CAP (S0169) PO SCH (20:49)
[2023-07-10] MEDS: SIMVASTATIN 20 MG TAB PO SCH (20:49)
[2023-07-10] MEDS ORDERED: PANTOPRAZOLE 40MG TAB (PROTONIX) PO SCH (21:00)
[2023-07-11 04:07] VITALS: BP 131/78; TEMP 98.6; O2SAT 93
[2023-07-11 06:42] LABS: BASO # 0.1 10^3/uL (0.0-0.2); BASO % 0.9 % (0.0-1.0); EOS # 0.3 10^3/uL (0.0-0.5); EOS % 3.2 % (0.0-3.0); HEMATOCRIT 30.5 % (36.0-47.0); HEMOGLOBIN 9.9 g/dl (12.0-15.5); LYMPH # 3.5 10^3/uL (1.5-5.0); LYMPH % 42.9 % (24.0-44.0); MEAN CORPUSCULAR HEMOGLOBIN 26.1 pg (27.0-33.0); MEAN CORPUSCULAR HGB CONC 32.5 g/dl (32.0-36.5); MEAN CORPUSCULAR VOLUME 80.3 fl (80.0-96.0); MONO # 0.6 10^3/uL (0.0-0.8); MONO % 7.6 % (2.0-8.0); NEUTROPHILS # 3.7 10^3/uL (1.5-8.5); NEUTROPHILS % 45.2 % (36.0-66.0); PLATELET COUNT, AUTOMATED 360 10^3/uL (150-450); WHITE BLOOD COUNT 8.1 10^3/uL (4.0-10.0)
[2023-07-11 07:19] LABS: CALCIUM LEVEL 8.3 MG/DL (8.5-10.1); CREATININE FOR GFR 1.33 MG/DL (0.55-1.30); GLOMERULAR FILTRATION RATE 44.8 (>51); POTASSIUM SERUM 4.1 MMOL/L (3.5-5.1)
[2023-07-11 08:16] VITALS: BP 133/81
[2023-07-11] MEDS ORDERED: PANT-23 PO (09:55)
[2023-07-11] MEDS ORDERED: SUCR1TA PO (09:55)
[2023-07-11] MEDS ORDERED: SENN-122 PO (09:58)
[2023-07-11] MEDS ORDERED: DULC10SU2 PR (09:58)
[2023-07-11] MEDS ORDERED: MIRA33506 PO (09:58)
[2023-07-11] MEDS: BISACODYL 10MG SUPP PR ONE (12:31)
== END 2023-07-11 13:13 | disposition home or self-care (01) ==
LOC: M ED 10:06 → EDSEX 10:06 → EDBD 10:06 → M ED INP 10:07 → M MSPAV 18:55 → M PCU 20:22 → M MSPAV 07-10 21:07
PROVIDERS: ADMIT Internal Medicine; ATTEND Internal Medicine
DX: R11.2 Nausea with vomiting, unspecified (principal); T18.2XXA Foreign body in stomach, initial encounter; T18.128A Food in esophagus causing other injury, initial encounter; K44.9 Diaphragmatic hernia without obstruction or gangrene; E87.29 Other acidosis; I10 Essential (primary) hypertension; E11.9 Type 2 diabetes mellitus without complications; N18.9 Chronic kidney disease, unspecified; Z98.84 Bariatric surgery status; Z88.7 Allergy status to serum and vaccine; E66.01 Morbid (severe) obesity due to excess calories; Z88.5 Allergy status to narcotic agent; Z88.8 Allergy status to other drugs, medicaments and biological substances; Z79.899 Other long term (current) drug therapy
CPT/HCPCS: 36415; 43247; 74177; 80047; 80048; 80076; 82150; 83605; 83690; 84100; 85025; 87631; 93005; 93041; 96361; 96372; 96374; 96375; 96376; 99284; C9113; G0378; J0131; J1100; J1630; J1650; J1920; J2250; J2405; J2765; J3010; Q9963; Q9967

== ENCOUNTER → 2023-07-26 | Outpatient (CLI) | payer MEDICARE, MEDICAID ==
[~2023-07-26] MED LIST changes: +ATOG60TA PO; +DULC10SU2 PR; +EQL50TAB2 PO; +GABA-284 PO; +MIRA33506 PO; +MV-M1TAB40 PO; +SENN-122 PO; +SUCR1TA PO; +TRUL10IN SQ
[2023-07-26 13:16] LABS: BASO # 0.1 10^3/uL (0.0-0.2); BASO % 0.6 % (0.0-1.0); EOS # 0.6 10^3/uL (0.0-0.5); EOS % 7.7 % (0.0-3.0); HEMATOCRIT 37.9 % (36.0-47.0); HEMOGLOBIN 11.8 g/dl (12.0-15.5); LYMPH # 2.6 10^3/uL (1.5-5.0); LYMPH % 32.7 % (24.0-44.0); MEAN CORPUSCULAR HEMOGLOBIN 25.8 pg (27.0-33.0); MEAN CORPUSCULAR HGB CONC 31.1 g/dl (32.0-36.5); MEAN CORPUSCULAR VOLUME 82.9 fl (80.0-96.0); MONO # 0.7 10^3/uL (0.0-0.8); NEUTROPHILS % 49.9 % (36.0-66.0); PLATELET COUNT, AUTOMATED 499 10^3/uL (150-450); RED BLOOD COUNT 4.57 10^6/uL (4.00-5.40); WHITE BLOOD COUNT 8.1 10^3/uL (4.0-10.0)
[2023-07-26 13:28] LABS: ERYTHROCYTE SEDIMENTATION RATE 55 mm/hr (0-30)
[2023-07-26 13:32] LABS: C REACTIVE PROTEIN QUANTITATIV < 0.40 MG/DL (<1.0); URIC ACID 5.1 MG/DL (3.1-7.8)
[2023-07-26 13:34] LABS: RHEUMATOID FACTOR QUANT 7.7 IU/ML (<14)
== END ==
LOC: M PLALAB 09:32
PROVIDERS: ATTEND Physician Assistant
DX: M25.552 Pain in left hip (principal); M25.562 Pain in left knee

== ENCOUNTER 2023-08-20 07:07 | Day surgery (SDC) | payer MEDICARE, MEDICAID ==
[~2023-08-20] VITALS: Ht 165.1 cm; Wt 86.2 kg
[~2023-08-20 07:07] MED LIST changes: +propofoL 200 MG/20 ML VIAL As Ordered ONE
[2023-08-20] MEDS: NS 1,000 ML IV ONE (07:31)
[2023-08-20 08:26] VITALS: TEMP 98.9
[2023-08-20 08:45] VITALS: BP 116/68; O2SAT 99
== END 2023-08-20 09:02 | disposition home or self-care (01) ==
LOC: M OPP 07:07
PROVIDERS: ATTEND Internal Medicine Gastroenterology
DX: Z12.11 Encounter for screening for malignant neoplasm of colon (principal); Z12.12 Encounter for screening for malignant neoplasm of rectum; K52.9 Noninfective gastroenteritis and colitis, unspecified; E11.40 Type 2 diabetes mellitus with diabetic neuropathy, unspecified; I12.9 Hypertensive chronic kidney disease with stage 1 through stage 4 chronic kidney disease, or unspecified chronic kidney disease; E78.00 Pure hypercholesterolemia, unspecified; K21.9 Gastro-esophageal reflux disease without esophagitis; E03.9 Hypothyroidism, unspecified; Z98.84 Bariatric surgery status; Z79.899 Other long term (current) drug therapy; Z79.84 Long term (current) use of oral hypoglycemic drugs; Z88.5 Allergy status to narcotic agent; Z88.8 Allergy status to other drugs, medicaments and biological substances; Z79.85 Long-term (current) use of injectable non-insulin antidiabetic drugs; J45.909 Unspecified asthma, uncomplicated; E11.22 Type 2 diabetes mellitus with diabetic chronic kidney disease; N18.30 Chronic kidney disease, stage 3 unspecified; Z90.710 Acquired absence of both cervix and uterus

== ENCOUNTER → 2023-10-18 | Outpatient (CLI) | payer MEDICARE, MEDICAID ==
[~2023-10-18] MED LIST changes: +BUPR-597 PO; -BUPR300T92 PO; -propofoL 200 MG/20 ML VIAL As Ordered ONE
[2023-10-18 13:13] LABS: BASO # 0.1 10^3/uL (0.0-0.2); BASO % 1.1 % (0.0-1.0); EOS # 0.8 10^3/uL (0.0-0.5); EOS % 7.6 % (0.0-3.0); HEMATOCRIT 38.9 % (36.0-47.0); HEMOGLOBIN 12.2 g/dl (12.0-15.5); MEAN CORPUSCULAR HEMOGLOBIN 25.5 pg (27.0-33.0); MEAN CORPUSCULAR HGB CONC 31.4 g/dl (32.0-36.5); MEAN CORPUSCULAR VOLUME 81.2 fl (80.0-96.0); NEUTROPHILS # 5.3 10^3/uL (1.5-8.5); NEUTROPHILS % 51.9 % (36.0-66.0); PLATELET COUNT, AUTOMATED 555 10^3/uL (150-450); RED BLOOD COUNT 4.79 10^6/uL (4.00-5.40); WHITE BLOOD COUNT 10.2 10^3/uL (4.0-10.0)
[2023-10-18 13:23] LABS: ERYTHROCYTE SEDIMENTATION RATE 72 mm/hr (0-30)
[2023-10-20 01:56] LABS: IgG P18 AB NON-REACTIVE; IgG P23 AB NON-REACTIVE; IgG P28 AB NON-REACTIVE; IgG P30 AB NON-REACTIVE; IgG P39 AB REACTIVE; IgG P41 AB REACTIVE; IgG P45 AB NON-REACTIVE; IgG P58 AB REACTIVE; IgG P66 AB NON-REACTIVE; IgG P93 AB REACTIVE; IgM P23 AB NON-REACTIVE; IgM P39 AB NON-REACTIVE; IgM P41 AB NON-REACTIVE; LYME IgG WB INTERPRETATION NEGATIVE (NEGATIVE); LYME IgM WB INTERPRETATION NEGATIVE (NEGATIVE)
[2023-10-20 18:49] LABS: LYME TOTAL ANTIBODY CIA <= 0.90 Index (<=0.90)
== END ==
LOC: M PLALAB 11:02
PROVIDERS: ATTEND Physician Assistant
DX: M76.52 Patellar tendinitis, left knee (principal); E11.9 Type 2 diabetes mellitus without complications

== ENCOUNTER → 2023-10-18 | Outpatient (CLI) | payer MEDICARE, MEDICAID ==
[2023-10-18 13:24] LABS: HEMOGLOBIN A1c 6.3 % (4.0-6.0)
[2023-10-18 13:44] LABS: BILIRUBIN,TOTAL 0.2 MG/DL (0.3-1.2); CALCIUM LEVEL 9.6 MG/DL (8.5-10.1); CREATININE FOR GFR 1.33 MG/DL (0.55-1.30); GLOMERULAR FILTRATION RATE 44.6 (>51); POTASSIUM SERUM 5.4 MMOL/L (3.5-5.1); TOTAL PROTEIN 7.2 G/DL (5.7-8.2)
== END ==
LOC: M PLALAB 11:00
PROVIDERS: ATTEND Nurse Practitioner Adult Health
DX: E11.9 Type 2 diabetes mellitus without complications (principal)

== ENCOUNTER → 2023-11-11 | Outpatient (CLI) | payer MEDICARE, MEDICAID ==
[~2023-11-11] MED LIST changes: +GASTROGRAFIN SOLUTION 30ML As Ordered ONE; +ISOVUE-370 76% 100ML VIAL As Ordered ONE
== END ==
LOC: M RAD 09:29
PROVIDERS: ATTEND Surgery
DX: K44.9 Diaphragmatic hernia without obstruction or gangrene (principal); K76.0 Fatty (change of) liver, not elsewhere classified
CPT/HCPCS: 74178; Q9963; Q9967

== ENCOUNTER 2024-01-17 07:48 | Day surgery (SDC) | payer MEDICARE, MEDICAID ==
[~2024-01-17] VITALS: Ht 170.2 cm; Wt 79.7 kg
[~2024-01-17 07:48] MED LIST changes: -GASTROGRAFIN SOLUTION 30ML As Ordered ONE; -ISOVUE-370 76% 100ML VIAL As Ordered ONE; +TRUL0.5I; +propofoL 200 MG/20 ML VIAL As Ordered ONE
[2024-01-17] MEDS: NS 1,000 ML IV ONE (08:45)
[2024-01-17 10:05] VITALS: BP 134/83; TEMP 98.4; O2SAT 98
== END 2024-01-17 10:18 | disposition home or self-care (01) ==
LOC: M OPP 07:48
PROVIDERS: ATTEND Internal Medicine Gastroenterology
DX: Z12.11 Encounter for screening for malignant neoplasm of colon (principal); Z12.12 Encounter for screening for malignant neoplasm of rectum; K21.9 Gastro-esophageal reflux disease without esophagitis; K76.0 Fatty (change of) liver, not elsewhere classified; Z98.84 Bariatric surgery status; E11.9 Type 2 diabetes mellitus without complications; I10 Essential (primary) hypertension; E78.00 Pure hypercholesterolemia, unspecified; E05.00 Thyrotoxicosis with diffuse goiter without thyrotoxic crisis or storm; Z79.899 Other long term (current) drug therapy; Z90.710 Acquired absence of both cervix and uterus; Z79.85 Long-term (current) use of injectable non-insulin antidiabetic drugs; Z88.8 Allergy status to other drugs, medicaments and biological substances; Z88.5 Allergy status to narcotic agent; Z91.048 Other nonmedicinal substance allergy status

== ENCOUNTER → 2024-01-24 | Outpatient (CLI) | payer MEDICARE, MEDICAID ==
[~2024-01-24] MED LIST changes: -propofoL 200 MG/20 ML VIAL As Ordered ONE
[2024-01-24 16:20] LABS: HEMOGLOBIN A1c 7.2 % (4.0-6.0)
== END ==
LOC: M PLALAB 11:28
PROVIDERS: ATTEND Nurse Practitioner Adult Health
DX: E11.9 Type 2 diabetes mellitus without complications (principal)

== ENCOUNTER → 2024-03-29 | Outpatient (CLI) | payer MEDICAID, MEDICARE, OTHER ==
[~2024-03-29] MED LIST changes: +PROHANCE 279.3MG/ML 15ML VIAL ONE
== END ==
LOC: M PLAIMG 08:54
PROVIDERS: ATTEND Physician Assistant
DX: H90.3 Sensorineural hearing loss, bilateral (principal)
CPT/HCPCS: 70553; A9576

== ENCOUNTER → 2024-05-23 | Outpatient (CLI) | payer MEDICARE, MEDICAID ==
[~2024-05-23] MED LIST changes: -PROHANCE 279.3MG/ML 15ML VIAL ONE
[2024-05-23 15:19] LABS: FREE T4 1.48 NG/DL (0.89-1.76); THYROID STIMULATING HORMONE 2.58 uIU/ML (0.55-4.78)
[2024-05-23 15:21] LABS: ALBUMIN 3.5 G/DL (3.2-5.2); BILIRUBIN,TOTAL 0.2 MG/DL (0.3-1.2); CHOLESTEROL RISK RATIO 3.3 (<5); CREATININE FOR GFR 1.5 MG/DL (0.55-1.30); GLOMERULAR FILTRATION RATE 38.8 (>51); HDL CHOLESTEROL 56.3 MG/DL (>40); LDL CHOLESTEROL 71.1 MG/DL (<100); NON-HDL-C 129.7 MG/DL; POTASSIUM SERUM 4.3 MMOL/L (3.5-5.1); TOTAL PROTEIN 6.5 G/DL (5.7-8.2)
[2024-05-23 15:34] LABS: HEMATOCRIT 40.6 % (36.0-47.0); HEMOGLOBIN 12.8 g/dl (12.0-15.5); MEAN CORPUSCULAR HEMOGLOBIN 26.7 pg (27.0-33.0); MEAN CORPUSCULAR HGB CONC 31.5 g/dl (32.0-36.5); MEAN CORPUSCULAR VOLUME 84.8 fl (80.0-96.0); PLATELET COUNT, AUTOMATED 393 10^3/uL (150-450); RED BLOOD COUNT 4.79 10^6/uL (4.00-5.40); WHITE BLOOD COUNT 9.1 10^3/uL (4.0-10.0)
[2024-05-23 16:00] LABS: HEMOGLOBIN A1c 6.9 % (4.0-6.0)
== END ==
LOC: M PLALAB 10:26
PROVIDERS: ATTEND Nurse Practitioner Adult Health
DX: Z98.890 Other specified postprocedural states (principal); E11.9 Type 2 diabetes mellitus without complications; E78.2 Mixed hyperlipidemia; I10 Essential (primary) hypertension

== ENCOUNTER → 2024-05-26 | Outpatient (CLI) | payer MEDICARE, MEDICAID | LOC: M PLARAD 10:42 | PROVIDERS: ATTEND Orthopaedic Surgery | DX: M47.22 Other spondylosis with radiculopathy, cervical region (principal); M50.322 Other cervical disc degeneration at C5-C6 level; M50.323 Other cervical disc degeneration at C6-C7 level ==

== ENCOUNTER 2024-06-22 06:34 | Day surgery (SDC) | payer MEDICARE, MEDICAID ==
[~2024-06-22] VITALS: Ht 165.1 cm; Wt 76.1 kg
[2024-06-22] MEDS ORDERED: propofoL 200 MG/20 ML VIAL As Ordered ONE (07:02)
[2024-06-22] MEDS ORDERED: LIDOCAINE 2% 100MG/5ML SDV (FOR ANES.) As Ordered ONE (07:02)
[2024-06-22 07:45] VITALS: TEMP 97.3
[2024-06-22 08:05] VITALS: BP 143/90; O2SAT 100
== END 2024-06-22 08:12 | disposition home or self-care (01) ==
LOC: M OPP 06:34
PROVIDERS: ATTEND Internal Medicine Gastroenterology
DX: Z12.11 Encounter for screening for malignant neoplasm of colon (principal); Z88.5 Allergy status to narcotic agent; Z88.8 Allergy status to other drugs, medicaments and biological substances; Z91.048 Other nonmedicinal substance allergy status; Z79.891 Long term (current) use of opiate analgesic; Z79.85 Long-term (current) use of injectable non-insulin antidiabetic drugs; Z79.899 Other long term (current) drug therapy; J45.909 Unspecified asthma, uncomplicated; Z98.84 Bariatric surgery status